=== PATIENT | female | born 1945 | race Caucasian/White ===

== ENCOUNTER 2018-01-21 17:22 | Inpatient (IN) | payer MEDICARE, MEDICAID ==
[~2018-01-21] VITALS: Ht 167.6 cm; Wt 81.7 kg
--- NOTE | 2018-01-21 17:51 | EKG ---
[address] [address] Test Date: 2018-01-21 Test Time: 17:43:05 Pat Name: JOSETTE MARTINEZ Department: Room: Gender: F Rate Reviewer: THEO : 1945 Requested By: NEHA DANIEL Order Number: [id number] Reading MD: Davi Alvarez Measurements Intervals [place] Rate: 60 P: 39 AL: 170 QRS: -25 QRSD: 136 T: -159 QT: 452 QTc: 452 Interpretive Statements SINUS RHYTHM LEFTWARD AXIS NON SPECIFIC INTRAVENTRICULAR BLOCK ABNORMAL ECG RI6.01 No previous ECG available for comparison Electronically Signed On 02-03-2018 16:07:23 CDT by Davi Alvarez
--- NOTE | 2018-01-21 18:33 | PHYS DOC ---
Adult General Chief Complaint Chief Complaint: PSYCH EVALUATION HPI HPI Patient is a 72 year old F who presents with [facility] psych clearance. [facility] to be admitted to [facility]. Patient has no family at bedside. Patient is alert and oriented to person only. Review of Systems Review of Systems Review of systems Limited secondary to patient's clinical condition All other systems were reviewed and found to be within normal limits, except as documented in this note. Physical Exam Physical Exam GEN.: No apparent distress. Alert and oriented. HEENT: Head is normocephalic, atraumatic NECK: Supple. LUNGS: CTAB. HEART: RRR, S1, S2 present. Peripheral pulses intact ABDOMEN: Soft, nontender. Positive bowel sounds. EXTREMITIES: Without any cyanosis. NEUROLOGIC: AOx1 with no gross neuro deficits PSYCHIATRIC: Confused SKIN: No ulcerations Current Patient Data Vital Signs Laboratory Tests Test 01/21/18 17:30 01/21/18 17:50 Urine Collection Type Unknown Urine Color Yellow Urine Clarity Cloudy Urine pH 8.0 Urine Specific [place] 1.015 Urine Protein Trace Urine Glucose (UA) Neg mg/dL Urine Ketones (Stick) Neg mg/dL Urine Blood Trace Urine Nitrite Pos Urine Bilirubin Neg Urine Urobilinogen Dipstick 0.2 mg/dL Urine Leukocyte Esterase Large Urine RBC 20-40 /HPF Urine WBC >40 /HPF Urine Squamous Epithelial Cells Few /LPF Urine Amorphous Sediment Present /HPF Urine Bacteria Many /HPF White Blood Count 4.8 x10^3/uL Red Blood Count 3.51 x10^6/uL Hemoglobin 9.7 g/dL Hematocrit 30.0 % Mean Corpuscular Volume 86 fL Mean Corpuscular Hemoglobin 28 pg Mean Corpuscular Hemoglobin Concent 32 g/dL Red Cell Distribution Width 14.2 % Platelet Count 183 x10^3/uL Neutrophils (%) (Auto) 52 % Lymphocytes (%) (Auto) 35 % Monocytes (%) (Auto) 10 % Eosinophils (%) (Auto) 2 % Basophils (%) (Auto) 1 % Neutrophils # (Auto) 2.5 x10^3uL Lymphocytes # (Auto) 1.7 x10^3/uL Monocytes # (Auto) 0.5 x10^3/uL Eosinophils # (Auto) 0.1 x10^3/uL Basophils # (Auto) 0.0 x10^3/uL Sodium Level 138 mmol/L Potassium Level 3.7 mmol/L Chloride Level 105 mmol/L Carbon Dioxide Level 25 mmol/L Anion Gap 8 Blood Urea Nitrogen 24 mg/dL Creatinine 1.2 mg/dL Estimated GFR (Cockcroft-Gault) 44.3 BUN/Creatinine Ratio 20 Glucose Level 133 mg/dL Calcium Level 10.0 mg/dL Total Bilirubin 0.1 mg/dL Aspartate Amino Transf (AST/SGOT) 18 U/L Alanine Aminotransferase (ALT/SGPT) 17 U/L Alkaline Phosphatase 41 U/L Total Protein 6.8 g/dL Albumin 3.1 g/dL Albumin/Globulin Ratio 0.8 EKG EKG 1743: EKG shows normal sinus rhythm rate of 16 no STEMI[] Radiology/Procedures Radiology/Procedures Chest x-ray NAD[] Course & Med Decision Making Course & Med Decision Making Pertinent Labs and Imaging studies reviewed. (See chart for details) ED course: Patient was seen and examined emergency room basic blood work was ordered for [facility] psych clearance It appears the patient has a UTI therefore 1 g Rocephin was given IM MDM: After reviewing the chart, CC/HPI/PMH, physical exam, [lab results], [ radiological results], I do not believe the patient has emergent medical condition warranting further workup and/or admission at this time. I believe patient stable to be transferred to [facility]. [] Dragon Disclaimer Dragon Disclaimer This electronic medical record was generated, in whole or in part, using a voice recognition dictation system. Departure Departure: Impression: Primary Impression: Dementia Additional Impression: UTI (urinary tract infection) Disposition: 65 XFER TO PSYCH HOSP/UNIT Condition: LEFT WITHOUT BEING SEEN Referrals: CHRISTIN THURSTON MD (PCP) Problem Qualifiers NEHA DANIEL DO Jan 21, 2018 18:33
[2018-01-21 18:35] LABS: BASO % 1 % (0-3); EOS # 0.1 x10^3/uL (0.0-0.7); EOS % 2 % (0-3); HEMOGLOBIN 9.7 g/dL (12.0-15.5); LYMPH # 1.7 x10^3/uL (1.0-4.8); LYMPH % 35 % (24-48); MEAN CORPUSCULAR HEMOGLOBIN 28 pg (25-35); MEAN CORPUSCULAR HGB CONC 32 g/dL (31-37); MEAN CORPUSCULAR VOLUME 86 fL (79-100); MONO # 0.5 x10^3/uL (0.0-1.1); MONO % 10 % (0-9); NEUT # 2.5 x10^3uL (1.8-7.7); NEUT % 52 % (31-73); PLATELET COUNT 183 x10^3/uL (140-400); RED BLOOD COUNT 3.51 x10^6/uL (3.50-5.40); RED CELL DISTRIBUTION WIDTH 14.2 % (11.5-14.5); WHITE BLOOD COUNT 4.8 x10^3/uL (4.0-11.0)
--- NOTE | 2018-01-21 18:43 | RAD ---
PORTABLE CHEST 1V Clinical indications: ALTERED MENTAL STATUS COMPARISON: None available. Findings: No acute lung infiltrate or pleural effusion or pulmonary edema or lung mass or pneumothorax is seen. The heart size, pulmonary vasculature, mediastinum and both paz are unremarkable. Surgical fixation hardware is seen within the proximal left humerus. Impression: No acute radiographic abnormality is seen. Electronically signed by: Rl Flores MD (01/21/2018 6:39 PM) [facility]
[2018-01-21 18:49] LABS: ALBUMIN 3.1 g/dL (3.4-5.0); ALBUMIN/GLOBULIN RATIO 0.8 (1.0-1.7); CREATININE 1.2 mg/dL (0.6-1.0); GFR 44.3; POTASSIUM 3.7 mmol/L (3.5-5.1); TOTAL BILIRUBIN 0.1 mg/dL (0.2-1.0); TOTAL PROTEIN 6.8 g/dL (6.4-8.2)
[2018-01-21 18:55] LABS: BILIRUBIN,URINE NEG (NEG); CLARITY,URINE CLOUDY; COLOR,URINE YELLOW; GLUCOSE,URINE NEG (NEG); NITRITE,URINE POS (NEG); UROBILINOGEN,URINE 0.2 mg/dL (0.2 mg/dL)
[2018-01-21 18:56] LABS: BACTERIA,URINE MANY /HPF (0-FEW); RBC,URINE 20-40 /HPF (0-2); SQUAMOUS EPITHELIAL CELL,UR FEW /LPF; WBC,URINE >40 /HPF (0-4)
[2018-01-21 18:57] LABS: AMORPHOUS SEDIMENT,UR PRESENT /HPF
[2018-01-21] MEDS ORDERED: cefTRIAXone IM 1 GM VIAL IM ONE (19:15)
[2018-01-21] MEDS ORDERED: BROMPHENIRAMINE PO PRN (22:00)
[2018-01-21] MEDS ORDERED: PSEUDOEPHEDRINE PO PRN (22:00)
[2018-01-21] MEDS ORDERED: CETIRIZINE HCL 10 MG TABLET PO PRN (22:00)
[2018-01-21] MEDS ORDERED: DIVALPROEX ER 500 MG TAB.ER.24H PO SCH (22:00)
[2018-01-21] MEDS ORDERED: TOPI100T8 PO (22:05)
[2018-01-21] MEDS ORDERED: POLY17PO5 PO (22:05)
[2018-01-21] MEDS ORDERED: OXYB10TA7 PO (22:05)
[2018-01-21] MEDS ORDERED: INSU100I17 SQ (22:05)
[2018-01-21] MEDS ORDERED: CYAN500T17 PO (22:05)
[2018-01-21] MEDS ORDERED: METF850T2 PO (22:05)
[2018-01-21] MEDS ORDERED: ATOR20TA58 PO (22:05)
[2018-01-21] MEDS ORDERED: FLUV50TA2 PO (22:05)
[2018-01-21] MEDS ORDERED: PANT20TA58 PO (22:05)
[2018-01-21] MEDS ORDERED: ACET500T68 PO (22:05)
[2018-01-21] MEDS ORDERED: FENO134C PO (22:05)
[2018-01-21] MEDS ORDERED: HYDR-2762 PO (22:05)
[2018-01-21] MEDS ORDERED: ASPI-630 PO (22:05)
[2018-01-21] MEDS ORDERED: BUSP10TA PO (22:05)
[2018-01-21] MEDS ORDERED: CETI10TA16 PO (22:05)
[2018-01-21] MEDS ORDERED: FERR325T14 PO (22:05)
[2018-01-21] MEDS ORDERED: [UNRECOGNIZED DRUG - CODE] PO (22:05)
[2018-01-21] MEDS ORDERED: INSU100I27 SQ (22:05)
[2018-01-21] MEDS ORDERED: NYST60PO TP (22:05)
[2018-01-21] MEDS ORDERED: LACT1CAP2 PO (22:05)
[2018-01-21] MEDS ORDERED: DIVA500T4 PO (22:05)
[2018-01-21] MEDS ORDERED: FLUV100T2 PO (22:05)
[2018-01-21] MEDS ORDERED: LEVO125T5 PO (22:05)
[2018-01-21] MEDS ORDERED: CALC1TAB75 PO (22:05)
[2018-01-21] MEDS ORDERED: METO25TA4 PO (22:05)
[2018-01-21] MEDS ORDERED: MAGN400C PO (22:05)
[2018-01-21] MEDS ORDERED: MEMA14CA PO (22:08)
[2018-01-21] MEDS ORDERED: MEMA7CAP PO (22:08)
[2018-01-21] MEDS ORDERED: RISP1TAB3 PO (22:08)
[2018-01-21 22:33] VITALS: BP 131/73
[2018-01-22] MEDS: MEMANTINE 5 MG TABLET. PO SCH ×3 (00:14→19:55)
[2018-01-22] MEDS: TOPIRAMATE 100 MG TABLET. PO SCH ×4 (00:14→19:58)
[2018-01-22] MEDS: ACETAMINOPHEN 500 MG TABLET PO SCH ×3 (00:14→19:56)
[2018-01-22] MEDS: busPIRone 10 MG TABLET. PO SCH ×3 (00:14→19:58)
[2018-01-22] MEDS: OXYBUTYNIN CHLORIDE 5 MG TABLET PO SCH ×3 (00:14→19:58)
[2018-01-22] MEDS ORDERED: NYSTATIN TOPICAL POWDER 15GM BOTTLE. TP PRN (00:15)
[2018-01-22] MEDS: INSULIN GLARGINE 300 UNITS/3 ML INSULN.PEN. SQ SCH ×2 (00:17→20:03)
[2018-01-22] MEDS: HYDROcodone/APAP 7.5/325MG 1 TAB TABLET PO PRN (03:44)
[2018-01-22] MEDS ORDERED: MAG HYDROX/AL HYDROX/SIMETH 30 ML ORAL.SUSP PO PRN (05:00)
[2018-01-22] MEDS ORDERED: METHYL SALICYLATE/MENTHOL TOPICAL OINTMENT 29GM TUBE. TP PRN (05:00)
[2018-01-22] MEDS ORDERED: MAGNESIUM HYDROXIDE 2,400 MG/30 ML ORAL.SUSP. PO PRN (05:00)
[2018-01-22 05:31] VITALS: BP 130/75
[2018-01-22] MEDS: LEVOTHYROXINE 125 MCG TABLET PO SCH (05:42)
[2018-01-22] MEDS ORDERED: PANTOPRAZOLE 40 MG TABLET. PO PRN (07:30)
[2018-01-22] MEDS: INSULIN LISPRO 300 UNITS/3 ML INSULN.PEN. SQ SCH ×3 (08:00→17:00)
[2018-01-22 08:01] LABS: ALBUMIN 3.4 g/dL (3.4-5.0); ALBUMIN/GLOBULIN RATIO 0.9 (1.0-1.7); CALCIUM 10.2 mg/dL (8.5-10.1); CREATININE 1.1 mg/dL (0.6-1.0); MAGNESIUM 2.1 mg/dL (1.8-2.4); POTASSIUM 4.2 mmol/L (3.5-5.1); TOTAL BILIRUBIN 0.2 mg/dL (0.2-1.0); TOTAL PROTEIN 7.4 g/dL (6.4-8.2)
[2018-01-22 08:03] LABS: BASO % 1 % (0-3); EOS # 0.1 x10^3/uL (0.0-0.7); EOS % 2 % (0-3); HEMATOCRIT 32.6 % (36.0-47.0); HEMOGLOBIN 10.3 g/dL (12.0-15.5); LYMPH # 1.5 x10^3/uL (1.0-4.8); LYMPH % 33 % (24-48); MEAN CORPUSCULAR HEMOGLOBIN 27 pg (25-35); MEAN CORPUSCULAR HGB CONC 32 g/dL (31-37); MEAN CORPUSCULAR VOLUME 86 fL (79-100); MONO # 0.4 x10^3/uL (0.0-1.1); MONO % 8 % (0-9); NEUT # 2.6 x10^3uL (1.8-7.7); NEUT % 56 % (31-73); PLATELET COUNT 213 x10^3/uL (140-400); RED BLOOD COUNT 3.79 x10^6/uL (3.50-5.40); RED CELL DISTRIBUTION WIDTH 14.5 % (11.5-14.5); WHITE BLOOD COUNT 4.6 x10^3/uL (4.0-11.0)
[2018-01-22 08:19] LABS: VAL ACID 39 mcg/mL (50-100)
[2018-01-22] MEDS: ASPIRIN 81 MG TAB.CHEW PO SCH (08:19)
[2018-01-22] MEDS: MAGNESIUM OXIDE 400 MG TABLET PO SCH (08:20)
[2018-01-22] MEDS: CYANOCOBALAMIN (VITAMIN B-12) 250 MCG TABLET PO SCH (08:21)
[2018-01-22] MEDS: metFORMIN 850 MG TABLET PO SCH ×2 (08:22→17:22)
[2018-01-22] MEDS: METOPROLOL TART IMMED RELEASE 25 MG TABLET PO SCH (08:22)
[2018-01-22] MEDS: FERROUS SULFATE 325 MG TABLET. PO SCH (08:22)
[2018-01-22] MEDS: LACTOBACILLUS RHAMNOSUS GG 1 CAPSULE. PO SCH ×2 (08:23→19:55)
[2018-01-22] MEDS: risperiDONE 1 MG TABLET. PO SCH (08:23)
[2018-01-22] MEDS: ATORVASTATIN CALCIUM 20 MG TABLET PO SCH (08:23)
[2018-01-22] MEDS: CALCIUM CARB/VIT D3 500/200 TABLET PO SCH (08:23)
[2018-01-22] MEDS: FENOFIBRATE NANOCRYSTALLIZED 145 MG TABLET PO SCH (08:23)
[2018-01-22] MEDS: POLYETHYLENE GLYCOL 3350 17 GM PACKET. PO SCH (08:24)
[2018-01-22] MEDS ORDERED: FLUVOXAMINE MALEATE 50 MG PO SCH (09:00)
[2018-01-22] MEDS ORDERED: MEMANTINE HCL 7 MG PO SCH (09:00)
[2018-01-22 14:44] LABS: THYROID STIM HORMONE (TSH) 1.293 uIU/mL (0.358-3.740)
[2018-01-22 16:21] VITALS: BP 134/71
[2018-01-22] MEDS: CHOLECALCIFEROL (VITAMIN D3) 50,000 UNIT CAPSULE PO SCH (18:25)
--- NOTE | 2018-01-22 18:29 | PDOC ---
Exam Note: Hemant Note: Please also refer to the separate dictated note~for this date of service dictated separately.~Patient seen individually. Discussed the patient with Nursing staff reviewed the chart.~Reviewed interim history and current functioning. Reviewed vital signs,~Labs/ Radiology~and current medications noted below. Continue current treatment with the changes noted in the dictated addendum note Assessment: Vital Signs: Vital Signs Date Time Temp Pulse Resp B/P (MAP) Pulse Ox O2 Delivery O2 Flow Rate FiO2 01/22/18 16:21 97.9 79 16 134/71 (92) 99 Room Air I&O Intake and Output 01/22/18 07:00 # Bowel Movements 1 Labs: Laboratory Tests Test 01/22/18 07:08 01/22/18 07:30 01/22/18 11:32 01/22/18 16:39 White Blood Count 4.6 x10^3/uL (4.0-11.0) Red Blood Count 3.79 x10^6/uL (3.50-5.40) Hemoglobin 10.3 g/dL (12.0-15.5) L Hematocrit 32.6 % (36.0-47.0) L Mean Corpuscular Volume 86 fL (79-100) Mean Corpuscular Hemoglobin 27 pg (25-35) Mean Corpuscular Hemoglobin Concent 32 g/dL (31-37) Red Cell Distribution Width 14.5 % (11.5-14.5) Platelet Count 213 x10^3/uL (140-400) Neutrophils (%) (Auto) 56 % (31-73) Lymphocytes (%) (Auto) 33 % (24-48) Monocytes (%) (Auto) 8 % (0-9) Eosinophils (%) (Auto) 2 % (0-3) Basophils (%) (Auto) 1 % (0-3) Neutrophils # (Auto) 2.6 x10^3uL (1.8-7.7) Lymphocytes # (Auto) 1.5 x10^3/uL (1.0-4.8) Monocytes # (Auto) 0.4 x10^3/uL (0.0-1.1) Eosinophils # (Auto) 0.1 x10^3/uL (0.0-0.7) Basophils # (Auto) 0.0 x10^3/uL (0.0-0.2) Sodium Level 141 mmol/L (136-145) Potassium Level 4.2 mmol/L (3.5-5.1) Chloride Level 106 mmol/L (98-107) Carbon Dioxide Level 23 mmol/L (21-32) Anion Gap 12 (6-14) Blood Urea Nitrogen 19 mg/dL (7-20) Creatinine 1.1 mg/dL (0.6-1.0) H Estimated GFR (Cockcroft-Gault) 49.0 BUN/Creatinine Ratio 17 (6-20) Glucose Level 118 mg/dL (70-99) H Calcium Level 10.2 mg/dL (8.5-10.1) H Magnesium Level 2.1 mg/dL (1.8-2.4) Iron Level 55 ug/dL (50-170) Total Iron Binding Capacity 438 ug/dL (250-450) Iron Saturation 13 % (15-34) L Total Bilirubin 0.2 mg/dL (0.2-1.0) # Aspartate Amino Transferase (AST) 17 U/L (15-37) Alanine Aminotransferase (ALT) 16 U/L (14-59) Alkaline Phosphatase 37 U/L (46-116) L Total Protein 7.4 g/dL (6.4-8.2) Albumin 3.4 g/dL (3.4-5.0) Albumin/Globulin Ratio 0.9 (1.0-1.7) L Triglycerides Level 164 mg/dL (0-150) H Cholesterol Level 127 mg/dL (0-200) LDL Cholesterol, Calculated 50 mg/dL (0-100) VLDL Cholesterol, Calculated 32 mg/dL (0-40) Non-HDL Cholesterol Calculated 82 mg/dL (0-129) HDL Cholesterol 45 mg/dL (40-60) Cholesterol/HDL Ratio 2.0 Vitamin B12 Level 457 pg/mL (247-911) 25-Hydroxy Vitamin D Total 23.9 ng/mL (30-100) L Thyroid Stimulating Hormone (TSH) 1.293 uIU/mL (0.358-3.740) Valproic Acid Level 39 mcg/mL (50-100) L Valproic Acid Last Dose Date 01/22/2018 Valproic Acid Last Dose Time 0000 Glucose (Fingerstick) 108 mg/dL (70-99) H 132 mg/dL (70-99) H 139 mg/dL (70-99) H Current Medications: Meds: Current Medications Ceftriaxone Sodium (Rocephin Im) 1 gm 1X ONCE IM Last administered on 19:18; Start 01/21/18 at 19:15; Stop 01/21/18 at 19:16; Status DC Acetaminophen (Tylenol) 500 mg BID PO Last administered on 01/22/18at 08:13; Start 01/21/18 at 22:00 Aspirin (Children'S Aspirin) 81 mg DAILY PO Last administered on 01/22/18 08: 19; Start 01/22/18 at 09:00 Cetirizine HCl (ZyrTEC) 10 mg PRN DAILY PRN PO ALLERGIES; Start 01/21/18 at 22: 00 Ferrous Sulfate (Feosol) 325 mg DAILY PO Last administered on 01/22/18at 08:22; Start 01/22/18 at 09:00 Acetaminophen/ Hydrocodone Bitart (Lortab 7.5/325) 1 tab PRN Q6HRS PRN PO MOD/ SEVERE PAIN Last administered on 01/22/18at 03:44; Start 01/21/18 at 22:00 Levothyroxine Sodium (Synthroid) 125 mcg DAILY06 PO Last administered on 05:42; Start 01/22/18 at 06:00 Metformin HCl (Glucophage) 850 mg BIDWMEALS PO Last administered on 01/22/18 17:22; Start 01/22/18 at 08:00 Metoprolol Tartrate (Lopressor) 25 mg DAILY PO Last administered on 01/22/18at 08:22; Start 01/22/18 at 09:00 Nystatin (Nystop) 1 soniya PRN BID PRN TP RASH; Start 01/21/18 at 22:00 Polyethylene Glycol (miraLAX) 17 gm DAILY PO Last administered on 01/22/18at 08: 24; Start 01/22/18 at 09:00 Topiramate (Topamax) 100 mg TID PO Last administered on 01/22/18at 14:44; Start 01/21/18 at 22:00 Calcium/Vitamin D (Oscal D 500mg/ 200uts) 1 tab DAILY PO Last administered on at 08:23; Start 01/22/18 at 09:00 Cyanocobalamin (Vitamin B-12) 250 mcg DAILY PO Last administered on 01/22/18 08:21; Start 01/22/18 at 09:00 Fenofibrate (Tricor) 145 mg DAILY PO Last administered on 01/22/18 08:23; Start 01/22/18 at 09:00 Insulin Glargine (Lantus) 24 units QHS SQ Last administered on 01/22/18 00:17 ; Start 01/21/18 at 22:00 Lactobacillus Rhamnosus (Culturelle) 1 cap BID PO Last administered on 08:23; Start 01/22/18 at 09:00 Magnesium Oxide (Magnesium Oxide) 200 mg DAILY PO Last administered on 08:20; Start 01/22/18 at 09:00 Oxybutynin Chloride (Ditropan) 5 mg BID PO Last administered on 01/22/18at 08:13 ; Start 01/21/18 at 22:00 Pantoprazole Sodium (Protonix) 40 mg PRN DAILY PRN PO NEEDED BEFORE A MEAL; Start 01/22/18 at 07:30 Non-Formulary Medication (Pseudoephedrine/ Brompheniramin (Rynex Pse Liquid)) 5 ml PRN TID PRN PO COUGH; Start 01/21/18 at 22:00; Stop 01/21/18 at 22:36; Status DC Atorvastatin Calcium (Lipitor) 20 mg DAILY PO Last administered on 01/22/18 08 :23; Start 01/22/18 at 09:00 Buspirone HCl (Buspar) 10 mg BID PO Last administered on 01/22/18at 08:13; Start 01/21/18 at 22:00 Divalproex Sodium (Depakote Er) 500 mg HS PO Last administered on 01/22/18 00: 15; Start 01/21/18 at 22:00; Stop 01/22/18 at 18:18; Status DC Fluvoxamine Maleate (Luvox) 100 mg QHS PO Last administered on 01/22/18at 00:15 ; Start 01/21/18 at 22:00 Risperidone (RisperDAL) 1 mg DAILY PO Last administered on 01/22/18 08:23; Start 01/22/18 at 09:00 Non-Formulary Medication (Fluvoxamine Maleate ) 50 mg DAILY PO ; Start 01/22/18 at 09:00; Stop 01/22/18 at 09:00; Status DC Non-Formulary Medication (Memantine Hcl (Namenda Xr)) 7 mg DAILY PO ; Start at 09:00; Stop 01/22/18 at 09:00; Status DC Memantine (Namenda) 5 mg BID PO Last administered on 01/22/18at 08:13; Start at 22:00 Insulin Human Lispro (HumaLOG) 0-10 UNITS TIDWMEALS SQ ; Start 01/22/18 at 08:00 Nystatin (Nystop) 1 soniya PRN BID PRN TP RASH; Start 01/22/18 at 00:15; Status Cancel Acetaminophen (Tylenol) 650 mg PRN Q6HRS PRN PO PAIN / TEMP; Start 01/22/18 at 05:00 Multi-Ingredient Ointment (Analgesic [place]) 1 soniya PRN QID PRN TP MUSCLE PAIN; Start 01/22/18 at 05:00 Al Hydroxide/Mg Hydroxide (Mylanta Plus Xs) 15 ml PRN AFTMEALHC PRN PO DYSPEPSIA; Start 01/22/18 at 05:00 Magnesium Hydroxide (Milk Of Magnesia) 2,400 mg PRN QHS PRN PO CONSTIPATION; Start 01/22/18 at 05:00 Vitamin D (Vitamin D3) 50,000 unit WEEKLY PO Last administered on 01/22/18at 18: 25; Start 01/22/18 at 18:00 Fluconazole (Diflucan) 100 mg DAILY PO ; Start 01/23/18 at 09:00 Cefpodoxime Proxetil (Vantin) 200 mg BID PO ; Start 01/22/18 at 21:00 Lactobacillus Rhamnosus (Culturelle) 1 cap BID PO ; Start 01/22/18 at 21:00; Stop 01/22/18 at 21:00; Status DC Divalproex Sodium (Depakote Er) 500 mg HS PO ; Start 01/22/18 at 21:00 Divalproex Sodium (Depakote Er) 250 mg QHS PO ; Start 01/22/18 at 21:00 Active Scripts Active Reported Risperidone 1 Mg Tablet 1 Mg PO DAILY Namenda Xr (Memantine Hcl) 14 Mg Cap.spr.24 14 Mg PO DAILY Namenda Xr (Memantine Hcl) 7 Mg Cap.spr.24 7 Mg PO DAILY Depakote Er (Divalproex Sodium) 500 Mg Tab.er.24h 500 Mg PO HS Buspirone Hcl 10 Mg Tablet 10 Mg PO BID Fenofibrate (Fenofibrate,Micronized) 134 Mg Capsule 134 Mg PO DAILY Fluvoxamine Maleate 100 Mg Tablet 1 Tab PO QHS Levemir Flextouch (Insulin Detemir) 100 Unit/1 Ml Insuln.pen 24 Unit SQ HS Novolog Flexpen (Insulin Aspart) 100 Unit/1 Ml Insuln.pen 0-10 Unit SQ TIDAC SLIDING SCALE INSULIN Magnesium (Magnesium Oxide) 400 Mg Capsule 250 Mg PO DAILY Levothyroxine Sodium 125 Mcg Tablet 125 Mcg PO DAILY06 Atorvastatin Calcium 20 Mg Tablet 20 Mg PO DAILY Fluvoxamine Maleate 50 Mg Tablet 50 Mg PO DAILY Acetaminophen 500 Mg Tablet 500 Mg PO BID Calcium 600 + Vit D 200 Tablet (Calcium Carbonate/Vitamin D3) 1 Each Tablet 1 Each PO DAILY B-12 (Cyanocobalamin (Vitamin B-12)) 500 Mcg Tablet 250 Mcg PO DAILY Acidophilus (Lactobacillus Acidophilus) 1 Each Capsule 1 Each PO BID Metformin Hcl 850 Mg Tablet 850 Mg PO BIDWMEALS Ferrous Sulfate 325 Mg Tablet 1 Tab PO DAILY Topiramate 100 Mg Tablet 100 Mg PO TID Metoprolol Tartrate 25 Mg Tablet 25 Mg PO DAILY Ditropan Xl (Oxybutynin Chloride) 10 Mg Tab.er.24 10 Mg PO DAILY Miralax (Polyethylene Glycol 3350) 17 Gm Powd.pack 17 Gm PO DAILY Aspirin 81 Mg Tab.chew 81 Mg PO DAILY Cetirizine Hcl 10 Mg Tablet 10 Mg PO PRN DAILY PRN Hydrocodone-Apap 7.5-325 (Hydrocodone Bit/Acetaminophen) 1 Each Tablet 1 Tab PO PRN Q6HRS PRN Rynex Pse Liquid (Pseudoephedrine/Brompheniramin) 473 Ml Liquid 5 Ml PO PRN TID PRN Protonix (Pantoprazole Sodium) 20 Mg Tablet.dr 20 Mg PO PRN DAILY PRN Nystop (Nystatin) 60 Gm Powder 1 Soniya TP PRN BID PRN I have reviewed the current psychotropics carefully including drug interactions. Risk benefit ratio favors no change other than as noted in my dictated progress note. Diagnosis: Problems: (1) Borderline intellectual disability (2) Anxiety disorder (3) Bipolar affective disorder, mixed (4) Dementia in Alzheimer's disease with delusions (5) Impulse control disorder (6) Borderline intellectual disability LAURITA DAVIS MD Jan 22, 2018 18:29
[2018-01-22 19:15] LABS: T3 TOTAL 90 ng/dL (71-180); THYROXINE 9.2 ug/dL (4.5-12.0)
[2018-01-22] MEDS: DIVALPROEX ER 500 MG TAB.ER.24H PO SCH (19:56)
[2018-01-22] MEDS: DIVALPROEX ER 250 MG TAB.ER.24H. PO SCH (19:57)
[2018-01-22] MEDS: CEFPODOXIME PROXETIL 100 MG TABLET PO SCH (20:01)
[2018-01-22] MEDS ORDERED: LACTOBACILLUS RHAMNOSUS GG 1 CAPSULE. PO SCH (21:00)
--- NOTE | 2018-01-22 21:07 | PDOC ---
Exam Note: Hemant Note: Please also refer to the separate dictated note~for this date of service dictated separately.~Patient seen individually. Discussed the patient with Nursing staff reviewed the chart.~Reviewed interim history and current functioning. Reviewed vital signs,~Labs/ Radiology~and current medications noted below. Continue current treatment with the changes noted in the dictated addendum note Assessment: Vital Signs: Vital Signs Date Time Temp Pulse Resp B/P (MAP) Pulse Ox O2 Delivery O2 Flow Rate FiO2 01/22/18 16:21 97.9 79 16 134/71 (92) 99 Room Air I&O Intake and Output 01/22/18 07:00 # Bowel Movements 1 Labs: Laboratory Tests Test 01/22/18 07:08 01/22/18 07:30 01/22/18 11:32 01/22/18 16:39 White Blood Count 4.6 x10^3/uL (4.0-11.0) Red Blood Count 3.79 x10^6/uL (3.50-5.40) Hemoglobin 10.3 g/dL (12.0-15.5) L Hematocrit 32.6 % (36.0-47.0) L Mean Corpuscular Volume 86 fL (79-100) Mean Corpuscular Hemoglobin 27 pg (25-35) Mean Corpuscular Hemoglobin Concent 32 g/dL (31-37) Red Cell Distribution Width 14.5 % (11.5-14.5) Platelet Count 213 x10^3/uL (140-400) Neutrophils (%) (Auto) 56 % (31-73) Lymphocytes (%) (Auto) 33 % (24-48) Monocytes (%) (Auto) 8 % (0-9) Eosinophils (%) (Auto) 2 % (0-3) Basophils (%) (Auto) 1 % (0-3) Neutrophils # (Auto) 2.6 x10^3uL (1.8-7.7) Lymphocytes # (Auto) 1.5 x10^3/uL (1.0-4.8) Monocytes # (Auto) 0.4 x10^3/uL (0.0-1.1) Eosinophils # (Auto) 0.1 x10^3/uL (0.0-0.7) Basophils # (Auto) 0.0 x10^3/uL (0.0-0.2) Sodium Level 141 mmol/L (136-145) Potassium Level 4.2 mmol/L (3.5-5.1) Chloride Level 106 mmol/L (98-107) Carbon Dioxide Level 23 mmol/L (21-32) Anion Gap 12 (6-14) Blood Urea Nitrogen 19 mg/dL (7-20) Creatinine 1.1 mg/dL (0.6-1.0) H Estimated GFR (Cockcroft-Gault) 49.0 BUN/Creatinine Ratio 17 (6-20) Glucose Level 118 mg/dL (70-99) H Calcium Level 10.2 mg/dL (8.5-10.1) H Magnesium Level 2.1 mg/dL (1.8-2.4) Iron Level 55 ug/dL (50-170) Total Iron Binding Capacity 438 ug/dL (250-450) Iron Saturation 13 % (15-34) L Total Bilirubin 0.2 mg/dL (0.2-1.0) # Aspartate Amino Transferase (AST) 17 U/L (15-37) Alanine Aminotransferase (ALT) 16 U/L (14-59) Alkaline Phosphatase 37 U/L (46-116) L Total Protein 7.4 g/dL (6.4-8.2) Albumin 3.4 g/dL (3.4-5.0) Albumin/Globulin Ratio 0.9 (1.0-1.7) L Triglycerides Level 164 mg/dL (0-150) H Cholesterol Level 127 mg/dL (0-200) LDL Cholesterol, Calculated 50 mg/dL (0-100) VLDL Cholesterol, Calculated 32 mg/dL (0-40) Non-HDL Cholesterol Calculated 82 mg/dL (0-129) HDL Cholesterol 45 mg/dL (40-60) Cholesterol/HDL Ratio 2.0 Vitamin B12 Level 457 pg/mL (247-911) 25-Hydroxy Vitamin D Total 23.9 ng/mL (30-100) L Thyroid Stimulating Hormone (TSH) 1.293 uIU/mL (0.358-3.740) Thyroxine (T4) 9.2 ug/dL (4.5-12.0) Total Triiodothyronine (TT3) 90 ng/dL (71-180) Valproic Acid Level 39 mcg/mL (50-100) L Valproic Acid Last Dose Date 01/22/2018 Valproic Acid Last Dose Time 0000 Rapid Plasma Reagin Pending Glucose (Fingerstick) 108 mg/dL (70-99) H 132 mg/dL (70-99) H 139 mg/dL (70-99) H Test 01/22/18 19:25 Glucose (Fingerstick) 214 mg/dL (70-99) H Current Medications: Meds: Current Medications Ceftriaxone Sodium (Rocephin Im) 1 gm 1X ONCE IM Last administered on 19:18; Start 01/21/18 at 19:15; Stop 01/21/18 at 19:16; Status DC Acetaminophen (Tylenol) 500 mg BID PO Last administered on 01/22/18 19:56; Start 01/21/18 at 22:00 Aspirin (Children'S Aspirin) 81 mg DAILY PO Last administered on 01/22/18 08: 19; Start 01/22/18 at 09:00 Cetirizine HCl (ZyrTEC) 10 mg PRN DAILY PRN PO ALLERGIES; Start 01/21/18 at 22: 00 Ferrous Sulfate (Feosol) 325 mg DAILY PO Last administered on 01/22/18at 08:22; Start 01/22/18 at 09:00 Acetaminophen/ Hydrocodone Bitart (Lortab 7.5/325) 1 tab PRN Q6HRS PRN PO MOD/ SEVERE PAIN Last administered on 01/22/18at 03:44; Start 01/21/18 at 22:00 Levothyroxine Sodium (Synthroid) 125 mcg DAILY06 PO Last administered on at 05:42; Start 01/22/18 at 06:00 Metformin HCl (Glucophage) 850 mg BIDWMEALS PO Last administered on 01/22/18 17:22; Start 01/22/18 at 08:00 Metoprolol Tartrate (Lopressor) 25 mg DAILY PO Last administered on 01/22/18at 08:22; Start 01/22/18 at 09:00 Nystatin (Nystop) 1 soniya PRN BID PRN TP RASH; Start 01/21/18 at 22:00 Polyethylene Glycol (miraLAX) 17 gm DAILY PO Last administered on 01/22/18at 08: 24; Start 01/22/18 at 09:00 Topiramate (Topamax) 100 mg TID PO Last administered on 01/22/18 19:58; Start 01/21/18 at 22:00 Calcium/Vitamin D (Oscal D 500mg/ 200uts) 1 tab DAILY PO Last administered on 08:23; Start 01/22/18 at 09:00 Cyanocobalamin (Vitamin B-12) 250 mcg DAILY PO Last administered on 01/22/18 08:21; Start 01/22/18 at 09:00 Fenofibrate (Tricor) 145 mg DAILY PO Last administered on 01/22/18 08:23; Start 01/22/18 at 09:00 Insulin Glargine (Lantus) 24 units QHS SQ Last administered on 01/22/18 20:03 ; Start 01/21/18 at 22:00 Lactobacillus Rhamnosus (Culturelle) 1 cap BID PO Last administered on 19:55; Start 01/22/18 at 09:00 Magnesium Oxide (Magnesium Oxide) 200 mg DAILY PO Last administered on at 08:20; Start 01/22/18 at 09:00 Oxybutynin Chloride (Ditropan) 5 mg BID PO Last administered on 01/22/18 19:58 ; Start 01/21/18 at 22:00 Pantoprazole Sodium (Protonix) 40 mg PRN DAILY PRN PO NEEDED BEFORE A MEAL; Start 01/22/18 at 07:30 Non-Formulary Medication (Pseudoephedrine/ Brompheniramin (Rynex Pse Liquid)) 5 ml PRN TID PRN PO COUGH; Start 01/21/18 at 22:00; Stop 01/21/18 at 22:36; Status DC Atorvastatin Calcium (Lipitor) 20 mg DAILY PO Last administered on 01/22/18 08 :23; Start 01/22/18 at 09:00 Buspirone HCl (Buspar) 10 mg BID PO Last administered on 01/22/18 19:58; Start 01/21/18 at 22:00 Divalproex Sodium (Depakote Er) 500 mg HS PO Last administered on 01/22/18at 00: 15; Start 01/21/18 at 22:00; Stop 01/22/18 at 18:18; Status DC Fluvoxamine Maleate (Luvox) 100 mg QHS PO Last administered on 01/22/18at 19:58 ; Start 01/21/18 at 22:00 Risperidone (RisperDAL) 1 mg DAILY PO Last administered on 01/22/18at 08:23; Start 01/22/18 at 09:00 Non-Formulary Medication (Fluvoxamine Maleate ) 50 mg DAILY PO ; Start 01/22/18 at 09:00; Stop 01/22/18 at 09:00; Status DC Non-Formulary Medication (Memantine Hcl (Namenda Xr)) 7 mg DAILY PO ; Start at 09:00; Stop 01/22/18 at 09:00; Status DC Memantine (Namenda) 5 mg BID PO Last administered on 01/22/18at 19:55; Start at 22:00 Insulin Human Lispro (HumaLOG) 0-10 UNITS TIDWMEALS SQ ; Start 01/22/18 at 08:00 Nystatin (Nystop) 1 soniya PRN BID PRN TP RASH; Start 01/22/18 at 00:15; Status Cancel Acetaminophen (Tylenol) 650 mg PRN Q6HRS PRN PO PAIN / TEMP; Start 01/22/18 at 05:00 Multi-Ingredient Ointment (Analgesic [place]) 1 soniya PRN QID PRN TP MUSCLE PAIN; Start 01/22/18 at 05:00 Al Hydroxide/Mg Hydroxide (Mylanta Plus Xs) 15 ml PRN AFTMEALHC PRN PO DYSPEPSIA; Start 01/22/18 at 05:00 Magnesium Hydroxide (Milk Of Magnesia) 2,400 mg PRN QHS PRN PO CONSTIPATION; Start 01/22/18 at 05:00 Vitamin D (Vitamin D3) 50,000 unit WEEKLY PO Last administered on 01/22/18at 18: 25; Start 01/22/18 at 18:00 Fluconazole (Diflucan) 100 mg DAILY PO ; Start 01/23/18 at 09:00 Cefpodoxime Proxetil (Vantin) 200 mg BID PO Last administered on 01/22/18at 20: 01; Start 01/22/18 at 21:00 Lactobacillus Rhamnosus (Culturelle) 1 cap BID PO ; Start 01/22/18 at 21:00; Stop 01/22/18 at 21:00; Status DC Divalproex Sodium (Depakote Er) 500 mg HS PO Last administered on 01/22/18at 19: 56; Start 01/22/18 at 21:00 Divalproex Sodium (Depakote Er) 250 mg QHS PO Last administered on 01/22/18at 19 :57; Start 01/22/18 at 21:00 Active Scripts Active Reported Risperidone 1 Mg Tablet 1 Mg PO DAILY Namenda Xr (Memantine Hcl) 14 Mg Cap.spr.24 14 Mg PO DAILY Namenda Xr (Memantine Hcl) 7 Mg Cap.spr.24 7 Mg PO DAILY Depakote Er (Divalproex Sodium) 500 Mg Tab.er.24h 500 Mg PO HS Buspirone Hcl 10 Mg Tablet 10 Mg PO BID Fenofibrate (Fenofibrate,Micronized) 134 Mg Capsule 134 Mg PO DAILY Fluvoxamine Maleate 100 Mg Tablet 1 Tab PO QHS Levemir Flextouch (Insulin Detemir) 100 Unit/1 Ml Insuln.pen 24 Unit SQ HS Novolog Flexpen (Insulin Aspart) 100 Unit/1 Ml Insuln.pen 0-10 Unit SQ TIDAC SLIDING SCALE INSULIN Magnesium (Magnesium Oxide) 400 Mg Capsule 250 Mg PO DAILY Levothyroxine Sodium 125 Mcg Tablet 125 Mcg PO DAILY06 Atorvastatin Calcium 20 Mg Tablet 20 Mg PO DAILY Fluvoxamine Maleate 50 Mg Tablet 50 Mg PO DAILY Acetaminophen 500 Mg Tablet 500 Mg PO BID Calcium 600 + Vit D 200 Tablet (Calcium Carbonate/Vitamin D3) 1 Each Tablet 1 Each PO DAILY B-12 (Cyanocobalamin (Vitamin B-12)) 500 Mcg Tablet 250 Mcg PO DAILY Acidophilus (Lactobacillus Acidophilus) 1 Each Capsule 1 Each PO BID Metformin Hcl 850 Mg Tablet 850 Mg PO BIDWMEALS Ferrous Sulfate 325 Mg Tablet 1 Tab PO DAILY Topiramate 100 Mg Tablet 100 Mg PO TID Metoprolol Tartrate 25 Mg Tablet 25 Mg PO DAILY Ditropan Xl (Oxybutynin Chloride) 10 Mg Tab.er.24 10 Mg PO DAILY Miralax (Polyethylene Glycol 3350) 17 Gm Powd.pack 17 Gm PO DAILY Aspirin 81 Mg Tab.chew 81 Mg PO DAILY Cetirizine Hcl 10 Mg Tablet 10 Mg PO PRN DAILY PRN Hydrocodone-Apap 7.5-325 (Hydrocodone Bit/Acetaminophen) 1 Each Tablet 1 Tab PO PRN Q6HRS PRN Rynex Pse Liquid (Pseudoephedrine/Brompheniramin) 473 Ml Liquid 5 Ml PO PRN TID PRN Protonix (Pantoprazole Sodium) 20 Mg Tablet.dr 20 Mg PO PRN DAILY PRN Nystop (Nystatin) 60 Gm Powder 1 Soniya TP PRN BID PRN I have reviewed the current psychotropics carefully including drug interactions. Risk benefit ratio favors no change other than as noted in my dictated progress note. Diagnosis: Problems: (1) Anxiety disorder (2) Impulse control disorder (3) Bipolar affective disorder, mixed (4) Borderline intellectual disability (5) Borderline intellectual disability (6) Dementia in Alzheimer's disease with delusions LAURITA DAVIS MD Jan 22, 2018 21:07
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
[2018-01-23 02:11] LABS: HEMOGLOBIN A1C 6.1 % (4.8-5.6)
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
[2018-01-23 06:00] VITALS: BP 151/76
[2018-01-23] MEDS: LEVOTHYROXINE 125 MCG TABLET PO SCH (06:27)
[2018-01-23] MEDS: INSULIN LISPRO 300 UNITS/3 ML INSULN.PEN. SQ SCH ×3 (08:00→16:33)
[2018-01-23] MEDS: ATORVASTATIN CALCIUM 20 MG TABLET PO SCH (10:57)
[2018-01-23] MEDS: CYANOCOBALAMIN (VITAMIN B-12) 250 MCG TABLET PO SCH (10:57)
[2018-01-23] MEDS: LACTOBACILLUS RHAMNOSUS GG 1 CAPSULE. PO SCH ×2 (10:57→20:30)
[2018-01-23] MEDS: metFORMIN 850 MG TABLET PO SCH ×2 (10:57→17:34)
[2018-01-23] MEDS: MEMANTINE 5 MG TABLET. PO SCH ×2 (10:57→20:30)
[2018-01-23] MEDS: MAGNESIUM OXIDE 400 MG TABLET PO SCH (10:58)
[2018-01-23] MEDS: FENOFIBRATE NANOCRYSTALLIZED 145 MG TABLET PO SCH (10:58)
[2018-01-23] MEDS: ASPIRIN 81 MG TAB.CHEW PO SCH (10:58)
[2018-01-23] MEDS: risperiDONE 1 MG TABLET. PO SCH (10:58)
[2018-01-23] MEDS: CALCIUM CARB/VIT D3 500/200 TABLET PO SCH (10:58)
[2018-01-23] MEDS: OXYBUTYNIN CHLORIDE 5 MG TABLET PO SCH ×2 (10:58→20:31)
[2018-01-23] MEDS: TOPIRAMATE 100 MG TABLET. PO SCH ×3 (10:58→20:31)
[2018-01-23] MEDS: busPIRone 10 MG TABLET. PO SCH ×2 (10:58→20:30)
[2018-01-23] MEDS: METOPROLOL TART IMMED RELEASE 25 MG TABLET PO SCH (10:59)
[2018-01-23] MEDS: CEFPODOXIME PROXETIL 100 MG TABLET PO SCH ×2 (10:59→20:31)
[2018-01-23] MEDS: FERROUS SULFATE 325 MG TABLET. PO SCH (10:59)
[2018-01-23] MEDS: ACETAMINOPHEN 500 MG TABLET PO SCH ×2 (10:59→20:30)
[2018-01-23] MEDS: FLUCONAZOLE 100 MG TABLET. PO SCH (11:00)
[2018-01-23] MEDS: POLYETHYLENE GLYCOL 3350 17 GM PACKET. PO SCH (11:01)
[2018-01-23 16:19] VITALS: BP 126/67
[2018-01-23] MEDS: DIVALPROEX ER 250 MG TAB.ER.24H. PO SCH (20:31)
[2018-01-23] MEDS: DIVALPROEX ER 500 MG TAB.ER.24H PO SCH (20:31)
[2018-01-23] MEDS: INSULIN GLARGINE 300 UNITS/3 ML INSULN.PEN. SQ SCH (20:32)
--- NOTE | 2018-01-23 20:57 | PDOC ---
Exam Note: Hemant Note: Please also refer to the separate dictated note~for this date of service dictated separately.~Patient seen individually. Discussed the patient with Nursing staff reviewed the chart.~Reviewed interim history and current functioning. Reviewed vital signs,~Labs/ Radiology~and current medications noted below. Continue current treatment with the changes noted in the dictated addendum note Assessment: Vital Signs: Vital Signs Date Time Temp Pulse Resp B/P (MAP) Pulse Ox O2 Delivery O2 Flow Rate FiO2 01/23/18 16:19 97.3 72 16 126/67 (86) 100 01/22/18 16:21 Room Air I&O Intake and Output 01/23/18 07:00 Intake Total 1200 ml Balance 1200 ml Intake Oral 1200 ml # Bowel Movements 2 Labs: Laboratory Tests Test 01/23/18 07:25 01/23/18 11:59 01/23/18 16:13 01/23/18 19:31 Glucose (Fingerstick) 89 mg/dL (70-99) 121 mg/dL (70-99) H 93 mg/dL (70-99) 162 mg/dL (70-99) H Current Medications: Meds: Current Medications Ceftriaxone Sodium (Rocephin Im) 1 gm 1X ONCE IM Last administered on at 19:18; Start 01/21/18 at 19:15; Stop 01/21/18 at 19:16; Status DC Acetaminophen (Tylenol) 500 mg BID PO Last administered on 01/23/18at 20:30; Start 01/21/18 at 22:00 Aspirin (Children'S Aspirin) 81 mg DAILY PO Last administered on 01/23/18at 10: 58; Start 01/22/18 at 09:00 Cetirizine HCl (ZyrTEC) 10 mg PRN DAILY PRN PO ALLERGIES; Start 01/21/18 at 22: 00 Ferrous Sulfate (Feosol) 325 mg DAILY PO Last administered on 01/23/18at 10:59; Start 01/22/18 at 09:00 Acetaminophen/ Hydrocodone Bitart (Lortab 7.5/325) 1 tab PRN Q6HRS PRN PO MOD/ SEVERE PAIN Last administered on 01/22/18at 03:44; Start 01/21/18 at 22:00 Levothyroxine Sodium (Synthroid) 125 mcg DAILY06 PO Last administered on 06:27; Start 01/22/18 at 06:00 Metformin HCl (Glucophage) 850 mg BIDWMEALS PO Last administered on 01/23/18 17:34; Start 01/22/18 at 08:00 Metoprolol Tartrate (Lopressor) 25 mg DAILY PO Last administered on 01/23/18 10:59; Start 01/22/18 at 09:00 Nystatin (Nystop) 1 soniya PRN BID PRN TP RASH; Start 01/21/18 at 22:00 Polyethylene Glycol (miraLAX) 17 gm DAILY PO Last administered on 01/23/18 11: 01; Start 01/22/18 at 09:00 Topiramate (Topamax) 100 mg TID PO Last administered on 01/23/18 20:31; Start 01/21/18 at 22:00 Calcium/Vitamin D (Oscal D 500mg/ 200uts) 1 tab DAILY PO Last administered on 10:58; Start 01/22/18 at 09:00 Cyanocobalamin (Vitamin B-12) 250 mcg DAILY PO Last administered on 01/23/18 10:57; Start 01/22/18 at 09:00 Fenofibrate (Tricor) 145 mg DAILY PO Last administered on 01/23/18 10:58; Start 01/22/18 at 09:00 Insulin Glargine (Lantus) 24 units QHS SQ Last administered on 01/23/18 20:32 ; Start 01/21/18 at 22:00 Lactobacillus Rhamnosus (Culturelle) 1 cap BID PO Last administered on 20:30; Start 01/22/18 at 09:00 Magnesium Oxide (Magnesium Oxide) 200 mg DAILY PO Last administered on 10:58; Start 01/22/18 at 09:00 Oxybutynin Chloride (Ditropan) 5 mg BID PO Last administered on 01/23/18 20:31 ; Start 01/21/18 at 22:00 Pantoprazole Sodium (Protonix) 40 mg PRN DAILY PRN PO NEEDED BEFORE A MEAL; Start 01/22/18 at 07:30 Non-Formulary Medication (Pseudoephedrine/ Brompheniramin (Rynex Pse Liquid)) 5 ml PRN TID PRN PO COUGH; Start 01/21/18 at 22:00; Stop 01/21/18 at 22:36; Status DC Atorvastatin Calcium (Lipitor) 20 mg DAILY PO Last administered on 01/23/18at 10 :57; Start 01/22/18 at 09:00 Buspirone HCl (Buspar) 10 mg BID PO Last administered on 01/23/18at 20:30; Start 01/21/18 at 22:00 Divalproex Sodium (Depakote Er) 500 mg HS PO Last administered on 01/22/18at 00: 15; Start 01/21/18 at 22:00; Stop 01/22/18 at 18:18; Status DC Fluvoxamine Maleate (Luvox) 100 mg QHS PO Last administered on 01/23/18at 20:31 ; Start 01/21/18 at 22:00 Risperidone (RisperDAL) 1 mg DAILY PO Last administered on 01/23/18at 10:58; Start 01/22/18 at 09:00 Non-Formulary Medication (Fluvoxamine Maleate ) 50 mg DAILY PO ; Start 01/22/18 at 09:00; Stop 01/22/18 at 09:00; Status DC Non-Formulary Medication (Memantine Hcl (Namenda Xr)) 7 mg DAILY PO ; Start at 09:00; Stop 01/22/18 at 09:00; Status DC Memantine (Namenda) 5 mg BID PO Last administered on 01/23/18at 20:30; Start at 22:00 Insulin Human Lispro (HumaLOG) 0-10 UNITS TIDWMEALS SQ ; Start 01/22/18 at 08:00 Nystatin (Nystop) 1 soniya PRN BID PRN TP RASH; Start 01/22/18 at 00:15; Status Cancel Acetaminophen (Tylenol) 650 mg PRN Q6HRS PRN PO PAIN / TEMP; Start 01/22/18 at 05:00 Multi-Ingredient Ointment (Analgesic [place]) 1 osniya PRN QID PRN TP MUSCLE PAIN; Start 01/22/18 at 05:00 Al Hydroxide/Mg Hydroxide (Mylanta Plus Xs) 15 ml PRN AFTMEALHC PRN PO DYSPEPSIA; Start 01/22/18 at 05:00 Magnesium Hydroxide (Milk Of Magnesia) 2,400 mg PRN QHS PRN PO CONSTIPATION; Start 01/22/18 at 05:00 Vitamin D (Vitamin D3) 50,000 unit WEEKLY PO Last administered on 01/22/18at 18: 25; Start 01/22/18 at 18:00 Fluconazole (Diflucan) 100 mg DAILY PO Last administered on 01/23/18at 11:00; Start 01/23/18 at 09:00 Cefpodoxime Proxetil (Vantin) 200 mg BID PO Last administered on 01/23/18at 20: 31; Start 01/22/18 at 21:00 Lactobacillus Rhamnosus (Culturelle) 1 cap BID PO ; Start 01/22/18 at 21:00; Stop 01/22/18 at 21:00; Status DC Divalproex Sodium (Depakote Er) 500 mg HS PO Last administered on 01/23/18at 20: 31; Start 01/22/18 at 21:00 Divalproex Sodium (Depakote Er) 250 mg QHS PO Last administered on 01/23/18at 20 :31; Start 01/22/18 at 21:00 Active Scripts Active Reported Risperidone 1 Mg Tablet 1 Mg PO DAILY Namenda Xr (Memantine Hcl) 14 Mg Cap.spr.24 14 Mg PO DAILY Namenda Xr (Memantine Hcl) 7 Mg Cap.spr.24 7 Mg PO DAILY Depakote Er (Divalproex Sodium) 500 Mg Tab.er.24h 500 Mg PO HS Buspirone Hcl 10 Mg Tablet 10 Mg PO BID Fenofibrate (Fenofibrate,Micronized) 134 Mg Capsule 134 Mg PO DAILY Fluvoxamine Maleate 100 Mg Tablet 1 Tab PO QHS Levemir Flextouch (Insulin Detemir) 100 Unit/1 Ml Insuln.pen 24 Unit SQ HS Novolog Flexpen (Insulin Aspart) 100 Unit/1 Ml Insuln.pen 0-10 Unit SQ TIDAC SLIDING SCALE INSULIN Magnesium (Magnesium Oxide) 400 Mg Capsule 250 Mg PO DAILY Levothyroxine Sodium 125 Mcg Tablet 125 Mcg PO DAILY06 Atorvastatin Calcium 20 Mg Tablet 20 Mg PO DAILY Fluvoxamine Maleate 50 Mg Tablet 50 Mg PO DAILY Acetaminophen 500 Mg Tablet 500 Mg PO BID Calcium 600 + Vit D 200 Tablet (Calcium Carbonate/Vitamin D3) 1 Each Tablet 1 Each PO DAILY B-12 (Cyanocobalamin (Vitamin B-12)) 500 Mcg Tablet 250 Mcg PO DAILY Acidophilus (Lactobacillus Acidophilus) 1 Each Capsule 1 Each PO BID Metformin Hcl 850 Mg Tablet 850 Mg PO BIDWMEALS Ferrous Sulfate 325 Mg Tablet 1 Tab PO DAILY Topiramate 100 Mg Tablet 100 Mg PO TID Metoprolol Tartrate 25 Mg Tablet 25 Mg PO DAILY Ditropan Xl (Oxybutynin Chloride) 10 Mg Tab.er.24 10 Mg PO DAILY Miralax (Polyethylene Glycol 3350) 17 Gm Powd.pack 17 Gm PO DAILY Aspirin 81 Mg Tab.chew 81 Mg PO DAILY Cetirizine Hcl 10 Mg Tablet 10 Mg PO PRN DAILY PRN Hydrocodone-Apap 7.5-325 (Hydrocodone Bit/Acetaminophen) 1 Each Tablet 1 Tab PO PRN Q6HRS PRN Rynex Pse Liquid (Pseudoephedrine/Brompheniramin) 473 Ml Liquid 5 Ml PO PRN TID PRN Protonix (Pantoprazole Sodium) 20 Mg Tablet.dr 20 Mg PO PRN DAILY PRN Nystop (Nystatin) 60 Gm Powder 1 Soniya TP PRN BID PRN I have reviewed the current psychotropics carefully including drug interactions. Risk benefit ratio favors no change other than as noted in my dictated progress note. Diagnosis: Problems: (1) Anxiety disorder (2) Impulse control disorder (3) Bipolar affective disorder, mixed (4) Borderline intellectual disability (5) Borderline intellectual disability (6) Dementia in Alzheimer's disease with delusions LAURITA DAVIS MD Jan 23, 2018 20:57
--- NOTE | 2018-01-23 21:19 | PN ---
DATE: 01/23/2018 NO DICTATION. MAN Kingston DAVIS MD DR: Renu JOB#: [id number] / [id number]
[2018-01-24] MEDS: LEVOTHYROXINE 125 MCG TABLET PO SCH (05:44)
[2018-01-24 05:54] VITALS: BP 140/73
[2018-01-24] MEDS: INSULIN LISPRO 300 UNITS/3 ML INSULN.PEN. SQ SCH ×3 (08:39→17:17)
[2018-01-24] MEDS: LACTOBACILLUS RHAMNOSUS GG 1 CAPSULE. PO SCH ×2 (08:40→19:58)
[2018-01-24] MEDS: ASPIRIN 81 MG TAB.CHEW PO SCH (08:40)
[2018-01-24] MEDS: busPIRone 10 MG TABLET. PO SCH ×2 (08:40→19:59)
[2018-01-24] MEDS: metFORMIN 850 MG TABLET PO SCH ×2 (08:40→17:14)
[2018-01-24] MEDS: ATORVASTATIN CALCIUM 20 MG TABLET PO SCH (08:41)
[2018-01-24] MEDS: FLUCONAZOLE 100 MG TABLET. PO SCH (08:41)
[2018-01-24] MEDS: FERROUS SULFATE 325 MG TABLET. PO SCH (08:41)
[2018-01-24] MEDS: OXYBUTYNIN CHLORIDE 5 MG TABLET PO SCH ×2 (08:41→19:58)
[2018-01-24] MEDS: TOPIRAMATE 100 MG TABLET. PO SCH ×3 (08:42→19:58)
[2018-01-24] MEDS: CEFPODOXIME PROXETIL 100 MG TABLET PO SCH ×2 (08:42→19:59)
[2018-01-24] MEDS: POLYETHYLENE GLYCOL 3350 17 GM PACKET. PO SCH (08:42)
[2018-01-24] MEDS: ACETAMINOPHEN 500 MG TABLET PO SCH ×2 (08:42→19:57)
[2018-01-24] MEDS: risperiDONE 1 MG TABLET. PO SCH (08:42)
[2018-01-24] MEDS: MAGNESIUM OXIDE 400 MG TABLET PO SCH (08:42)
[2018-01-24] MEDS: CALCIUM CARB/VIT D3 500/200 TABLET PO SCH (08:42)
[2018-01-24] MEDS: FENOFIBRATE NANOCRYSTALLIZED 145 MG TABLET PO SCH (08:42)
[2018-01-24] MEDS: CYANOCOBALAMIN (VITAMIN B-12) 250 MCG TABLET PO SCH (08:42)
[2018-01-24] MEDS: METOPROLOL TART IMMED RELEASE 25 MG TABLET PO SCH (08:42)
[2018-01-24] MEDS: MEMANTINE 5 MG TABLET. PO SCH ×2 (08:42→19:59)
[2018-01-24 16:17] VITALS: BP 101/58
[2018-01-24] MEDS: DIVALPROEX ER 500 MG TAB.ER.24H PO SCH (19:58)
[2018-01-24] MEDS: DIVALPROEX ER 250 MG TAB.ER.24H. PO SCH (19:58)
[2018-01-24] MEDS: INSULIN GLARGINE 300 UNITS/3 ML INSULN.PEN. SQ SCH (20:01)
--- NOTE | 2018-01-24 22:41 | PDOC ---
Exam Note: Hemant Note: Please also refer to the separate dictated note~for this date of service dictated separately.~Patient seen individually. Discussed the patient with Nursing staff reviewed the chart.~Reviewed interim history and current functioning. Reviewed vital signs,~Labs/ Radiology~and current medications noted below. Continue current treatment with the changes noted in the dictated addendum note Assessment: Vital Signs: Vital Signs Date Time Temp Pulse Resp B/P (MAP) Pulse Ox O2 Delivery O2 Flow Rate FiO2 01/24/18 16:17 98.3 71 16 101/58 (72) 100 Room Air I&O Intake and Output 01/24/18 07:00 Intake Total 960 ml Balance 960 ml Intake Oral 960 ml Labs: Laboratory Tests Test 01/24/18 07:16 01/24/18 12:02 01/24/18 17:09 01/24/18 19:13 Glucose (Fingerstick) 104 mg/dL (70-99) H 108 mg/dL (70-99) H 142 mg/dL (70-99) H 105 mg/dL (70-99) H Current Medications: Meds: Current Medications Ceftriaxone Sodium (Rocephin Im) 1 gm 1X ONCE IM Last administered on at 19:18; Start 01/21/18 at 19:15; Stop 01/21/18 at 19:16; Status DC Acetaminophen (Tylenol) 500 mg BID PO Last administered on 01/24/18at 19:57; Start 01/21/18 at 22:00 Aspirin (Children'S Aspirin) 81 mg DAILY PO Last administered on 01/24/18at 08: 40; Start 01/22/18 at 09:00 Cetirizine HCl (ZyrTEC) 10 mg PRN DAILY PRN PO ALLERGIES; Start 01/21/18 at 22: 00 Ferrous Sulfate (Feosol) 325 mg DAILY PO Last administered on 01/24/18at 08:41; Start 01/22/18 at 09:00 Acetaminophen/ Hydrocodone Bitart (Lortab 7.5/325) 1 tab PRN Q6HRS PRN PO MOD/ SEVERE PAIN Last administered on 01/22/18at 03:44; Start 01/21/18 at 22:00 Levothyroxine Sodium (Synthroid) 125 mcg DAILY06 PO Last administered on at 05:44; Start 01/22/18 at 06:00 Metformin HCl (Glucophage) 850 mg BIDWMEALS PO Last administered on 01/24/18 17:14; Start 01/22/18 at 08:00 Metoprolol Tartrate (Lopressor) 25 mg DAILY PO Last administered on 01/24/18 08:42; Start 01/22/18 at 09:00 Nystatin (Nystop) 1 soniya PRN BID PRN TP RASH; Start 01/21/18 at 22:00 Polyethylene Glycol (miraLAX) 17 gm DAILY PO Last administered on 01/24/18 08: 42; Start 01/22/18 at 09:00 Topiramate (Topamax) 100 mg TID PO Last administered on 01/24/18 19:58; Start 01/21/18 at 22:00 Calcium/Vitamin D (Oscal D 500mg/ 200uts) 1 tab DAILY PO Last administered on 08:42; Start 01/22/18 at 09:00 Cyanocobalamin (Vitamin B-12) 250 mcg DAILY PO Last administered on 01/24/18 08:42; Start 01/22/18 at 09:00 Fenofibrate (Tricor) 145 mg DAILY PO Last administered on 01/24/18 08:42; Start 01/22/18 at 09:00 Insulin Glargine (Lantus) 24 units QHS SQ Last administered on 01/24/18 20:01 ; Start 01/21/18 at 22:00 Lactobacillus Rhamnosus (Culturelle) 1 cap BID PO Last administered on 19:58; Start 01/22/18 at 09:00 Magnesium Oxide (Magnesium Oxide) 200 mg DAILY PO Last administered on 08:42; Start 01/22/18 at 09:00 Oxybutynin Chloride (Ditropan) 5 mg BID PO Last administered on 01/24/18 19:58 ; Start 01/21/18 at 22:00 Pantoprazole Sodium (Protonix) 40 mg PRN DAILY PRN PO NEEDED BEFORE A MEAL; Start 01/22/18 at 07:30 Non-Formulary Medication (Pseudoephedrine/ Brompheniramin (Rynex Pse Liquid)) 5 ml PRN TID PRN PO COUGH; Start 01/21/18 at 22:00; Stop 01/21/18 at 22:36; Status DC Atorvastatin Calcium (Lipitor) 20 mg DAILY PO Last administered on 01/24/18at 08 :41; Start 01/22/18 at 09:00 Buspirone HCl (Buspar) 10 mg BID PO Last administered on 01/24/18at 19:59; Start 01/21/18 at 22:00 Divalproex Sodium (Depakote Er) 500 mg HS PO Last administered on 01/22/18at 00: 15; Start 01/21/18 at 22:00; Stop 01/22/18 at 18:18; Status DC Fluvoxamine Maleate (Luvox) 100 mg QHS PO Last administered on 01/24/18at 19:58 ; Start 01/21/18 at 22:00 Risperidone (RisperDAL) 1 mg DAILY PO Last administered on 01/24/18at 08:42; Start 01/22/18 at 09:00 Non-Formulary Medication (Fluvoxamine Maleate ) 50 mg DAILY PO ; Start 01/22/18 at 09:00; Stop 01/22/18 at 09:00; Status DC Non-Formulary Medication (Memantine Hcl (Namenda Xr)) 7 mg DAILY PO ; Start at 09:00; Stop 01/22/18 at 09:00; Status DC Memantine (Namenda) 5 mg BID PO Last administered on 01/24/18at 19:59; Start at 22:00 Insulin Human Lispro (HumaLOG) 0-10 UNITS TIDWMEALS SQ ; Start 01/22/18 at 08:00 Nystatin (Nystop) 1 soniya PRN BID PRN TP RASH; Start 01/22/18 at 00:15; Status Cancel Acetaminophen (Tylenol) 650 mg PRN Q6HRS PRN PO PAIN / TEMP; Start 01/22/18 at 05:00 Multi-Ingredient Ointment (Analgesic [place]) 1 soniya PRN QID PRN TP MUSCLE PAIN; Start 01/22/18 at 05:00 Al Hydroxide/Mg Hydroxide (Mylanta Plus Xs) 15 ml PRN AFTMEALHC PRN PO DYSPEPSIA; Start 4/19/18 at 05:00 Magnesium Hydroxide (Milk Of Magnesia) 2,400 mg PRN QHS PRN PO CONSTIPATION; Start 01/22/18 at 05:00 Vitamin D (Vitamin D3) 50,000 unit WEEKLY PO Last administered on 01/22/18at 18: 25; Start 01/22/18 at 18:00 Fluconazole (Diflucan) 100 mg DAILY PO Last administered on 01/24/18at 08:41; Start 01/23/18 at 09:00 Cefpodoxime Proxetil (Vantin) 200 mg BID PO Last administered on 01/24/18at 19: 59; Start 01/22/18 at 21:00 Lactobacillus Rhamnosus (Culturelle) 1 cap BID PO ; Start 01/22/18 at 21:00; Stop 01/22/18 at 21:00; Status DC Divalproex Sodium (Depakote Er) 500 mg HS PO Last administered on 01/24/18at 19: 58; Start 01/22/18 at 21:00 Divalproex Sodium (Depakote Er) 250 mg QHS PO Last administered on 01/24/18at 19 :58; Start 01/22/18 at 21:00 Active Scripts Active Reported Risperidone 1 Mg Tablet 1 Mg PO DAILY Namenda Xr (Memantine Hcl) 14 Mg Cap.spr.24 14 Mg PO DAILY Namenda Xr (Memantine Hcl) 7 Mg Cap.spr.24 7 Mg PO DAILY Depakote Er (Divalproex Sodium) 500 Mg Tab.er.24h 500 Mg PO HS Buspirone Hcl 10 Mg Tablet 10 Mg PO BID Fenofibrate (Fenofibrate,Micronized) 134 Mg Capsule 134 Mg PO DAILY Fluvoxamine Maleate 100 Mg Tablet 1 Tab PO QHS Levemir Flextouch (Insulin Detemir) 100 Unit/1 Ml Insuln.pen 24 Unit SQ HS Novolog Flexpen (Insulin Aspart) 100 Unit/1 Ml Insuln.pen 0-10 Unit SQ TIDAC SLIDING SCALE INSULIN Magnesium (Magnesium Oxide) 400 Mg Capsule 250 Mg PO DAILY Levothyroxine Sodium 125 Mcg Tablet 125 Mcg PO DAILY06 Atorvastatin Calcium 20 Mg Tablet 20 Mg PO DAILY Fluvoxamine Maleate 50 Mg Tablet 50 Mg PO DAILY Acetaminophen 500 Mg Tablet 500 Mg PO BID Calcium 600 + Vit D 200 Tablet (Calcium Carbonate/Vitamin D3) 1 Each Tablet 1 Each PO DAILY B-12 (Cyanocobalamin (Vitamin B-12)) 500 Mcg Tablet 250 Mcg PO DAILY Acidophilus (Lactobacillus Acidophilus) 1 Each Capsule 1 Each PO BID Metformin Hcl 850 Mg Tablet 850 Mg PO BIDWMEALS Ferrous Sulfate 325 Mg Tablet 1 Tab PO DAILY Topiramate 100 Mg Tablet 100 Mg PO TID Metoprolol Tartrate 25 Mg Tablet 25 Mg PO DAILY Ditropan Xl (Oxybutynin Chloride) 10 Mg Tab.er.24 10 Mg PO DAILY Miralax (Polyethylene Glycol 3350) 17 Gm Powd.pack 17 Gm PO DAILY Aspirin 81 Mg Tab.chew 81 Mg PO DAILY Cetirizine Hcl 10 Mg Tablet 10 Mg PO PRN DAILY PRN Hydrocodone-Apap 7.5-325 (Hydrocodone Bit/Acetaminophen) 1 Each Tablet 1 Tab PO PRN Q6HRS PRN Rynex Pse Liquid (Pseudoephedrine/Brompheniramin) 473 Ml Liquid 5 Ml PO PRN TID PRN Protonix (Pantoprazole Sodium) 20 Mg Tablet.dr 20 Mg PO PRN DAILY PRN Nystop (Nystatin) 60 Gm Powder 1 Soniya TP PRN BID PRN I have reviewed the current psychotropics carefully including drug interactions. Risk benefit ratio favors no change other than as noted in my dictated progress note. Diagnosis: Problems: (1) Anxiety disorder (2) Impulse control disorder (3) Bipolar affective disorder, mixed (4) Borderline intellectual disability (5) Borderline intellectual disability (6) Dementia in Alzheimer's disease with delusions LAURITA DAVIS MD Jan 24, 2018 22:41
[2018-01-25] MEDS: LEVOTHYROXINE 125 MCG TABLET PO SCH (05:01)
[2018-01-25 06:35] VITALS: BP 118/67
[2018-01-25 07:56] LABS: BASO % 1 % (0-3); EOS # 0.2 x10^3/uL (0.0-0.7); EOS % 4 % (0-3); HEMATOCRIT 32.5 % (36.0-47.0); HEMOGLOBIN 10.5 g/dL (12.0-15.5); LYMPH # 1.5 x10^3/uL (1.0-4.8); LYMPH % 33 % (24-48); MEAN CORPUSCULAR HEMOGLOBIN 28 pg (25-35); MEAN CORPUSCULAR HGB CONC 32 g/dL (31-37); MEAN CORPUSCULAR VOLUME 86 fL (79-100); MONO # 0.4 x10^3/uL (0.0-1.1); MONO % 9 % (0-9); NEUT # 2.5 x10^3uL (1.8-7.7); NEUT % 54 % (31-73); PLATELET COUNT 198 x10^3/uL (140-400); RED BLOOD COUNT 3.78 x10^6/uL (3.50-5.40); RED CELL DISTRIBUTION WIDTH 14.7 % (11.5-14.5); WHITE BLOOD COUNT 4.7 x10^3/uL (4.0-11.0)
[2018-01-25 08:11] LABS: ALBUMIN 3.3 g/dL (3.4-5.0); ALBUMIN/GLOBULIN RATIO 0.8 (1.0-1.7); ALK PHOS 37 U/L (46-116); ALT (SGPT) 18 U/L (14-59); ANION GAP 10 (6-14); AST (SGOT) 21 U/L (15-37); BLOOD UREA NITROGEN 19 mg/dL (7-20); BUN/CREATININE RATIO 19 (6-20); CALCIUM 9.9 mg/dL (8.5-10.1); CARBON DIOXIDE 23 mmol/L (21-32); CHLORIDE 105 mmol/L (98-107); GFR 54.7; GLUCOSE 88 mg/dL (70-99); POTASSIUM 4.4 mmol/L (3.5-5.1); SODIUM 138 mmol/L (136-145); TOTAL BILIRUBIN 0.1 mg/dL (0.2-1.0); TOTAL PROTEIN 7.3 g/dL (6.4-8.2)
[2018-01-25] MEDS: metFORMIN 850 MG TABLET PO SCH ×2 (08:12→16:49)
[2018-01-25] MEDS: INSULIN LISPRO 300 UNITS/3 ML INSULN.PEN. SQ SCH ×3 (08:12→16:25)
[2018-01-25 08:13] LABS: VAL ACID 35 mcg/mL (50-100)
[2018-01-25] MEDS: busPIRone 10 MG TABLET. PO SCH ×2 (08:13→19:57)
[2018-01-25] MEDS: FLUCONAZOLE 100 MG TABLET. PO SCH (08:13)
[2018-01-25] MEDS: ASPIRIN 81 MG TAB.CHEW PO SCH (08:13)
[2018-01-25] MEDS: LACTOBACILLUS RHAMNOSUS GG 1 CAPSULE. PO SCH ×2 (08:13→19:57)
[2018-01-25] MEDS: FERROUS SULFATE 325 MG TABLET. PO SCH (08:14)
[2018-01-25] MEDS: OXYBUTYNIN CHLORIDE 5 MG TABLET PO SCH ×2 (08:14→19:57)
[2018-01-25] MEDS: ATORVASTATIN CALCIUM 20 MG TABLET PO SCH (08:14)
[2018-01-25] MEDS: MEMANTINE 5 MG TABLET. PO SCH ×2 (08:18→19:57)
[2018-01-25] MEDS: MAGNESIUM OXIDE 400 MG TABLET PO SCH (08:18)
[2018-01-25] MEDS: POLYETHYLENE GLYCOL 3350 17 GM PACKET. PO SCH (08:18)
[2018-01-25] MEDS: CALCIUM CARB/VIT D3 500/200 TABLET PO SCH (08:18)
[2018-01-25] MEDS: ACETAMINOPHEN 500 MG TABLET PO SCH ×2 (08:19→19:57)
[2018-01-25] MEDS: risperiDONE 1 MG TABLET. PO SCH (08:19)
[2018-01-25] MEDS: TOPIRAMATE 100 MG TABLET. PO SCH ×3 (08:19→19:58)
[2018-01-25] MEDS: FENOFIBRATE NANOCRYSTALLIZED 145 MG TABLET PO SCH (08:19)
[2018-01-25] MEDS: CEFPODOXIME PROXETIL 100 MG TABLET PO SCH ×2 (08:20→19:56)
[2018-01-25] MEDS: CYANOCOBALAMIN (VITAMIN B-12) 250 MCG TABLET PO SCH (08:20)
[2018-01-25] MEDS: METOPROLOL TART IMMED RELEASE 25 MG TABLET PO SCH (09:00)
[2018-01-25 15:46] VITALS: BP 127/49
[2018-01-25] MEDS: DIVALPROEX ER 500 MG TAB.ER.24H PO SCH (19:57)
--- NOTE | 2018-01-25 20:59 | PDOC ---
Exam Note: Hemant Note: Please also refer to the separate dictated note~for this date of service dictated separately.~Patient seen individually. Discussed the patient with Nursing staff reviewed the chart.~Reviewed interim history and current functioning. Reviewed vital signs,~Labs/ Radiology~and current medications noted below. Continue current treatment with the changes noted in the dictated addendum note Assessment: Vital Signs: Vital Signs Date Time Temp Pulse Resp B/P (MAP) Pulse Ox O2 Delivery O2 Flow Rate FiO2 01/25/18 15:46 98.0 63 20 127/49 (75) 100 01/25/18 06:35 Room Air I&O Intake and Output 01/25/18 07:00 Intake Total 720 ml Balance 720 ml Intake Oral 720 ml Labs: Laboratory Tests Test 01/25/18 07:13 01/25/18 07:24 01/25/18 11:20 01/25/18 16:18 Glucose (Fingerstick) 76 mg/dL (70-99) 159 mg/dL (70-99) H 120 mg/dL (70-99) H White Blood Count 4.7 x10^3/uL (4.0-11.0) Red Blood Count 3.78 x10^6/uL (3.50-5.40) Hemoglobin 10.5 g/dL (12.0-15.5) L Hematocrit 32.5 % (36.0-47.0) L Mean Corpuscular Volume 86 fL (79-100) Mean Corpuscular Hemoglobin 28 pg (25-35) Mean Corpuscular Hemoglobin Concent 32 g/dL (31-37) Red Cell Distribution Width 14.7 % (11.5-14.5) H Platelet Count 198 x10^3/uL (140-400) Neutrophils (%) (Auto) 54 % (31-73) Lymphocytes (%) (Auto) 33 % (24-48) Monocytes (%) (Auto) 9 % (0-9) Eosinophils (%) (Auto) 4 % (0-3) H Basophils (%) (Auto) 1 % (0-3) Neutrophils # (Auto) 2.5 x10^3uL (1.8-7.7) Lymphocytes # (Auto) 1.5 x10^3/uL (1.0-4.8) Monocytes # (Auto) 0.4 x10^3/uL (0.0-1.1) Eosinophils # (Auto) 0.2 x10^3/uL (0.0-0.7) Basophils # (Auto) 0.0 x10^3/uL (0.0-0.2) Sodium Level 138 mmol/L (136-145) Potassium Level 4.4 mmol/L (3.5-5.1) Chloride Level 105 mmol/L (98-107) Carbon Dioxide Level 23 mmol/L (21-32) Anion Gap 10 (6-14) Blood Urea Nitrogen 19 mg/dL (7-20) Creatinine 1.0 mg/dL (0.6-1.0) Estimated GFR (Cockcroft-Gault) 54.7 BUN/Creatinine Ratio 19 (6-20) Glucose Level 88 mg/dL (70-99) Calcium Level 9.9 mg/dL (8.5-10.1) Total Bilirubin 0.1 mg/dL (0.2-1.0) L Aspartate Amino Transferase (AST) 21 U/L (15-37) Alanine Aminotransferase (ALT) 18 U/L (14-59) Alkaline Phosphatase 37 U/L (46-116) L Total Protein 7.3 g/dL (6.4-8.2) Albumin 3.3 g/dL (3.4-5.0) L Albumin/Globulin Ratio 0.8 (1.0-1.7) L Valproic Acid Level 35 mcg/mL (50-100) L Valproic Acid Last Dose Date 01/24/18 Valproic Acid Last Dose Time 2100 Test 01/25/18 19:22 Glucose (Fingerstick) 150 mg/dL (70-99) H Current Medications: Meds: Current Medications Ceftriaxone Sodium (Rocephin Im) 1 gm 1X ONCE IM Last administered on at 19:18; Start 01/21/18 at 19:15; Stop 01/21/18 at 19:16; Status DC Acetaminophen (Tylenol) 500 mg BID PO Last administered on 01/25/18at 19:57; Start 01/21/18 at 22:00 Aspirin (Children'S Aspirin) 81 mg DAILY PO Last administered on 01/25/18at 08: 13; Start 01/22/18 at 09:00 Cetirizine HCl (ZyrTEC) 10 mg PRN DAILY PRN PO ALLERGIES; Start 01/21/18 at 22: 00 Ferrous Sulfate (Feosol) 325 mg DAILY PO Last administered on 01/25/18 08:14; Start 01/22/18 at 09:00 Acetaminophen/ Hydrocodone Bitart (Lortab 7.5/325) 1 tab PRN Q6HRS PRN PO MOD/ SEVERE PAIN Last administered on 01/22/18 03:44; Start 01/21/18 at 22:00 Levothyroxine Sodium (Synthroid) 125 mcg DAILY06 PO Last administered on 05:01; Start 01/22/18 at 06:00 Metformin HCl (Glucophage) 850 mg BIDWMEALS PO Last administered on 01/25/18 16:49; Start 01/22/18 at 08:00 Metoprolol Tartrate (Lopressor) 25 mg DAILY PO Last administered on 01/24/18 08:42; Start 01/22/18 at 09:00 Nystatin (Nystop) 1 soniya PRN BID PRN TP RASH; Start 01/21/18 at 22:00 Polyethylene Glycol (miraLAX) 17 gm DAILY PO Last administered on 01/25/18 08: 18; Start 01/22/18 at 09:00 Topiramate (Topamax) 100 mg TID PO Last administered on 01/25/18 19:58; Start 01/21/18 at 22:00 Calcium/Vitamin D (Oscal D 500mg/ 200uts) 1 tab DAILY PO Last administered on 08:18; Start 01/22/18 at 09:00 Cyanocobalamin (Vitamin B-12) 250 mcg DAILY PO Last administered on 01/25/18 08:20; Start 01/22/18 at 09:00 Fenofibrate (Tricor) 145 mg DAILY PO Last administered on 01/25/18 08:19; Start 01/22/18 at 09:00 Insulin Glargine (Lantus) 24 units QHS SQ Last administered on 01/24/18 20:01 ; Start 01/21/18 at 22:00 Lactobacillus Rhamnosus (Culturelle) 1 cap BID PO Last administered on 19:57; Start 01/22/18 at 09:00 Magnesium Oxide (Magnesium Oxide) 200 mg DAILY PO Last administered on 08:18; Start 01/22/18 at 09:00 Oxybutynin Chloride (Ditropan) 5 mg BID PO Last administered on 01/25/18 19:57 ; Start 01/21/18 at 22:00 Pantoprazole Sodium (Protonix) 40 mg PRN DAILY PRN PO NEEDED BEFORE A MEAL; Start 01/22/18 at 07:30 Non-Formulary Medication (Pseudoephedrine/ Brompheniramin (Rynex Pse Liquid)) 5 ml PRN TID PRN PO COUGH; Start 01/21/18 at 22:00; Stop 01/21/18 at 22:36; Status DC Atorvastatin Calcium (Lipitor) 20 mg DAILY PO Last administered on 01/25/18at 08 :14; Start 01/22/18 at 09:00 Buspirone HCl (Buspar) 10 mg BID PO Last administered on 01/25/18 19:57; Start 01/21/18 at 22:00 Divalproex Sodium (Depakote Er) 500 mg HS PO Last administered on 01/22/18at 00: 15; Start 01/21/18 at 22:00; Stop 01/22/18 at 18:18; Status DC Fluvoxamine Maleate (Luvox) 100 mg QHS PO Last administered on 01/25/18 19:57 ; Start 01/21/18 at 22:00 Risperidone (RisperDAL) 1 mg DAILY PO Last administered on 01/25/18 08:19; Start 01/22/18 at 09:00 Non-Formulary Medication (Fluvoxamine Maleate ) 50 mg DAILY PO ; Start 01/22/18 at 09:00; Stop 01/22/18 at 09:00; Status DC Non-Formulary Medication (Memantine Hcl (Namenda Xr)) 7 mg DAILY PO ; Start at 09:00; Stop 01/22/18 at 09:00; Status DC Memantine (Namenda) 5 mg BID PO Last administered on 01/25/18 19:57; Start at 22:00 Insulin Human Lispro (HumaLOG) 0-10 UNITS TIDWMEALS SQ Last administered on at 12:03; Start 01/22/18 at 08:00 Nystatin (Nystop) 1 soniya PRN BID PRN TP RASH; Start 01/22/18 at 00:15; Status Cancel Acetaminophen (Tylenol) 650 mg PRN Q6HRS PRN PO PAIN / TEMP; Start 01/22/18 at 05:00 Multi-Ingredient Ointment (Analgesic [place]) 1 soniya PRN QID PRN TP MUSCLE PAIN; Start 01/22/18 at 05:00 Al Hydroxide/Mg Hydroxide (Mylanta Plus Xs) 15 ml PRN AFTMEALHC PRN PO DYSPEPSIA; Start 01/22/18 at 05:00 Magnesium Hydroxide (Milk Of Magnesia) 2,400 mg PRN QHS PRN PO CONSTIPATION; Start 01/22/18 at 05:00 Vitamin D (Vitamin D3) 50,000 unit WEEKLY PO Last administered on 01/22/18at 18: 25; Start 01/22/18 at 18:00 Fluconazole (Diflucan) 100 mg DAILY PO Last administered on 01/25/18at 08:13; Start 01/23/18 at 09:00 Cefpodoxime Proxetil (Vantin) 200 mg BID PO Last administered on 01/25/18at 19: 56; Start 01/22/18 at 21:00; Stop 01/28/18 at 20:59 Lactobacillus Rhamnosus (Culturelle) 1 cap BID PO ; Start 01/22/18 at 21:00; Stop 01/22/18 at 21:00; Status DC Divalproex Sodium (Depakote Er) 500 mg HS PO Last administered on 01/24/18at 19: 58; Start 01/22/18 at 21:00; Stop 01/25/18 at 15:48; Status DC Divalproex Sodium (Depakote Er) 250 mg QHS PO Last administered on 01/24/18at 19 :58; Start 01/22/18 at 21:00; Stop 01/25/18 at 15:48; Status DC Divalproex Sodium (Depakote Er) 1,000 mg QHS PO Last administered on 01/25/18at 19:57; Start 01/25/18 at 21:00 Active Scripts Active Reported Risperidone 1 Mg Tablet 1 Mg PO DAILY Namenda Xr (Memantine Hcl) 14 Mg Cap.spr.24 14 Mg PO DAILY Namenda Xr (Memantine Hcl) 7 Mg Cap.spr.24 7 Mg PO DAILY Depakote Er (Divalproex Sodium) 500 Mg Tab.er.24h 500 Mg PO HS Buspirone Hcl 10 Mg Tablet 10 Mg PO BID Fenofibrate (Fenofibrate,Micronized) 134 Mg Capsule 134 Mg PO DAILY Fluvoxamine Maleate 100 Mg Tablet 1 Tab PO QHS Levemir Flextouch (Insulin Detemir) 100 Unit/1 Ml Insuln.pen 24 Unit SQ HS Novolog Flexpen (Insulin Aspart) 100 Unit/1 Ml Insuln.pen 0-10 Unit SQ TIDAC SLIDING SCALE INSULIN Magnesium (Magnesium Oxide) 400 Mg Capsule 250 Mg PO DAILY Levothyroxine Sodium 125 Mcg Tablet 125 Mcg PO DAILY06 Atorvastatin Calcium 20 Mg Tablet 20 Mg PO DAILY Fluvoxamine Maleate 50 Mg Tablet 50 Mg PO DAILY Acetaminophen 500 Mg Tablet 500 Mg PO BID Calcium 600 + Vit D 200 Tablet (Calcium Carbonate/Vitamin D3) 1 Each Tablet 1 Each PO DAILY B-12 (Cyanocobalamin (Vitamin B-12)) 500 Mcg Tablet 250 Mcg PO DAILY Acidophilus (Lactobacillus Acidophilus) 1 Each Capsule 1 Each PO BID Metformin Hcl 850 Mg Tablet 850 Mg PO BIDWMEALS Ferrous Sulfate 325 Mg Tablet 1 Tab PO DAILY Topiramate 100 Mg Tablet 100 Mg PO TID Metoprolol Tartrate 25 Mg Tablet 25 Mg PO DAILY Ditropan Xl (Oxybutynin Chloride) 10 Mg Tab.er.24 10 Mg PO DAILY Miralax (Polyethylene Glycol 3350) 17 Gm Powd.pack 17 Gm PO DAILY Aspirin 81 Mg Tab.chew 81 Mg PO DAILY Cetirizine Hcl 10 Mg Tablet 10 Mg PO PRN DAILY PRN Hydrocodone-Apap 7.5-325 (Hydrocodone Bit/Acetaminophen) 1 Each Tablet 1 Tab PO PRN Q6HRS PRN Rynex Pse Liquid (Pseudoephedrine/Brompheniramin) 473 Ml Liquid 5 Ml PO PRN TID PRN Protonix (Pantoprazole Sodium) 20 Mg Tablet.dr 20 Mg PO PRN DAILY PRN Nystop (Nystatin) 60 Gm Powder 1 Soniya TP PRN BID PRN I have reviewed the current psychotropics carefully including drug interactions. Risk benefit ratio favors no change other than as noted in my dictated progress note. Diagnosis: Problems: (1) Anxiety disorder (2) Impulse control disorder (3) Bipolar affective disorder, mixed (4) Borderline intellectual disability (5) Borderline intellectual disability (6) Dementia in Alzheimer's disease with delusions LAURITA DAVIS MD Jan 25, 2018 20:59
[2018-01-25] MEDS: INSULIN GLARGINE 300 UNITS/3 ML INSULN.PEN. SQ SCH (21:59)
--- NOTE | 2018-01-26 04:37 | PN ---
DATE: 01/24/2018 PSYCHIATRIC PROGRESS NOTE This is a late entry of 01/24/2018, and covers elements not covered in my initial note of 01/24/2018. SUBJECTIVE: I met with the patient in the evening of 01/24/2018. The patient continues to function consistent with intellectual disability. She is otherwise pleasant and cooperative. REVIEW OF SYSTEMS: No CV, , pulmonary, eye, ENT system symptoms on review. Reliability poor. There was itching in the groin area present. MENTAL STATUS EXAM: Oriented to herself and at times situation. Speech, often responses monosyllabic. Abstraction fair, computation impaired, language function intact, attention span short. Mood and affect remain somewhat withdrawn. LABORATORY DATA: Reviewed. IMPRESSION: Unchanged from initial note. PLAN: Continue psychotropics mentioned in my initial note, may need to increase Luvox gradually. MAN Kingston DAVIS MD DR: SUMEET/kirill JOB#: [id number] / [id number]
--- NOTE | 2018-01-26 05:13 | PN ---
DATE: 01/23/2018 PSYCHIATRIC PROGRESS NOTE This late entry 01/23/2018 covers elements not covered in my initial note 01/23/2018. SUBJECTIVE: I met with the patient evening of 01/23/2018. The patient slept 9 hours previous evening. Per nursing report she is "adorable." She is compliant with medications on her preoccupied. Overall, functioning consistent with her intellectual disability. REVIEW OF SYSTEMS: No CV, , pulmonary, eye, ENT systems on review. MENTAL STATUS EXAM: Oriented to herself and situation. Speech has some latency, coherent, pleasant, verbal. Abstraction fair, computation impaired, language function intact, attention span short. Mood and affect somewhat dysphoric, anxious. No suicidal ideation. LABORATORY DATA: Reviewed. IMPRESSION: Unchanged from initial note. PLAN: Continue current psychotropics. Valproic acid level subtherapeutic at 39. Depakote has been adjusted. LAURITA DAVIS MD DR: SUMEET/kirill JOB#: [id number] / [id number]
[2018-01-26] MEDS: LEVOTHYROXINE 125 MCG TABLET PO SCH (05:35)
[2018-01-26] MEDS: metFORMIN 850 MG TABLET PO SCH ×2 (08:10→17:15)
[2018-01-26] MEDS: INSULIN LISPRO 300 UNITS/3 ML INSULN.PEN. SQ SCH ×3 (08:10→17:15)
[2018-01-26] MEDS: ATORVASTATIN CALCIUM 20 MG TABLET PO SCH (08:11)
[2018-01-26] MEDS: OXYBUTYNIN CHLORIDE 5 MG TABLET PO SCH ×2 (08:11→19:39)
[2018-01-26] MEDS: ASPIRIN 81 MG TAB.CHEW PO SCH (08:11)
[2018-01-26] MEDS: FLUCONAZOLE 100 MG TABLET. PO SCH (08:11)
[2018-01-26] MEDS: LACTOBACILLUS RHAMNOSUS GG 1 CAPSULE. PO SCH ×2 (08:11→19:38)
[2018-01-26] MEDS: busPIRone 10 MG TABLET. PO SCH ×2 (08:11→19:38)
[2018-01-26] MEDS: FERROUS SULFATE 325 MG TABLET. PO SCH (08:11)
[2018-01-26 08:12] VITALS: BP 132/82
[2018-01-26] MEDS: TOPIRAMATE 100 MG TABLET. PO SCH ×3 (08:14→19:39)
[2018-01-26] MEDS: MAGNESIUM OXIDE 400 MG TABLET PO SCH (08:14)
[2018-01-26] MEDS: ACETAMINOPHEN 500 MG TABLET PO SCH ×2 (08:14→19:40)
[2018-01-26] MEDS: CALCIUM CARB/VIT D3 500/200 TABLET PO SCH (08:14)
[2018-01-26] MEDS: METOPROLOL TART IMMED RELEASE 25 MG TABLET PO SCH (08:14)
[2018-01-26] MEDS: MEMANTINE 5 MG TABLET. PO SCH ×2 (08:14→19:39)
[2018-01-26] MEDS: POLYETHYLENE GLYCOL 3350 17 GM PACKET. PO SCH (08:14)
[2018-01-26] MEDS: risperiDONE 1 MG TABLET. PO SCH (08:14)
[2018-01-26] MEDS: FENOFIBRATE NANOCRYSTALLIZED 145 MG TABLET PO SCH (08:14)
[2018-01-26] MEDS: CEFPODOXIME PROXETIL 100 MG TABLET PO SCH ×2 (08:15→19:40)
[2018-01-26] MEDS: CYANOCOBALAMIN (VITAMIN B-12) 250 MCG TABLET PO SCH (08:15)
[2018-01-26] MEDS: NYSTATIN TOPICAL POWDER 15GM BOTTLE. TP PRN (08:17)
--- NOTE | 2018-01-26 10:36 | PN ---
DATE: 01/25/2018 PSYCHIATRIC PROGRESS NOTE This note covers elements not covered in my initial note of 01/25/2018. SUBJECTIVE: I met with the patient in the afternoon. The patient did well the previous evening. Valproic acid level is at 35. She remains somewhat anxious, labile, but much of her functioning is consistent with intellectual disability. REVIEW OF SYSTEMS: Ambulation is impaired with walker. No CV, , pulmonary, eye system symptoms on review. Reliability is poor. MENTAL STATUS EXAM: Oriented to herself, situation at times. Speech often responses monosyllabic, coherent, abstraction is fair, computation impaired, language function intact, attention span short. Mood and affect, lability. LABORATORY DATA: Reviewed. IMPRESSION: Unchanged from initial note. PLAN: Increase Depakote ER from 750 at bedtime to 1000 mg at bedtime. Check CBC, CMP, valproic acid level in 3 days. Rest is unchanged. MAN Kingston DAVIS MD DR: SUMEET/kirill JOB#: [id number] / [id number]
[2018-01-26 16:22] VITALS: BP 123/51
[2018-01-26] MEDS: DIVALPROEX ER 500 MG TAB.ER.24H PO SCH (19:39)
[2018-01-26] MEDS: INSULIN GLARGINE 300 UNITS/3 ML INSULN.PEN. SQ SCH (19:40)
--- NOTE | 2018-01-26 20:54 | PDOC ---
Exam Note: Hemant Note: Please also refer to the separate dictated note~for this date of service dictated separately.~Patient seen individually. Discussed the patient with Nursing staff reviewed the chart.~Reviewed interim history and current functioning. Reviewed vital signs,~Labs/ Radiology~and current medications noted below. Continue current treatment with the changes noted in the dictated addendum note Assessment: Vital Signs: Vital Signs Date Time Temp Pulse Resp B/P (MAP) Pulse Ox O2 Delivery O2 Flow Rate FiO2 01/26/18 16:22 98.2 74 16 123/51 (75) 100 01/25/18 06:35 Room Air I&O Intake and Output 01/26/18 07:00 Intake Total 1080 ml Balance 1080 ml Intake Oral 1080 ml Labs: Laboratory Tests Test 01/26/18 07:21 01/26/18 11:19 01/26/18 16:23 01/26/18 19:20 Glucose (Fingerstick) 91 mg/dL (70-99) 128 mg/dL (70-99) H 164 mg/dL (70-99) H 143 mg/dL (70-99) H Current Medications: Meds: Current Medications Ceftriaxone Sodium (Rocephin Im) 1 gm 1X ONCE IM Last administered on 19:18; Start 01/21/18 at 19:15; Stop 01/21/18 at 19:16; Status DC Acetaminophen (Tylenol) 500 mg BID PO Last administered on 01/26/18at 19:40; Start 01/21/18 at 22:00 Aspirin (Children'S Aspirin) 81 mg DAILY PO Last administered on 01/26/18at 08: 11; Start 01/22/18 at 09:00 Cetirizine HCl (ZyrTEC) 10 mg PRN DAILY PRN PO ALLERGIES; Start 01/21/18 at 22: 00 Ferrous Sulfate (Feosol) 325 mg DAILY PO Last administered on 01/26/18at 08:11; Start 01/22/18 at 09:00 Acetaminophen/ Hydrocodone Bitart (Lortab 7.5/325) 1 tab PRN Q6HRS PRN PO MOD/ SEVERE PAIN Last administered on 01/22/18at 03:44; Start 01/21/18 at 22:00 Levothyroxine Sodium (Synthroid) 125 mcg DAILY06 PO Last administered on 05:35; Start 01/22/18 at 06:00 Metformin HCl (Glucophage) 850 mg BIDWMEALS PO Last administered on 01/26/18 17:15; Start 01/22/18 at 08:00 Metoprolol Tartrate (Lopressor) 25 mg DAILY PO Last administered on 01/26/18 08:14; Start 01/22/18 at 09:00 Nystatin (Nystop) 1 soniya PRN BID PRN TP RASH Last administered on 01/26/18 08: 17; Start 01/21/18 at 22:00 Polyethylene Glycol (miraLAX) 17 gm DAILY PO Last administered on 01/26/18 08: 14; Start 01/22/18 at 09:00 Topiramate (Topamax) 100 mg TID PO Last administered on 01/26/18 19:39; Start 01/21/18 at 22:00 Calcium/Vitamin D (Oscal D 500mg/ 200uts) 1 tab DAILY PO Last administered on 08:14; Start 01/22/18 at 09:00 Cyanocobalamin (Vitamin B-12) 250 mcg DAILY PO Last administered on 01/26/18 08:15; Start 01/22/18 at 09:00 Fenofibrate (Tricor) 145 mg DAILY PO Last administered on 01/26/18 08:14; Start 01/22/18 at 09:00 Insulin Glargine (Lantus) 24 units QHS SQ Last administered on 01/26/18 19:40 ; Start 01/21/18 at 22:00 Lactobacillus Rhamnosus (Culturelle) 1 cap BID PO Last administered on 19:38; Start 01/22/18 at 09:00 Magnesium Oxide (Magnesium Oxide) 200 mg DAILY PO Last administered on 08:14; Start 01/22/18 at 09:00 Oxybutynin Chloride (Ditropan) 5 mg BID PO Last administered on 01/26/18 19:39 ; Start 01/21/18 at 22:00 Pantoprazole Sodium (Protonix) 40 mg PRN DAILY PRN PO NEEDED BEFORE A MEAL; Start 01/22/18 at 07:30 Non-Formulary Medication (Pseudoephedrine/ Brompheniramin (Rynex Pse Liquid)) 5 ml PRN TID PRN PO COUGH; Start 01/21/18 at 22:00; Stop 01/21/18 at 22:36; Status DC Atorvastatin Calcium (Lipitor) 20 mg DAILY PO Last administered on 01/26/18at 08 :11; Start 01/22/18 at 09:00 Buspirone HCl (Buspar) 10 mg BID PO Last administered on 01/26/18 19:38; Start 01/21/18 at 22:00 Divalproex Sodium (Depakote Er) 500 mg HS PO Last administered on 01/22/18at 00: 15; Start 01/21/18 at 22:00; Stop 01/22/18 at 18:18; Status DC Fluvoxamine Maleate (Luvox) 100 mg QHS PO Last administered on 01/26/18 19:39 ; Start 01/21/18 at 22:00 Risperidone (RisperDAL) 1 mg DAILY PO Last administered on 01/26/18at 08:14; Start 01/22/18 at 09:00; Stop 01/26/18 at 18:22; Status DC Non-Formulary Medication (Fluvoxamine Maleate ) 50 mg DAILY PO ; Start 01/22/18 at 09:00; Stop 01/22/18 at 09:00; Status DC Non-Formulary Medication (Memantine Hcl (Namenda Xr)) 7 mg DAILY PO ; Start at 09:00; Stop 01/22/18 at 09:00; Status DC Memantine (Namenda) 5 mg BID PO Last administered on 01/26/18at 19:39; Start at 22:00 Insulin Human Lispro (HumaLOG) 0-10 UNITS TIDWMEALS SQ Last administered on at 17:15; Start 01/22/18 at 08:00 Nystatin (Nystop) 1 soniya PRN BID PRN TP RASH; Start 01/22/18 at 00:15; Status Cancel Acetaminophen (Tylenol) 650 mg PRN Q6HRS PRN PO PAIN / TEMP; Start 01/22/18 at 05:00 Multi-Ingredient Ointment (Analgesic [place]) 1 soniya PRN QID PRN TP MUSCLE PAIN; Start 01/22/18 at 05:00 Al Hydroxide/Mg Hydroxide (Mylanta Plus Xs) 15 ml PRN AFTMEALHC PRN PO DYSPEPSIA; Start 01/22/18 at 05:00 Magnesium Hydroxide (Milk Of Magnesia) 2,400 mg PRN QHS PRN PO CONSTIPATION; Start 01/22/18 at 05:00 Vitamin D (Vitamin D3) 50,000 unit WEEKLY PO Last administered on 01/22/18at 18: 25; Start 01/22/18 at 18:00 Fluconazole (Diflucan) 100 mg DAILY PO Last administered on 01/26/18at 08:11; Start 01/23/18 at 09:00 Cefpodoxime Proxetil (Vantin) 200 mg BID PO Last administered on 01/26/18at 19: 40; Start 01/22/18 at 21:00; Stop 01/28/18 at 20:59 Lactobacillus Rhamnosus (Culturelle) 1 cap BID PO ; Start 01/22/18 at 21:00; Stop 01/22/18 at 21:00; Status DC Divalproex Sodium (Depakote Er) 500 mg HS PO Last administered on 01/24/18at 19: 58; Start 01/22/18 at 21:00; Stop 01/25/18 at 15:48; Status DC Divalproex Sodium (Depakote Er) 250 mg QHS PO Last administered on 01/24/18at 19 :58; Start 01/22/18 at 21:00; Stop 01/25/18 at 15:48; Status DC Divalproex Sodium (Depakote Er) 1,000 mg QHS PO Last administered on 01/26/18at 19:39; Start 01/25/18 at 21:00 Risperidone (RisperDAL) 0.75 mg DAILY PO ; Start 01/27/18 at 09:00 Active Scripts Active Reported Risperidone 1 Mg Tablet 1 Mg PO DAILY Namenda Xr (Memantine Hcl) 14 Mg Cap.spr.24 14 Mg PO DAILY Namenda Xr (Memantine Hcl) 7 Mg Cap.spr.24 7 Mg PO DAILY Depakote Er (Divalproex Sodium) 500 Mg Tab.er.24h 500 Mg PO HS Buspirone Hcl 10 Mg Tablet 10 Mg PO BID Fenofibrate (Fenofibrate,Micronized) 134 Mg Capsule 134 Mg PO DAILY Fluvoxamine Maleate 100 Mg Tablet 1 Tab PO QHS Levemir Flextouch (Insulin Detemir) 100 Unit/1 Ml Insuln.pen 24 Unit SQ HS Novolog Flexpen (Insulin Aspart) 100 Unit/1 Ml Insuln.pen 0-10 Unit SQ TIDAC SLIDING SCALE INSULIN Magnesium (Magnesium Oxide) 400 Mg Capsule 250 Mg PO DAILY Levothyroxine Sodium 125 Mcg Tablet 125 Mcg PO DAILY06 Atorvastatin Calcium 20 Mg Tablet 20 Mg PO DAILY Fluvoxamine Maleate 50 Mg Tablet 50 Mg PO DAILY Acetaminophen 500 Mg Tablet 500 Mg PO BID Calcium 600 + Vit D 200 Tablet (Calcium Carbonate/Vitamin D3) 1 Each Tablet 1 Each PO DAILY B-12 (Cyanocobalamin (Vitamin B-12)) 500 Mcg Tablet 250 Mcg PO DAILY Acidophilus (Lactobacillus Acidophilus) 1 Each Capsule 1 Each PO BID Metformin Hcl 850 Mg Tablet 850 Mg PO BIDWMEALS Ferrous Sulfate 325 Mg Tablet 1 Tab PO DAILY Topiramate 100 Mg Tablet 100 Mg PO TID Metoprolol Tartrate 25 Mg Tablet 25 Mg PO DAILY Ditropan Xl (Oxybutynin Chloride) 10 Mg Tab.er.24 10 Mg PO DAILY Miralax (Polyethylene Glycol 3350) 17 Gm Powd.pack 17 Gm PO DAILY Aspirin 81 Mg Tab.chew 81 Mg PO DAILY Cetirizine Hcl 10 Mg Tablet 10 Mg PO PRN DAILY PRN Hydrocodone-Apap 7.5-325 (Hydrocodone Bit/Acetaminophen) 1 Each Tablet 1 Tab PO PRN Q6HRS PRN Rynex Pse Liquid (Pseudoephedrine/Brompheniramin) 473 Ml Liquid 5 Ml PO PRN TID PRN Protonix (Pantoprazole Sodium) 20 Mg Tablet.dr 20 Mg PO PRN DAILY PRN Nystop (Nystatin) 60 Gm Powder 1 Soniya TP PRN BID PRN I have reviewed the current psychotropics carefully including drug interactions. Risk benefit ratio favors no change other than as noted in my dictated progress note. 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
[2018-01-26] MEDS: ACETAMINOPHEN 325 MG TABLET PO PRN (22:33)
--- NOTE | 2018-01-27 04:48 | PN ---
DATE: 01/24/2018 PSYCHIATRIC PROGRESS NOTE This is a late entry of 01/24/2018, covers elements not covered in my initial note of 01/24/2018. SUBJECTIVE: I met with the patient in the evening. This is a re-dictation requested by medical records. Overall, the patient remains somewhat anxious at times, overall functioning consistent with intellectual disability. REVIEW OF SYSTEMS: No CV, , pulmonary, eye, ENT system symptoms on review. Ambulates with a walker. MENTAL STATUS EXAM: Oriented to herself. Insight, judgment, recent and remote memory, attention, concentration, fund of knowledge poor, consistent with her diagnosis mentioned in my initial note. PLAN: Unchanged from initial note. MAN Kingston DAVIS MD DR: SUMEET/kirill JOB#: [id number] / [id number]
--- NOTE | 2018-01-27 05:08 | PN ---
DATE: 01/25/2018 PSYCHIATRIC PROGRESS NOTE This late entry 01/25/2018 covers elements not covered in my initial note of 01/25/2018. SUBJECTIVE: I met with the patient in the afternoon. This is a redictation requested by medical records. The patient did well the previous evening. Valproic acid level is 35. REVIEW OF SYSTEMS: No CV, , pulmonary, eye, ENT system symptoms on review. Reliability poor. MENTAL STATUS EXAM: Oriented to herself. Insight, judgment, recent and remote memory, attention, concentration, fund of knowledge poor, consistent with her diagnosis. Short-term memory is impaired. IMPRESSION: Unchanged from initial note. PLAN: Increase Depakote ER to 1000 mg at bedtime. Check CBC, CMP, valproic acid level in 3 days. MAN Kingston DAVIS MD DR: SUMEET/kirill JOB#: [id number] / [id number]
[2018-01-27] MEDS: LEVOTHYROXINE 125 MCG TABLET PO SCH (05:36)
[2018-01-27 06:27] VITALS: BP 147/84
[2018-01-27] MEDS: INSULIN LISPRO 300 UNITS/3 ML INSULN.PEN. SQ SCH ×3 (08:00→16:50)
[2018-01-27] MEDS: TOPIRAMATE 100 MG TABLET. PO SCH ×3 (08:23→20:09)
[2018-01-27] MEDS: POLYETHYLENE GLYCOL 3350 17 GM PACKET. PO SCH (08:23)
[2018-01-27] MEDS: MAGNESIUM OXIDE 400 MG TABLET PO SCH (08:23)
[2018-01-27] MEDS: OXYBUTYNIN CHLORIDE 5 MG TABLET PO SCH ×2 (08:23→20:08)
[2018-01-27] MEDS: MEMANTINE 5 MG TABLET. PO SCH ×2 (08:24→20:09)
[2018-01-27] MEDS: busPIRone 10 MG TABLET. PO SCH ×2 (08:24→20:07)
[2018-01-27] MEDS: LACTOBACILLUS RHAMNOSUS GG 1 CAPSULE. PO SCH ×2 (08:24→20:08)
[2018-01-27] MEDS: CALCIUM CARB/VIT D3 500/200 TABLET PO SCH (08:24)
[2018-01-27] MEDS: CYANOCOBALAMIN (VITAMIN B-12) 250 MCG TABLET PO SCH (08:24)
[2018-01-27] MEDS: FERROUS SULFATE 325 MG TABLET. PO SCH (08:24)
[2018-01-27] MEDS: METOPROLOL TART IMMED RELEASE 25 MG TABLET PO SCH (08:24)
[2018-01-27] MEDS: metFORMIN 850 MG TABLET PO SCH ×2 (08:24→17:02)
[2018-01-27] MEDS: CEFPODOXIME PROXETIL 100 MG TABLET PO SCH ×2 (08:25→20:09)
[2018-01-27] MEDS: FLUCONAZOLE 100 MG TABLET. PO SCH (08:25)
[2018-01-27] MEDS: FENOFIBRATE NANOCRYSTALLIZED 145 MG TABLET PO SCH (08:25)
[2018-01-27] MEDS: ACETAMINOPHEN 500 MG TABLET PO SCH ×2 (08:25→20:09)
[2018-01-27] MEDS: ASPIRIN 81 MG TAB.CHEW PO SCH (08:25)
[2018-01-27] MEDS: ATORVASTATIN CALCIUM 20 MG TABLET PO SCH (08:25)
[2018-01-27] MEDS: risperiDONE 0.5 MG TABLET. PO SCH (08:26)
--- NOTE | 2018-01-27 11:11 | PN ---
DATE: 01/23/2018 PSYCHIATRIC PROGRESS NOTE This is a late entry 01/23/2018, covers elements not covered in my initial note 01/23/2018. SUBJECTIVE: I met with the patient the evening of 01/23/2018. This note has been redictated as requested by health information office. The patient slept 9 hours previous evening. Per nursing report, she is noted to be "adorable." She is compliant with her medications and less labile, less irritable since the yeast infection in the groin area is improving. REVIEW OF SYSTEMS: No CV, , pulmonary, eye, ENT system symptoms on review. Reliability poor. MENTAL STATUS EXAM: Oriented to herself. Insight, judgment, recent and remote memory, attention, concentration, fund of knowledge poor, consistent with her diagnoses mentioned in my initial note. PLAN: Continue psychotropics mentioned in my initial note. Valproic acid level subtherapeutic at 39, but clinically adequate for now. LAURITA DAVIS MD DR: SUMEET/kirill JOB#: [id number] / [id number]
[2018-01-27] MEDS: DIVALPROEX ER 500 MG TAB.ER.24H PO SCH (20:08)
[2018-01-27] MEDS: INSULIN GLARGINE 300 UNITS/3 ML INSULN.PEN. SQ SCH (20:11)
--- NOTE | 2018-01-27 20:53 | PDOC ---
Exam Note: Hemant Note: Please also refer to the separate dictated note~for this date of service dictated separately.~Patient seen individually. Discussed the patient with Nursing staff reviewed the chart.~Reviewed interim history and current functioning. Reviewed vital signs,~Labs/ Radiology~and current medications noted below. Continue current treatment with the changes noted in the dictated addendum note Assessment: Vital Signs: Vital Signs Date Time Temp Pulse Resp B/P (MAP) Pulse Ox O2 Delivery O2 Flow Rate FiO2 01/27/18 08:24 71 147/84 01/27/18 06:27 97.4 20 100 01/25/18 06:35 Room Air I&O Intake and Output 01/27/18 07:00 Intake Total 1080 ml Balance 1080 ml Intake Oral 1080 ml Labs: Laboratory Tests Test 01/27/18 07:03 01/27/18 11:19 01/27/18 16:14 01/27/18 19:21 Glucose (Fingerstick) 107 mg/dL (70-99) H 133 mg/dL (70-99) H 123 mg/dL (70-99) H 111 mg/dL (70-99) H Current Medications: Meds: Current Medications Ceftriaxone Sodium (Rocephin Im) 1 gm 1X ONCE IM Last administered on at 19:18; Start 01/21/18 at 19:15; Stop 01/21/18 at 19:16; Status DC Acetaminophen (Tylenol) 500 mg BID PO Last administered on 01/27/18at 20:09; Start 01/21/18 at 22:00 Aspirin (Children'S Aspirin) 81 mg DAILY PO Last administered on 01/27/18at 08: 25; Start 01/22/18 at 09:00 Cetirizine HCl (ZyrTEC) 10 mg PRN DAILY PRN PO ALLERGIES; Start 01/21/18 at 22: 00 Ferrous Sulfate (Feosol) 325 mg DAILY PO Last administered on 01/27/18at 08:24; Start 01/22/18 at 09:00 Acetaminophen/ Hydrocodone Bitart (Lortab 7.5/325) 1 tab PRN Q6HRS PRN PO MOD/ SEVERE PAIN Last administered on 01/22/18at 03:44; Start 01/21/18 at 22:00 Levothyroxine Sodium (Synthroid) 125 mcg DAILY06 PO Last administered on 05:36; Start 01/22/18 at 06:00 Metformin HCl (Glucophage) 850 mg BIDWMEALS PO Last administered on 01/27/18 17:02; Start 01/22/18 at 08:00 Metoprolol Tartrate (Lopressor) 25 mg DAILY PO Last administered on 01/27/18 08:24; Start 01/22/18 at 09:00 Nystatin (Nystop) 1 soniya PRN BID PRN TP RASH Last administered on 01/26/18 08: 17; Start 01/21/18 at 22:00 Polyethylene Glycol (miraLAX) 17 gm DAILY PO Last administered on 01/27/18 08: 23; Start 01/22/18 at 09:00 Topiramate (Topamax) 100 mg TID PO Last administered on 01/27/18 20:09; Start 01/21/18 at 22:00 Calcium/Vitamin D (Oscal D 500mg/ 200uts) 1 tab DAILY PO Last administered on 08:24; Start 01/22/18 at 09:00 Cyanocobalamin (Vitamin B-12) 250 mcg DAILY PO Last administered on 01/27/18 08:24; Start 01/22/18 at 09:00 Fenofibrate (Tricor) 145 mg DAILY PO Last administered on 01/27/18 08:25; Start 01/22/18 at 09:00 Insulin Glargine (Lantus) 24 units QHS SQ Last administered on 01/27/18 20:11 ; Start 01/21/18 at 22:00 Lactobacillus Rhamnosus (Culturelle) 1 cap BID PO Last administered on 20:08; Start 01/22/18 at 09:00 Magnesium Oxide (Magnesium Oxide) 200 mg DAILY PO Last administered on 08:23; Start 01/22/18 at 09:00 Oxybutynin Chloride (Ditropan) 5 mg BID PO Last administered on 01/27/18 20:08 ; Start 01/21/18 at 22:00 Pantoprazole Sodium (Protonix) 40 mg PRN DAILY PRN PO NEEDED BEFORE A MEAL; Start 01/22/18 at 07:30 Non-Formulary Medication (Pseudoephedrine/ Brompheniramin (Rynex Pse Liquid)) 5 ml PRN TID PRN PO COUGH; Start 01/21/18 at 22:00; Stop 01/21/18 at 22:36; Status DC Atorvastatin Calcium (Lipitor) 20 mg DAILY PO Last administered on 01/27/18 08 :25; Start 01/22/18 at 09:00 Buspirone HCl (Buspar) 10 mg BID PO Last administered on 01/27/18 20:07; Start 01/21/18 at 22:00 Divalproex Sodium (Depakote Er) 500 mg HS PO Last administered on 01/22/18at 00: 15; Start 01/21/18 at 22:00; Stop 01/22/18 at 18:18; Status DC Fluvoxamine Maleate (Luvox) 100 mg QHS PO Last administered on 01/27/18 20:08 ; Start 01/21/18 at 22:00 Risperidone (RisperDAL) 1 mg DAILY PO Last administered on 01/26/18at 08:14; Start 01/22/18 at 09:00; Stop 01/26/18 at 18:22; Status DC Non-Formulary Medication (Fluvoxamine Maleate ) 50 mg DAILY PO ; Start 01/22/18 at 09:00; Stop 01/22/18 at 09:00; Status DC Non-Formulary Medication (Memantine Hcl (Namenda Xr)) 7 mg DAILY PO ; Start at 09:00; Stop 01/22/18 at 09:00; Status DC Memantine (Namenda) 5 mg BID PO Last administered on 01/27/18at 20:09; Start at 22:00 Insulin Human Lispro (HumaLOG) 0-10 UNITS TIDWMEALS SQ Last administered on at 17:15; Start 01/22/18 at 08:00 Nystatin (Nystop) 1 soniya PRN BID PRN TP RASH; Start 01/22/18 at 00:15; Status Cancel Acetaminophen (Tylenol) 650 mg PRN Q6HRS PRN PO PAIN / TEMP Last administered on 01/26/18at 22:33; Start 01/22/18 at 05:00 Multi-Ingredient Ointment (Analgesic [place]) 1 soniya PRN QID PRN TP MUSCLE PAIN; Start 01/22/18 at 05:00 Al Hydroxide/Mg Hydroxide (Mylanta Plus Xs) 15 ml PRN AFTMEALHC PRN PO DYSPEPSIA; Start 01/22/18 at 05:00 Magnesium Hydroxide (Milk Of Magnesia) 2,400 mg PRN QHS PRN PO CONSTIPATION; Start 01/22/18 at 05:00 Vitamin D (Vitamin D3) 50,000 unit WEEKLY PO Last administered on 01/22/18at 18: 25; Start 01/22/18 at 18:00 Fluconazole (Diflucan) 100 mg DAILY PO Last administered on 01/27/18at 08:25; Start 01/23/18 at 09:00 Cefpodoxime Proxetil (Vantin) 200 mg BID PO Last administered on 01/27/18at 20: 09; Start 01/22/18 at 21:00; Stop 01/28/18 at 20:59 Lactobacillus Rhamnosus (Culturelle) 1 cap BID PO ; Start 01/22/18 at 21:00; Stop 01/22/18 at 21:00; Status DC Divalproex Sodium (Depakote Er) 500 mg HS PO Last administered on 01/24/18at 19: 58; Start 01/22/18 at 21:00; Stop 01/25/18 at 15:48; Status DC Divalproex Sodium (Depakote Er) 250 mg QHS PO Last administered on 01/24/18at 19 :58; Start 01/22/18 at 21:00; Stop 01/25/18 at 15:48; Status DC Divalproex Sodium (Depakote Er) 1,000 mg QHS PO Last administered on 01/27/18at 20:08; Start 01/25/18 at 21:00 Risperidone (RisperDAL) 0.75 mg DAILY PO Last administered on 01/27/18at 08:26; Start 01/27/18 at 09:00 Active Scripts Active Reported Risperidone 1 Mg Tablet 1 Mg PO DAILY Namenda Xr (Memantine Hcl) 14 Mg Cap.spr.24 14 Mg PO DAILY Namenda Xr (Memantine Hcl) 7 Mg Cap.spr.24 7 Mg PO DAILY Depakote Er (Divalproex Sodium) 500 Mg Tab.er.24h 500 Mg PO HS Buspirone Hcl 10 Mg Tablet 10 Mg PO BID Fenofibrate (Fenofibrate,Micronized) 134 Mg Capsule 134 Mg PO DAILY Fluvoxamine Maleate 100 Mg Tablet 1 Tab PO QHS Levemir Flextouch (Insulin Detemir) 100 Unit/1 Ml Insuln.pen 24 Unit SQ HS Novolog Flexpen (Insulin Aspart) 100 Unit/1 Ml Insuln.pen 0-10 Unit SQ TIDAC SLIDING SCALE INSULIN Magnesium (Magnesium Oxide) 400 Mg Capsule 250 Mg PO DAILY Levothyroxine Sodium 125 Mcg Tablet 125 Mcg PO DAILY06 Atorvastatin Calcium 20 Mg Tablet 20 Mg PO DAILY Fluvoxamine Maleate 50 Mg Tablet 50 Mg PO DAILY Acetaminophen 500 Mg Tablet 500 Mg PO BID Calcium 600 + Vit D 200 Tablet (Calcium Carbonate/Vitamin D3) 1 Each Tablet 1 Each PO DAILY B-12 (Cyanocobalamin (Vitamin B-12)) 500 Mcg Tablet 250 Mcg PO DAILY Acidophilus (Lactobacillus Acidophilus) 1 Each Capsule 1 Each PO BID Metformin Hcl 850 Mg Tablet 850 Mg PO BIDWMEALS Ferrous Sulfate 325 Mg Tablet 1 Tab PO DAILY Topiramate 100 Mg Tablet 100 Mg PO TID Metoprolol Tartrate 25 Mg Tablet 25 Mg PO DAILY Ditropan Xl (Oxybutynin Chloride) 10 Mg Tab.er.24 10 Mg PO DAILY Miralax (Polyethylene Glycol 3350) 17 Gm Powd.pack 17 Gm PO DAILY Aspirin 81 Mg Tab.chew 81 Mg PO DAILY Cetirizine Hcl 10 Mg Tablet 10 Mg PO PRN DAILY PRN Hydrocodone-Apap 7.5-325 (Hydrocodone Bit/Acetaminophen) 1 Each Tablet 1 Tab PO PRN Q6HRS PRN Rynex Pse Liquid (Pseudoephedrine/Brompheniramin) 473 Ml Liquid 5 Ml PO PRN TID PRN Protonix (Pantoprazole Sodium) 20 Mg Tablet.dr 20 Mg PO PRN DAILY PRN Nystop (Nystatin) 60 Gm Powder 1 Soniya TP PRN BID PRN I have reviewed the current psychotropics carefully including drug interactions. Risk benefit ratio favors no change other than as noted in my dictated progress note. 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
--- NOTE | 2018-01-28 00:41 | PN ---
DATE: 01/26/2018 This is a late entry of 01/26/2018 covers elements not covered in my initial note of 01/26/2018. SUBJECTIVE: I met with the patient in the evening of 01/26/2018. The patient slept 8-1/4 hours previous evening. She remains somewhat disinhibited at times, previous night she was disrobing, had to be placed in [employer]. Nevertheless, she does still have the groin yeast infection, which makes her very uncomfortable and UTI. REVIEW OF SYSTEMS: No CV, , pulmonary, eye, ENT system symptoms on review other than the discomfort in the groin area. MENTAL STATUS EXAM: Oriented to herself. Insight, judgment, recent and remote memory, attention, concentration, fund of knowledge poor, consistent with her diagnosis. IMPRESSION: Major neurocognitive disorder, Alzheimer, vascular with depression, delusion, intellectual disability. PLAN: Depakote was just increased. We will follow labs level, adjust as indicated. Continue rest unchanged including Luvox. MAN Kingston DAVIS MD DR: SUMEET/kirill JOB#: [id number] / [id number]
[2018-01-28] MEDS: LEVOTHYROXINE 125 MCG TABLET PO SCH (05:32)
[2018-01-28 06:30] VITALS: BP 141/71
[2018-01-28] MEDS: POLYETHYLENE GLYCOL 3350 17 GM PACKET. PO SCH (07:55)
[2018-01-28] MEDS: MAGNESIUM OXIDE 400 MG TABLET PO SCH (07:55)
[2018-01-28] MEDS: FLUCONAZOLE 100 MG TABLET. PO SCH (07:55)
[2018-01-28] MEDS: MEMANTINE 5 MG TABLET. PO SCH ×2 (07:55→19:36)
[2018-01-28] MEDS: ACETAMINOPHEN 500 MG TABLET PO SCH ×2 (07:56→19:35)
[2018-01-28] MEDS: ATORVASTATIN CALCIUM 20 MG TABLET PO SCH (07:56)
[2018-01-28] MEDS: OXYBUTYNIN CHLORIDE 5 MG TABLET PO SCH ×2 (07:56→19:36)
[2018-01-28] MEDS: CYANOCOBALAMIN (VITAMIN B-12) 250 MCG TABLET PO SCH (07:56)
[2018-01-28] MEDS: metFORMIN 850 MG TABLET PO SCH ×2 (07:56→17:42)
[2018-01-28] MEDS: FENOFIBRATE NANOCRYSTALLIZED 145 MG TABLET PO SCH (07:56)
[2018-01-28] MEDS: TOPIRAMATE 100 MG TABLET. PO SCH ×3 (07:56→19:35)
[2018-01-28] MEDS: CALCIUM CARB/VIT D3 500/200 TABLET PO SCH (07:56)
[2018-01-28] MEDS: LACTOBACILLUS RHAMNOSUS GG 1 CAPSULE. PO SCH ×2 (07:56→19:35)
[2018-01-28] MEDS: FERROUS SULFATE 325 MG TABLET. PO SCH (07:56)
[2018-01-28] MEDS: busPIRone 10 MG TABLET. PO SCH ×2 (07:56→19:36)
[2018-01-28] MEDS: CEFPODOXIME PROXETIL 100 MG TABLET PO SCH (07:57)
[2018-01-28] MEDS: ASPIRIN 81 MG TAB.CHEW PO SCH (07:57)
[2018-01-28] MEDS: risperiDONE 0.5 MG TABLET. PO SCH (07:57)
[2018-01-28] MEDS: METOPROLOL TART IMMED RELEASE 25 MG TABLET PO SCH (07:57)
[2018-01-28] MEDS: INSULIN LISPRO 300 UNITS/3 ML INSULN.PEN. SQ SCH ×3 (08:00→17:00)
[2018-01-28 08:06] LABS: BASO % 1 % (0-3); EOS # 0.3 x10^3/uL (0.0-0.7); EOS % 5 % (0-3); HEMATOCRIT 32.9 % (36.0-47.0); HEMOGLOBIN 10.5 g/dL (12.0-15.5); LYMPH # 1.6 x10^3/uL (1.0-4.8); LYMPH % 32 % (24-48); MEAN CORPUSCULAR HEMOGLOBIN 28 pg (25-35); MEAN CORPUSCULAR HGB CONC 32 g/dL (31-37); MEAN CORPUSCULAR VOLUME 86 fL (79-100); MONO # 0.4 x10^3/uL (0.0-1.1); MONO % 8 % (0-9); NEUT # 2.7 x10^3uL (1.8-7.7); NEUT % 54 % (31-73); PLATELET COUNT 211 x10^3/uL (140-400); RED BLOOD COUNT 3.82 x10^6/uL (3.50-5.40); RED CELL DISTRIBUTION WIDTH 14.9 % (11.5-14.5); WHITE BLOOD COUNT 5.1 x10^3/uL (4.0-11.0)
[2018-01-28 08:25] LABS: ALBUMIN 3.5 g/dL (3.4-5.0); ALBUMIN/GLOBULIN RATIO 0.9 (1.0-1.7); ALK PHOS 37 U/L (46-116); ALT (SGPT) 16 U/L (14-59); ANION GAP 10 (6-14); AST (SGOT) 19 U/L (15-37); BLOOD UREA NITROGEN 20 mg/dL (7-20); BUN/CREATININE RATIO 20 (6-20); CARBON DIOXIDE 25 mmol/L (21-32); CHLORIDE 104 mmol/L (98-107); GFR 54.7; GLUCOSE 92 mg/dL (70-99); POTASSIUM 4.1 mmol/L (3.5-5.1); SODIUM 139 mmol/L (136-145); TOTAL BILIRUBIN 0.2 mg/dL (0.2-1.0); TOTAL PROTEIN 7.5 g/dL (6.4-8.2)
[2018-01-28 08:28] LABS: VAL ACID 47 mcg/mL (50-100)
[2018-01-28 15:53] VITALS: BP 116/75
[2018-01-28] MEDS: DIVALPROEX ER 500 MG TAB.ER.24H PO SCH (19:36)
[2018-01-28] MEDS: INSULIN GLARGINE 300 UNITS/3 ML INSULN.PEN. SQ SCH (19:39)
--- NOTE | 2018-01-28 20:32 | PDOC ---
Exam Note: Hemant Note: Please also refer to the separate dictated note~for this date of service dictated separately.~Patient seen individually. Discussed the patient with Nursing staff reviewed the chart.~Reviewed interim history and current functioning. Reviewed vital signs,~Labs/ Radiology~and current medications noted below. Continue current treatment with the changes noted in the dictated addendum note Assessment: Vital Signs: Vital Signs Date Time Temp Pulse Resp B/P (MAP) Pulse Ox O2 Delivery O2 Flow Rate FiO2 01/28/18 15:53 98.0 60 18 116/75 (89) 96 01/25/18 06:35 Room Air I&O Intake and Output 01/28/18 07:00 Intake Total 1440 ml Balance 1440 ml Intake Oral 1440 ml # Voids 3 Labs: Laboratory Tests Test 01/28/18 07:14 01/28/18 07:49 01/28/18 11:29 01/28/18 17:00 White Blood Count 5.1 x10^3/uL (4.0-11.0) Red Blood Count 3.82 x10^6/uL (3.50-5.40) Hemoglobin 10.5 g/dL (12.0-15.5) L Hematocrit 32.9 % (36.0-47.0) L Mean Corpuscular Volume 86 fL (79-100) Mean Corpuscular Hemoglobin 28 pg (25-35) Mean Corpuscular Hemoglobin Concent 32 g/dL (31-37) Red Cell Distribution Width 14.9 % (11.5-14.5) H Platelet Count 211 x10^3/uL (140-400) Neutrophils (%) (Auto) 54 % (31-73) Lymphocytes (%) (Auto) 32 % (24-48) Monocytes (%) (Auto) 8 % (0-9) Eosinophils (%) (Auto) 5 % (0-3) H Basophils (%) (Auto) 1 % (0-3) Neutrophils # (Auto) 2.7 x10^3uL (1.8-7.7) Lymphocytes # (Auto) 1.6 x10^3/uL (1.0-4.8) Monocytes # (Auto) 0.4 x10^3/uL (0.0-1.1) Eosinophils # (Auto) 0.3 x10^3/uL (0.0-0.7) Basophils # (Auto) 0.0 x10^3/uL (0.0-0.2) Sodium Level 139 mmol/L (136-145) Potassium Level 4.1 mmol/L (3.5-5.1) Chloride Level 104 mmol/L (98-107) Carbon Dioxide Level 25 mmol/L (21-32) Anion Gap 10 (6-14) Blood Urea Nitrogen 20 mg/dL (7-20) Creatinine 1.0 mg/dL (0.6-1.0) Estimated GFR (Cockcroft-Gault) 54.7 BUN/Creatinine Ratio 20 (6-20) Glucose Level 92 mg/dL (70-99) Calcium Level 10.0 mg/dL (8.5-10.1) Total Bilirubin 0.2 mg/dL (0.2-1.0) Aspartate Amino Transferase (AST) 19 U/L (15-37) Alanine Aminotransferase (ALT) 16 U/L (14-59) Alkaline Phosphatase 37 U/L (46-116) L Total Protein 7.5 g/dL (6.4-8.2) Albumin 3.5 g/dL (3.4-5.0) Albumin/Globulin Ratio 0.9 (1.0-1.7) L Valproic Acid Level 47 mcg/mL (50-100) L Valproic Acid Last Dose Date 01/27/18 Valproic Acid Last Dose Time 2100 Glucose (Fingerstick) 89 mg/dL (70-99) 98 mg/dL (70-99) 124 mg/dL (70-99) H Current Medications: Meds: Current Medications Ceftriaxone Sodium (Rocephin Im) 1 gm 1X ONCE IM Last administered on at 19:18; Start 01/21/18 at 19:15; Stop 01/21/18 at 19:16; Status DC Acetaminophen (Tylenol) 500 mg BID PO Last administered on 01/28/18at 19:35; Start 01/21/18 at 22:00 Aspirin (Children'S Aspirin) 81 mg DAILY PO Last administered on 01/28/18at 07: 57; Start 01/22/18 at 09:00 Cetirizine HCl (ZyrTEC) 10 mg PRN DAILY PRN PO ALLERGIES; Start 01/21/18 at 22: 00 Ferrous Sulfate (Feosol) 325 mg DAILY PO Last administered on 01/28/18 07:56; Start 01/22/18 at 09:00 Acetaminophen/ Hydrocodone Bitart (Lortab 7.5/325) 1 tab PRN Q6HRS PRN PO MOD/ SEVERE PAIN Last administered on 01/22/18 03:44; Start 01/21/18 at 22:00 Levothyroxine Sodium (Synthroid) 125 mcg DAILY06 PO Last administered on 05:32; Start 01/22/18 at 06:00 Metformin HCl (Glucophage) 850 mg BIDWMEALS PO Last administered on 01/28/18 17:42; Start 01/22/18 at 08:00 Metoprolol Tartrate (Lopressor) 25 mg DAILY PO Last administered on 01/28/18 07:57; Start 01/22/18 at 09:00 Nystatin (Nystop) 1 soniya PRN BID PRN TP RASH Last administered on 01/26/18 08: 17; Start 01/21/18 at 22:00 Polyethylene Glycol (miraLAX) 17 gm DAILY PO Last administered on 01/28/18 07: 55; Start 01/22/18 at 09:00 Topiramate (Topamax) 100 mg TID PO Last administered on 01/28/18 19:35; Start 01/21/18 at 22:00 Calcium/Vitamin D (Oscal D 500mg/ 200uts) 1 tab DAILY PO Last administered on 07:56; Start 01/22/18 at 09:00 Cyanocobalamin (Vitamin B-12) 250 mcg DAILY PO Last administered on 01/28/18 07:56; Start 01/22/18 at 09:00 Fenofibrate (Tricor) 145 mg DAILY PO Last administered on 01/28/18 07:56; Start 01/22/18 at 09:00 Insulin Glargine (Lantus) 24 units QHS SQ Last administered on 01/28/18 19:39 ; Start 01/21/18 at 22:00 Lactobacillus Rhamnosus (Culturelle) 1 cap BID PO Last administered on 19:35; Start 01/22/18 at 09:00 Magnesium Oxide (Magnesium Oxide) 200 mg DAILY PO Last administered on 07:55; Start 01/22/18 at 09:00 Oxybutynin Chloride (Ditropan) 5 mg BID PO Last administered on 01/28/18 19:36 ; Start 01/21/18 at 22:00 Pantoprazole Sodium (Protonix) 40 mg PRN DAILY PRN PO NEEDED BEFORE A MEAL; Start 01/22/18 at 07:30 Non-Formulary Medication (Pseudoephedrine/ Brompheniramin (Rynex Pse Liquid)) 5 ml PRN TID PRN PO COUGH; Start 01/21/18 at 22:00; Stop 01/21/18 at 22:36; Status DC Atorvastatin Calcium (Lipitor) 20 mg DAILY PO Last administered on 01/28/18at 07 :56; Start 01/22/18 at 09:00 Buspirone HCl (Buspar) 10 mg BID PO Last administered on 01/28/18 07:56; Start 01/21/18 at 22:00; Stop 01/28/18 at 18:24; Status DC Divalproex Sodium (Depakote Er) 500 mg HS PO Last administered on 01/22/18at 00: 15; Start 01/21/18 at 22:00; Stop 01/22/18 at 18:18; Status DC Fluvoxamine Maleate (Luvox) 100 mg QHS PO Last administered on 01/28/18 19:36 ; Start 01/21/18 at 22:00 Risperidone (RisperDAL) 1 mg DAILY PO Last administered on 01/26/18at 08:14; Start 01/22/18 at 09:00; Stop 01/26/18 at 18:22; Status DC Non-Formulary Medication (Fluvoxamine Maleate ) 50 mg DAILY PO ; Start 01/22/18 at 09:00; Stop 01/22/18 at 09:00; Status DC Non-Formulary Medication (Memantine Hcl (Namenda Xr)) 7 mg DAILY PO ; Start at 09:00; Stop 01/22/18 at 09:00; Status DC Memantine (Namenda) 5 mg BID PO Last administered on 01/28/18 19:36; Start at 22:00 Insulin Human Lispro (HumaLOG) 0-10 UNITS TIDWMEALS SQ Last administered on at 17:15; Start 01/22/18 at 08:00 Nystatin (Nystop) 1 soniya PRN BID PRN TP RASH; Start 01/22/18 at 00:15; Status Cancel Acetaminophen (Tylenol) 650 mg PRN Q6HRS PRN PO PAIN / TEMP Last administered on 01/26/18at 22:33; Start 01/22/18 at 05:00 Multi-Ingredient Ointment (Analgesic [place]) 1 soniya PRN QID PRN TP MUSCLE PAIN; Start 01/22/18 at 05:00 Al Hydroxide/Mg Hydroxide (Mylanta Plus Xs) 15 ml PRN AFTMEALHC PRN PO DYSPEPSIA; Start 01/22/18 at 05:00 Magnesium Hydroxide (Milk Of Magnesia) 2,400 mg PRN QHS PRN PO CONSTIPATION; Start 01/22/18 at 05:00 Vitamin D (Vitamin D3) 50,000 unit WEEKLY PO Last administered on 01/22/18at 18: 25; Start 01/22/18 at 18:00 Fluconazole (Diflucan) 100 mg DAILY PO Last administered on 01/28/18at 07:55; Start 01/23/18 at 09:00 Cefpodoxime Proxetil (Vantin) 200 mg BID PO Last administered on 01/28/18 07: 57; Start 01/22/18 at 21:00; Stop 01/28/18 at 20:59 Lactobacillus Rhamnosus (Culturelle) 1 cap BID PO ; Start 01/22/18 at 21:00; Stop 01/22/18 at 21:00; Status DC Divalproex Sodium (Depakote Er) 500 mg HS PO Last administered on 01/24/18 19: 58; Start 01/22/18 at 21:00; Stop 01/25/18 at 15:48; Status DC Divalproex Sodium (Depakote Er) 250 mg QHS PO Last administered on 01/24/18 19 :58; Start 01/22/18 at 21:00; Stop 01/25/18 at 15:48; Status DC Divalproex Sodium (Depakote Er) 1,000 mg QHS PO Last administered on 01/28/18at 19:36; Start 01/25/18 at 21:00 Risperidone (RisperDAL) 0.75 mg DAILY PO Last administered on 01/28/18at 07:57; Start 01/27/18 at 09:00 Buspirone HCl (Buspar) 10 mg TID PO Last administered on 01/28/18at 19:36; Start 01/28/18 at 21:00 Active Scripts Active Reported Risperidone 1 Mg Tablet 1 Mg PO DAILY Namenda Xr (Memantine Hcl) 14 Mg Cap.spr.24 14 Mg PO DAILY Namenda Xr (Memantine Hcl) 7 Mg Cap.spr.24 7 Mg PO DAILY Depakote Er (Divalproex Sodium) 500 Mg Tab.er.24h 500 Mg PO HS Buspirone Hcl 10 Mg Tablet 10 Mg PO BID Fenofibrate (Fenofibrate,Micronized) 134 Mg Capsule 134 Mg PO DAILY Fluvoxamine Maleate 100 Mg Tablet 1 Tab PO QHS Levemir Flextouch (Insulin Detemir) 100 Unit/1 Ml Insuln.pen 24 Unit SQ HS Novolog Flexpen (Insulin Aspart) 100 Unit/1 Ml Insuln.pen 0-10 Unit SQ TIDAC SLIDING SCALE INSULIN Magnesium (Magnesium Oxide) 400 Mg Capsule 250 Mg PO DAILY Levothyroxine Sodium 125 Mcg Tablet 125 Mcg PO DAILY06 Atorvastatin Calcium 20 Mg Tablet 20 Mg PO DAILY Fluvoxamine Maleate 50 Mg Tablet 50 Mg PO DAILY Acetaminophen 500 Mg Tablet 500 Mg PO BID Calcium 600 + Vit D 200 Tablet (Calcium Carbonate/Vitamin D3) 1 Each Tablet 1 Each PO DAILY B-12 (Cyanocobalamin (Vitamin B-12)) 500 Mcg Tablet 250 Mcg PO DAILY Acidophilus (Lactobacillus Acidophilus) 1 Each Capsule 1 Each PO BID Metformin Hcl 850 Mg Tablet 850 Mg PO BIDWMEALS Ferrous Sulfate 325 Mg Tablet 1 Tab PO DAILY Topiramate 100 Mg Tablet 100 Mg PO TID Metoprolol Tartrate 25 Mg Tablet 25 Mg PO DAILY Ditropan Xl (Oxybutynin Chloride) 10 Mg Tab.er.24 10 Mg PO DAILY Miralax (Polyethylene Glycol 3350) 17 Gm Powd.pack 17 Gm PO DAILY Aspirin 81 Mg Tab.chew 81 Mg PO DAILY Cetirizine Hcl 10 Mg Tablet 10 Mg PO PRN DAILY PRN Hydrocodone-Apap 7.5-325 (Hydrocodone Bit/Acetaminophen) 1 Each Tablet 1 Tab PO PRN Q6HRS PRN Rynex Pse Liquid (Pseudoephedrine/Brompheniramin) 473 Ml Liquid 5 Ml PO PRN TID PRN Protonix (Pantoprazole Sodium) 20 Mg Tablet.dr 20 Mg PO PRN DAILY PRN Nystop (Nystatin) 60 Gm Powder 1 Soniya TP PRN BID PRN I have reviewed the current psychotropics carefully including drug interactions. Risk benefit ratio favors no change other than as noted in my dictated progress note. 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
[2018-01-29] MEDS: LEVOTHYROXINE 125 MCG TABLET PO SCH (05:05)
[2018-01-29 06:23] VITALS: BP 131/67
[2018-01-29] MEDS: ACETAMINOPHEN 325 MG TABLET PO PRN (06:32)
[2018-01-29] MEDS: INSULIN LISPRO 300 UNITS/3 ML INSULN.PEN. SQ SCH ×3 (07:51→17:38)
[2018-01-29] MEDS: busPIRone 10 MG TABLET. PO SCH ×3 (09:23→19:55)
[2018-01-29] MEDS: CHOLECALCIFEROL (VITAMIN D3) 50,000 UNIT CAPSULE PO SCH (09:23)
[2018-01-29] MEDS: MAGNESIUM OXIDE 400 MG TABLET PO SCH (09:23)
[2018-01-29] MEDS: METOPROLOL TART IMMED RELEASE 25 MG TABLET PO SCH (09:24)
[2018-01-29] MEDS: TOPIRAMATE 100 MG TABLET. PO SCH ×3 (09:24→19:55)
[2018-01-29] MEDS: ASPIRIN 81 MG TAB.CHEW PO SCH (09:24)
[2018-01-29] MEDS: MEMANTINE 5 MG TABLET. PO SCH ×2 (09:24→19:54)
[2018-01-29] MEDS: CALCIUM CARB/VIT D3 500/200 TABLET PO SCH (09:24)
[2018-01-29] MEDS: FENOFIBRATE NANOCRYSTALLIZED 145 MG TABLET PO SCH (09:25)
[2018-01-29] MEDS: risperiDONE 0.5 MG TABLET. PO SCH (09:25)
[2018-01-29] MEDS: ACETAMINOPHEN 500 MG TABLET PO SCH ×2 (09:25→19:54)
[2018-01-29] MEDS: FLUCONAZOLE 100 MG TABLET. PO SCH (09:25)
[2018-01-29] MEDS: metFORMIN 850 MG TABLET PO SCH ×2 (09:26→17:38)
[2018-01-29] MEDS: ATORVASTATIN CALCIUM 20 MG TABLET PO SCH (09:26)
[2018-01-29] MEDS: FERROUS SULFATE 325 MG TABLET. PO SCH (09:26)
[2018-01-29] MEDS: CYANOCOBALAMIN (VITAMIN B-12) 250 MCG TABLET PO SCH (09:26)
[2018-01-29] MEDS: OXYBUTYNIN CHLORIDE 5 MG TABLET PO SCH ×2 (09:26→19:54)
[2018-01-29] MEDS: LACTOBACILLUS RHAMNOSUS GG 1 CAPSULE. PO SCH ×2 (09:26→19:55)
[2018-01-29] MEDS: POLYETHYLENE GLYCOL 3350 17 GM PACKET. PO SCH (09:26)
--- NOTE | 2018-01-29 09:27 | PN ---
DATE: 01/27/2018 PSYCHIATRIC PROGRESS NOTE This is a late entry for 01/27/2018, covers elements not covered in my initial note for 01/27/2018. SUBJECTIVE: I met with the patient evening of 01/27/2018. The patient slept 4-1/2 hours previous evening. She has not been pulling down her pants. Morning of 01/27/2018, she was somewhat anxious as she felt there was something dropping from the ceiling. It was unclear whether it was an actual hallucination or just a misperceived perception of what she was seeing. We will be checking labs morning of 01/28/2018. REVIEW OF SYSTEMS: No CV, , pulmonary, eye system symptoms on review. Gait unsteady with walker. MENTAL STATUS EXAM: Oriented to herself. Insight, judgment, recent and remote memory, attention, concentration, fund of knowledge poor, consistent with her diagnosis mentioned in my initial note. IMPRESSION: Major neurocognitive disorder, Alzheimer, vascular with depression, delusion, behavioral disturbance, intellectual disability. PLAN: Continue psychotropics mentioned in my initial note. Depakote was increased. Labs to be checked on 01/28/2018. MAN Kingtson DAVIS MD DR: SUMEET/kirill JOB#: [id number] / [id number]
[2018-01-29 16:38] VITALS: BP 116/76
[2018-01-29] MEDS: DIVALPROEX ER 500 MG TAB.ER.24H PO SCH (20:17)
[2018-01-29] MEDS: DIVALPROEX ER 250 MG TAB.ER.24H. PO SCH (20:19)
[2018-01-29] MEDS: INSULIN GLARGINE 300 UNITS/3 ML INSULN.PEN. SQ SCH (20:20)
[2018-01-29] MEDS ORDERED: DIVALPROEX ER 500 MG TAB.ER.24H PO SCH (21:00)
--- NOTE | 2018-01-29 21:17 | PDOC ---
Exam Note: Hemant Note: Please also refer to the separate dictated note~for this date of service dictated separately.~Patient seen individually. Discussed the patient with Nursing staff reviewed the chart.~Reviewed interim history and current functioning. Reviewed vital signs,~Labs/ Radiology~and current medications noted below. Continue current treatment with the changes noted in the dictated addendum note Assessment: Vital Signs: Vital Signs Date Time Temp Pulse Resp B/P (MAP) Pulse Ox O2 Delivery O2 Flow Rate FiO2 01/29/18 16:38 97.9 85 17 116/76 (89) 98 01/25/18 06:35 Room Air I&O Intake and Output 01/29/18 07:00 Intake Total 1320 ml Balance 1320 ml Intake Oral 1320 ml # Voids 1 Labs: Laboratory Tests Test 01/29/18 07:27 01/29/18 11:37 01/29/18 16:42 01/29/18 19:19 Glucose (Fingerstick) 70 mg/dL (70-99) 159 mg/dL (70-99) H 157 mg/dL (70-99) H 201 mg/dL (70-99) H Current Medications: Meds: Current Medications Ceftriaxone Sodium (Rocephin Im) 1 gm 1X ONCE IM Last administered on 19:18; Start 01/21/18 at 19:15; Stop 01/21/18 at 19:16; Status DC Acetaminophen (Tylenol) 500 mg BID PO Last administered on 01/29/18at 19:54; Start 01/21/18 at 22:00 Aspirin (Children'S Aspirin) 81 mg DAILY PO Last administered on 01/29/18at 09: 24; Start 01/22/18 at 09:00 Cetirizine HCl (ZyrTEC) 10 mg PRN DAILY PRN PO ALLERGIES; Start 01/21/18 at 22: 00 Ferrous Sulfate (Feosol) 325 mg DAILY PO Last administered on 01/29/18at 09:26; Start 01/22/18 at 09:00 Acetaminophen/ Hydrocodone Bitart (Lortab 7.5/325) 1 tab PRN Q6HRS PRN PO MOD/ SEVERE PAIN Last administered on 01/22/18at 03:44; Start 01/21/18 at 22:00 Levothyroxine Sodium (Synthroid) 125 mcg DAILY06 PO Last administered on 05:05; Start 01/22/18 at 06:00 Metformin HCl (Glucophage) 850 mg BIDWMEALS PO Last administered on 01/29/18 17:38; Start 01/22/18 at 08:00 Metoprolol Tartrate (Lopressor) 25 mg DAILY PO Last administered on 01/29/18 09:24; Start 01/22/18 at 09:00 Nystatin (Nystop) 1 soniya PRN BID PRN TP RASH Last administered on 01/26/18 08: 17; Start 01/21/18 at 22:00 Polyethylene Glycol (miraLAX) 17 gm DAILY PO Last administered on 01/29/18 09: 26; Start 01/22/18 at 09:00 Topiramate (Topamax) 100 mg TID PO Last administered on 01/29/18 19:55; Start 01/21/18 at 22:00 Calcium/Vitamin D (Oscal D 500mg/ 200uts) 1 tab DAILY PO Last administered on 09:24; Start 01/22/18 at 09:00 Cyanocobalamin (Vitamin B-12) 250 mcg DAILY PO Last administered on 01/29/18 09:26; Start 01/22/18 at 09:00 Fenofibrate (Tricor) 145 mg DAILY PO Last administered on 01/29/18 09:25; Start 01/22/18 at 09:00 Insulin Glargine (Lantus) 24 units QHS SQ Last administered on 01/29/18 20:20 ; Start 01/21/18 at 22:00 Lactobacillus Rhamnosus (Culturelle) 1 cap BID PO Last administered on 19:55; Start 01/22/18 at 09:00 Magnesium Oxide (Magnesium Oxide) 200 mg DAILY PO Last administered on 09:23; Start 01/22/18 at 09:00 Oxybutynin Chloride (Ditropan) 5 mg BID PO Last administered on 01/29/18 19:54 ; Start 01/21/18 at 22:00 Pantoprazole Sodium (Protonix) 40 mg PRN DAILY PRN PO NEEDED BEFORE A MEAL; Start 01/22/18 at 07:30 Non-Formulary Medication (Pseudoephedrine/ Brompheniramin (Rynex Pse Liquid)) 5 ml PRN TID PRN PO COUGH; Start 01/21/18 at 22:00; Stop 01/21/18 at 22:36; Status DC Atorvastatin Calcium (Lipitor) 20 mg DAILY PO Last administered on 01/29/18 09 :26; Start 01/22/18 at 09:00 Buspirone HCl (Buspar) 10 mg BID PO Last administered on 01/28/18at 07:56; Start 01/21/18 at 22:00; Stop 01/28/18 at 18:24; Status DC Divalproex Sodium (Depakote Er) 500 mg HS PO Last administered on 01/22/18at 00: 15; Start 01/21/18 at 22:00; Stop 01/22/18 at 18:18; Status DC Fluvoxamine Maleate (Luvox) 100 mg QHS PO Last administered on 01/29/18 19:56 ; Start 01/21/18 at 22:00 Risperidone (RisperDAL) 1 mg DAILY PO Last administered on 01/26/18at 08:14; Start 01/22/18 at 09:00; Stop 01/26/18 at 18:22; Status DC Non-Formulary Medication (Fluvoxamine Maleate ) 50 mg DAILY PO ; Start 01/22/18 at 09:00; Stop 01/22/18 at 09:00; Status DC Non-Formulary Medication (Memantine Hcl (Namenda Xr)) 7 mg DAILY PO ; Start at 09:00; Stop 01/22/18 at 09:00; Status DC Memantine (Namenda) 5 mg BID PO Last administered on 01/29/18at 19:54; Start at 22:00 Insulin Human Lispro (HumaLOG) 0-10 UNITS TIDWMEALS SQ Last administered on at 17:38; Start 01/22/18 at 08:00 Nystatin (Nystop) 1 soniya PRN BID PRN TP RASH; Start 01/22/18 at 00:15; Status Cancel Acetaminophen (Tylenol) 650 mg PRN Q6HRS PRN PO PAIN / TEMP Last administered on 01/29/18at 06:32; Start 01/22/18 at 05:00 Multi-Ingredient Ointment (Analgesic [place]) 1 soniya PRN QID PRN TP MUSCLE PAIN; Start 01/22/18 at 05:00 Al Hydroxide/Mg Hydroxide (Mylanta Plus Xs) 15 ml PRN AFTMEALHC PRN PO DYSPEPSIA; Start 01/22/18 at 05:00 Magnesium Hydroxide (Milk Of Magnesia) 2,400 mg PRN QHS PRN PO CONSTIPATION; Start 01/22/18 at 05:00 Vitamin D (Vitamin D3) 50,000 unit WEEKLY PO Last administered on 01/29/18at 09: 23; Start 01/22/18 at 18:00 Fluconazole (Diflucan) 100 mg DAILY PO Last administered on 01/29/18at 09:25; Start 01/23/18 at 09:00 Cefpodoxime Proxetil (Vantin) 200 mg BID PO Last administered on 01/28/18at 07: 57; Start 01/22/18 at 21:00; Stop 01/28/18 at 20:59; Status DC Lactobacillus Rhamnosus (Culturelle) 1 cap BID PO ; Start 01/22/18 at 21:00; Stop 01/22/18 at 21:00; Status DC Divalproex Sodium (Depakote Er) 500 mg HS PO Last administered on 01/24/18at 19: 58; Start 01/22/18 at 21:00; Stop 01/25/18 at 15:48; Status DC Divalproex Sodium (Depakote Er) 250 mg QHS PO Last administered on 01/24/18 19 :58; Start 01/22/18 at 21:00; Stop 01/25/18 at 15:48; Status DC Divalproex Sodium (Depakote Er) 1,000 mg QHS PO Last administered on 01/28/18at 19:36; Start 01/25/18 at 21:00; Stop 01/29/18 at 12:58; Status DC Risperidone (RisperDAL) 0.75 mg DAILY PO Last administered on 01/29/18at 09:25; Start 01/27/18 at 09:00 Buspirone HCl (Buspar) 10 mg TID PO Last administered on 01/29/18at 19:55; Start 01/28/18 at 21:00 Divalproex Sodium (Depakote Er) 1,250 mg QHS PO ; Start 01/29/18 at 21:00; Stop 01/29/18 at 21:00; Status DC Carbamide Peroxide (Debrox) 5 drop PRN BID PRN AU IMPACTION; Start 01/29/18 at 19:15 Divalproex Sodium (Depakote Er) 250 mg QHS PO Last administered on 01/29/18at 20 :19; Start 01/29/18 at 21:00 Divalproex Sodium (Depakote Er) 1,000 mg QHS PO Last administered on 01/29/18at 20:17; Start 01/29/18 at 21:00 Active Scripts Active Reported Risperidone 1 Mg Tablet 1 Mg PO DAILY Namenda Xr (Memantine Hcl) 14 Mg Cap.spr.24 14 Mg PO DAILY Namenda Xr (Memantine Hcl) 7 Mg Cap.spr.24 7 Mg PO DAILY Depakote Er (Divalproex Sodium) 500 Mg Tab.er.24h 500 Mg PO HS Buspirone Hcl 10 Mg Tablet 10 Mg PO BID Fenofibrate (Fenofibrate,Micronized) 134 Mg Capsule 134 Mg PO DAILY Fluvoxamine Maleate 100 Mg Tablet 1 Tab PO QHS Levemir Flextouch (Insulin Detemir) 100 Unit/1 Ml Insuln.pen 24 Unit SQ HS Novolog Flexpen (Insulin Aspart) 100 Unit/1 Ml Insuln.pen 0-10 Unit SQ TIDAC SLIDING SCALE INSULIN Magnesium (Magnesium Oxide) 400 Mg Capsule 250 Mg PO DAILY Levothyroxine Sodium 125 Mcg Tablet 125 Mcg PO DAILY06 Atorvastatin Calcium 20 Mg Tablet 20 Mg PO DAILY Fluvoxamine Maleate 50 Mg Tablet 50 Mg PO DAILY Acetaminophen 500 Mg Tablet 500 Mg PO BID Calcium 600 + Vit D 200 Tablet (Calcium Carbonate/Vitamin D3) 1 Each Tablet 1 Each PO DAILY B-12 (Cyanocobalamin (Vitamin B-12)) 500 Mcg Tablet 250 Mcg PO DAILY Acidophilus (Lactobacillus Acidophilus) 1 Each Capsule 1 Each PO BID Metformin Hcl 850 Mg Tablet 850 Mg PO BIDWMEALS Ferrous Sulfate 325 Mg Tablet 1 Tab PO DAILY Topiramate 100 Mg Tablet 100 Mg PO TID Metoprolol Tartrate 25 Mg Tablet 25 Mg PO DAILY Ditropan Xl (Oxybutynin Chloride) 10 Mg Tab.er.24 10 Mg PO DAILY Miralax (Polyethylene Glycol 3350) 17 Gm Powd.pack 17 Gm PO DAILY Aspirin 81 Mg Tab.chew 81 Mg PO DAILY Cetirizine Hcl 10 Mg Tablet 10 Mg PO PRN DAILY PRN Hydrocodone-Apap 7.5-325 (Hydrocodone Bit/Acetaminophen) 1 Each Tablet 1 Tab PO PRN Q6HRS PRN Rynex Pse Liquid (Pseudoephedrine/Brompheniramin) 473 Ml Liquid 5 Ml PO PRN TID PRN Protonix (Pantoprazole Sodium) 20 Mg Tablet.dr 20 Mg PO PRN DAILY PRN Nystop (Nystatin) 60 Gm Powder 1 Soniya TP PRN BID PRN I have reviewed the current psychotropics carefully including drug interactions. Risk benefit ratio favors no change other than as noted in my dictated progress note. Diagnosis: Problems: (1) Anxiety disorder (2) Impulse control disorder (3) Bipolar affective disorder, mixed (4) Borderline intellectual disability (5) Borderline intellectual disability (6) Dementia in Alzheimer's disease with delusions LAURITA DAVIS MD Jan 29, 2018 21:17
[2018-01-30] MEDS: LEVOTHYROXINE 125 MCG TABLET PO SCH (05:43)
[2018-01-30 06:03] VITALS: BP 132/62
[2018-01-30] MEDS: INSULIN LISPRO 300 UNITS/3 ML INSULN.PEN. SQ SCH ×3 (08:00→16:52)
[2018-01-30] MEDS: FERROUS SULFATE 325 MG TABLET. PO SCH (08:52)
[2018-01-30] MEDS: MAGNESIUM OXIDE 400 MG TABLET PO SCH (08:52)
[2018-01-30] MEDS: ACETAMINOPHEN 500 MG TABLET PO SCH ×2 (08:52→20:11)
[2018-01-30] MEDS: busPIRone 10 MG TABLET. PO SCH ×3 (08:52→20:11)
[2018-01-30] MEDS: ATORVASTATIN CALCIUM 20 MG TABLET PO SCH (08:52)
[2018-01-30] MEDS: MEMANTINE 5 MG TABLET. PO SCH ×2 (08:52→20:10)
[2018-01-30] MEDS: POLYETHYLENE GLYCOL 3350 17 GM PACKET. PO SCH (08:52)
[2018-01-30] MEDS: OXYBUTYNIN CHLORIDE 5 MG TABLET PO SCH ×2 (08:52→20:11)
[2018-01-30] MEDS: metFORMIN 850 MG TABLET PO SCH ×2 (08:52→16:51)
[2018-01-30] MEDS: CALCIUM CARB/VIT D3 500/200 TABLET PO SCH (08:52)
[2018-01-30] MEDS: TOPIRAMATE 100 MG TABLET. PO SCH ×3 (08:52→20:11)
[2018-01-30] MEDS: CYANOCOBALAMIN (VITAMIN B-12) 250 MCG TABLET PO SCH (08:52)
[2018-01-30] MEDS: LACTOBACILLUS RHAMNOSUS GG 1 CAPSULE. PO SCH ×2 (08:52→20:10)
[2018-01-30] MEDS: ASPIRIN 81 MG TAB.CHEW PO SCH (08:53)
[2018-01-30] MEDS: risperiDONE 0.5 MG TABLET. PO SCH (08:54)
[2018-01-30] MEDS: FLUCONAZOLE 100 MG TABLET. PO SCH (08:54)
[2018-01-30] MEDS: METOPROLOL TART IMMED RELEASE 25 MG TABLET PO SCH (08:54)
[2018-01-30] MEDS: FENOFIBRATE NANOCRYSTALLIZED 145 MG TABLET PO SCH (08:58)
[2018-01-30] MEDS: CARBAMIDE PEROXIDE 6.5% OTIC SOLUTION 15ML BOTTLE. AU PRN (14:41)
[2018-01-30 16:33] VITALS: BP 122/75
[2018-01-30] MEDS: DIVALPROEX ER 250 MG TAB.ER.24H. PO SCH (20:11)
[2018-01-30] MEDS: DIVALPROEX ER 500 MG TAB.ER.24H PO SCH (20:11)
[2018-01-30] MEDS: INSULIN GLARGINE 300 UNITS/3 ML INSULN.PEN. SQ SCH (20:15)
--- NOTE | 2018-01-30 23:04 | PDOC ---
Exam Note: Hemant Note: Please also refer to the separate dictated note~for this date of service dictated separately.~Patient seen individually. Discussed the patient with Nursing staff reviewed the chart.~Reviewed interim history and current functioning. Reviewed vital signs,~Labs/ Radiology~and current medications noted below. Continue current treatment with the changes noted in the dictated addendum note Assessment: Vital Signs: Vital Signs Date Time Temp Pulse Resp B/P (MAP) Pulse Ox O2 Delivery O2 Flow Rate FiO2 01/30/18 16:33 98.1 72 19 122/75 (91) 92 01/25/18 06:35 Room Air I&O Intake and Output 01/30/18 07:00 Intake Total 1260 ml Balance 1260 ml Intake Oral 1260 ml # Voids 1 # Bowel Movements 1 Labs: Laboratory Tests Test 01/30/18 07:35 01/30/18 11:15 01/30/18 16:42 01/30/18 19:17 Glucose (Fingerstick) 103 mg/dL (70-99) H 105 mg/dL (70-99) H 144 mg/dL (70-99) H 164 mg/dL (70-99) H Current Medications: Meds: Current Medications Ceftriaxone Sodium (Rocephin Im) 1 gm 1X ONCE IM Last administered on at 19:18; Start 01/21/18 at 19:15; Stop 01/21/18 at 19:16; Status DC Acetaminophen (Tylenol) 500 mg BID PO Last administered on 01/30/18at 20:11; Start 01/21/18 at 22:00 Aspirin (Children'S Aspirin) 81 mg DAILY PO Last administered on 01/30/18at 08: 53; Start 01/22/18 at 09:00 Cetirizine HCl (ZyrTEC) 10 mg PRN DAILY PRN PO ALLERGIES; Start 01/21/18 at 22: 00 Ferrous Sulfate (Feosol) 325 mg DAILY PO Last administered on 01/30/18at 08:52; Start 01/22/18 at 09:00 Acetaminophen/ Hydrocodone Bitart (Lortab 7.5/325) 1 tab PRN Q6HRS PRN PO MOD/ SEVERE PAIN Last administered on 01/22/18at 03:44; Start 01/21/18 at 22:00 Levothyroxine Sodium (Synthroid) 125 mcg DAILY06 PO Last administered on 05:43; Start 01/22/18 at 06:00 Metformin HCl (Glucophage) 850 mg BIDWMEALS PO Last administered on 01/30/18 16:51; Start 01/22/18 at 08:00 Metoprolol Tartrate (Lopressor) 25 mg DAILY PO Last administered on 01/30/18 08:54; Start 01/22/18 at 09:00 Nystatin (Nystop) 1 soniya PRN BID PRN TP RASH Last administered on 01/26/18 08: 17; Start 01/21/18 at 22:00 Polyethylene Glycol (miraLAX) 17 gm DAILY PO Last administered on 01/30/18 08: 52; Start 01/22/18 at 09:00 Topiramate (Topamax) 100 mg TID PO Last administered on 01/30/18 20:11; Start 01/21/18 at 22:00 Calcium/Vitamin D (Oscal D 500mg/ 200uts) 1 tab DAILY PO Last administered on 08:52; Start 01/22/18 at 09:00 Cyanocobalamin (Vitamin B-12) 250 mcg DAILY PO Last administered on 01/30/18 08:52; Start 01/22/18 at 09:00 Fenofibrate (Tricor) 145 mg DAILY PO Last administered on 01/30/18 08:58; Start 01/22/18 at 09:00 Insulin Glargine (Lantus) 24 units QHS SQ Last administered on 01/30/18 20:15 ; Start 01/21/18 at 22:00 Lactobacillus Rhamnosus (Culturelle) 1 cap BID PO Last administered on 20:10; Start 01/22/18 at 09:00 Magnesium Oxide (Magnesium Oxide) 200 mg DAILY PO Last administered on 08:52; Start 01/22/18 at 09:00 Oxybutynin Chloride (Ditropan) 5 mg BID PO Last administered on 01/30/18 20:11 ; Start 01/21/18 at 22:00 Pantoprazole Sodium (Protonix) 40 mg PRN DAILY PRN PO NEEDED BEFORE A MEAL; Start 01/22/18 at 07:30 Non-Formulary Medication (Pseudoephedrine/ Brompheniramin (Rynex Pse Liquid)) 5 ml PRN TID PRN PO COUGH; Start 01/21/18 at 22:00; Stop 01/21/18 at 22:36; Status DC Atorvastatin Calcium (Lipitor) 20 mg DAILY PO Last administered on 01/30/18at 08 :52; Start 01/22/18 at 09:00 Buspirone HCl (Buspar) 10 mg BID PO Last administered on 01/28/18at 07:56; Start 01/21/18 at 22:00; Stop 01/28/18 at 18:24; Status DC Divalproex Sodium (Depakote Er) 500 mg HS PO Last administered on 01/22/18at 00: 15; Start 01/21/18 at 22:00; Stop 01/22/18 at 18:18; Status DC Fluvoxamine Maleate (Luvox) 100 mg QHS PO Last administered on 01/30/18at 20:11 ; Start 01/21/18 at 22:00 Risperidone (RisperDAL) 1 mg DAILY PO Last administered on 01/26/18at 08:14; Start 01/22/18 at 09:00; Stop 01/26/18 at 18:22; Status DC Non-Formulary Medication (Fluvoxamine Maleate ) 50 mg DAILY PO ; Start 01/22/18 at 09:00; Stop 01/22/18 at 09:00; Status DC Non-Formulary Medication (Memantine Hcl (Namenda Xr)) 7 mg DAILY PO ; Start at 09:00; Stop 01/22/18 at 09:00; Status DC Memantine (Namenda) 5 mg BID PO Last administered on 01/30/18at 20:10; Start at 22:00 Insulin Human Lispro (HumaLOG) 0-10 UNITS TIDWMEALS SQ Last administered on at 17:38; Start 01/22/18 at 08:00 Nystatin (Nystop) 1 soniya PRN BID PRN TP RASH; Start 01/22/18 at 00:15; Status Cancel Acetaminophen (Tylenol) 650 mg PRN Q6HRS PRN PO PAIN / TEMP Last administered on 01/29/18at 06:32; Start 01/22/18 at 05:00 Multi-Ingredient Ointment (Analgesic [place]) 1 soniya PRN QID PRN TP MUSCLE PAIN; Start 01/22/18 at 05:00 Al Hydroxide/Mg Hydroxide (Mylanta Plus Xs) 15 ml PRN AFTMEALHC PRN PO DYSPEPSIA; Start 01/22/18 at 05:00 Magnesium Hydroxide (Milk Of Magnesia) 2,400 mg PRN QHS PRN PO CONSTIPATION; Start 01/22/18 at 05:00 Vitamin D (Vitamin D3) 50,000 unit WEEKLY PO Last administered on 01/29/18at 09: 23; Start 01/22/18 at 18:00 Fluconazole (Diflucan) 100 mg DAILY PO Last administered on 01/30/18at 08:54; Start 01/23/18 at 09:00 Cefpodoxime Proxetil (Vantin) 200 mg BID PO Last administered on 01/28/18at 07: 57; Start 01/22/18 at 21:00; Stop 01/28/18 at 20:59; Status DC Lactobacillus Rhamnosus (Culturelle) 1 cap BID PO ; Start 01/22/18 at 21:00; Stop 01/22/18 at 21:00; Status DC Divalproex Sodium (Depakote Er) 500 mg HS PO Last administered on 01/24/18at 19: 58; Start 01/22/18 at 21:00; Stop 01/25/18 at 15:48; Status DC Divalproex Sodium (Depakote Er) 250 mg QHS PO Last administered on 01/24/18at 19 :58; Start 01/22/18 at 21:00; Stop 01/25/18 at 15:48; Status DC Divalproex Sodium (Depakote Er) 1,000 mg QHS PO Last administered on 01/28/18at 19:36; Start 01/25/18 at 21:00; Stop 01/29/18 at 12:58; Status DC Risperidone (RisperDAL) 0.75 mg DAILY PO Last administered on 01/30/18at 08:54; Start 01/27/18 at 09:00 Buspirone HCl (Buspar) 10 mg TID PO Last administered on 01/30/18at 20:11; Start 01/28/18 at 21:00 Divalproex Sodium (Depakote Er) 1,250 mg QHS PO ; Start 01/29/18 at 21:00; Stop 01/29/18 at 21:00; Status DC Carbamide Peroxide (Debrox) 5 drop PRN BID PRN AU IMPACTION Last administered on 01/30/18at 14:41; Start 01/29/18 at 19:15 Divalproex Sodium (Depakote Er) 250 mg QHS PO Last administered on 01/30/18at 20 :11; Start 01/29/18 at 21:00 Divalproex Sodium (Depakote Er) 1,000 mg QHS PO Last administered on 01/30/18at 20:11; Start 01/29/18 at 21:00 Active Scripts Active Reported Risperidone 1 Mg Tablet 1 Mg PO DAILY Namenda Xr (Memantine Hcl) 14 Mg Cap.spr.24 14 Mg PO DAILY Namenda Xr (Memantine Hcl) 7 Mg Cap.spr.24 7 Mg PO DAILY Depakote Er (Divalproex Sodium) 500 Mg Tab.er.24h 500 Mg PO HS Buspirone Hcl 10 Mg Tablet 10 Mg PO BID Fenofibrate (Fenofibrate,Micronized) 134 Mg Capsule 134 Mg PO DAILY Fluvoxamine Maleate 100 Mg Tablet 1 Tab PO QHS Levemir Flextouch (Insulin Detemir) 100 Unit/1 Ml Insuln.pen 24 Unit SQ HS Novolog Flexpen (Insulin Aspart) 100 Unit/1 Ml Insuln.pen 0-10 Unit SQ TIDAC SLIDING SCALE INSULIN Magnesium (Magnesium Oxide) 400 Mg Capsule 250 Mg PO DAILY Levothyroxine Sodium 125 Mcg Tablet 125 Mcg PO DAILY06 Atorvastatin Calcium 20 Mg Tablet 20 Mg PO DAILY Fluvoxamine Maleate 50 Mg Tablet 50 Mg PO DAILY Acetaminophen 500 Mg Tablet 500 Mg PO BID Calcium 600 + Vit D 200 Tablet (Calcium Carbonate/Vitamin D3) 1 Each Tablet 1 Each PO DAILY B-12 (Cyanocobalamin (Vitamin B-12)) 500 Mcg Tablet 250 Mcg PO DAILY Acidophilus (Lactobacillus Acidophilus) 1 Each Capsule 1 Each PO BID Metformin Hcl 850 Mg Tablet 850 Mg PO BIDWMEALS Ferrous Sulfate 325 Mg Tablet 1 Tab PO DAILY Topiramate 100 Mg Tablet 100 Mg PO TID Metoprolol Tartrate 25 Mg Tablet 25 Mg PO DAILY Ditropan Xl (Oxybutynin Chloride) 10 Mg Tab.er.24 10 Mg PO DAILY Miralax (Polyethylene Glycol 3350) 17 Gm Powd.pack 17 Gm PO DAILY Aspirin 81 Mg Tab.chew 81 Mg PO DAILY Cetirizine Hcl 10 Mg Tablet 10 Mg PO PRN DAILY PRN Hydrocodone-Apap 7.5-325 (Hydrocodone Bit/Acetaminophen) 1 Each Tablet 1 Tab PO PRN Q6HRS PRN Rynex Pse Liquid (Pseudoephedrine/Brompheniramin) 473 Ml Liquid 5 Ml PO PRN TID PRN Protonix (Pantoprazole Sodium) 20 Mg Tablet.dr 20 Mg PO PRN DAILY PRN Nystop (Nystatin) 60 Gm Powder 1 Soniya TP PRN BID PRN I have reviewed the current psychotropics carefully including drug interactions. Risk benefit ratio favors no change other than as noted in my dictated progress note. 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
[2018-01-31] MEDS: FENOFIBRATE NANOCRYSTALLIZED 145 MG TABLET PO SCH (01:17)
[2018-01-31] MEDS: LEVOTHYROXINE 125 MCG TABLET PO SCH (06:06)
[2018-01-31] MEDS: CARBAMIDE PEROXIDE 6.5% OTIC SOLUTION 15ML BOTTLE. AU PRN ×2 (06:07→12:43)
[2018-01-31 06:42] VITALS: BP 140/84
[2018-01-31] MEDS: risperiDONE 0.5 MG TABLET. PO SCH (07:54)
[2018-01-31] MEDS: ACETAMINOPHEN 500 MG TABLET PO SCH ×2 (07:55→21:22)
[2018-01-31] MEDS: TOPIRAMATE 100 MG TABLET. PO SCH ×3 (07:55→21:20)
[2018-01-31] MEDS: MEMANTINE 5 MG TABLET. PO SCH ×2 (07:55→21:20)
[2018-01-31] MEDS: OXYBUTYNIN CHLORIDE 5 MG TABLET PO SCH ×2 (07:56→21:20)
[2018-01-31] MEDS: busPIRone 10 MG TABLET. PO SCH ×3 (07:56→21:20)
[2018-01-31] MEDS: MAGNESIUM OXIDE 400 MG TABLET PO SCH (07:56)
[2018-01-31] MEDS: FERROUS SULFATE 325 MG TABLET. PO SCH (07:56)
[2018-01-31] MEDS: metFORMIN 850 MG TABLET PO SCH ×2 (07:57→17:13)
[2018-01-31] MEDS: LACTOBACILLUS RHAMNOSUS GG 1 CAPSULE. PO SCH ×2 (07:57→21:20)
[2018-01-31] MEDS: ASPIRIN 81 MG TAB.CHEW PO SCH (07:57)
[2018-01-31] MEDS: ATORVASTATIN CALCIUM 20 MG TABLET PO SCH (07:57)
[2018-01-31] MEDS: CALCIUM CARB/VIT D3 500/200 TABLET PO SCH (07:57)
[2018-01-31] MEDS: POLYETHYLENE GLYCOL 3350 17 GM PACKET. PO SCH (07:58)
[2018-01-31] MEDS: FLUCONAZOLE 100 MG TABLET. PO SCH (07:58)
[2018-01-31] MEDS: METOPROLOL TART IMMED RELEASE 25 MG TABLET PO SCH (07:58)
[2018-01-31] MEDS: CYANOCOBALAMIN (VITAMIN B-12) 250 MCG TABLET PO SCH (07:58)
[2018-01-31] MEDS: INSULIN LISPRO 300 UNITS/3 ML INSULN.PEN. SQ SCH ×3 (07:59→17:00)
[2018-01-31 17:43] VITALS: BP 104/64
--- NOTE | 2018-01-31 18:35 | PN ---
DATE: 01/28/2018 This is a late entry 11/30/2017, covers elements not covered in my initial note 01/28/2018. SUBJECTIVE: I met with the patient in the evening. She has been taking her brief off, remains somewhat anxious, social skills are limited, consistent with intellectual disability. REVIEW OF SYSTEMS: No CV, , pulmonary, eye, ENT system symptoms on review. Gait unsteady with walker. MENTAL STATUS EXAM: Oriented to herself. Insight, judgment, recent and remote memory, attention, concentration, fund of knowledge poor, consistent with her diagnosis mentioned in my initial note. PLAN: Increase BuSpar to 10 mg 3 times a day. MAN Kingston DAVIS MD DR: SUMEET/kirill JOB#: [id number] / [id number]
[2018-01-31] MEDS: DIVALPROEX ER 500 MG TAB.ER.24H PO SCH (21:19)
[2018-01-31] MEDS: DIVALPROEX ER 250 MG TAB.ER.24H. PO SCH (21:20)
[2018-01-31] MEDS: INSULIN GLARGINE 300 UNITS/3 ML INSULN.PEN. SQ SCH (21:21)
[2018-01-31] MEDS: NYSTATIN TOPICAL POWDER 15GM BOTTLE. TP PRN (21:23)
--- NOTE | 2018-01-31 21:48 | PN ---
DATE: 01/29/2018 PSYCHIATRIC PROGRESS NOTE This is a late entry for 01/29/2018, covers elements not covered in my initial note of 01/29/2018. SUBJECTIVE: The patient was staffed at a treatment team meeting with the entire team in the morning, seen individually in the evening. She is sleeping well. Complains of some headache. Reviewed her history at length. She has failed 5 placements, has a guardian for about 30 years. She was in a long-term in [place] until it closed and then changed to the current facility. REVIEW OF SYSTEMS: No CV, , pulmonary, eye, ENT system symptoms on review. Gait unsteady with walker. MENTAL STATUS EXAM: Oriented to herself. Insight, judgment, recent and remote memory, attention, concentration, fund of knowledge poor, consistent with her diagnosis mentioned in my initial note him. PLAN: Continue current psychotropics. Valproic acid level low at 47. Increase Depakote ER to 1250 mg at bedtime. Check CBC, CMP level in 3 days. Adjust further thereafter. MAN Kingston DAVIS MD DR: SUMEET/kirill JOB#: [id number] / [id number]
--- NOTE | 2018-01-31 22:38 | PDOC ---
Exam Note: Hemant Note: Please also refer to the separate dictated note~for this date of service dictated separately.~Patient seen individually. Discussed the patient with Nursing staff reviewed the chart.~Reviewed interim history and current functioning. Reviewed vital signs,~Labs/ Radiology~and current medications noted below. Continue current treatment with the changes noted in the dictated addendum note Assessment: Vital Signs: Vital Signs Date Time Temp Pulse Resp B/P (MAP) Pulse Ox O2 Delivery O2 Flow Rate FiO2 01/31/18 17:43 97.3 79 20 104/64 (77) 100 I&O Intake and Output 01/31/18 07:00 Intake Total 480 ml Balance 480 ml Intake Oral 480 ml # Voids 1 Labs: Laboratory Tests Test 01/31/18 07:32 01/31/18 11:39 01/31/18 16:27 Glucose (Fingerstick) 114 mg/dL (70-99) H 96 mg/dL (70-99) 144 mg/dL (70-99) H Current Medications: Meds: Current Medications Ceftriaxone Sodium (Rocephin Im) 1 gm 1X ONCE IM Last administered on at 19:18; Start 01/21/18 at 19:15; Stop 01/21/18 at 19:16; Status DC Acetaminophen (Tylenol) 500 mg BID PO Last administered on 01/31/18at 21:22; Start 01/21/18 at 22:00 Aspirin (Children'S Aspirin) 81 mg DAILY PO Last administered on 01/31/18at 07: 57; Start 01/22/18 at 09:00 Cetirizine HCl (ZyrTEC) 10 mg PRN DAILY PRN PO ALLERGIES; Start 01/21/18 at 22: 00 Ferrous Sulfate (Feosol) 325 mg DAILY PO Last administered on 01/31/18at 07:56; Start 01/22/18 at 09:00 Acetaminophen/ Hydrocodone Bitart (Lortab 7.5/325) 1 tab PRN Q6HRS PRN PO MOD/ SEVERE PAIN Last administered on 01/22/18at 03:44; Start 01/21/18 at 22:00 Levothyroxine Sodium (Synthroid) 125 mcg DAILY06 PO Last administered on at 06:06; Start 01/22/18 at 06:00 Metformin HCl (Glucophage) 850 mg BIDWMEALS PO Last administered on 01/31/18 17:13; Start 01/22/18 at 08:00 Metoprolol Tartrate (Lopressor) 25 mg DAILY PO Last administered on 01/31/18 07:58; Start 01/22/18 at 09:00 Nystatin (Nystop) 1 soniya PRN BID PRN TP RASH Last administered on 01/31/18 21: 23; Start 01/21/18 at 22:00 Polyethylene Glycol (miraLAX) 17 gm DAILY PO Last administered on 01/31/18 07: 58; Start 01/22/18 at 09:00 Topiramate (Topamax) 100 mg TID PO Last administered on 01/31/18 21:20; Start 01/21/18 at 22:00 Calcium/Vitamin D (Oscal D 500mg/ 200uts) 1 tab DAILY PO Last administered on 07:57; Start 01/22/18 at 09:00 Cyanocobalamin (Vitamin B-12) 250 mcg DAILY PO Last administered on 01/31/18 07:58; Start 01/22/18 at 09:00 Fenofibrate (Tricor) 145 mg DAILY PO Last administered on 01/31/18 01:17; Start 01/22/18 at 09:00 Insulin Glargine (Lantus) 24 units QHS SQ Last administered on 01/31/18 21:21 ; Start 01/21/18 at 22:00 Lactobacillus Rhamnosus (Culturelle) 1 cap BID PO Last administered on 21:20; Start 01/22/18 at 09:00 Magnesium Oxide (Magnesium Oxide) 200 mg DAILY PO Last administered on 07:56; Start 01/22/18 at 09:00 Oxybutynin Chloride (Ditropan) 5 mg BID PO Last administered on 01/31/18 21:20 ; Start 01/21/18 at 22:00 Pantoprazole Sodium (Protonix) 40 mg PRN DAILY PRN PO NEEDED BEFORE A MEAL; Start 01/22/18 at 07:30 Non-Formulary Medication (Pseudoephedrine/ Brompheniramin (Rynex Pse Liquid)) 5 ml PRN TID PRN PO COUGH; Start 01/21/18 at 22:00; Stop 01/21/18 at 22:36; Status DC Atorvastatin Calcium (Lipitor) 20 mg DAILY PO Last administered on 01/31/18at 07 :57; Start 01/22/18 at 09:00 Buspirone HCl (Buspar) 10 mg BID PO Last administered on 01/28/18at 07:56; Start 01/21/18 at 22:00; Stop 01/28/18 at 18:24; Status DC Divalproex Sodium (Depakote Er) 500 mg HS PO Last administered on 01/22/18at 00: 15; Start 01/21/18 at 22:00; Stop 01/22/18 at 18:18; Status DC Fluvoxamine Maleate (Luvox) 100 mg QHS PO Last administered on 01/31/18at 21:20 ; Start 01/21/18 at 22:00 Risperidone (RisperDAL) 1 mg DAILY PO Last administered on 01/26/18at 08:14; Start 01/22/18 at 09:00; Stop 01/26/18 at 18:22; Status DC Non-Formulary Medication (Fluvoxamine Maleate ) 50 mg DAILY PO ; Start 01/22/18 at 09:00; Stop 01/22/18 at 09:00; Status DC Non-Formulary Medication (Memantine Hcl (Namenda Xr)) 7 mg DAILY PO ; Start at 09:00; Stop 01/22/18 at 09:00; Status DC Memantine (Namenda) 5 mg BID PO Last administered on 01/31/18at 21:20; Start at 22:00 Insulin Human Lispro (HumaLOG) 0-10 UNITS TIDWMEALS SQ Last administered on at 17:38; Start 01/22/18 at 08:00 Nystatin (Nystop) 1 soniya PRN BID PRN TP RASH; Start 01/22/18 at 00:15; Status Cancel Acetaminophen (Tylenol) 650 mg PRN Q6HRS PRN PO PAIN / TEMP Last administered on 01/29/18at 06:32; Start 01/22/18 at 05:00 Multi-Ingredient Ointment (Analgesic [place]) 1 soniya PRN QID PRN TP MUSCLE PAIN; Start 01/22/18 at 05:00 Al Hydroxide/Mg Hydroxide (Mylanta Plus Xs) 15 ml PRN AFTMEALHC PRN PO DYSPEPSIA; Start 01/22/18 at 05:00 Magnesium Hydroxide (Milk Of Magnesia) 2,400 mg PRN QHS PRN PO CONSTIPATION; Start 01/22/18 at 05:00 Vitamin D (Vitamin D3) 50,000 unit WEEKLY PO Last administered on 01/29/18 09: 23; Start 01/22/18 at 18:00 Fluconazole (Diflucan) 100 mg DAILY PO Last administered on 01/31/18at 07:58; Start 01/23/18 at 09:00 Cefpodoxime Proxetil (Vantin) 200 mg BID PO Last administered on 01/28/18 07: 57; Start 01/22/18 at 21:00; Stop 01/28/18 at 20:59; Status DC Lactobacillus Rhamnosus (Culturelle) 1 cap BID PO ; Start 01/22/18 at 21:00; Stop 01/22/18 at 21:00; Status DC Divalproex Sodium (Depakote Er) 500 mg HS PO Last administered on 01/24/18at 19: 58; Start 01/22/18 at 21:00; Stop 01/25/18 at 15:48; Status DC Divalproex Sodium (Depakote Er) 250 mg QHS PO Last administered on 01/24/18at 19 :58; Start 01/22/18 at 21:00; Stop 01/25/18 at 15:48; Status DC Divalproex Sodium (Depakote Er) 1,000 mg QHS PO Last administered on 01/28/18at 19:36; Start 01/25/18 at 21:00; Stop 01/29/18 at 12:58; Status DC Risperidone (RisperDAL) 0.75 mg DAILY PO Last administered on 01/31/18at 07:54; Start 01/27/18 at 09:00 Buspirone HCl (Buspar) 10 mg TID PO Last administered on 01/31/18 21:20; Start 01/28/18 at 21:00 Divalproex Sodium (Depakote Er) 1,250 mg QHS PO ; Start 01/29/18 at 21:00; Stop 01/29/18 at 21:00; Status DC Carbamide Peroxide (Debrox) 5 drop PRN BID PRN AU IMPACTION Last administered on 01/31/18at 12:43; Start 01/29/18 at 19:15 Divalproex Sodium (Depakote Er) 250 mg QHS PO Last administered on 01/31/18at 21 :20; Start 01/29/18 at 21:00 Divalproex Sodium (Depakote Er) 1,000 mg QHS PO Last administered on 01/31/18at 21:19; Start 01/29/18 at 21:00 Active Scripts Active Reported Risperidone 1 Mg Tablet 1 Mg PO DAILY Namenda Xr (Memantine Hcl) 14 Mg Cap.spr.24 14 Mg PO DAILY Namenda Xr (Memantine Hcl) 7 Mg Cap.spr.24 7 Mg PO DAILY Depakote Er (Divalproex Sodium) 500 Mg Tab.er.24h 500 Mg PO HS Buspirone Hcl 10 Mg Tablet 10 Mg PO BID Fenofibrate (Fenofibrate,Micronized) 134 Mg Capsule 134 Mg PO DAILY Fluvoxamine Maleate 100 Mg Tablet 1 Tab PO QHS Levemir Flextouch (Insulin Detemir) 100 Unit/1 Ml Insuln.pen 24 Unit SQ HS Novolog Flexpen (Insulin Aspart) 100 Unit/1 Ml Insuln.pen 0-10 Unit SQ TIDAC SLIDING SCALE INSULIN Magnesium (Magnesium Oxide) 400 Mg Capsule 250 Mg PO DAILY Levothyroxine Sodium 125 Mcg Tablet 125 Mcg PO DAILY06 Atorvastatin Calcium 20 Mg Tablet 20 Mg PO DAILY Fluvoxamine Maleate 50 Mg Tablet 50 Mg PO DAILY Acetaminophen 500 Mg Tablet 500 Mg PO BID Calcium 600 + Vit D 200 Tablet (Calcium Carbonate/Vitamin D3) 1 Each Tablet 1 Each PO DAILY B-12 (Cyanocobalamin (Vitamin B-12)) 500 Mcg Tablet 250 Mcg PO DAILY Acidophilus (Lactobacillus Acidophilus) 1 Each Capsule 1 Each PO BID Metformin Hcl 850 Mg Tablet 850 Mg PO BIDWMEALS Ferrous Sulfate 325 Mg Tablet 1 Tab PO DAILY Topiramate 100 Mg Tablet 100 Mg PO TID Metoprolol Tartrate 25 Mg Tablet 25 Mg PO DAILY Ditropan Xl (Oxybutynin Chloride) 10 Mg Tab.er.24 10 Mg PO DAILY Miralax (Polyethylene Glycol 3350) 17 Gm Powd.pack 17 Gm PO DAILY Aspirin 81 Mg Tab.chew 81 Mg PO DAILY Cetirizine Hcl 10 Mg Tablet 10 Mg PO PRN DAILY PRN Hydrocodone-Apap 7.5-325 (Hydrocodone Bit/Acetaminophen) 1 Each Tablet 1 Tab PO PRN Q6HRS PRN Rynex Pse Liquid (Pseudoephedrine/Brompheniramin) 473 Ml Liquid 5 Ml PO PRN TID PRN Protonix (Pantoprazole Sodium) 20 Mg Tablet.dr 20 Mg PO PRN DAILY PRN Nystop (Nystatin) 60 Gm Powder 1 Soniya TP PRN BID PRN I have reviewed the current psychotropics carefully including drug interactions. Risk benefit ratio favors no change other than as noted in my dictated progress note. Diagnosis: Problems: (1) Anxiety disorder (2) Impulse control disorder (3) Bipolar affective disorder, mixed (4) Borderline intellectual disability (5) Borderline intellectual disability (6) Dementia in Alzheimer's disease with delusions LAURITA DAVIS MD Jan 31, 2018 22:38
[2018-02-01] MEDS: LEVOTHYROXINE 125 MCG TABLET PO SCH (06:14)
[2018-02-01 06:32] VITALS: BP 151/71
[2018-02-01] MEDS: INSULIN LISPRO 300 UNITS/3 ML INSULN.PEN. SQ SCH ×3 (08:00→16:43)
[2018-02-01 08:25] LABS: BASO % 1 % (0-3); EOS # 0.1 x10^3/uL (0.0-0.7); EOS % 3 % (0-3); HEMATOCRIT 32.7 % (36.0-47.0); HEMOGLOBIN 10.6 g/dL (12.0-15.5); LYMPH % 39 % (24-48); MEAN CORPUSCULAR HEMOGLOBIN 28 pg (25-35); MEAN CORPUSCULAR HGB CONC 32 g/dL (31-37); MEAN CORPUSCULAR VOLUME 86 fL (79-100); MONO # 0.4 x10^3/uL (0.0-1.1); MONO % 8 % (0-9); NEUT # 2.6 x10^3uL (1.8-7.7); NEUT % 50 % (31-73); PLATELET COUNT 190 x10^3/uL (140-400); RED BLOOD COUNT 3.79 x10^6/uL (3.50-5.40); RED CELL DISTRIBUTION WIDTH 15.3 % (11.5-14.5); WHITE BLOOD COUNT 5.2 x10^3/uL (4.0-11.0)
[2018-02-01] MEDS: metFORMIN 850 MG TABLET PO SCH ×2 (08:36→16:43)
[2018-02-01] MEDS: POLYETHYLENE GLYCOL 3350 17 GM PACKET. PO SCH (08:36)
[2018-02-01] MEDS: LACTOBACILLUS RHAMNOSUS GG 1 CAPSULE. PO SCH ×2 (08:36→19:55)
[2018-02-01] MEDS: CALCIUM CARB/VIT D3 500/200 TABLET PO SCH (08:37)
[2018-02-01] MEDS: FERROUS SULFATE 325 MG TABLET. PO SCH (08:37)
[2018-02-01] MEDS: TOPIRAMATE 100 MG TABLET. PO SCH ×2 (08:37→14:30)
[2018-02-01] MEDS: risperiDONE 0.5 MG TABLET. PO SCH (08:37)
[2018-02-01] MEDS: ATORVASTATIN CALCIUM 20 MG TABLET PO SCH (08:37)
[2018-02-01] MEDS: MAGNESIUM OXIDE 400 MG TABLET PO SCH (08:38)
[2018-02-01] MEDS: busPIRone 10 MG TABLET. PO SCH ×3 (08:38→19:56)
[2018-02-01] MEDS: MEMANTINE 5 MG TABLET. PO SCH ×2 (08:38→19:57)
[2018-02-01] MEDS: OXYBUTYNIN CHLORIDE 5 MG TABLET PO SCH ×2 (08:38→19:56)
[2018-02-01] MEDS: FLUCONAZOLE 100 MG TABLET. PO SCH (08:38)
[2018-02-01] MEDS: CYANOCOBALAMIN (VITAMIN B-12) 250 MCG TABLET PO SCH (08:38)
[2018-02-01] MEDS: METOPROLOL TART IMMED RELEASE 25 MG TABLET PO SCH (08:38)
[2018-02-01] MEDS: ACETAMINOPHEN 500 MG TABLET PO SCH ×2 (08:38→19:56)
[2018-02-01] MEDS: ASPIRIN 81 MG TAB.CHEW PO SCH (08:38)
[2018-02-01] MEDS: FENOFIBRATE NANOCRYSTALLIZED 145 MG TABLET PO SCH (08:40)
[2018-02-01 08:50] LABS: ALBUMIN 3.4 g/dL (3.4-5.0); ALBUMIN/GLOBULIN RATIO 0.8 (1.0-1.7); ALK PHOS 43 U/L (46-116); ALT (SGPT) 17 U/L (14-59); ANION GAP 9 (6-14); AST (SGOT) 21 U/L (15-37); BLOOD UREA NITROGEN 22 mg/dL (7-20); BUN/CREATININE RATIO 20 (6-20); CALCIUM 10.1 mg/dL (8.5-10.1); CARBON DIOXIDE 25 mmol/L (21-32); CHLORIDE 104 mmol/L (98-107); CREATININE 1.1 mg/dL (0.6-1.0); GLUCOSE 72 mg/dL (70-99); POTASSIUM 4.4 mmol/L (3.5-5.1); SODIUM 138 mmol/L (136-145); TOTAL BILIRUBIN 0.2 mg/dL (0.2-1.0); TOTAL PROTEIN 7.5 g/dL (6.4-8.2)
[2018-02-01 08:51] LABS: VAL ACID 60 mcg/mL (50-100)
[2018-02-01 16:18] VITALS: BP 128/69
[2018-02-01] MEDS: DIVALPROEX ER 250 MG TAB.ER.24H. PO SCH (19:56)
[2018-02-01] MEDS: DIVALPROEX ER 500 MG TAB.ER.24H PO SCH (19:56)
[2018-02-01] MEDS: INSULIN GLARGINE 300 UNITS/3 ML INSULN.PEN. SQ SCH (19:59)
--- NOTE | 2018-02-01 22:25 | PDOC ---
Exam Note: Hemant Note: Please also refer to the separate dictated note~for this date of service dictated separately.~Patient seen individually. Discussed the patient with Nursing staff reviewed the chart.~Reviewed interim history and current functioning. Reviewed vital signs,~Labs/ Radiology~and current medications noted below. Continue current treatment with the changes noted in the dictated addendum note Assessment: Vital Signs: Vital Signs Date Time Temp Pulse Resp B/P (MAP) Pulse Ox O2 Delivery O2 Flow Rate FiO2 02/01/18 16:18 98.3 74 18 128/69 (88) 100 I&O Intake and Output 02/01/18 07:00 Intake Total 360 ml Balance 360 ml Intake Oral 360 ml # Voids 1 Labs: Laboratory Tests Test 02/01/18 07:35 02/01/18 07:56 02/01/18 11:38 02/01/18 16:15 White Blood Count 5.2 x10^3/uL (4.0-11.0) Red Blood Count 3.79 x10^6/uL (3.50-5.40) Hemoglobin 10.6 g/dL (12.0-15.5) L Hematocrit 32.7 % (36.0-47.0) L Mean Corpuscular Volume 86 fL (79-100) Mean Corpuscular Hemoglobin 28 pg (25-35) Mean Corpuscular Hemoglobin Concent 32 g/dL (31-37) Red Cell Distribution Width 15.3 % (11.5-14.5) H Platelet Count 190 x10^3/uL (140-400) Neutrophils (%) (Auto) 50 % (31-73) Lymphocytes (%) (Auto) 39 % (24-48) Monocytes (%) (Auto) 8 % (0-9) Eosinophils (%) (Auto) 3 % (0-3) Basophils (%) (Auto) 1 % (0-3) Neutrophils # (Auto) 2.6 x10^3uL (1.8-7.7) Lymphocytes # (Auto) 2.0 x10^3/uL (1.0-4.8) Monocytes # (Auto) 0.4 x10^3/uL (0.0-1.1) Eosinophils # (Auto) 0.1 x10^3/uL (0.0-0.7) Basophils # (Auto) 0.0 x10^3/uL (0.0-0.2) Sodium Level 138 mmol/L (136-145) Potassium Level 4.4 mmol/L (3.5-5.1) Chloride Level 104 mmol/L (98-107) Carbon Dioxide Level 25 mmol/L (21-32) Anion Gap 9 (6-14) Blood Urea Nitrogen 22 mg/dL (7-20) H Creatinine 1.1 mg/dL (0.6-1.0) H Estimated GFR (Cockcroft-Gault) 49.0 BUN/Creatinine Ratio 20 (6-20) Glucose Level 72 mg/dL (70-99) Calcium Level 10.1 mg/dL (8.5-10.1) Total Bilirubin 0.2 mg/dL (0.2-1.0) Aspartate Amino Transferase (AST) 21 U/L (15-37) Alanine Aminotransferase (ALT) 17 U/L (14-59) Alkaline Phosphatase 43 U/L (46-116) L Total Protein 7.5 g/dL (6.4-8.2) Albumin 3.4 g/dL (3.4-5.0) Albumin/Globulin Ratio 0.8 (1.0-1.7) L Valproic Acid Level 60 mcg/mL (50-100) Valproic Acid Last Dose Date 01/31/18 Valproic Acid Last Dose Time 2100 Glucose (Fingerstick) 72 mg/dL (70-99) 119 mg/dL (70-99) H 86 mg/dL (70-99) Test 02/01/18 19:37 Glucose (Fingerstick) 147 mg/dL (70-99) H Current Medications: Meds: Current Medications Ceftriaxone Sodium (Rocephin Im) 1 gm 1X ONCE IM Last administered on at 19:18; Start 01/21/18 at 19:15; Stop 01/21/18 at 19:16; Status DC Acetaminophen (Tylenol) 500 mg BID PO Last administered on 02/01/18at 19:56; Start 01/21/18 at 22:00 Aspirin (Children'S Aspirin) 81 mg DAILY PO Last administered on 02/01/18at 08: 38; Start 01/22/18 at 09:00 Cetirizine HCl (ZyrTEC) 10 mg PRN DAILY PRN PO ALLERGIES; Start 01/21/18 at 22: 00 Ferrous Sulfate (Feosol) 325 mg DAILY PO Last administered on 02/01/18 08:37; Start 01/22/18 at 09:00 Acetaminophen/ Hydrocodone Bitart (Lortab 7.5/325) 1 tab PRN Q6HRS PRN PO MOD/ SEVERE PAIN Last administered on 01/22/18 03:44; Start 01/21/18 at 22:00 Levothyroxine Sodium (Synthroid) 125 mcg DAILY06 PO Last administered on 06:14; Start 01/22/18 at 06:00 Metformin HCl (Glucophage) 850 mg BIDWMEALS PO Last administered on 02/01/18 16:43; Start 01/22/18 at 08:00 Metoprolol Tartrate (Lopressor) 25 mg DAILY PO Last administered on 02/01/18 08:38; Start 01/22/18 at 09:00 Nystatin (Nystop) 1 soniya PRN BID PRN TP RASH Last administered on 01/31/18 21: 23; Start 01/21/18 at 22:00 Polyethylene Glycol (miraLAX) 17 gm DAILY PO Last administered on 02/01/18 08: 36; Start 01/22/18 at 09:00 Topiramate (Topamax) 100 mg TID PO Last administered on 02/01/18 14:30; Start 01/21/18 at 22:00; Stop 02/01/18 at 18:51; Status DC Calcium/Vitamin D (Oscal D 500mg/ 200uts) 1 tab DAILY PO Last administered on 08:37; Start 01/22/18 at 09:00 Cyanocobalamin (Vitamin B-12) 250 mcg DAILY PO Last administered on 02/01/18 08:38; Start 01/22/18 at 09:00 Fenofibrate (Tricor) 145 mg DAILY PO Last administered on 02/01/18 08:40; Start 01/22/18 at 09:00 Insulin Glargine (Lantus) 24 units QHS SQ Last administered on 02/01/18 19:59 ; Start 01/21/18 at 22:00 Lactobacillus Rhamnosus (Culturelle) 1 cap BID PO Last administered on 19:55; Start 01/22/18 at 09:00 Magnesium Oxide (Magnesium Oxide) 200 mg DAILY PO Last administered on 08:38; Start 01/22/18 at 09:00 Oxybutynin Chloride (Ditropan) 5 mg BID PO Last administered on 02/01/18 19:56 ; Start 01/21/18 at 22:00 Pantoprazole Sodium (Protonix) 40 mg PRN DAILY PRN PO NEEDED BEFORE A MEAL; Start 01/22/18 at 07:30 Non-Formulary Medication (Pseudoephedrine/ Brompheniramin (Rynex Pse Liquid)) 5 ml PRN TID PRN PO COUGH; Start 01/21/18 at 22:00; Stop 01/21/18 at 22:36; Status DC Atorvastatin Calcium (Lipitor) 20 mg DAILY PO Last administered on 02/01/18at 08 :37; Start 01/22/18 at 09:00 Buspirone HCl (Buspar) 10 mg BID PO Last administered on 01/28/18at 07:56; Start 01/21/18 at 22:00; Stop 01/28/18 at 18:24; Status DC Divalproex Sodium (Depakote Er) 500 mg HS PO Last administered on 01/22/18at 00: 15; Start 01/21/18 at 22:00; Stop 01/22/18 at 18:18; Status DC Fluvoxamine Maleate (Luvox) 100 mg QHS PO Last administered on 01/31/18at 21:20 ; Start 01/21/18 at 22:00; Stop 02/01/18 at 18:51; Status DC Risperidone (RisperDAL) 1 mg DAILY PO Last administered on 01/26/18at 08:14; Start 01/22/18 at 09:00; Stop 01/26/18 at 18:22; Status DC Non-Formulary Medication (Fluvoxamine Maleate ) 50 mg DAILY PO ; Start 01/22/18 at 09:00; Stop 01/22/18 at 09:00; Status DC Non-Formulary Medication (Memantine Hcl (Namenda Xr)) 7 mg DAILY PO ; Start at 09:00; Stop 01/22/18 at 09:00; Status DC Memantine (Namenda) 5 mg BID PO Last administered on 02/01/18 19:57; Start at 22:00 Insulin Human Lispro (HumaLOG) 0-10 UNITS TIDWMEALS SQ Last administered on at 17:38; Start 01/22/18 at 08:00 Nystatin (Nystop) 1 soniya PRN BID PRN TP RASH; Start 01/22/18 at 00:15; Status Cancel Acetaminophen (Tylenol) 650 mg PRN Q6HRS PRN PO PAIN / TEMP Last administered on 01/29/18at 06:32; Start 01/22/18 at 05:00 Multi-Ingredient Ointment (Analgesic [place]) 1 soniya PRN QID PRN TP MUSCLE PAIN; Start 01/22/18 at 05:00 Al Hydroxide/Mg Hydroxide (Mylanta Plus Xs) 15 ml PRN AFTMEALHC PRN PO DYSPEPSIA; Start 01/22/18 at 05:00 Magnesium Hydroxide (Milk Of Magnesia) 2,400 mg PRN QHS PRN PO CONSTIPATION; Start 01/22/18 at 05:00 Vitamin D (Vitamin D3) 50,000 unit WEEKLY PO Last administered on 01/29/18at 09: 23; Start 01/22/18 at 18:00 Fluconazole (Diflucan) 100 mg DAILY PO Last administered on 02/01/18at 08:38; Start 01/23/18 at 09:00 Cefpodoxime Proxetil (Vantin) 200 mg BID PO Last administered on 01/28/18at 07: 57; Start 01/22/18 at 21:00; Stop 01/28/18 at 20:59; Status DC Lactobacillus Rhamnosus (Culturelle) 1 cap BID PO ; Start 01/22/18 at 21:00; Stop 01/22/18 at 21:00; Status DC Divalproex Sodium (Depakote Er) 500 mg HS PO Last administered on 01/24/18 19: 58; Start 01/22/18 at 21:00; Stop 01/25/18 at 15:48; Status DC Divalproex Sodium (Depakote Er) 250 mg QHS PO Last administered on 01/24/18 19 :58; Start 01/22/18 at 21:00; Stop 01/25/18 at 15:48; Status DC Divalproex Sodium (Depakote Er) 1,000 mg QHS PO Last administered on 01/28/18at 19:36; Start 01/25/18 at 21:00; Stop 01/29/18 at 12:58; Status DC Risperidone (RisperDAL) 0.75 mg DAILY PO Last administered on 02/01/18at 08:37; Start 01/27/18 at 09:00; Stop 02/01/18 at 18:53; Status DC Buspirone HCl (Buspar) 10 mg TID PO Last administered on 02/01/18at 19:56; Start 01/28/18 at 21:00 Divalproex Sodium (Depakote Er) 1,250 mg QHS PO ; Start 01/29/18 at 21:00; Stop 01/29/18 at 21:00; Status DC Carbamide Peroxide (Debrox) 5 drop PRN BID PRN AU IMPACTION Last administered on 01/31/18at 12:43; Start 01/29/18 at 19:15 Divalproex Sodium (Depakote Er) 250 mg QHS PO Last administered on 02/01/18at 19 :56; Start 01/29/18 at 21:00 Divalproex Sodium (Depakote Er) 1,000 mg QHS PO Last administered on 02/01/18at 19:56; Start 01/29/18 at 21:00 Fluvoxamine Maleate (Luvox) 125 mg QHS PO Last administered on 02/01/18at 20:00 ; Start 02/01/18 at 21:00 Risperidone (RisperDAL) 0.25 mg BID@0900,1300 PO ; Start 02/02/18 at 09:00 Risperidone (RisperDAL) 0.5 mg DAILY@1700 PO ; Start 02/02/18 at 17:00 Active Scripts Active Reported Risperidone 1 Mg Tablet 1 Mg PO DAILY Namenda Xr (Memantine Hcl) 14 Mg Cap.spr.24 14 Mg PO DAILY Namenda Xr (Memantine Hcl) 7 Mg Cap.spr.24 7 Mg PO DAILY Depakote Er (Divalproex Sodium) 500 Mg Tab.er.24h 500 Mg PO HS Buspirone Hcl 10 Mg Tablet 10 Mg PO BID Fenofibrate (Fenofibrate,Micronized) 134 Mg Capsule 134 Mg PO DAILY Fluvoxamine Maleate 100 Mg Tablet 1 Tab PO QHS Levemir Flextouch (Insulin Detemir) 100 Unit/1 Ml Insuln.pen 24 Unit SQ HS Novolog Flexpen (Insulin Aspart) 100 Unit/1 Ml Insuln.pen 0-10 Unit SQ TIDAC SLIDING SCALE INSULIN Magnesium (Magnesium Oxide) 400 Mg Capsule 250 Mg PO DAILY Levothyroxine Sodium 125 Mcg Tablet 125 Mcg PO DAILY06 Atorvastatin Calcium 20 Mg Tablet 20 Mg PO DAILY Fluvoxamine Maleate 50 Mg Tablet 50 Mg PO DAILY Acetaminophen 500 Mg Tablet 500 Mg PO BID Calcium 600 + Vit D 200 Tablet (Calcium Carbonate/Vitamin D3) 1 Each Tablet 1 Each PO DAILY B-12 (Cyanocobalamin (Vitamin B-12)) 500 Mcg Tablet 250 Mcg PO DAILY Acidophilus (Lactobacillus Acidophilus) 1 Each Capsule 1 Each PO BID Metformin Hcl 850 Mg Tablet 850 Mg PO BIDWMEALS Ferrous Sulfate 325 Mg Tablet 1 Tab PO DAILY Topiramate 100 Mg Tablet 100 Mg PO TID Metoprolol Tartrate 25 Mg Tablet 25 Mg PO DAILY Ditropan Xl (Oxybutynin Chloride) 10 Mg Tab.er.24 10 Mg PO DAILY Miralax (Polyethylene Glycol 3350) 17 Gm Powd.pack 17 Gm PO DAILY Aspirin 81 Mg Tab.chew 81 Mg PO DAILY Cetirizine Hcl 10 Mg Tablet 10 Mg PO PRN DAILY PRN Hydrocodone-Apap 7.5-325 (Hydrocodone Bit/Acetaminophen) 1 Each Tablet 1 Tab PO PRN Q6HRS PRN Rynex Pse Liquid (Pseudoephedrine/Brompheniramin) 473 Ml Liquid 5 Ml PO PRN TID PRN Protonix (Pantoprazole Sodium) 20 Mg Tablet.dr 20 Mg PO PRN DAILY PRN Nystop (Nystatin) 60 Gm Powder 1 Soniya TP PRN BID PRN I have reviewed the current psychotropics carefully including drug interactions. Risk benefit ratio favors no change other than as noted in my dictated progress note. 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
--- NOTE | 2018-02-02 00:12 | PN ---
DATE: 01/30/2018 This late entry 01/30/2018 covers elements not covered in my initial note. I met with the patient in the evening of 01/30/2018. The patient had a good day, somewhat anxious, labile at times, but improved, cooperative. No aggression noted. REVIEW OF SYSTEMS: No CV, , pulmonary, eye, ENT system symptoms on review. Reliability poor. MENTAL STATUS EXAM: Oriented to herself. Insight, judgment, recent and remote memory, attention, concentration, fund of knowledge poor, consistent with her diagnosis mentioned in my initial note. PLAN: No change from initial note. MAN Kingston DAVIS MD DR: SUMEET/kirill JOB#: [id number] / [id number]
[2018-02-02] MEDS: LEVOTHYROXINE 125 MCG TABLET PO SCH (05:27)
[2018-02-02 06:18] VITALS: BP 134/80
[2018-02-02] MEDS: INSULIN LISPRO 300 UNITS/3 ML INSULN.PEN. SQ SCH ×3 (08:00→16:46)
[2018-02-02] MEDS: LACTOBACILLUS RHAMNOSUS GG 1 CAPSULE. PO SCH ×2 (08:39→20:38)
[2018-02-02] MEDS: CYANOCOBALAMIN (VITAMIN B-12) 250 MCG TABLET PO SCH (08:39)
[2018-02-02] MEDS: CALCIUM CARB/VIT D3 500/200 TABLET PO SCH (08:39)
[2018-02-02] MEDS: ATORVASTATIN CALCIUM 20 MG TABLET PO SCH (08:39)
[2018-02-02] MEDS: METOPROLOL TART IMMED RELEASE 25 MG TABLET PO SCH (08:39)
[2018-02-02] MEDS: busPIRone 10 MG TABLET. PO SCH ×3 (08:39→20:37)
[2018-02-02] MEDS: ACETAMINOPHEN 500 MG TABLET PO SCH ×2 (08:39→20:38)
[2018-02-02] MEDS: ASPIRIN 81 MG TAB.CHEW PO SCH (08:39)
[2018-02-02] MEDS: FLUCONAZOLE 100 MG TABLET. PO SCH (08:39)
[2018-02-02] MEDS: OXYBUTYNIN CHLORIDE 5 MG TABLET PO SCH ×2 (08:39→20:38)
[2018-02-02] MEDS: MAGNESIUM OXIDE 400 MG TABLET PO SCH (08:40)
[2018-02-02] MEDS: FERROUS SULFATE 325 MG TABLET. PO SCH (08:40)
[2018-02-02] MEDS: POLYETHYLENE GLYCOL 3350 17 GM PACKET. PO SCH (08:40)
[2018-02-02] MEDS: metFORMIN 850 MG TABLET PO SCH ×2 (08:40→16:48)
[2018-02-02] MEDS: MEMANTINE 5 MG TABLET. PO SCH ×2 (08:42→20:38)
[2018-02-02] MEDS: risperiDONE 0.25 MG TABLET. PO SCH ×2 (08:42→13:31)
[2018-02-02] MEDS: FENOFIBRATE NANOCRYSTALLIZED 145 MG TABLET PO SCH (08:56)
[2018-02-02 16:18] VITALS: BP 166/75
[2018-02-02] MEDS ORDERED: risperiDONE 0.5 MG TABLET. PO SCH (17:00)
[2018-02-02] MEDS: DIVALPROEX ER 250 MG TAB.ER.24H. PO SCH (20:37)
[2018-02-02] MEDS: DIVALPROEX ER 500 MG TAB.ER.24H PO SCH (20:37)
[2018-02-02] MEDS: INSULIN GLARGINE 300 UNITS/3 ML INSULN.PEN. SQ SCH (20:45)
--- NOTE | 2018-02-02 21:36 | PDOC ---
Exam Note: Hemant Note: Please also refer to the separate dictated note~for this date of service dictated separately.~Patient seen individually. Discussed the patient with Nursing staff reviewed the chart.~Reviewed interim history and current functioning. Reviewed vital signs,~Labs/ Radiology~and current medications noted below. Continue current treatment with the changes noted in the dictated addendum note Assessment: Vital Signs: Vital Signs Date Time Temp Pulse Resp B/P (MAP) Pulse Ox O2 Delivery O2 Flow Rate FiO2 02/02/18 16:18 97.5 76 16 166/75 (105) 100 I&O Intake and Output 02/02/18 07:00 Intake Total 840 ml Balance 840 ml Intake Oral 840 ml # Voids 3 # Bowel Movements 2 Labs: Laboratory Tests Test 02/02/18 07:24 02/02/18 11:09 02/02/18 16:32 02/02/18 19:26 Glucose (Fingerstick) 94 mg/dL (70-99) 108 mg/dL (70-99) H 115 mg/dL (70-99) H 107 mg/dL (70-99) H Current Medications: Meds: Current Medications Ceftriaxone Sodium (Rocephin Im) 1 gm 1X ONCE IM Last administered on at 19:18; Start 01/21/18 at 19:15; Stop 01/21/18 at 19:16; Status DC Acetaminophen (Tylenol) 500 mg BID PO Last administered on 02/02/18at 20:38; Start 01/21/18 at 22:00 Aspirin (Children'S Aspirin) 81 mg DAILY PO Last administered on 02/02/18at 08: 39; Start 01/22/18 at 09:00 Cetirizine HCl (ZyrTEC) 10 mg PRN DAILY PRN PO ALLERGIES; Start 01/21/18 at 22: 00 Ferrous Sulfate (Feosol) 325 mg DAILY PO Last administered on 02/02/18 08:40; Start 01/22/18 at 09:00 Acetaminophen/ Hydrocodone Bitart (Lortab 7.5/325) 1 tab PRN Q6HRS PRN PO MOD/ SEVERE PAIN Last administered on 01/22/18at 03:44; Start 01/21/18 at 22:00 Levothyroxine Sodium (Synthroid) 125 mcg DAILY06 PO Last administered on 05:27; Start 01/22/18 at 06:00 Metformin HCl (Glucophage) 850 mg BIDWMEALS PO Last administered on 02/02/18 16:48; Start 01/22/18 at 08:00 Metoprolol Tartrate (Lopressor) 25 mg DAILY PO Last administered on 02/02/18 08:39; Start 01/22/18 at 09:00 Nystatin (Nystop) 1 soniya PRN BID PRN TP RASH Last administered on 01/31/18 21: 23; Start 01/21/18 at 22:00 Polyethylene Glycol (miraLAX) 17 gm DAILY PO Last administered on 02/02/18 08: 40; Start 01/22/18 at 09:00 Topiramate (Topamax) 100 mg TID PO Last administered on 02/01/18 14:30; Start 01/21/18 at 22:00; Stop 02/01/18 at 18:51; Status DC Calcium/Vitamin D (Oscal D 500mg/ 200uts) 1 tab DAILY PO Last administered on 08:39; Start 01/22/18 at 09:00 Cyanocobalamin (Vitamin B-12) 250 mcg DAILY PO Last administered on 02/02/18 08:39; Start 01/22/18 at 09:00 Fenofibrate (Tricor) 145 mg DAILY PO Last administered on 02/01/18 08:40; Start 01/22/18 at 09:00; Stop 02/02/18 at 08:48; Status DC Insulin Glargine (Lantus) 24 units QHS SQ Last administered on 02/02/18 20:45 ; Start 01/21/18 at 22:00 Lactobacillus Rhamnosus (Culturelle) 1 cap BID PO Last administered on 20:38; Start 01/22/18 at 09:00 Magnesium Oxide (Magnesium Oxide) 200 mg DAILY PO Last administered on 08:40; Start 01/22/18 at 09:00 Oxybutynin Chloride (Ditropan) 5 mg BID PO Last administered on 02/02/18 20:38 ; Start 01/21/18 at 22:00 Pantoprazole Sodium (Protonix) 40 mg PRN DAILY PRN PO NEEDED BEFORE A MEAL; Start 01/22/18 at 07:30 Non-Formulary Medication (Pseudoephedrine/ Brompheniramin (Rynex Pse Liquid)) 5 ml PRN TID PRN PO COUGH; Start 01/21/18 at 22:00; Stop 01/21/18 at 22:36; Status DC Atorvastatin Calcium (Lipitor) 20 mg DAILY PO Last administered on 02/02/18at 08 :39; Start 01/22/18 at 09:00 Buspirone HCl (Buspar) 10 mg BID PO Last administered on 01/28/18at 07:56; Start 01/21/18 at 22:00; Stop 01/28/18 at 18:24; Status DC Divalproex Sodium (Depakote Er) 500 mg HS PO Last administered on 01/22/18at 00: 15; Start 01/21/18 at 22:00; Stop 01/22/18 at 18:18; Status DC Fluvoxamine Maleate (Luvox) 100 mg QHS PO Last administered on 01/31/18at 21:20 ; Start 01/21/18 at 22:00; Stop 02/01/18 at 18:51; Status DC Risperidone (RisperDAL) 1 mg DAILY PO Last administered on 01/26/18at 08:14; Start 01/22/18 at 09:00; Stop 01/26/18 at 18:22; Status DC Non-Formulary Medication (Fluvoxamine Maleate ) 50 mg DAILY PO ; Start 01/22/18 at 09:00; Stop 01/22/18 at 09:00; Status DC Non-Formulary Medication (Memantine Hcl (Namenda Xr)) 7 mg DAILY PO ; Start at 09:00; Stop 01/22/18 at 09:00; Status DC Memantine (Namenda) 5 mg BID PO Last administered on 02/02/18at 20:38; Start at 22:00 Insulin Human Lispro (HumaLOG) 0-10 UNITS TIDWMEALS SQ Last administered on at 17:38; Start 01/22/18 at 08:00 Nystatin (Nystop) 1 soniya PRN BID PRN TP RASH; Start 01/22/18 at 00:15; Status Cancel Acetaminophen (Tylenol) 650 mg PRN Q6HRS PRN PO PAIN / TEMP Last administered on 01/29/18 06:32; Start 01/22/18 at 05:00 Multi-Ingredient Ointment (Analgesic [place]) 1 soniya PRN QID PRN TP MUSCLE PAIN; Start 01/22/18 at 05:00 Al Hydroxide/Mg Hydroxide (Mylanta Plus Xs) 15 ml PRN AFTMEALHC PRN PO DYSPEPSIA; Start 01/22/18 at 05:00 Magnesium Hydroxide (Milk Of Magnesia) 2,400 mg PRN QHS PRN PO CONSTIPATION; Start 01/22/18 at 05:00 Vitamin D (Vitamin D3) 50,000 unit WEEKLY PO Last administered on 01/29/18at 09: 23; Start 01/22/18 at 18:00 Fluconazole (Diflucan) 100 mg DAILY PO Last administered on 02/02/18at 08:39; Start 01/23/18 at 09:00 Cefpodoxime Proxetil (Vantin) 200 mg BID PO Last administered on 01/28/18at 07: 57; Start 01/22/18 at 21:00; Stop 01/28/18 at 20:59; Status DC Lactobacillus Rhamnosus (Culturelle) 1 cap BID PO ; Start 01/22/18 at 21:00; Stop 01/22/18 at 21:00; Status DC Divalproex Sodium (Depakote Er) 500 mg HS PO Last administered on 01/24/18 19: 58; Start 01/22/18 at 21:00; Stop 01/25/18 at 15:48; Status DC Divalproex Sodium (Depakote Er) 250 mg QHS PO Last administered on 01/24/18at 19 :58; Start 01/22/18 at 21:00; Stop 01/25/18 at 15:48; Status DC Divalproex Sodium (Depakote Er) 1,000 mg QHS PO Last administered on 01/28/18 19:36; Start 01/25/18 at 21:00; Stop 01/29/18 at 12:58; Status DC Risperidone (RisperDAL) 0.75 mg DAILY PO Last administered on 02/01/18at 08:37; Start 01/27/18 at 09:00; Stop 02/01/18 at 18:53; Status DC Buspirone HCl (Buspar) 10 mg TID PO Last administered on 02/02/18at 20:37; Start 01/28/18 at 21:00 Divalproex Sodium (Depakote Er) 1,250 mg QHS PO ; Start 01/29/18 at 21:00; Stop 01/29/18 at 21:00; Status DC Carbamide Peroxide (Debrox) 5 drop PRN BID PRN AU IMPACTION Last administered on 01/31/18at 12:43; Start 01/29/18 at 19:15 Divalproex Sodium (Depakote Er) 250 mg QHS PO Last administered on 02/02/18at 20 :37; Start 01/29/18 at 21:00 Divalproex Sodium (Depakote Er) 1,000 mg QHS PO Last administered on 02/02/18at 20:37; Start 01/29/18 at 21:00 Fluvoxamine Maleate (Luvox) 125 mg QHS PO Last administered on 02/02/18at 20:37 ; Start 02/01/18 at 21:00 Risperidone (RisperDAL) 0.25 mg BID@0900,1300 PO Last administered on at 13:31; Start 02/02/18 at 09:00; Stop 02/02/18 at 18:19; Status DC Risperidone (RisperDAL) 0.5 mg DAILY@1700 PO Last administered on 02/02/18at 16: 48; Start 02/02/18 at 17:00; Stop 02/02/18 at 18:19; Status DC Fenofibrate (Tricor) 145 mg DAILY PO ; Start 02/02/18 at 09:00 Olanzapine (ZyPREXA ZYDIS) 1.25 mg PRN Q2HR PRN PO PSYCHOSIS; Start 02/02/18 at 18:30 Quetiapine Fumarate (SEROquel) 25 mg TID@0900,1300,1700 PO ; Start 02/03/18 at 09 :00; Stop 02/03/18 at 09:00; Status DC Quetiapine Fumarate (SEROquel) 12.5 mg TID@0900,1300,1700 PO ; Start 02/03/18 at 09:00 Active Scripts Active Reported Risperidone 1 Mg Tablet 1 Mg PO DAILY Namenda Xr (Memantine Hcl) 14 Mg Cap.spr.24 14 Mg PO DAILY Namenda Xr (Memantine Hcl) 7 Mg Cap.spr.24 7 Mg PO DAILY Depakote Er (Divalproex Sodium) 500 Mg Tab.er.24h 500 Mg PO HS Buspirone Hcl 10 Mg Tablet 10 Mg PO BID Fenofibrate (Fenofibrate,Micronized) 134 Mg Capsule 134 Mg PO DAILY Fluvoxamine Maleate 100 Mg Tablet 1 Tab PO QHS Levemir Flextouch (Insulin Detemir) 100 Unit/1 Ml Insuln.pen 24 Unit SQ HS Novolog Flexpen (Insulin Aspart) 100 Unit/1 Ml Insuln.pen 0-10 Unit SQ TIDAC SLIDING SCALE INSULIN Magnesium (Magnesium Oxide) 400 Mg Capsule 250 Mg PO DAILY Levothyroxine Sodium 125 Mcg Tablet 125 Mcg PO DAILY06 Atorvastatin Calcium 20 Mg Tablet 20 Mg PO DAILY Fluvoxamine Maleate 50 Mg Tablet 50 Mg PO DAILY Acetaminophen 500 Mg Tablet 500 Mg PO BID Calcium 600 + Vit D 200 Tablet (Calcium Carbonate/Vitamin D3) 1 Each Tablet 1 Each PO DAILY B-12 (Cyanocobalamin (Vitamin B-12)) 500 Mcg Tablet 250 Mcg PO DAILY Acidophilus (Lactobacillus Acidophilus) 1 Each Capsule 1 Each PO BID Metformin Hcl 850 Mg Tablet 850 Mg PO BIDWMEALS Ferrous Sulfate 325 Mg Tablet 1 Tab PO DAILY Topiramate 100 Mg Tablet 100 Mg PO TID Metoprolol Tartrate 25 Mg Tablet 25 Mg PO DAILY Ditropan Xl (Oxybutynin Chloride) 10 Mg Tab.er.24 10 Mg PO DAILY Miralax (Polyethylene Glycol 3350) 17 Gm Powd.pack 17 Gm PO DAILY Aspirin 81 Mg Tab.chew 81 Mg PO DAILY Cetirizine Hcl 10 Mg Tablet 10 Mg PO PRN DAILY PRN Hydrocodone-Apap 7.5-325 (Hydrocodone Bit/Acetaminophen) 1 Each Tablet 1 Tab PO PRN Q6HRS PRN Rynex Pse Liquid (Pseudoephedrine/Brompheniramin) 473 Ml Liquid 5 Ml PO PRN TID PRN Protonix (Pantoprazole Sodium) 20 Mg Tablet.dr 20 Mg PO PRN DAILY PRN Nystop (Nystatin) 60 Gm Powder 1 Soniya TP PRN BID PRN I have reviewed the current psychotropics carefully including drug interactions. Risk benefit ratio favors no change other than as noted in my dictated progress note. 

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
--- NOTE | 2018-02-03 04:41 | PN ---
DATE: 02/01/2018 PSYCHIATRIC PROGRESS NOTE This late entry 02/01/2018 covers elements not covered in my initial note. SUBJECTIVE: I met with the patient in the evening. The patient slept 7-3/4 hours previous evening, quite confused, anxious, labile, banging on the nursing window all evening as I was there for rounds, quite labile, anxious. Valproic acid level is 60. REVIEW OF SYSTEMS: Positive for some discomfort groin area. She is being treated for the fungal rash. No CV, , pulmonary, eye, ENT system symptoms on review. MENTAL STATUS EXAM: Oriented to herself. Insight, judgment, recent and remote memory, attention, concentration, fund of knowledge poor, consistent with her diagnosis, still somewhat obsessive. LABORATORIES: Reviewed. IMPRESSION: Unchanged from initial note. PLAN: Increase Luvox to 125 mg at bedtime, Risperdal is 0.75 mg daily, will change to 0.25 mg 9:00 a.m., 1:00 p.m. and increase to 0.5 mg at 5:00 p.m. Discontinue the Topamax. Continue Depakote, BuSpar, Namenda for now. Valproic acid level is 60, therapeutic. LAURITA DAVIS MD DR: SUMEET/kirill JOB#: [id number] / [id number]
[2018-02-03] MEDS: LEVOTHYROXINE 125 MCG TABLET PO SCH (06:11)
[2018-02-03 06:34] VITALS: BP 143/81
[2018-02-03] MEDS: INSULIN LISPRO 300 UNITS/3 ML INSULN.PEN. SQ SCH ×3 (07:44→17:00)
[2018-02-03] MEDS: POLYETHYLENE GLYCOL 3350 17 GM PACKET. PO SCH (08:37)
[2018-02-03] MEDS: MEMANTINE 5 MG TABLET. PO SCH ×2 (08:37→20:46)
[2018-02-03] MEDS: OXYBUTYNIN CHLORIDE 5 MG TABLET PO SCH ×2 (08:38→20:47)
[2018-02-03] MEDS: FENOFIBRATE NANOCRYSTALLIZED 145 MG TABLET PO SCH (08:38)
[2018-02-03] MEDS: metFORMIN 850 MG TABLET PO SCH ×2 (08:38→16:51)
[2018-02-03] MEDS: MAGNESIUM OXIDE 400 MG TABLET PO SCH (08:38)
[2018-02-03] MEDS: ACETAMINOPHEN 500 MG TABLET PO SCH ×2 (08:38→20:47)
[2018-02-03] MEDS: LACTOBACILLUS RHAMNOSUS GG 1 CAPSULE. PO SCH ×2 (08:38→20:47)
[2018-02-03] MEDS: busPIRone 10 MG TABLET. PO SCH ×3 (08:38→20:47)
[2018-02-03] MEDS: FERROUS SULFATE 325 MG TABLET. PO SCH (08:38)
[2018-02-03] MEDS: ATORVASTATIN CALCIUM 20 MG TABLET PO SCH (08:38)
[2018-02-03] MEDS: FLUCONAZOLE 100 MG TABLET. PO SCH (08:38)
[2018-02-03] MEDS: ASPIRIN 81 MG TAB.CHEW PO SCH (08:38)
[2018-02-03] MEDS: CALCIUM CARB/VIT D3 500/200 TABLET PO SCH (08:38)
[2018-02-03] MEDS: METOPROLOL TART IMMED RELEASE 25 MG TABLET PO SCH (08:39)
[2018-02-03] MEDS: CYANOCOBALAMIN (VITAMIN B-12) 250 MCG TABLET PO SCH (08:39)
[2018-02-03] MEDS: QUEtiapine 25 MG TABLET. PO SCH ×3 (08:40→16:51)
[2018-02-03] MEDS ORDERED: QUEtiapine 25 MG TABLET. PO SCH (09:00)
[2018-02-03 15:59] VITALS: BP 100/50
[2018-02-03] MEDS: DIVALPROEX ER 500 MG TAB.ER.24H PO SCH (20:47)
[2018-02-03] MEDS: DIVALPROEX ER 250 MG TAB.ER.24H. PO SCH (20:47)
[2018-02-03] MEDS: INSULIN GLARGINE 300 UNITS/3 ML INSULN.PEN. SQ SCH (20:51)
--- NOTE | 2018-02-03 21:38 | PDOC ---
Exam Note: Hemant Note: Please also refer to the separate dictated note~for this date of service dictated separately.~Patient seen individually. Discussed the patient with Nursing staff reviewed the chart.~Reviewed interim history and current functioning. Reviewed vital signs,~Labs/ Radiology~and current medications noted below. Continue current treatment with the changes noted in the dictated addendum note Assessment: Vital Signs: Vital Signs Date Time Temp Pulse Resp B/P (MAP) Pulse Ox O2 Delivery O2 Flow Rate FiO2 02/03/18 15:59 97.2 61 18 100/50 (67) 95 I&O Intake and Output 02/03/18 07:00 Intake Total 960 ml Balance 960 ml Intake Oral 960 ml # Voids 1 Labs: Laboratory Tests Test 02/03/18 07:28 02/03/18 11:25 02/03/18 16:35 02/03/18 19:28 Glucose (Fingerstick) 75 mg/dL (70-99) 86 mg/dL (70-99) 102 mg/dL (70-99) H 89 mg/dL (70-99) Current Medications: Meds: Current Medications Ceftriaxone Sodium (Rocephin Im) 1 gm 1X ONCE IM Last administered on at 19:18; Start 01/21/18 at 19:15; Stop 01/21/18 at 19:16; Status DC Acetaminophen (Tylenol) 500 mg BID PO Last administered on 02/03/18at 20:47; Start 01/21/18 at 22:00 Aspirin (Children'S Aspirin) 81 mg DAILY PO Last administered on 02/03/18at 08:38 ; Start 01/22/18 at 09:00 Cetirizine HCl (ZyrTEC) 10 mg PRN DAILY PRN PO ALLERGIES; Start 01/21/18 at 22: 00 Ferrous Sulfate (Feosol) 325 mg DAILY PO Last administered on 02/03/18at 08:38; Start 01/22/18 at 09:00 Acetaminophen/ Hydrocodone Bitart (Lortab 7.5/325) 1 tab PRN Q6HRS PRN PO MOD/ SEVERE PAIN Last administered on 01/22/18at 03:44; Start 01/21/18 at 22:00 Levothyroxine Sodium (Synthroid) 125 mcg DAILY06 PO Last administered on at 06:11; Start 01/22/18 at 06:00 Metformin HCl (Glucophage) 850 mg BIDWMEALS PO Last administered on 02/03/18 16 :51; Start 01/22/18 at 08:00 Metoprolol Tartrate (Lopressor) 25 mg DAILY PO Last administered on 02/03/18 08 :39; Start 01/22/18 at 09:00 Nystatin (Nystop) 1 soniya PRN BID PRN TP RASH Last administered on 01/31/18 21: 23; Start 01/21/18 at 22:00 Polyethylene Glycol (miraLAX) 17 gm DAILY PO Last administered on 02/03/18 08: 37; Start 01/22/18 at 09:00 Topiramate (Topamax) 100 mg TID PO Last administered on 02/01/18 14:30; Start 01/21/18 at 22:00; Stop 02/01/18 at 18:51; Status DC Calcium/Vitamin D (Oscal D 500mg/ 200uts) 1 tab DAILY PO Last administered on 08:38; Start 01/22/18 at 09:00 Cyanocobalamin (Vitamin B-12) 250 mcg DAILY PO Last administered on 02/03/18 08 :39; Start 01/22/18 at 09:00 Fenofibrate (Tricor) 145 mg DAILY PO Last administered on 02/01/18 08:40; Start 01/22/18 at 09:00; Stop 02/02/18 at 08:48; Status DC Insulin Glargine (Lantus) 24 units QHS SQ Last administered on 02/03/18 20:51; Start 01/21/18 at 22:00 Lactobacillus Rhamnosus (Culturelle) 1 cap BID PO Last administered on 20:47; Start 01/22/18 at 09:00 Magnesium Oxide (Magnesium Oxide) 200 mg DAILY PO Last administered on 08:38; Start 01/22/18 at 09:00 Oxybutynin Chloride (Ditropan) 5 mg BID PO Last administered on 02/03/18 20:47 ; Start 01/21/18 at 22:00 Pantoprazole Sodium (Protonix) 40 mg PRN DAILY PRN PO NEEDED BEFORE A MEAL; Start 01/22/18 at 07:30 Non-Formulary Medication (Pseudoephedrine/ Brompheniramin (Rynex Pse Liquid)) 5 ml PRN TID PRN PO COUGH; Start 01/21/18 at 22:00; Stop 01/21/18 at 22:36; Status DC Atorvastatin Calcium (Lipitor) 20 mg DAILY PO Last administered on 02/03/18at 08: 38; Start 01/22/18 at 09:00 Buspirone HCl (Buspar) 10 mg BID PO Last administered on 01/28/18at 07:56; Start 01/21/18 at 22:00; Stop 01/28/18 at 18:24; Status DC Divalproex Sodium (Depakote Er) 500 mg HS PO Last administered on 01/22/18at 00: 15; Start 01/21/18 at 22:00; Stop 01/22/18 at 18:18; Status DC Fluvoxamine Maleate (Luvox) 100 mg QHS PO Last administered on 01/31/18at 21:20 ; Start 01/21/18 at 22:00; Stop 02/01/18 at 18:51; Status DC Risperidone (RisperDAL) 1 mg DAILY PO Last administered on 01/26/18at 08:14; Start 01/22/18 at 09:00; Stop 01/26/18 at 18:22; Status DC Non-Formulary Medication (Fluvoxamine Maleate ) 50 mg DAILY PO ; Start 01/22/18 at 09:00; Stop 01/22/18 at 09:00; Status DC Non-Formulary Medication (Memantine Hcl (Namenda Xr)) 7 mg DAILY PO ; Start at 09:00; Stop 01/22/18 at 09:00; Status DC Memantine (Namenda) 5 mg BID PO Last administered on 02/03/18at 20:46; Start at 22:00 Insulin Human Lispro (HumaLOG) 0-10 UNITS TIDWMEALS SQ Last administered on at 17:38; Start 01/22/18 at 08:00 Nystatin (Nystop) 1 soniya PRN BID PRN TP RASH; Start 01/22/18 at 00:15; Status Cancel Acetaminophen (Tylenol) 650 mg PRN Q6HRS PRN PO PAIN / TEMP Last administered on 01/29/18at 06:32; Start 01/22/18 at 05:00 Multi-Ingredient Ointment (Analgesic [place]) 1 soniya PRN QID PRN TP MUSCLE PAIN; Start 01/22/18 at 05:00 Al Hydroxide/Mg Hydroxide (Mylanta Plus Xs) 15 ml PRN AFTMEALHC PRN PO DYSPEPSIA; Start 01/22/18 at 05:00 Magnesium Hydroxide (Milk Of Magnesia) 2,400 mg PRN QHS PRN PO CONSTIPATION; Start 01/22/18 at 05:00 Vitamin D (Vitamin D3) 50,000 unit WEEKLY PO Last administered on 01/29/18at 09: 23; Start 01/22/18 at 18:00 Fluconazole (Diflucan) 100 mg DAILY PO Last administered on 02/03/18at 08:38; Start 01/23/18 at 09:00 Cefpodoxime Proxetil (Vantin) 200 mg BID PO Last administered on 01/28/18at 07: 57; Start 01/22/18 at 21:00; Stop 01/28/18 at 20:59; Status DC Lactobacillus Rhamnosus (Culturelle) 1 cap BID PO ; Start 01/22/18 at 21:00; Stop 01/22/18 at 21:00; Status DC Divalproex Sodium (Depakote Er) 500 mg HS PO Last administered on 01/24/18 19: 58; Start 01/22/18 at 21:00; Stop 01/25/18 at 15:48; Status DC Divalproex Sodium (Depakote Er) 250 mg QHS PO Last administered on 01/24/18at 19 :58; Start 01/22/18 at 21:00; Stop 01/25/18 at 15:48; Status DC Divalproex Sodium (Depakote Er) 1,000 mg QHS PO Last administered on 01/28/18 19:36; Start 01/25/18 at 21:00; Stop 01/29/18 at 12:58; Status DC Risperidone (RisperDAL) 0.75 mg DAILY PO Last administered on 02/01/18at 08:37; Start 01/27/18 at 09:00; Stop 02/01/18 at 18:53; Status DC Buspirone HCl (Buspar) 10 mg TID PO Last administered on 02/03/18at 20:47; Start 01/28/18 at 21:00 Divalproex Sodium (Depakote Er) 1,250 mg QHS PO ; Start 01/29/18 at 21:00; Stop 01/29/18 at 21:00; Status DC Carbamide Peroxide (Debrox) 5 drop PRN BID PRN AU IMPACTION Last administered on 01/31/18at 12:43; Start 01/29/18 at 19:15 Divalproex Sodium (Depakote Er) 250 mg QHS PO Last administered on 02/03/18at 20: 47; Start 01/29/18 at 21:00 Divalproex Sodium (Depakote Er) 1,000 mg QHS PO Last administered on 02/03/18at 20:47; Start 01/29/18 at 21:00 Fluvoxamine Maleate (Luvox) 125 mg QHS PO Last administered on 02/02/18at 20:37 ; Start 02/01/18 at 21:00; Stop 02/03/18 at 19:25; Status DC Risperidone (RisperDAL) 0.25 mg BID@0900,1300 PO Last administered on at 13:31; Start 02/02/18 at 09:00; Stop 02/02/18 at 18:19; Status DC Risperidone (RisperDAL) 0.5 mg DAILY@1700 PO Last administered on 02/02/18at 16: 48; Start 02/02/18 at 17:00; Stop 02/02/18 at 18:19; Status DC Fenofibrate (Tricor) 145 mg DAILY PO Last administered on 02/03/18at 08:38; Start 02/02/18 at 09:00 Olanzapine (ZyPREXA ZYDIS) 1.25 mg PRN Q2HR PRN PO PSYCHOSIS; Start 02/02/18 at 18:30 Quetiapine Fumarate (SEROquel) 25 mg TID@0900,1300,1700 PO ; Start 02/03/18 at 09 :00; Stop 02/03/18 at 09:00; Status DC Quetiapine Fumarate (SEROquel) 12.5 mg TID@0900,1300,1700 PO Last administered on 02/03/18at 16:51; Start 02/03/18 at 09:00 Fluvoxamine Maleate (Luvox) 150 mg HS PO Last administered on 02/03/18at 20:49; Start 02/03/18 at 21:00 Active Scripts Active Reported Risperidone 1 Mg Tablet 1 Mg PO DAILY Namenda Xr (Memantine Hcl) 14 Mg Cap.spr.24 14 Mg PO DAILY Namenda Xr (Memantine Hcl) 7 Mg Cap.spr.24 7 Mg PO DAILY Depakote Er (Divalproex Sodium) 500 Mg Tab.er.24h 500 Mg PO HS Buspirone Hcl 10 Mg Tablet 10 Mg PO BID Fenofibrate (Fenofibrate,Micronized) 134 Mg Capsule 134 Mg PO DAILY Fluvoxamine Maleate 100 Mg Tablet 1 Tab PO QHS Levemir Flextouch (Insulin Detemir) 100 Unit/1 Ml Insuln.pen 24 Unit SQ HS Novolog Flexpen (Insulin Aspart) 100 Unit/1 Ml Insuln.pen 0-10 Unit SQ TIDAC SLIDING SCALE INSULIN Magnesium (Magnesium Oxide) 400 Mg Capsule 250 Mg PO DAILY Levothyroxine Sodium 125 Mcg Tablet 125 Mcg PO DAILY06 Atorvastatin Calcium 20 Mg Tablet 20 Mg PO DAILY Fluvoxamine Maleate 50 Mg Tablet 50 Mg PO DAILY Acetaminophen 500 Mg Tablet 500 Mg PO BID Calcium 600 + Vit D 200 Tablet (Calcium Carbonate/Vitamin D3) 1 Each Tablet 1 Each PO DAILY B-12 (Cyanocobalamin (Vitamin B-12)) 500 Mcg Tablet 250 Mcg PO DAILY Acidophilus (Lactobacillus Acidophilus) 1 Each Capsule 1 Each PO BID Metformin Hcl 850 Mg Tablet 850 Mg PO BIDWMEALS Ferrous Sulfate 325 Mg Tablet 1 Tab PO DAILY Topiramate 100 Mg Tablet 100 Mg PO TID Metoprolol Tartrate 25 Mg Tablet 25 Mg PO DAILY Ditropan Xl (Oxybutynin Chloride) 10 Mg Tab.er.24 10 Mg PO DAILY Miralax (Polyethylene Glycol 3350) 17 Gm Powd.pack 17 Gm PO DAILY Aspirin 81 Mg Tab.chew 81 Mg PO DAILY Cetirizine Hcl 10 Mg Tablet 10 Mg PO PRN DAILY PRN Hydrocodone-Apap 7.5-325 (Hydrocodone Bit/Acetaminophen) 1 Each Tablet 1 Tab PO PRN Q6HRS PRN Rynex Pse Liquid (Pseudoephedrine/Brompheniramin) 473 Ml Liquid 5 Ml PO PRN TID PRN Protonix (Pantoprazole Sodium) 20 Mg Tablet.dr 20 Mg PO PRN DAILY PRN Nystop (Nystatin) 60 Gm Powder 1 Soniya TP PRN BID PRN I have reviewed the current psychotropics carefully including drug interactions. Risk benefit ratio favors no change other than as noted in my dictated progress note. 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
--- NOTE | 2018-02-04 03:05 | PN ---
DATE: 02/02/2018 This is a late entry for 02/02/2018 covers elements not covered in my initial note of 02/02/2018. SUBJECTIVE: I met with the patient in the evening. The patient slept 6-3/4 hours previous evening, has been extremely loud, disruptive, yelling at times back and forth to the nursing station, anxious, restless, much of it consistent with her intellectual disability. REVIEW OF SYSTEMS: No CV, , pulmonary, eye, ENT system symptoms on review. Reliability poor. She was yelling in the morning, urinated on the floor, refused to keep her brief on, which is a big problem. MENTAL STATUS EXAM: Oriented to herself. Insight, judgment, recent and remote memory, attention, concentration, fund of knowledge poor, consistent with her diagnosis mentioned in my initial note. PLAN: Start Zyprexa 1.25 mg q. 2 hours p.r.n. psychosis, agitation, max 7.5 mg in 24 hours and scheduled Seroquel 25 mg 09:00 a.m., 01:00 p.m., 05:[address] of the Risperdal. We do not see clear psychotic symptoms. Seroquel should be a better anti-anxiety mood stabilizer. LAURITA DAVIS MD DR: SUMEET/kirlil JOB#: [id number] / [id number]
[2018-02-04] MEDS: LEVOTHYROXINE 125 MCG TABLET PO SCH (05:36)
[2018-02-04 06:39] VITALS: BP 154/84
[2018-02-04] MEDS: INSULIN LISPRO 300 UNITS/3 ML INSULN.PEN. SQ SCH ×3 (08:00→17:00)
[2018-02-04] MEDS: METOPROLOL TART IMMED RELEASE 25 MG TABLET PO SCH (09:03)
[2018-02-04] MEDS: POLYETHYLENE GLYCOL 3350 17 GM PACKET. PO SCH (09:03)
[2018-02-04] MEDS: FERROUS SULFATE 325 MG TABLET. PO SCH (09:03)
[2018-02-04] MEDS: CALCIUM CARB/VIT D3 500/200 TABLET PO SCH (09:03)
[2018-02-04] MEDS: CYANOCOBALAMIN (VITAMIN B-12) 250 MCG TABLET PO SCH (09:03)
[2018-02-04] MEDS: MEMANTINE 5 MG TABLET. PO SCH ×2 (09:04→20:54)
[2018-02-04] MEDS: MAGNESIUM OXIDE 400 MG TABLET PO SCH (09:04)
[2018-02-04] MEDS: FLUCONAZOLE 100 MG TABLET. PO SCH (09:04)
[2018-02-04] MEDS: ATORVASTATIN CALCIUM 20 MG TABLET PO SCH (09:04)
[2018-02-04] MEDS: metFORMIN 850 MG TABLET PO SCH ×2 (09:04→17:55)
[2018-02-04] MEDS: ACETAMINOPHEN 500 MG TABLET PO SCH ×2 (09:04→20:54)
[2018-02-04] MEDS: busPIRone 10 MG TABLET. PO SCH ×3 (09:04→20:54)
[2018-02-04] MEDS: OXYBUTYNIN CHLORIDE 5 MG TABLET PO SCH ×2 (09:04→20:54)
[2018-02-04] MEDS: QUEtiapine 25 MG TABLET. PO SCH ×3 (09:04→17:56)
[2018-02-04] MEDS: FENOFIBRATE NANOCRYSTALLIZED 145 MG TABLET PO SCH (09:04)
[2018-02-04] MEDS: ASPIRIN 81 MG TAB.CHEW PO SCH (09:04)
[2018-02-04] MEDS: LACTOBACILLUS RHAMNOSUS GG 1 CAPSULE. PO SCH ×2 (09:04→20:53)
[2018-02-04 16:53] VITALS: BP 137/74
[2018-02-04] MEDS: DIVALPROEX ER 250 MG TAB.ER.24H. PO SCH (20:53)
[2018-02-04] MEDS: DIVALPROEX ER 500 MG TAB.ER.24H PO SCH (20:53)
--- NOTE | 2018-02-04 21:00 | PDOC ---
Exam Note: Hemant Note: Please also refer to the separate dictated note~for this date of service dictated separately.~Patient seen individually. Discussed the patient with Nursing staff reviewed the chart.~Reviewed interim history and current functioning. Reviewed vital signs,~Labs/ Radiology~and current medications noted below. Continue current treatment with the changes noted in the dictated addendum note Assessment: Vital Signs: Vital Signs Date Time Temp Pulse Resp B/P (MAP) Pulse Ox O2 Delivery O2 Flow Rate FiO2 02/04/18 16:53 97.5 74 16 137/74 (95) 96 I&O Intake and Output 02/04/18 07:00 Intake Total 1440 ml Balance 1440 ml Intake Oral 1440 ml # Voids 2 # Bowel Movements 1 Labs: Laboratory Tests Test 02/04/18 07:51 02/04/18 11:25 02/04/18 16:26 02/04/18 19:10 Glucose (Fingerstick) 66 mg/dL (70-99) L 75 mg/dL (70-99) 99 mg/dL (70-99) 122 mg/dL (70-99) H Current Medications: Meds: Current Medications Ceftriaxone Sodium (Rocephin Im) 1 gm 1X ONCE IM Last administered on at 19:18; Start 01/21/18 at 19:15; Stop 01/21/18 at 19:16; Status DC Acetaminophen (Tylenol) 500 mg BID PO Last administered on 02/04/18at 20:54; Start 01/21/18 at 22:00 Aspirin (Children'S Aspirin) 81 mg DAILY PO Last administered on 02/04/18at 09:04 ; Start 01/22/18 at 09:00 Cetirizine HCl (ZyrTEC) 10 mg PRN DAILY PRN PO ALLERGIES; Start 01/21/18 at 22: 00 Ferrous Sulfate (Feosol) 325 mg DAILY PO Last administered on 02/04/18 09:03; Start 01/22/18 at 09:00 Acetaminophen/ Hydrocodone Bitart (Lortab 7.5/325) 1 tab PRN Q6HRS PRN PO MOD/ SEVERE PAIN Last administered on 01/22/18at 03:44; Start 01/21/18 at 22:00 Levothyroxine Sodium (Synthroid) 125 mcg DAILY06 PO Last administered on 05:36; Start 01/22/18 at 06:00 Metformin HCl (Glucophage) 850 mg BIDWMEALS PO Last administered on 02/04/18 17 :55; Start 01/22/18 at 08:00 Metoprolol Tartrate (Lopressor) 25 mg DAILY PO Last administered on 02/04/18 09 :03; Start 01/22/18 at 09:00 Nystatin (Nystop) 1 soniya PRN BID PRN TP RASH Last administered on 01/31/18 21: 23; Start 01/21/18 at 22:00 Polyethylene Glycol (miraLAX) 17 gm DAILY PO Last administered on 02/04/18 09: 03; Start 01/22/18 at 09:00 Topiramate (Topamax) 100 mg TID PO Last administered on 02/01/18 14:30; Start 01/21/18 at 22:00; Stop 02/01/18 at 18:51; Status DC Calcium/Vitamin D (Oscal D 500mg/ 200uts) 1 tab DAILY PO Last administered on 09:03; Start 01/22/18 at 09:00 Cyanocobalamin (Vitamin B-12) 250 mcg DAILY PO Last administered on 02/04/18 09 :03; Start 01/22/18 at 09:00 Fenofibrate (Tricor) 145 mg DAILY PO Last administered on 02/01/18 08:40; Start 01/22/18 at 09:00; Stop 02/02/18 at 08:48; Status DC Insulin Glargine (Lantus) 24 units QHS SQ Last administered on 02/03/18 20:51; Start 01/21/18 at 22:00; Stop 02/04/18 at 18:30; Status DC Lactobacillus Rhamnosus (Culturelle) 1 cap BID PO Last administered on 20:53; Start 01/22/18 at 09:00 Magnesium Oxide (Magnesium Oxide) 200 mg DAILY PO Last administered on 09:04; Start 01/22/18 at 09:00 Oxybutynin Chloride (Ditropan) 5 mg BID PO Last administered on 02/04/18 20:54 ; Start 01/21/18 at 22:00 Pantoprazole Sodium (Protonix) 40 mg PRN DAILY PRN PO NEEDED BEFORE A MEAL; Start 01/22/18 at 07:30 Non-Formulary Medication (Pseudoephedrine/ Brompheniramin (Rynex Pse Liquid)) 5 ml PRN TID PRN PO COUGH; Start 01/21/18 at 22:00; Stop 01/21/18 at 22:36; Status DC Atorvastatin Calcium (Lipitor) 20 mg DAILY PO Last administered on 02/04/18at 09: 04; Start 01/22/18 at 09:00 Buspirone HCl (Buspar) 10 mg BID PO Last administered on 01/28/18at 07:56; Start 01/21/18 at 22:00; Stop 01/28/18 at 18:24; Status DC Divalproex Sodium (Depakote Er) 500 mg HS PO Last administered on 01/22/18at 00: 15; Start 01/21/18 at 22:00; Stop 01/22/18 at 18:18; Status DC Fluvoxamine Maleate (Luvox) 100 mg QHS PO Last administered on 01/31/18at 21:20 ; Start 01/21/18 at 22:00; Stop 02/01/18 at 18:51; Status DC Risperidone (RisperDAL) 1 mg DAILY PO Last administered on 01/26/18at 08:14; Start 01/22/18 at 09:00; Stop 01/26/18 at 18:22; Status DC Non-Formulary Medication (Fluvoxamine Maleate ) 50 mg DAILY PO ; Start 01/22/18 at 09:00; Stop 01/22/18 at 09:00; Status DC Non-Formulary Medication (Memantine Hcl (Namenda Xr)) 7 mg DAILY PO ; Start at 09:00; Stop 01/22/18 at 09:00; Status DC Memantine (Namenda) 5 mg BID PO Last administered on 02/04/18at 20:54; Start at 22:00 Insulin Human Lispro (HumaLOG) 0-10 UNITS TIDWMEALS SQ Last administered on at 17:38; Start 01/22/18 at 08:00 Nystatin (Nystop) 1 soniya PRN BID PRN TP RASH; Start 01/22/18 at 00:15; Status Cancel Acetaminophen (Tylenol) 650 mg PRN Q6HRS PRN PO PAIN / TEMP Last administered on 01/29/18at 06:32; Start 01/22/18 at 05:00 Multi-Ingredient Ointment (Analgesic [place]) 1 soniya PRN QID PRN TP MUSCLE PAIN; Start 01/22/18 at 05:00 Al Hydroxide/Mg Hydroxide (Mylanta Plus Xs) 15 ml PRN AFTMEALHC PRN PO DYSPEPSIA; Start 01/22/18 at 05:00 Magnesium Hydroxide (Milk Of Magnesia) 2,400 mg PRN QHS PRN PO CONSTIPATION; Start 01/22/18 at 05:00 Vitamin D (Vitamin D3) 50,000 unit WEEKLY PO Last administered on 01/29/18at 09: 23; Start 01/22/18 at 18:00 Fluconazole (Diflucan) 100 mg DAILY PO Last administered on 02/04/18at 09:04; Start 01/23/18 at 09:00 Cefpodoxime Proxetil (Vantin) 200 mg BID PO Last administered on 01/28/18at 07: 57; Start 01/22/18 at 21:00; Stop 01/28/18 at 20:59; Status DC Lactobacillus Rhamnosus (Culturelle) 1 cap BID PO ; Start 01/22/18 at 21:00; Stop 01/22/18 at 21:00; Status DC Divalproex Sodium (Depakote Er) 500 mg HS PO Last administered on 01/24/18 19: 58; Start 01/22/18 at 21:00; Stop 01/25/18 at 15:48; Status DC Divalproex Sodium (Depakote Er) 250 mg QHS PO Last administered on 01/24/18 19 :58; Start 01/22/18 at 21:00; Stop 01/25/18 at 15:48; Status DC Divalproex Sodium (Depakote Er) 1,000 mg QHS PO Last administered on 01/28/18at 19:36; Start 01/25/18 at 21:00; Stop 01/29/18 at 12:58; Status DC Risperidone (RisperDAL) 0.75 mg DAILY PO Last administered on 02/01/18at 08:37; Start 01/27/18 at 09:00; Stop 02/01/18 at 18:53; Status DC Buspirone HCl (Buspar) 10 mg TID PO Last administered on 02/04/18at 13:38; Start 01/28/18 at 21:00; Stop 02/04/18 at 18:58; Status DC Divalproex Sodium (Depakote Er) 1,250 mg QHS PO ; Start 01/29/18 at 21:00; Stop 01/29/18 at 21:00; Status DC Carbamide Peroxide (Debrox) 5 drop PRN BID PRN AU IMPACTION Last administered on 01/31/18at 12:43; Start 01/29/18 at 19:15 Divalproex Sodium (Depakote Er) 250 mg QHS PO Last administered on 02/04/18at 20: 53; Start 01/29/18 at 21:00 Divalproex Sodium (Depakote Er) 1,000 mg QHS PO Last administered on 02/04/18at 20:53; Start 01/29/18 at 21:00 Fluvoxamine Maleate (Luvox) 125 mg QHS PO Last administered on 02/02/18at 20:37 ; Start 02/01/18 at 21:00; Stop 02/03/18 at 19:25; Status DC Risperidone (RisperDAL) 0.25 mg BID@0900,1300 PO Last administered on at 13:31; Start 02/02/18 at 09:00; Stop 02/02/18 at 18:19; Status DC Risperidone (RisperDAL) 0.5 mg DAILY@1700 PO Last administered on 02/02/18at 16: 48; Start 02/02/18 at 17:00; Stop 02/02/18 at 18:19; Status DC Fenofibrate (Tricor) 145 mg DAILY PO Last administered on 02/04/18at 09:04; Start 02/02/18 at 09:00 Olanzapine (ZyPREXA ZYDIS) 1.25 mg PRN Q2HR PRN PO PSYCHOSIS; Start 02/02/18 at 18:30 Quetiapine Fumarate (SEROquel) 25 mg TID@0900,1300,1700 PO ; Start 02/03/18 at 09 :00; Stop 02/03/18 at 09:00; Status DC Quetiapine Fumarate (SEROquel) 12.5 mg TID@0900,1300,1700 PO Last administered on 02/04/18at 17:56; Start 02/03/18 at 09:00 Fluvoxamine Maleate (Luvox) 150 mg HS PO Last administered on 02/04/18at 20:52; Start 02/03/18 at 21:00 Insulin Glargine (Lantus) 18 units QHS SQ ; Start 02/04/18 at 21:00 Buspirone HCl (Buspar) 15 mg BID94 PO ; Start 02/05/18 at 09:00 Buspirone HCl (Buspar) 10 mg DAILY@1300 PO Last administered on 02/04/18at 20:54 ; Start 02/05/18 at 13:00 Active Scripts Active Reported Risperidone 1 Mg Tablet 1 Mg PO DAILY Namenda Xr (Memantine Hcl) 14 Mg Cap.spr.24 14 Mg PO DAILY Namenda Xr (Memantine Hcl) 7 Mg Cap.spr.24 7 Mg PO DAILY Depakote Er (Divalproex Sodium) 500 Mg Tab.er.24h 500 Mg PO HS Buspirone Hcl 10 Mg Tablet 10 Mg PO BID Fenofibrate (Fenofibrate,Micronized) 134 Mg Capsule 134 Mg PO DAILY Fluvoxamine Maleate 100 Mg Tablet 1 Tab PO QHS Levemir Flextouch (Insulin Detemir) 100 Unit/1 Ml Insuln.pen 24 Unit SQ HS Novolog Flexpen (Insulin Aspart) 100 Unit/1 Ml Insuln.pen 0-10 Unit SQ TIDAC SLIDING SCALE INSULIN Magnesium (Magnesium Oxide) 400 Mg Capsule 250 Mg PO DAILY Levothyroxine Sodium 125 Mcg Tablet 125 Mcg PO DAILY06 Atorvastatin Calcium 20 Mg Tablet 20 Mg PO DAILY Fluvoxamine Maleate 50 Mg Tablet 50 Mg PO DAILY Acetaminophen 500 Mg Tablet 500 Mg PO BID Calcium 600 + Vit D 200 Tablet (Calcium Carbonate/Vitamin D3) 1 Each Tablet 1 Each PO DAILY B-12 (Cyanocobalamin (Vitamin B-12)) 500 Mcg Tablet 250 Mcg PO DAILY Acidophilus (Lactobacillus Acidophilus) 1 Each Capsule 1 Each PO BID Metformin Hcl 850 Mg Tablet 850 Mg PO BIDWMEALS Ferrous Sulfate 325 Mg Tablet 1 Tab PO DAILY Topiramate 100 Mg Tablet 100 Mg PO TID Metoprolol Tartrate 25 Mg Tablet 25 Mg PO DAILY Ditropan Xl (Oxybutynin Chloride) 10 Mg Tab.er.24 10 Mg PO DAILY Miralax (Polyethylene Glycol 3350) 17 Gm Powd.pack 17 Gm PO DAILY Aspirin 81 Mg Tab.chew 81 Mg PO DAILY Cetirizine Hcl 10 Mg Tablet 10 Mg PO PRN DAILY PRN Hydrocodone-Apap 7.5-325 (Hydrocodone Bit/Acetaminophen) 1 Each Tablet 1 Tab PO PRN Q6HRS PRN Rynex Pse Liquid (Pseudoephedrine/Brompheniramin) 473 Ml Liquid 5 Ml PO PRN TID PRN Protonix (Pantoprazole Sodium) 20 Mg Tablet.dr 20 Mg PO PRN DAILY PRN Nystop (Nystatin) 60 Gm Powder 1 Soniya TP PRN BID PRN I have reviewed the current psychotropics carefully including drug interactions. Risk benefit ratio favors no change other than as noted in my dictated progress note. Diagnosis: Problems: (1) Anxiety disorder (2) Impulse control disorder (3) Bipolar affective disorder, mixed (4) Borderline intellectual disability (5) Borderline intellectual disability (6) Dementia in Alzheimer's disease with delusions LAURITA DAVIS MD February 04, 2018 21:00
[2018-02-04] MEDS: INSULIN GLARGINE 300 UNITS/3 ML INSULN.PEN. SQ SCH (21:02)
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
[2018-02-05 05:42] VITALS: BP 130/57
[2018-02-05] MEDS: LEVOTHYROXINE 125 MCG TABLET PO SCH (05:42)
[2018-02-05] MEDS: INSULIN LISPRO 300 UNITS/3 ML INSULN.PEN. SQ SCH ×3 (08:00→17:00)
[2018-02-05] MEDS: ATORVASTATIN CALCIUM 20 MG TABLET PO SCH (08:10)
[2018-02-05] MEDS: POLYETHYLENE GLYCOL 3350 17 GM PACKET. PO SCH (08:10)
[2018-02-05] MEDS: QUEtiapine 25 MG TABLET. PO SCH ×3 (08:11→17:13)
[2018-02-05] MEDS: FENOFIBRATE NANOCRYSTALLIZED 145 MG TABLET PO SCH (08:11)
[2018-02-05] MEDS: LACTOBACILLUS RHAMNOSUS GG 1 CAPSULE. PO SCH ×2 (08:11→19:35)
[2018-02-05] MEDS: MEMANTINE 5 MG TABLET. PO SCH ×2 (08:11→19:41)
[2018-02-05] MEDS: FLUCONAZOLE 100 MG TABLET. PO SCH (08:11)
[2018-02-05] MEDS: metFORMIN 850 MG TABLET PO SCH ×2 (08:12→17:13)
[2018-02-05] MEDS: CYANOCOBALAMIN (VITAMIN B-12) 250 MCG TABLET PO SCH (08:12)
[2018-02-05] MEDS: MAGNESIUM OXIDE 400 MG TABLET PO SCH (08:12)
[2018-02-05] MEDS: OXYBUTYNIN CHLORIDE 5 MG TABLET PO SCH ×2 (08:12→19:36)
[2018-02-05] MEDS: METOPROLOL TART IMMED RELEASE 25 MG TABLET PO SCH (08:13)
[2018-02-05] MEDS: ACETAMINOPHEN 500 MG TABLET PO SCH ×2 (08:13→19:36)
[2018-02-05] MEDS: ASPIRIN 81 MG TAB.CHEW PO SCH (08:13)
[2018-02-05] MEDS: CALCIUM CARB/VIT D3 500/200 TABLET PO SCH (08:13)
[2018-02-05] MEDS: FERROUS SULFATE 325 MG TABLET. PO SCH (08:13)
[2018-02-05] MEDS: busPIRone 15 MG TABLET. PO SCH ×2 (08:15→17:13)
[2018-02-05] MEDS: CHOLECALCIFEROL (VITAMIN D3) 50,000 UNIT CAPSULE PO SCH (08:15)
[2018-02-05 16:26] VITALS: BP 121/83
[2018-02-05] MEDS: DIVALPROEX ER 250 MG TAB.ER.24H. PO SCH (19:35)
[2018-02-05] MEDS: DIVALPROEX ER 500 MG TAB.ER.24H PO SCH (19:35)
[2018-02-05] MEDS: INSULIN GLARGINE 300 UNITS/3 ML INSULN.PEN. SQ SCH (19:43)
--- NOTE | 2018-02-05 21:05 | PDOC ---
Exam Note: Hemant Note: Please also refer to the separate dictated note~for this date of service dictated separately.~Patient seen individually. Discussed the patient with Nursing staff reviewed the chart.~Reviewed interim history and current functioning. Reviewed vital signs,~Labs/ Radiology~and current medications noted below. Continue current treatment with the changes noted in the dictated addendum note Assessment: Vital Signs: Vital Signs Date Time Temp Pulse Resp B/P (MAP) Pulse Ox O2 Delivery O2 Flow Rate FiO2 02/05/18 16:26 97.9 70 18 121/83 (96) 97 I&O Intake and Output 02/05/18 07:00 Intake Total 1080 ml Balance 1080 ml Intake Oral 1080 ml # Voids 1 Labs: Laboratory Tests Test 02/05/18 07:22 02/05/18 11:48 02/05/18 16:44 02/05/18 19:17 Glucose (Fingerstick) 111 mg/dL (70-99) H 117 mg/dL (70-99) H 108 mg/dL (70-99) H 165 mg/dL (70-99) H Current Medications: Meds: Current Medications Ceftriaxone Sodium (Rocephin Im) 1 gm 1X ONCE IM Last administered on 19:18; Start 01/21/18 at 19:15; Stop 01/21/18 at 19:16; Status DC Acetaminophen (Tylenol) 500 mg BID PO Last administered on 02/05/18 19:36; Start 01/21/18 at 22:00 Aspirin (Children'S Aspirin) 81 mg DAILY PO Last administered on 02/05/18 08:13 ; Start 01/22/18 at 09:00 Cetirizine HCl (ZyrTEC) 10 mg PRN DAILY PRN PO ALLERGIES; Start 01/21/18 at 22: 00 Ferrous Sulfate (Feosol) 325 mg DAILY PO Last administered on 02/05/18 08:13; Start 01/22/18 at 09:00 Acetaminophen/ Hydrocodone Bitart (Lortab 7.5/325) 1 tab PRN Q6HRS PRN PO MOD/ SEVERE PAIN Last administered on 01/22/18at 03:44; Start 01/21/18 at 22:00 Levothyroxine Sodium (Synthroid) 125 mcg DAILY06 PO Last administered on at 05:42; Start 01/22/18 at 06:00 Metformin HCl (Glucophage) 850 mg BIDWMEALS PO Last administered on 02/05/18 17 :13; Start 01/22/18 at 08:00 Metoprolol Tartrate (Lopressor) 25 mg DAILY PO Last administered on 02/05/18 08 :13; Start 01/22/18 at 09:00 Nystatin (Nystop) 1 soniya PRN BID PRN TP RASH Last administered on 01/31/18 21: 23; Start 01/21/18 at 22:00 Polyethylene Glycol (miraLAX) 17 gm DAILY PO Last administered on 02/05/18 08: 10; Start 01/22/18 at 09:00 Topiramate (Topamax) 100 mg TID PO Last administered on 02/01/18 14:30; Start 01/21/18 at 22:00; Stop 02/01/18 at 18:51; Status DC Calcium/Vitamin D (Oscal D 500mg/ 200uts) 1 tab DAILY PO Last administered on 08:13; Start 01/22/18 at 09:00 Cyanocobalamin (Vitamin B-12) 250 mcg DAILY PO Last administered on 02/05/18 08 :12; Start 01/22/18 at 09:00 Fenofibrate (Tricor) 145 mg DAILY PO Last administered on 02/01/18 08:40; Start 01/22/18 at 09:00; Stop 02/02/18 at 08:48; Status DC Insulin Glargine (Lantus) 24 units QHS SQ Last administered on 02/03/18 20:51; Start 01/21/18 at 22:00; Stop 02/04/18 at 18:30; Status DC Lactobacillus Rhamnosus (Culturelle) 1 cap BID PO Last administered on 19:35; Start 01/22/18 at 09:00 Magnesium Oxide (Magnesium Oxide) 200 mg DAILY PO Last administered on 08:12; Start 01/22/18 at 09:00 Oxybutynin Chloride (Ditropan) 5 mg BID PO Last administered on 02/05/18 19:36 ; Start 01/21/18 at 22:00 Pantoprazole Sodium (Protonix) 40 mg PRN DAILY PRN PO NEEDED BEFORE A MEAL; Start 01/22/18 at 07:30 Non-Formulary Medication (Pseudoephedrine/ Brompheniramin (Rynex Pse Liquid)) 5 ml PRN TID PRN PO COUGH; Start 01/21/18 at 22:00; Stop 01/21/18 at 22:36; Status DC Atorvastatin Calcium (Lipitor) 20 mg DAILY PO Last administered on 02/05/18at 08: 10; Start 01/22/18 at 09:00 Buspirone HCl (Buspar) 10 mg BID PO Last administered on 01/28/18at 07:56; Start 01/21/18 at 22:00; Stop 01/28/18 at 18:24; Status DC Divalproex Sodium (Depakote Er) 500 mg HS PO Last administered on 01/22/18at 00: 15; Start 01/21/18 at 22:00; Stop 01/22/18 at 18:18; Status DC Fluvoxamine Maleate (Luvox) 100 mg QHS PO Last administered on 01/31/18at 21:20 ; Start 01/21/18 at 22:00; Stop 02/01/18 at 18:51; Status DC Risperidone (RisperDAL) 1 mg DAILY PO Last administered on 01/26/18at 08:14; Start 01/22/18 at 09:00; Stop 01/26/18 at 18:22; Status DC Non-Formulary Medication (Fluvoxamine Maleate ) 50 mg DAILY PO ; Start 01/22/18 at 09:00; Stop 01/22/18 at 09:00; Status DC Non-Formulary Medication (Memantine Hcl (Namenda Xr)) 7 mg DAILY PO ; Start at 09:00; Stop 01/22/18 at 09:00; Status DC Memantine (Namenda) 5 mg BID PO Last administered on 02/05/18at 08:11; Start at 22:00; Stop 02/05/18 at 11:48; Status DC Insulin Human Lispro (HumaLOG) 0-10 UNITS TIDWMEALS SQ Last administered on at 17:38; Start 01/22/18 at 08:00 Nystatin (Nystop) 1 soniya PRN BID PRN TP RASH; Start 01/22/18 at 00:15; Status Cancel Acetaminophen (Tylenol) 650 mg PRN Q6HRS PRN PO PAIN / TEMP Last administered on 01/29/18at 06:32; Start 01/22/18 at 05:00 Multi-Ingredient Ointment (Analgesic [place]) 1 soniya PRN QID PRN TP MUSCLE PAIN; Start 01/22/18 at 05:00 Al Hydroxide/Mg Hydroxide (Mylanta Plus Xs) 15 ml PRN AFTMEALHC PRN PO DYSPEPSIA; Start 01/22/18 at 05:00 Magnesium Hydroxide (Milk Of Magnesia) 2,400 mg PRN QHS PRN PO CONSTIPATION; Start 01/22/18 at 05:00 Vitamin D (Vitamin D3) 50,000 unit WEEKLY PO Last administered on 02/05/18at 08: 15; Start 01/22/18 at 18:00 Fluconazole (Diflucan) 100 mg DAILY PO Last administered on 02/05/18at 08:11; Start 01/23/18 at 09:00 Cefpodoxime Proxetil (Vantin) 200 mg BID PO Last administered on 01/28/18 07: 57; Start 01/22/18 at 21:00; Stop 01/28/18 at 20:59; Status DC Lactobacillus Rhamnosus (Culturelle) 1 cap BID PO ; Start 01/22/18 at 21:00; Stop 01/22/18 at 21:00; Status DC Divalproex Sodium (Depakote Er) 500 mg HS PO Last administered on 01/24/18 19: 58; Start 01/22/18 at 21:00; Stop 01/25/18 at 15:48; Status DC Divalproex Sodium (Depakote Er) 250 mg QHS PO Last administered on 01/24/18 19 :58; Start 01/22/18 at 21:00; Stop 01/25/18 at 15:48; Status DC Divalproex Sodium (Depakote Er) 1,000 mg QHS PO Last administered on 01/28/18 19:36; Start 01/25/18 at 21:00; Stop 01/29/18 at 12:58; Status DC Risperidone (RisperDAL) 0.75 mg DAILY PO Last administered on 02/01/18 08:37; Start 01/27/18 at 09:00; Stop 02/01/18 at 18:53; Status DC Buspirone HCl (Buspar) 10 mg TID PO Last administered on 02/04/18 13:38; Start 01/28/18 at 21:00; Stop 02/04/18 at 18:58; Status DC Divalproex Sodium (Depakote Er) 1,250 mg QHS PO ; Start 01/29/18 at 21:00; Stop 01/29/18 at 21:00; Status DC Carbamide Peroxide (Debrox) 5 drop PRN BID PRN AU IMPACTION Last administered on 01/31/18 12:43; Start 01/29/18 at 19:15 Divalproex Sodium (Depakote Er) 250 mg QHS PO Last administered on 02/05/18 19: 35; Start 01/29/18 at 21:00 Divalproex Sodium (Depakote Er) 1,000 mg QHS PO Last administered on 02/05/18 19:35; Start 01/29/18 at 21:00 Fluvoxamine Maleate (Luvox) 125 mg QHS PO Last administered on 02/02/18 20:37 ; Start 02/01/18 at 21:00; Stop 02/03/18 at 19:25; Status DC Risperidone (RisperDAL) 0.25 mg BID@0900,1300 PO Last administered on 13:31; Start 02/02/18 at 09:00; Stop 02/02/18 at 18:19; Status DC Risperidone (RisperDAL) 0.5 mg DAILY@1700 PO Last administered on 02/02/18at 16: 48; Start 02/02/18 at 17:00; Stop 02/02/18 at 18:19; Status DC Fenofibrate (Tricor) 145 mg DAILY PO Last administered on 02/05/18 08:11; Start 02/02/18 at 09:00 Olanzapine (ZyPREXA ZYDIS) 1.25 mg PRN Q2HR PRN PO PSYCHOSIS; Start 02/02/18 at 18:30 Quetiapine Fumarate (SEROquel) 25 mg TID@0900,1300,1700 PO ; Start 02/03/18 at 09 :00; Stop 02/03/18 at 09:00; Status DC Quetiapine Fumarate (SEROquel) 12.5 mg TID@0900,1300,1700 PO Last administered on 02/05/18at 17:13; Start 02/03/18 at 09:00 Fluvoxamine Maleate (Luvox) 150 mg HS PO Last administered on 02/04/18at 20:52; Start 02/03/18 at 21:00; Stop 02/05/18 at 22:00 Insulin Glargine (Lantus) 18 units QHS SQ Last administered on 02/05/18at 19:43; Start 02/04/18 at 21:00 Buspirone HCl (Buspar) 15 mg BID94 PO Last administered on 02/05/18at 17:13; Start 02/05/18 at 09:00 Buspirone HCl (Buspar) 10 mg DAILY@1300 PO Last administered on 02/04/18at 20:54 ; Start 02/05/18 at 13:00 Memantine (Namenda) 10 mg BID PO Last administered on 02/05/18at 19:41; Start 02/05/18 at 21:00 Fluvoxamine Maleate (Luvox) 150 mg HS PO Last administered on 02/05/18 19:40; Start 02/05/18 at 21:00 Fluvoxamine Maleate (Luvox) 25 mg QHS PO Last administered on 02/05/18at 19:39; Start 02/05/18 at 21:00 Active Scripts Active Reported Risperidone 1 Mg Tablet 1 Mg PO DAILY Namenda Xr (Memantine Hcl) 14 Mg Cap.spr.24 14 Mg PO DAILY Namenda Xr (Memantine Hcl) 7 Mg Cap.spr.24 7 Mg PO DAILY Depakote Er (Divalproex Sodium) 500 Mg Tab.er.24h 500 Mg PO HS Buspirone Hcl 10 Mg Tablet 10 Mg PO BID Fenofibrate (Fenofibrate,Micronized) 134 Mg Capsule 134 Mg PO DAILY Fluvoxamine Maleate 100 Mg Tablet 1 Tab PO QHS Levemir Flextouch (Insulin Detemir) 100 Unit/1 Ml Insuln.pen 24 Unit SQ HS Novolog Flexpen (Insulin Aspart) 100 Unit/1 Ml Insuln.pen 0-10 Unit SQ TIDAC SLIDING SCALE INSULIN Magnesium (Magnesium Oxide) 400 Mg Capsule 250 Mg PO DAILY Levothyroxine Sodium 125 Mcg Tablet 125 Mcg PO DAILY06 Atorvastatin Calcium 20 Mg Tablet 20 Mg PO DAILY Fluvoxamine Maleate 50 Mg Tablet 50 Mg PO DAILY Acetaminophen 500 Mg Tablet 500 Mg PO BID Calcium 600 + Vit D 200 Tablet (Calcium Carbonate/Vitamin D3) 1 Each Tablet 1 Each PO DAILY B-12 (Cyanocobalamin (Vitamin B-12)) 500 Mcg Tablet 250 Mcg PO DAILY Acidophilus (Lactobacillus Acidophilus) 1 Each Capsule 1 Each PO BID Metformin Hcl 850 Mg Tablet 850 Mg PO BIDWMEALS Ferrous Sulfate 325 Mg Tablet 1 Tab PO DAILY Topiramate 100 Mg Tablet 100 Mg PO TID Metoprolol Tartrate 25 Mg Tablet 25 Mg PO DAILY Ditropan Xl (Oxybutynin Chloride) 10 Mg Tab.er.24 10 Mg PO DAILY Miralax (Polyethylene Glycol 3350) 17 Gm Powd.pack 17 Gm PO DAILY Aspirin 81 Mg Tab.chew 81 Mg PO DAILY Cetirizine Hcl 10 Mg Tablet 10 Mg PO PRN DAILY PRN Hydrocodone-Apap 7.5-325 (Hydrocodone Bit/Acetaminophen) 1 Each Tablet 1 Tab PO PRN Q6HRS PRN Rynex Pse Liquid (Pseudoephedrine/Brompheniramin) 473 Ml Liquid 5 Ml PO PRN TID PRN Protonix (Pantoprazole Sodium) 20 Mg Tablet.dr 20 Mg PO PRN DAILY PRN Nystop (Nystatin) 60 Gm Powder 1 Soniya TP PRN BID PRN I have reviewed the current psychotropics carefully including drug interactions. Risk benefit ratio favors no change other than as noted in my dictated progress note. 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
[2018-02-06 05:59] VITALS: BP 167/56
[2018-02-06] MEDS: LEVOTHYROXINE 125 MCG TABLET PO SCH (06:06)
[2018-02-06] MEDS: INSULIN LISPRO 300 UNITS/3 ML INSULN.PEN. SQ SCH ×3 (07:55→17:00)
[2018-02-06] MEDS: metFORMIN 850 MG TABLET PO SCH ×2 (08:00→17:08)
[2018-02-06] MEDS: CYANOCOBALAMIN (VITAMIN B-12) 250 MCG TABLET PO SCH (08:01)
[2018-02-06] MEDS: busPIRone 15 MG TABLET. PO SCH ×2 (08:01→15:58)
[2018-02-06] MEDS: OXYBUTYNIN CHLORIDE 5 MG TABLET PO SCH ×2 (08:01→20:14)
[2018-02-06] MEDS: CALCIUM CARB/VIT D3 500/200 TABLET PO SCH (08:01)
[2018-02-06] MEDS: ASPIRIN 81 MG TAB.CHEW PO SCH (08:01)
[2018-02-06] MEDS: LACTOBACILLUS RHAMNOSUS GG 1 CAPSULE. PO SCH ×2 (08:01→20:13)
[2018-02-06] MEDS: MEMANTINE 5 MG TABLET. PO SCH ×2 (08:01→20:15)
[2018-02-06] MEDS: FERROUS SULFATE 325 MG TABLET. PO SCH (08:02)
[2018-02-06] MEDS: FLUCONAZOLE 100 MG TABLET. PO SCH (08:02)
[2018-02-06] MEDS: ATORVASTATIN CALCIUM 20 MG TABLET PO SCH (08:02)
[2018-02-06] MEDS: ACETAMINOPHEN 500 MG TABLET PO SCH ×2 (08:02→20:15)
[2018-02-06] MEDS: MAGNESIUM OXIDE 400 MG TABLET PO SCH (08:02)
[2018-02-06] MEDS: METOPROLOL TART IMMED RELEASE 25 MG TABLET PO SCH (08:03)
[2018-02-06] MEDS: QUEtiapine 25 MG TABLET. PO SCH ×3 (08:03→17:08)
[2018-02-06] MEDS: FENOFIBRATE NANOCRYSTALLIZED 145 MG TABLET PO SCH (08:03)
[2018-02-06] MEDS: POLYETHYLENE GLYCOL 3350 17 GM PACKET. PO SCH (08:06)
[2018-02-06] MEDS: busPIRone 10 MG TABLET. PO SCH (12:30)
[2018-02-06 15:58] VITALS: BP 118/54
[2018-02-06] MEDS: DIVALPROEX ER 500 MG TAB.ER.24H PO SCH (20:13)
[2018-02-06] MEDS: DIVALPROEX ER 250 MG TAB.ER.24H. PO SCH (20:14)
[2018-02-06] MEDS: INSULIN GLARGINE 300 UNITS/3 ML INSULN.PEN. SQ SCH (20:18)
--- NOTE | 2018-02-06 21:08 | PDOC ---
Exam Note: Hemant Note: Please also refer to the separate dictated note~for this date of service dictated separately.~Patient seen individually. Discussed the patient with Nursing staff reviewed the chart.~Reviewed interim history and current functioning. Reviewed vital signs,~Labs/ Radiology~and current medications noted below. Continue current treatment with the changes noted in the dictated addendum note Assessment: Vital Signs: Vital Signs Date Time Temp Pulse Resp B/P (MAP) Pulse Ox O2 Delivery O2 Flow Rate FiO2 02/06/18 15:58 97.5 62 18 118/54 (75) 98 I&O Intake and Output 02/06/18 07:00 Intake Total 1440 ml Balance 1440 ml Intake Oral 1440 ml # Bowel Movements 3 Labs: Laboratory Tests Test 02/06/18 07:21 02/06/18 11:16 02/06/18 16:54 02/06/18 19:20 Glucose (Fingerstick) 73 mg/dL (70-99) 88 mg/dL (70-99) 127 mg/dL (70-99) H 147 mg/dL (70-99) H Current Medications: Meds: Current Medications Ceftriaxone Sodium (Rocephin Im) 1 gm 1X ONCE IM Last administered on 19:18; Start 01/21/18 at 19:15; Stop 01/21/18 at 19:16; Status DC Acetaminophen (Tylenol) 500 mg BID PO Last administered on 02/06/18 20:15; Start 01/21/18 at 22:00 Aspirin (Children'S Aspirin) 81 mg DAILY PO Last administered on 02/06/18 08:01 ; Start 01/22/18 at 09:00 Cetirizine HCl (ZyrTEC) 10 mg PRN DAILY PRN PO ALLERGIES; Start 01/21/18 at 22: 00 Ferrous Sulfate (Feosol) 325 mg DAILY PO Last administered on 02/06/18 08:02; Start 01/22/18 at 09:00 Acetaminophen/ Hydrocodone Bitart (Lortab 7.5/325) 1 tab PRN Q6HRS PRN PO MOD/ SEVERE PAIN Last administered on 01/22/18at 03:44; Start 01/21/18 at 22:00 Levothyroxine Sodium (Synthroid) 125 mcg DAILY06 PO Last administered on 06:06; Start 01/22/18 at 06:00 Metformin HCl (Glucophage) 850 mg BIDWMEALS PO Last administered on 02/06/18 17 :08; Start 01/22/18 at 08:00 Metoprolol Tartrate (Lopressor) 25 mg DAILY PO Last administered on 02/06/18 08 :03; Start 01/22/18 at 09:00 Nystatin (Nystop) 1 soniya PRN BID PRN TP RASH Last administered on 01/31/18 21: 23; Start 01/21/18 at 22:00 Polyethylene Glycol (miraLAX) 17 gm DAILY PO Last administered on 02/05/18 08: 10; Start 01/22/18 at 09:00 Topiramate (Topamax) 100 mg TID PO Last administered on 02/01/18 14:30; Start 01/21/18 at 22:00; Stop 02/01/18 at 18:51; Status DC Calcium/Vitamin D (Oscal D 500mg/ 200uts) 1 tab DAILY PO Last administered on 08:01; Start 01/22/18 at 09:00 Cyanocobalamin (Vitamin B-12) 250 mcg DAILY PO Last administered on 02/06/18 08 :01; Start 01/22/18 at 09:00 Fenofibrate (Tricor) 145 mg DAILY PO Last administered on 02/01/18 08:40; Start 01/22/18 at 09:00; Stop 02/02/18 at 08:48; Status DC Insulin Glargine (Lantus) 24 units QHS SQ Last administered on 02/03/18 20:51; Start 01/21/18 at 22:00; Stop 02/04/18 at 18:30; Status DC Lactobacillus Rhamnosus (Culturelle) 1 cap BID PO Last administered on 20:13; Start 01/22/18 at 09:00 Magnesium Oxide (Magnesium Oxide) 200 mg DAILY PO Last administered on 08:02; Start 01/22/18 at 09:00 Oxybutynin Chloride (Ditropan) 5 mg BID PO Last administered on 02/06/18 20:14 ; Start 01/21/18 at 22:00 Pantoprazole Sodium (Protonix) 40 mg PRN DAILY PRN PO NEEDED BEFORE A MEAL; Start 01/22/18 at 07:30 Non-Formulary Medication (Pseudoephedrine/ Brompheniramin (Rynex Pse Liquid)) 5 ml PRN TID PRN PO COUGH; Start 01/21/18 at 22:00; Stop 01/21/18 at 22:36; Status DC Atorvastatin Calcium (Lipitor) 20 mg DAILY PO Last administered on 02/06/18at 08: 02; Start 01/22/18 at 09:00 Buspirone HCl (Buspar) 10 mg BID PO Last administered on 01/28/18at 07:56; Start 01/21/18 at 22:00; Stop 01/28/18 at 18:24; Status DC Divalproex Sodium (Depakote Er) 500 mg HS PO Last administered on 01/22/18at 00: 15; Start 01/21/18 at 22:00; Stop 01/22/18 at 18:18; Status DC Fluvoxamine Maleate (Luvox) 100 mg QHS PO Last administered on 01/31/18at 21:20 ; Start 01/21/18 at 22:00; Stop 02/01/18 at 18:51; Status DC Risperidone (RisperDAL) 1 mg DAILY PO Last administered on 01/26/18at 08:14; Start 01/22/18 at 09:00; Stop 01/26/18 at 18:22; Status DC Non-Formulary Medication (Fluvoxamine Maleate ) 50 mg DAILY PO ; Start 01/22/18 at 09:00; Stop 01/22/18 at 09:00; Status DC Non-Formulary Medication (Memantine Hcl (Namenda Xr)) 7 mg DAILY PO ; Start at 09:00; Stop 01/22/18 at 09:00; Status DC Memantine (Namenda) 5 mg BID PO Last administered on 02/05/18at 08:11; Start at 22:00; Stop 02/05/18 at 11:48; Status DC Insulin Human Lispro (HumaLOG) 0-10 UNITS TIDWMEALS SQ Last administered on at 17:38; Start 01/22/18 at 08:00 Nystatin (Nystop) 1 soniya PRN BID PRN TP RASH; Start 01/22/18 at 00:15; Status Cancel Acetaminophen (Tylenol) 650 mg PRN Q6HRS PRN PO PAIN / TEMP Last administered on 01/29/18at 06:32; Start 01/22/18 at 05:00 Multi-Ingredient Ointment (Analgesic Moss) 1 soniya PRN QID PRN TP MUSCLE PAIN; Start 01/22/18 at 05:00 Al Hydroxide/Mg Hydroxide (Mylanta Plus Xs) 15 ml PRN AFTMEALHC PRN PO DYSPEPSIA; Start 01/22/18 at 05:00 Magnesium Hydroxide (Milk Of Magnesia) 2,400 mg PRN QHS PRN PO CONSTIPATION; Start 01/22/18 at 05:00 Vitamin D (Vitamin D3) 50,000 unit WEEKLY PO Last administered on 02/05/18at 08: 15; Start 01/22/18 at 18:00 Fluconazole (Diflucan) 100 mg DAILY PO Last administered on 02/06/18at 08:02; Start 01/23/18 at 09:00 Cefpodoxime Proxetil (Vantin) 200 mg BID PO Last administered on 01/28/18 07: 57; Start 01/22/18 at 21:00; Stop 01/28/18 at 20:59; Status DC Lactobacillus Rhamnosus (Culturelle) 1 cap BID PO ; Start 01/22/18 at 21:00; Stop 01/22/18 at 21:00; Status DC Divalproex Sodium (Depakote Er) 500 mg HS PO Last administered on 01/24/18 19: 58; Start 01/22/18 at 21:00; Stop 01/25/18 at 15:48; Status DC Divalproex Sodium (Depakote Er) 250 mg QHS PO Last administered on 01/24/18 19 :58; Start 01/22/18 at 21:00; Stop 01/25/18 at 15:48; Status DC Divalproex Sodium (Depakote Er) 1,000 mg QHS PO Last administered on 01/28/18 19:36; Start 01/25/18 at 21:00; Stop 01/29/18 at 12:58; Status DC Risperidone (RisperDAL) 0.75 mg DAILY PO Last administered on 02/01/18 08:37; Start 01/27/18 at 09:00; Stop 02/01/18 at 18:53; Status DC Buspirone HCl (Buspar) 10 mg TID PO Last administered on 02/04/18 13:38; Start 01/28/18 at 21:00; Stop 02/04/18 at 18:58; Status DC Divalproex Sodium (Depakote Er) 1,250 mg QHS PO ; Start 01/29/18 at 21:00; Stop 01/29/18 at 21:00; Status DC Carbamide Peroxide (Debrox) 5 drop PRN BID PRN AU IMPACTION Last administered on 01/31/18 12:43; Start 01/29/18 at 19:15 Divalproex Sodium (Depakote Er) 250 mg QHS PO Last administered on 02/06/18 20: 14; Start 01/29/18 at 21:00 Divalproex Sodium (Depakote Er) 1,000 mg QHS PO Last administered on 02/06/18 20:13; Start 01/29/18 at 21:00 Fluvoxamine Maleate (Luvox) 125 mg QHS PO Last administered on 02/02/18 20:37 ; Start 02/01/18 at 21:00; Stop 02/03/18 at 19:25; Status DC Risperidone (RisperDAL) 0.25 mg BID@0900,1300 PO Last administered on 13:31; Start 02/02/18 at 09:00; Stop 02/02/18 at 18:19; Status DC Risperidone (RisperDAL) 0.5 mg DAILY@1700 PO Last administered on 02/02/18 16: 48; Start 02/02/18 at 17:00; Stop 02/02/18 at 18:19; Status DC Fenofibrate (Tricor) 145 mg DAILY PO Last administered on 02/06/18 08:03; Start 02/02/18 at 09:00 Olanzapine (ZyPREXA ZYDIS) 1.25 mg PRN Q2HR PRN PO PSYCHOSIS; Start 02/02/18 at 18:30 Quetiapine Fumarate (SEROquel) 25 mg TID@0900,1300,1700 PO ; Start 02/03/18 at 09 :00; Stop 02/03/18 at 09:00; Status DC Quetiapine Fumarate (SEROquel) 12.5 mg TID@0900,1300,1700 PO Last administered on 02/06/18at 17:08; Start 02/03/18 at 09:00 Fluvoxamine Maleate (Luvox) 150 mg HS PO Last administered on 02/04/18 20:52; Start 02/03/18 at 21:00; Stop 02/05/18 at 22:00; Status DC Insulin Glargine (Lantus) 18 units QHS SQ Last administered on 02/06/18 20:18; Start 02/04/18 at 21:00 Buspirone HCl (Buspar) 15 mg BID94 PO Last administered on 02/06/18 15:58; Start 02/05/18 at 09:00 Buspirone HCl (Buspar) 10 mg DAILY@1300 PO Last administered on 02/06/18at 12:30 ; Start 02/05/18 at 13:00 Memantine (Namenda) 10 mg BID PO Last administered on 02/06/18 20:15; Start 02/05/18 at 21:00 Fluvoxamine Maleate (Luvox) 150 mg HS PO Last administered on 02/06/18at 20:14; Start 02/05/18 at 21:00 Fluvoxamine Maleate (Luvox) 25 mg QHS PO Last administered on 02/06/18at 20:14; Start 02/05/18 at 21:00 Active Scripts Active Reported Risperidone 1 Mg Tablet 1 Mg PO DAILY Namenda Xr (Memantine Hcl) 14 Mg Cap.spr.24 14 Mg PO DAILY Namenda Xr (Memantine Hcl) 7 Mg Cap.spr.24 7 Mg PO DAILY Depakote Er (Divalproex Sodium) 500 Mg Tab.er.24h 500 Mg PO HS Buspirone Hcl 10 Mg Tablet 10 Mg PO BID Fenofibrate (Fenofibrate,Micronized) 134 Mg Capsule 134 Mg PO DAILY Fluvoxamine Maleate 100 Mg Tablet 1 Tab PO QHS Levemir Flextouch (Insulin Detemir) 100 Unit/1 Ml Insuln.pen 24 Unit SQ HS Novolog Flexpen (Insulin Aspart) 100 Unit/1 Ml Insuln.pen 0-10 Unit SQ TIDAC SLIDING SCALE INSULIN Magnesium (Magnesium Oxide) 400 Mg Capsule 250 Mg PO DAILY Levothyroxine Sodium 125 Mcg Tablet 125 Mcg PO DAILY06 Atorvastatin Calcium 20 Mg Tablet 20 Mg PO DAILY Fluvoxamine Maleate 50 Mg Tablet 50 Mg PO DAILY Acetaminophen 500 Mg Tablet 500 Mg PO BID Calcium 600 + Vit D 200 Tablet (Calcium Carbonate/Vitamin D3) 1 Each Tablet 1 Each PO DAILY B-12 (Cyanocobalamin (Vitamin B-12)) 500 Mcg Tablet 250 Mcg PO DAILY Acidophilus (Lactobacillus Acidophilus) 1 Each Capsule 1 Each PO BID Metformin Hcl 850 Mg Tablet 850 Mg PO BIDWMEALS Ferrous Sulfate 325 Mg Tablet 1 Tab PO DAILY Topiramate 100 Mg Tablet 100 Mg PO TID Metoprolol Tartrate 25 Mg Tablet 25 Mg PO DAILY Ditropan Xl (Oxybutynin Chloride) 10 Mg Tab.er.24 10 Mg PO DAILY Miralax (Polyethylene Glycol 3350) 17 Gm Powd.pack 17 Gm PO DAILY Aspirin 81 Mg Tab.chew 81 Mg PO DAILY Cetirizine Hcl 10 Mg Tablet 10 Mg PO PRN DAILY PRN Hydrocodone-Apap 7.5-325 (Hydrocodone Bit/Acetaminophen) 1 Each Tablet 1 Tab PO PRN Q6HRS PRN Rynex Pse Liquid (Pseudoephedrine/Brompheniramin) 473 Ml Liquid 5 Ml PO PRN TID PRN Protonix (Pantoprazole Sodium) 20 Mg Tablet.dr 20 Mg PO PRN DAILY PRN Nystop (Nystatin) 60 Gm Powder 1 Soniya TP PRN BID PRN I have reviewed the current psychotropics carefully including drug interactions. Risk benefit ratio favors no change other than as noted in my dictated progress note. Diagnosis: Problems: (1) Anxiety disorder (2) Impulse control disorder (3) Bipolar affective disorder, mixed (4) Borderline intellectual disability (5) Borderline intellectual disability (6) Dementia in Alzheimer's disease with delusions LAURITA DAVIS MD February 06, 2018 21:08
--- NOTE | 2018-02-07 04:41 | PN ---
DATE: 02/04/2018 This is a late entry of 02/04/2018 covers elements not covered in my initial note of 02/04/2018. SUBJECTIVE: I met with the patient in the evening. The patient continues to have some mood lability, angry because she is having to wear OneSie since she undresses herself. She threw her medications on the floor. REVIEW OF SYSTEMS: No CV, , pulmonary, eye, ENT system symptoms on review. Has vague somatic symptoms, fixated on changing the OneSie. MENTAL STATUS EXAM: Oriented to herself. Speech coherent, rapid at times. Abstraction fair, computation impaired, language function intact. Mood and affect still somewhat anxious, labile, overall functioning consistent with her intellectual disability. IMPRESSION: Major neurocognitive disorder, Alzheimer, vascular with delusion, depression, intellectual disability, bipolar 1 disorder, mixed episode. PLAN: Increase the BuSpar from 10 mg 3 times a day to a total of 40 mg a day, 15 mg at 09:00 a.m. and 5 p.m., 10 mg at 1 p.m. Continue rest unchanged. MAN Kingston DAVIS MD DR: SUMEET/kirill JOB#: [id number] / [id number]
[2018-02-07] MEDS: LEVOTHYROXINE 125 MCG TABLET PO SCH (05:11)
[2018-02-07 06:24] VITALS: BP 129/78
[2018-02-07] MEDS: INSULIN LISPRO 300 UNITS/3 ML INSULN.PEN. SQ SCH ×3 (08:00→17:00)
[2018-02-07] MEDS: metFORMIN 850 MG TABLET PO SCH ×2 (08:18→17:01)
[2018-02-07] MEDS: MEMANTINE 5 MG TABLET. PO SCH ×2 (08:19→20:27)
[2018-02-07] MEDS: OXYBUTYNIN CHLORIDE 5 MG TABLET PO SCH ×2 (08:19→20:27)
[2018-02-07] MEDS: LACTOBACILLUS RHAMNOSUS GG 1 CAPSULE. PO SCH ×2 (08:19→20:26)
[2018-02-07] MEDS: ATORVASTATIN CALCIUM 20 MG TABLET PO SCH (08:19)
[2018-02-07] MEDS: POLYETHYLENE GLYCOL 3350 17 GM PACKET. PO SCH (08:19)
[2018-02-07] MEDS: CYANOCOBALAMIN (VITAMIN B-12) 250 MCG TABLET PO SCH (08:19)
[2018-02-07] MEDS: FERROUS SULFATE 325 MG TABLET. PO SCH (08:19)
[2018-02-07] MEDS: busPIRone 15 MG TABLET. PO SCH ×2 (08:19→17:01)
[2018-02-07] MEDS: FENOFIBRATE NANOCRYSTALLIZED 145 MG TABLET PO SCH (08:19)
[2018-02-07] MEDS: QUEtiapine 25 MG TABLET. PO SCH ×3 (08:20→17:02)
[2018-02-07] MEDS: CALCIUM CARB/VIT D3 500/200 TABLET PO SCH (08:21)
[2018-02-07] MEDS: ACETAMINOPHEN 500 MG TABLET PO SCH ×2 (08:21→20:28)
[2018-02-07] MEDS: FLUCONAZOLE 100 MG TABLET. PO SCH (08:21)
[2018-02-07] MEDS: METOPROLOL TART IMMED RELEASE 25 MG TABLET PO SCH (08:21)
[2018-02-07] MEDS: ASPIRIN 81 MG TAB.CHEW PO SCH (08:21)
[2018-02-07] MEDS: MAGNESIUM OXIDE 400 MG TABLET PO SCH (08:21)
[2018-02-07] MEDS: busPIRone 10 MG TABLET. PO SCH (12:39)
[2018-02-07 16:58] VITALS: BP 103/52
--- NOTE | 2018-02-07 17:54 | PN ---
DATE: 02/05/2018 This is a late entry 02/05, covers elements not covered in my initial note of 02/05. SUBJECTIVE: I met with the patient in the evening staffed at treatment team meeting with the entire team in the morning. She has been pleasant, refuses the ____ and gets frustrated with this, takes off her clothes at times. REVIEW OF SYSTEMS: No CV, , pulmonary, eye system symptoms on review. Reliability poor. MENTAL STATUS EXAM: Oriented to herself. Insight, judgment, recent and remote memory, attention, concentration, fund of knowledge poor, consistent with her diagnosis mentioned in my initial note. PLAN: Increase Luvox to 175 mg a day after she has been on 150 for 3 days and increase Namenda from 5 b.i.d. to 10 b.i.d. Continue rest unchanged. MAN Kingston DAVIS MD DR: SUMEET/kirill JOB#: [id number] / [id number]
[2018-02-07] MEDS: DIVALPROEX ER 500 MG TAB.ER.24H PO SCH (20:26)
[2018-02-07] MEDS: DIVALPROEX ER 250 MG TAB.ER.24H. PO SCH (20:27)
[2018-02-07] MEDS: INSULIN GLARGINE 300 UNITS/3 ML INSULN.PEN. SQ SCH (20:29)
--- NOTE | 2018-02-07 23:05 | PDOC ---
Exam Note: Hemant Note: Please also refer to the separate dictated note~for this date of service dictated separately.~Patient seen individually. Discussed the patient with Nursing staff reviewed the chart.~Reviewed interim history and current functioning. Reviewed vital signs,~Labs/ Radiology~and current medications noted below. Continue current treatment with the changes noted in the dictated addendum note Assessment: Vital Signs: Vital Signs Date Time Temp Pulse Resp B/P (MAP) Pulse Ox O2 Delivery O2 Flow Rate FiO2 02/07/18 21:16 100 02/07/18 16:58 98.6 55 16 103/52 (69) I&O Intake and Output 02/07/18 07:00 Intake Total 1200 ml Balance 1200 ml Intake Oral 1200 ml # Bowel Movements 1 Labs: Laboratory Tests Test 02/07/18 07:20 02/07/18 12:11 02/07/18 16:46 02/07/18 19:29 Glucose (Fingerstick) 94 mg/dL (70-99) 90 mg/dL (70-99) 112 mg/dL (70-99) H 106 mg/dL (70-99) H Current Medications: Meds: Current Medications Ceftriaxone Sodium (Rocephin Im) 1 gm 1X ONCE IM Last administered on 19:18; Start 01/21/18 at 19:15; Stop 01/21/18 at 19:16; Status DC Acetaminophen (Tylenol) 500 mg BID PO Last administered on 02/07/18 20:28; Start 01/21/18 at 22:00 Aspirin (Children'S Aspirin) 81 mg DAILY PO Last administered on 02/07/18 08:21 ; Start 01/22/18 at 09:00 Cetirizine HCl (ZyrTEC) 10 mg PRN DAILY PRN PO ALLERGIES; Start 01/21/18 at 22: 00 Ferrous Sulfate (Feosol) 325 mg DAILY PO Last administered on 02/07/18 08:19; Start 01/22/18 at 09:00 Acetaminophen/ Hydrocodone Bitart (Lortab 7.5/325) 1 tab PRN Q6HRS PRN PO MOD/ SEVERE PAIN Last administered on 01/22/18at 03:44; Start 01/21/18 at 22:00 Levothyroxine Sodium (Synthroid) 125 mcg DAILY06 PO Last administered on 05:11; Start 01/22/18 at 06:00 Metformin HCl (Glucophage) 850 mg BIDWMEALS PO Last administered on 02/07/18 17 :01; Start 01/22/18 at 08:00 Metoprolol Tartrate (Lopressor) 25 mg DAILY PO Last administered on 02/07/18 08 :21; Start 01/22/18 at 09:00 Nystatin (Nystop) 1 soniya PRN BID PRN TP RASH Last administered on 01/31/18 21: 23; Start 01/21/18 at 22:00 Polyethylene Glycol (miraLAX) 17 gm DAILY PO Last administered on 02/07/18 08: 19; Start 01/22/18 at 09:00 Topiramate (Topamax) 100 mg TID PO Last administered on 02/01/18 14:30; Start 01/21/18 at 22:00; Stop 02/01/18 at 18:51; Status DC Calcium/Vitamin D (Oscal D 500mg/ 200uts) 1 tab DAILY PO Last administered on 08:21; Start 01/22/18 at 09:00 Cyanocobalamin (Vitamin B-12) 250 mcg DAILY PO Last administered on 02/07/18 08 :19; Start 01/22/18 at 09:00 Fenofibrate (Tricor) 145 mg DAILY PO Last administered on 02/01/18 08:40; Start 01/22/18 at 09:00; Stop 02/02/18 at 08:48; Status DC Insulin Glargine (Lantus) 24 units QHS SQ Last administered on 02/03/18 20:51; Start 01/21/18 at 22:00; Stop 02/04/18 at 18:30; Status DC Lactobacillus Rhamnosus (Culturelle) 1 cap BID PO Last administered on 20:26; Start 01/22/18 at 09:00 Magnesium Oxide (Magnesium Oxide) 200 mg DAILY PO Last administered on 08:21; Start 01/22/18 at 09:00 Oxybutynin Chloride (Ditropan) 5 mg BID PO Last administered on 02/07/18 20:27 ; Start 01/21/18 at 22:00 Pantoprazole Sodium (Protonix) 40 mg PRN DAILY PRN PO NEEDED BEFORE A MEAL; Start 01/22/18 at 07:30 Non-Formulary Medication (Pseudoephedrine/ Brompheniramin (Rynex Pse Liquid)) 5 ml PRN TID PRN PO COUGH; Start 01/21/18 at 22:00; Stop 01/21/18 at 22:36; Status DC Atorvastatin Calcium (Lipitor) 20 mg DAILY PO Last administered on 02/07/18at 08: 19; Start 01/22/18 at 09:00 Buspirone HCl (Buspar) 10 mg BID PO Last administered on 01/28/18at 07:56; Start 01/21/18 at 22:00; Stop 01/28/18 at 18:24; Status DC Divalproex Sodium (Depakote Er) 500 mg HS PO Last administered on 01/22/18at 00: 15; Start 01/21/18 at 22:00; Stop 01/22/18 at 18:18; Status DC Fluvoxamine Maleate (Luvox) 100 mg QHS PO Last administered on 01/31/18at 21:20 ; Start 01/21/18 at 22:00; Stop 02/01/18 at 18:51; Status DC Risperidone (RisperDAL) 1 mg DAILY PO Last administered on 01/26/18at 08:14; Start 01/22/18 at 09:00; Stop 01/26/18 at 18:22; Status DC Non-Formulary Medication (Fluvoxamine Maleate ) 50 mg DAILY PO ; Start 01/22/18 at 09:00; Stop 01/22/18 at 09:00; Status DC Non-Formulary Medication (Memantine Hcl (Namenda Xr)) 7 mg DAILY PO ; Start at 09:00; Stop 01/22/18 at 09:00; Status DC Memantine (Namenda) 5 mg BID PO Last administered on 02/05/18at 08:11; Start at 22:00; Stop 02/05/18 at 11:48; Status DC Insulin Human Lispro (HumaLOG) 0-10 UNITS TIDWMEALS SQ Last administered on at 17:38; Start 01/22/18 at 08:00 Nystatin (Nystop) 1 soniya PRN BID PRN TP RASH; Start 01/22/18 at 00:15; Status Cancel Acetaminophen (Tylenol) 650 mg PRN Q6HRS PRN PO PAIN / TEMP Last administered on 01/29/18at 06:32; Start 01/22/18 at 05:00 Multi-Ingredient Ointment (Analgesic [place]) 1 soniya PRN QID PRN TP MUSCLE PAIN; Start 01/22/18 at 05:00 Al Hydroxide/Mg Hydroxide (Mylanta Plus Xs) 15 ml PRN AFTMEALHC PRN PO DYSPEPSIA; Start 01/22/18 at 05:00 Magnesium Hydroxide (Milk Of Magnesia) 2,400 mg PRN QHS PRN PO CONSTIPATION; Start 01/22/18 at 05:00 Vitamin D (Vitamin D3) 50,000 unit WEEKLY PO Last administered on 02/05/18at 08: 15; Start 01/22/18 at 18:00 Fluconazole (Diflucan) 100 mg DAILY PO Last administered on 02/07/18at 08:21; Start 01/23/18 at 09:00 Cefpodoxime Proxetil (Vantin) 200 mg BID PO Last administered on 01/28/18at 07: 57; Start 01/22/18 at 21:00; Stop 01/28/18 at 20:59; Status DC Lactobacillus Rhamnosus (Culturelle) 1 cap BID PO ; Start 01/22/18 at 21:00; Stop 01/22/18 at 21:00; Status DC Divalproex Sodium (Depakote Er) 500 mg HS PO Last administered on 01/24/18at 19: 58; Start 01/22/18 at 21:00; Stop 01/25/18 at 15:48; Status DC Divalproex Sodium (Depakote Er) 250 mg QHS PO Last administered on 01/24/18at 19 :58; Start 01/22/18 at 21:00; Stop 01/25/18 at 15:48; Status DC Divalproex Sodium (Depakote Er) 1,000 mg QHS PO Last administered on 01/28/18at 19:36; Start 01/25/18 at 21:00; Stop 01/29/18 at 12:58; Status DC Risperidone (RisperDAL) 0.75 mg DAILY PO Last administered on 02/01/18 08:37; Start 01/27/18 at 09:00; Stop 02/01/18 at 18:53; Status DC Buspirone HCl (Buspar) 10 mg TID PO Last administered on 02/04/18at 13:38; Start 01/28/18 at 21:00; Stop 02/04/18 at 18:58; Status DC Divalproex Sodium (Depakote Er) 1,250 mg QHS PO ; Start 01/29/18 at 21:00; Stop 01/29/18 at 21:00; Status DC Carbamide Peroxide (Debrox) 5 drop PRN BID PRN AU IMPACTION Last administered on 01/31/18 12:43; Start 01/29/18 at 19:15 Divalproex Sodium (Depakote Er) 250 mg QHS PO Last administered on 02/07/18 20: 27; Start 01/29/18 at 21:00 Divalproex Sodium (Depakote Er) 1,000 mg QHS PO Last administered on 02/07/18 20:26; Start 01/29/18 at 21:00 Fluvoxamine Maleate (Luvox) 125 mg QHS PO Last administered on 02/02/18 20:37 ; Start 02/01/18 at 21:00; Stop 02/03/18 at 19:25; Status DC Risperidone (RisperDAL) 0.25 mg BID@0900,1300 PO Last administered on 13:31; Start 02/02/18 at 09:00; Stop 02/02/18 at 18:19; Status DC Risperidone (RisperDAL) 0.5 mg DAILY@1700 PO Last administered on 02/02/18 16: 48; Start 02/02/18 at 17:00; Stop 02/02/18 at 18:19; Status DC Fenofibrate (Tricor) 145 mg DAILY PO Last administered on 02/07/18 08:19; Start 02/02/18 at 09:00 Olanzapine (ZyPREXA ZYDIS) 1.25 mg PRN Q2HR PRN PO PSYCHOSIS; Start 02/02/18 at 18:30 Quetiapine Fumarate (SEROquel) 25 mg TID@0900,1300,1700 PO ; Start 02/03/18 at 09 :00; Stop 02/03/18 at 09:00; Status DC Quetiapine Fumarate (SEROquel) 12.5 mg TID@0900,1300,1700 PO Last administered on 02/07/18 17:02; Start 02/03/18 at 09:00 Fluvoxamine Maleate (Luvox) 150 mg HS PO Last administered on 02/04/18at 20:52; Start 02/03/18 at 21:00; Stop 02/05/18 at 22:00; Status DC Insulin Glargine (Lantus) 18 units QHS SQ Last administered on 02/07/18 20:29; Start 02/04/18 at 21:00 Buspirone HCl (Buspar) 15 mg BID94 PO Last administered on 02/07/18 17:01; Start 02/05/18 at 09:00 Buspirone HCl (Buspar) 10 mg DAILY@1300 PO Last administered on 02/07/18at 12:39 ; Start 02/05/18 at 13:00 Memantine (Namenda) 10 mg BID PO Last administered on 02/07/18 20:27; Start 02/05/18 at 21:00 Fluvoxamine Maleate (Luvox) 150 mg HS PO Last administered on 02/07/18 20:27; Start 02/05/18 at 21:00 Fluvoxamine Maleate (Luvox) 25 mg QHS PO Last administered on 02/07/18 20:27; Start 02/05/18 at 21:00 Active Scripts Active Reported Risperidone 1 Mg Tablet 1 Mg PO DAILY Namenda Xr (Memantine Hcl) 14 Mg Cap.spr.24 14 Mg PO DAILY Namenda Xr (Memantine Hcl) 7 Mg Cap.spr.24 7 Mg PO DAILY Depakote Er (Divalproex Sodium) 500 Mg Tab.er.24h 500 Mg PO HS Buspirone Hcl 10 Mg Tablet 10 Mg PO BID Fenofibrate (Fenofibrate,Micronized) 134 Mg Capsule 134 Mg PO DAILY Fluvoxamine Maleate 100 Mg Tablet 1 Tab PO QHS Levemir Flextouch (Insulin Detemir) 100 Unit/1 Ml Insuln.pen 24 Unit SQ HS Novolog Flexpen (Insulin Aspart) 100 Unit/1 Ml Insuln.pen 0-10 Unit SQ TIDAC SLIDING SCALE INSULIN Magnesium (Magnesium Oxide) 400 Mg Capsule 250 Mg PO DAILY Levothyroxine Sodium 125 Mcg Tablet 125 Mcg PO DAILY06 Atorvastatin Calcium 20 Mg Tablet 20 Mg PO DAILY Fluvoxamine Maleate 50 Mg Tablet 50 Mg PO DAILY Acetaminophen 500 Mg Tablet 500 Mg PO BID Calcium 600 + Vit D 200 Tablet (Calcium Carbonate/Vitamin D3) 1 Each Tablet 1 Each PO DAILY B-12 (Cyanocobalamin (Vitamin B-12)) 500 Mcg Tablet 250 Mcg PO DAILY Acidophilus (Lactobacillus Acidophilus) 1 Each Capsule 1 Each PO BID Metformin Hcl 850 Mg Tablet 850 Mg PO BIDWMEALS Ferrous Sulfate 325 Mg Tablet 1 Tab PO DAILY Topiramate 100 Mg Tablet 100 Mg PO TID Metoprolol Tartrate 25 Mg Tablet 25 Mg PO DAILY Ditropan Xl (Oxybutynin Chloride) 10 Mg Tab.er.24 10 Mg PO DAILY Miralax (Polyethylene Glycol 3350) 17 Gm Powd.pack 17 Gm PO DAILY Aspirin 81 Mg Tab.chew 81 Mg PO DAILY Cetirizine Hcl 10 Mg Tablet 10 Mg PO PRN DAILY PRN Hydrocodone-Apap 7.5-325 (Hydrocodone Bit/Acetaminophen) 1 Each Tablet 1 Tab PO PRN Q6HRS PRN Rynex Pse Liquid (Pseudoephedrine/Brompheniramin) 473 Ml Liquid 5 Ml PO PRN TID PRN Protonix (Pantoprazole Sodium) 20 Mg Tablet.dr 20 Mg PO PRN DAILY PRN Nystop (Nystatin) 60 Gm Powder 1 Soniya TP PRN BID PRN I have reviewed the current psychotropics carefully including drug interactions. Risk benefit ratio favors no change other than as noted in my dictated progress note. 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
[2018-02-08] MEDS: HYDROcodone/APAP 7.5/325MG 1 TAB TABLET PO PRN (00:35)
[2018-02-08] MEDS: LEVOTHYROXINE 125 MCG TABLET PO SCH (06:10)
[2018-02-08 06:27] VITALS: BP 146/54
[2018-02-08] MEDS: INSULIN LISPRO 300 UNITS/3 ML INSULN.PEN. SQ SCH ×3 (08:00→17:00)
[2018-02-08] MEDS: LACTOBACILLUS RHAMNOSUS GG 1 CAPSULE. PO SCH ×2 (08:24→20:27)
[2018-02-08] MEDS: ATORVASTATIN CALCIUM 20 MG TABLET PO SCH (08:24)
[2018-02-08] MEDS: FENOFIBRATE NANOCRYSTALLIZED 145 MG TABLET PO SCH (08:24)
[2018-02-08] MEDS: busPIRone 15 MG TABLET. PO SCH ×2 (08:24→15:12)
[2018-02-08] MEDS: metFORMIN 850 MG TABLET PO SCH ×2 (08:24→15:12)
[2018-02-08] MEDS: ACETAMINOPHEN 500 MG TABLET PO SCH ×2 (08:24→20:29)
[2018-02-08] MEDS: MAGNESIUM OXIDE 400 MG TABLET PO SCH (08:24)
[2018-02-08] MEDS: CYANOCOBALAMIN (VITAMIN B-12) 250 MCG TABLET PO SCH (08:25)
[2018-02-08] MEDS: POLYETHYLENE GLYCOL 3350 17 GM PACKET. PO SCH (08:25)
[2018-02-08] MEDS: CALCIUM CARB/VIT D3 500/200 TABLET PO SCH (08:25)
[2018-02-08] MEDS: MEMANTINE 5 MG TABLET. PO SCH ×2 (08:25→20:29)
[2018-02-08] MEDS: ASPIRIN 81 MG TAB.CHEW PO SCH (08:25)
[2018-02-08] MEDS: OXYBUTYNIN CHLORIDE 5 MG TABLET PO SCH ×2 (08:26→20:30)
[2018-02-08] MEDS: FERROUS SULFATE 325 MG TABLET. PO SCH (08:26)
[2018-02-08] MEDS: QUEtiapine 25 MG TABLET. PO SCH ×3 (08:26→19:10)
[2018-02-08] MEDS: METOPROLOL TART IMMED RELEASE 25 MG TABLET PO SCH (08:26)
[2018-02-08] MEDS: FLUCONAZOLE 100 MG TABLET. PO SCH (08:26)
[2018-02-08 10:08] LABS: BASO % 1 % (0-3); EOS # 0.3 x10^3/uL (0.0-0.7); EOS % 6 % (0-3); HEMATOCRIT 34.7 % (36.0-47.0); HEMOGLOBIN 11.3 g/dL (12.0-15.5); LYMPH # 1.7 x10^3/uL (1.0-4.8); LYMPH % 38 % (24-48); MEAN CORPUSCULAR HEMOGLOBIN 28 pg (25-35); MEAN CORPUSCULAR HGB CONC 32 g/dL (31-37); MEAN CORPUSCULAR VOLUME 85 fL (79-100); MONO # 0.4 x10^3/uL (0.0-1.1); MONO % 8 % (0-9); NEUT # 2.2 x10^3uL (1.8-7.7); NEUT % 47 % (31-73); PLATELET COUNT 189 x10^3/uL (140-400); RED BLOOD COUNT 4.06 x10^6/uL (3.50-5.40); RED CELL DISTRIBUTION WIDTH 15.7 % (11.5-14.5); WHITE BLOOD COUNT 4.6 x10^3/uL (4.0-11.0)
[2018-02-08 10:29] LABS: ALBUMIN 3.4 g/dL (3.4-5.0); ALBUMIN/GLOBULIN RATIO 0.8 (1.0-1.7); ALK PHOS 41 U/L (46-116); ALT (SGPT) 23 U/L (14-59); ANION GAP 8 (6-14); AST (SGOT) 28 U/L (15-37); BLOOD UREA NITROGEN 24 mg/dL (7-20); BUN/CREATININE RATIO 20 (6-20); CARBON DIOXIDE 28 mmol/L (21-32); CHLORIDE 102 mmol/L (98-107); CREATININE 1.2 mg/dL (0.6-1.0); GFR 44.3; GLUCOSE 121 mg/dL (70-99); POTASSIUM 4.1 mmol/L (3.5-5.1); SODIUM 138 mmol/L (136-145); TOTAL BILIRUBIN 0.2 mg/dL (0.2-1.0); TOTAL PROTEIN 7.5 g/dL (6.4-8.2)
[2018-02-08 10:33] LABS: VAL ACID 57 mcg/mL (50-100)
[2018-02-08] MEDS: busPIRone 10 MG TABLET. PO SCH (15:12)
[2018-02-08 16:42] VITALS: BP 114/52
--- NOTE | 2018-02-08 18:50 | PDOC ---
Exam Note: Hemant Note: Please also refer to the separate dictated note~for this date of service dictated separately.~Patient seen individually. Discussed the patient with Nursing staff reviewed the chart.~Reviewed interim history and current functioning. Reviewed vital signs,~Labs/ Radiology~and current medications noted below. Continue current treatment with the changes noted in the dictated addendum note Assessment: Vital Signs: Vital Signs Date Time Temp Pulse Resp B/P (MAP) Pulse Ox O2 Delivery O2 Flow Rate FiO2 02/08/18 16:42 97.0 59 18 114/52 (72) 100 02/08/18 01:35 Room Air I&O Intake and Output 02/08/18 07:00 Intake Total 540 ml Balance 540 ml Intake Oral 540 ml Labs: Laboratory Tests Test 02/07/18 19:29 02/08/18 07:13 02/08/18 09:44 02/08/18 11:16 Glucose (Fingerstick) 106 mg/dL (70-99) H 66 mg/dL (70-99) L 86 mg/dL (70-99) White Blood Count 4.6 x10^3/uL (4.0-11.0) Red Blood Count 4.06 x10^6/uL (3.50-5.40) Hemoglobin 11.3 g/dL (12.0-15.5) L Hematocrit 34.7 % (36.0-47.0) L Mean Corpuscular Volume 85 fL (79-100) Mean Corpuscular Hemoglobin 28 pg (25-35) Mean Corpuscular Hemoglobin Concent 32 g/dL (31-37) Red Cell Distribution Width 15.7 % (11.5-14.5) H Platelet Count 189 x10^3/uL (140-400) Neutrophils (%) (Auto) 47 % (31-73) Lymphocytes (%) (Auto) 38 % (24-48) Monocytes (%) (Auto) 8 % (0-9) Eosinophils (%) (Auto) 6 % (0-3) H Basophils (%) (Auto) 1 % (0-3) Neutrophils # (Auto) 2.2 x10^3uL (1.8-7.7) Lymphocytes # (Auto) 1.7 x10^3/uL (1.0-4.8) Monocytes # (Auto) 0.4 x10^3/uL (0.0-1.1) Eosinophils # (Auto) 0.3 x10^3/uL (0.0-0.7) Basophils # (Auto) 0.0 x10^3/uL (0.0-0.2) Sodium Level 138 mmol/L (136-145) Potassium Level 4.1 mmol/L (3.5-5.1) Chloride Level 102 mmol/L (98-107) Carbon Dioxide Level 28 mmol/L (21-32) Anion Gap 8 (6-14) Blood Urea Nitrogen 24 mg/dL (7-20) H Creatinine 1.2 mg/dL (0.6-1.0) H Estimated GFR (Cockcroft-Gault) 44.3 BUN/Creatinine Ratio 20 (6-20) Glucose Level 121 mg/dL (70-99) H Calcium Level 10.0 mg/dL (8.5-10.1) Total Bilirubin 0.2 mg/dL (0.2-1.0) Aspartate Amino Transferase (AST) 28 U/L (15-37) Alanine Aminotransferase (ALT) 23 U/L (14-59) Alkaline Phosphatase 41 U/L (46-116) L Total Protein 7.5 g/dL (6.4-8.2) Albumin 3.4 g/dL (3.4-5.0) Albumin/Globulin Ratio 0.8 (1.0-1.7) L Valproic Acid Level 57 mcg/mL (50-100) Valproic Acid Last Dose Date 02/07/2018 Valproic Acid Last Dose Time 2100 Test 02/08/18 16:43 Glucose (Fingerstick) 106 mg/dL (70-99) H Current Medications: Meds: Current Medications Ceftriaxone Sodium (Rocephin Im) 1 gm 1X ONCE IM Last administered on at 19:18; Start 01/21/18 at 19:15; Stop 01/21/18 at 19:16; Status DC Acetaminophen (Tylenol) 500 mg BID PO Last administered on 02/08/18at 08:24; Start 01/21/18 at 22:00 Aspirin (Children'S Aspirin) 81 mg DAILY PO Last administered on 02/08/18at 08:25 ; Start 01/22/18 at 09:00 Cetirizine HCl (ZyrTEC) 10 mg PRN DAILY PRN PO ALLERGIES; Start 01/21/18 at 22: 00 Ferrous Sulfate (Feosol) 325 mg DAILY PO Last administered on 02/08/18 08:26; Start 01/22/18 at 09:00 Acetaminophen/ Hydrocodone Bitart (Lortab 7.5/325) 1 tab PRN Q6HRS PRN PO MOD/ SEVERE PAIN Last administered on 02/08/18 00:35; Start 01/21/18 at 22:00 Levothyroxine Sodium (Synthroid) 125 mcg DAILY06 PO Last administered on 06:10; Start 01/22/18 at 06:00 Metformin HCl (Glucophage) 850 mg BIDWMEALS PO Last administered on 02/08/18 15 :12; Start 01/22/18 at 08:00 Metoprolol Tartrate (Lopressor) 25 mg DAILY PO Last administered on 02/08/18 08 :26; Start 01/22/18 at 09:00 Nystatin (Nystop) 1 soniya PRN BID PRN TP RASH Last administered on 01/31/18 21: 23; Start 01/21/18 at 22:00 Polyethylene Glycol (miraLAX) 17 gm DAILY PO Last administered on 02/08/18 08: 25; Start 01/22/18 at 09:00 Topiramate (Topamax) 100 mg TID PO Last administered on 02/01/18 14:30; Start 01/21/18 at 22:00; Stop 02/01/18 at 18:51; Status DC Calcium/Vitamin D (Oscal D 500mg/ 200uts) 1 tab DAILY PO Last administered on 08:25; Start 01/22/18 at 09:00 Cyanocobalamin (Vitamin B-12) 250 mcg DAILY PO Last administered on 02/08/18 08 :25; Start 01/22/18 at 09:00 Fenofibrate (Tricor) 145 mg DAILY PO Last administered on 02/01/18 08:40; Start 01/22/18 at 09:00; Stop 02/02/18 at 08:48; Status DC Insulin Glargine (Lantus) 24 units QHS SQ Last administered on 02/03/18 20:51; Start 01/21/18 at 22:00; Stop 02/04/18 at 18:30; Status DC Lactobacillus Rhamnosus (Culturelle) 1 cap BID PO Last administered on 08:24; Start 01/22/18 at 09:00 Magnesium Oxide (Magnesium Oxide) 200 mg DAILY PO Last administered on 08:24; Start 01/22/18 at 09:00 Oxybutynin Chloride (Ditropan) 5 mg BID PO Last administered on 02/08/18 08:26 ; Start 01/21/18 at 22:00 Pantoprazole Sodium (Protonix) 40 mg PRN DAILY PRN PO NEEDED BEFORE A MEAL; Start 01/22/18 at 07:30 Non-Formulary Medication (Pseudoephedrine/ Brompheniramin (Rynex Pse Liquid)) 5 ml PRN TID PRN PO COUGH; Start 01/21/18 at 22:00; Stop 01/21/18 at 22:36; Status DC Atorvastatin Calcium (Lipitor) 20 mg DAILY PO Last administered on 02/08/18at 08: 24; Start 01/22/18 at 09:00 Buspirone HCl (Buspar) 10 mg BID PO Last administered on 01/28/18at 07:56; Start 01/21/18 at 22:00; Stop 01/28/18 at 18:24; Status DC Divalproex Sodium (Depakote Er) 500 mg HS PO Last administered on 01/22/18at 00: 15; Start 01/21/18 at 22:00; Stop 01/22/18 at 18:18; Status DC Fluvoxamine Maleate (Luvox) 100 mg QHS PO Last administered on 01/31/18at 21:20 ; Start 01/21/18 at 22:00; Stop 02/01/18 at 18:51; Status DC Risperidone (RisperDAL) 1 mg DAILY PO Last administered on 01/26/18at 08:14; Start 01/22/18 at 09:00; Stop 01/26/18 at 18:22; Status DC Non-Formulary Medication (Fluvoxamine Maleate ) 50 mg DAILY PO ; Start 01/22/18 at 09:00; Stop 01/22/18 at 09:00; Status DC Non-Formulary Medication (Memantine Hcl (Namenda Xr)) 7 mg DAILY PO ; Start at 09:00; Stop 01/22/18 at 09:00; Status DC Memantine (Namenda) 5 mg BID PO Last administered on 02/05/18at 08:11; Start at 22:00; Stop 02/05/18 at 11:48; Status DC Insulin Human Lispro (HumaLOG) 0-10 UNITS TIDWMEALS SQ Last administered on at 17:38; Start 01/22/18 at 08:00 Nystatin (Nystop) 1 soniya PRN BID PRN TP RASH; Start 01/22/18 at 00:15; Status Cancel Acetaminophen (Tylenol) 650 mg PRN Q6HRS PRN PO PAIN / TEMP Last administered on 01/29/18at 06:32; Start 01/22/18 at 05:00 Multi-Ingredient Ointment (Analgesic [place]) 1 soniya PRN QID PRN TP MUSCLE PAIN; Start 01/22/18 at 05:00 Al Hydroxide/Mg Hydroxide (Mylanta Plus Xs) 15 ml PRN AFTMEALHC PRN PO DYSPEPSIA; Start 01/22/18 at 05:00 Magnesium Hydroxide (Milk Of Magnesia) 2,400 mg PRN QHS PRN PO CONSTIPATION; Start 01/22/18 at 05:00 Vitamin D (Vitamin D3) 50,000 unit WEEKLY PO Last administered on 02/05/18at 08: 15; Start 01/22/18 at 18:00 Fluconazole (Diflucan) 100 mg DAILY PO Last administered on 02/08/18at 08:26; Start 01/23/18 at 09:00 Cefpodoxime Proxetil (Vantin) 200 mg BID PO Last administered on 01/28/18at 07: 57; Start 01/22/18 at 21:00; Stop 01/28/18 at 20:59; Status DC Lactobacillus Rhamnosus (Culturelle) 1 cap BID PO ; Start 01/22/18 at 21:00; Stop 01/22/18 at 21:00; Status DC Divalproex Sodium (Depakote Er) 500 mg HS PO Last administered on 01/24/18at 19: 58; Start 01/22/18 at 21:00; Stop 01/25/18 at 15:48; Status DC Divalproex Sodium (Depakote Er) 250 mg QHS PO Last administered on 01/24/18at 19 :58; Start 01/22/18 at 21:00; Stop 01/25/18 at 15:48; Status DC Divalproex Sodium (Depakote Er) 1,000 mg QHS PO Last administered on 01/28/18at 19:36; Start 01/25/18 at 21:00; Stop 01/29/18 at 12:58; Status DC Risperidone (RisperDAL) 0.75 mg DAILY PO Last administered on 02/01/18 08:37; Start 01/27/18 at 09:00; Stop 02/01/18 at 18:53; Status DC Buspirone HCl (Buspar) 10 mg TID PO Last administered on 02/04/18at 13:38; Start 01/28/18 at 21:00; Stop 02/04/18 at 18:58; Status DC Divalproex Sodium (Depakote Er) 1,250 mg QHS PO ; Start 01/29/18 at 21:00; Stop 01/29/18 at 21:00; Status DC Carbamide Peroxide (Debrox) 5 drop PRN BID PRN AU IMPACTION Last administered on 01/31/18at 12:43; Start 01/29/18 at 19:15 Divalproex Sodium (Depakote Er) 250 mg QHS PO Last administered on 02/07/18 20: 27; Start 01/29/18 at 21:00 Divalproex Sodium (Depakote Er) 1,000 mg QHS PO Last administered on 02/07/18 20:26; Start 01/29/18 at 21:00 Fluvoxamine Maleate (Luvox) 125 mg QHS PO Last administered on 02/02/18 20:37 ; Start 02/01/18 at 21:00; Stop 02/03/18 at 19:25; Status DC Risperidone (RisperDAL) 0.25 mg BID@0900,1300 PO Last administered on at 13:31; Start 02/02/18 at 09:00; Stop 02/02/18 at 18:19; Status DC Risperidone (RisperDAL) 0.5 mg DAILY@1700 PO Last administered on 02/02/18 16: 48; Start 02/02/18 at 17:00; Stop 02/02/18 at 18:19; Status DC Fenofibrate (Tricor) 145 mg DAILY PO Last administered on 02/08/18 08:24; Start 02/02/18 at 09:00 Olanzapine (ZyPREXA ZYDIS) 1.25 mg PRN Q2HR PRN PO PSYCHOSIS Last administered on 02/08/18 00:36; Start 02/02/18 at 18:30 Quetiapine Fumarate (SEROquel) 25 mg TID@0900,1300,1700 PO ; Start 02/03/18 at 09 :00; Stop 02/03/18 at 09:00; Status DC Quetiapine Fumarate (SEROquel) 12.5 mg TID@0900,1300,1700 PO Last administered on 02/08/18 15:13; Start 02/03/18 at 09:00 Fluvoxamine Maleate (Luvox) 150 mg HS PO Last administered on 02/04/18 20:52; Start 02/03/18 at 21:00; Stop 02/05/18 at 22:00; Status DC Insulin Glargine (Lantus) 18 units QHS SQ Last administered on 02/07/18 20:29; Start 02/04/18 at 21:00 Buspirone HCl (Buspar) 15 mg BID94 PO Last administered on 02/08/18 15:12; Start 02/05/18 at 09:00 Buspirone HCl (Buspar) 10 mg DAILY@1300 PO Last administered on 02/08/18 15:12 ; Start 02/05/18 at 13:00 Memantine (Namenda) 10 mg BID PO Last administered on 02/08/18 08:25; Start 02/05/18 at 21:00 Fluvoxamine Maleate (Luvox) 150 mg HS PO Last administered on 02/07/18 20:27; Start 02/05/18 at 21:00 Fluvoxamine Maleate (Luvox) 25 mg QHS PO Last administered on 02/07/18 20:27; Start 02/05/18 at 21:00 Active Scripts Active Reported Risperidone 1 Mg Tablet 1 Mg PO DAILY Namenda Xr (Memantine Hcl) 14 Mg Cap.spr.24 14 Mg PO DAILY Namenda Xr (Memantine Hcl) 7 Mg Cap.spr.24 7 Mg PO DAILY Depakote Er (Divalproex Sodium) 500 Mg Tab.er.24h 500 Mg PO HS Buspirone Hcl 10 Mg Tablet 10 Mg PO BID Fenofibrate (Fenofibrate,Micronized) 134 Mg Capsule 134 Mg PO DAILY Fluvoxamine Maleate 100 Mg Tablet 1 Tab PO QHS Levemir Flextouch (Insulin Detemir) 100 Unit/1 Ml Insuln.pen 24 Unit SQ HS Novolog Flexpen (Insulin Aspart) 100 Unit/1 Ml Insuln.pen 0-10 Unit SQ TIDAC SLIDING SCALE INSULIN Magnesium (Magnesium Oxide) 400 Mg Capsule 250 Mg PO DAILY Levothyroxine Sodium 125 Mcg Tablet 125 Mcg PO DAILY06 Atorvastatin Calcium 20 Mg Tablet 20 Mg PO DAILY Fluvoxamine Maleate 50 Mg Tablet 50 Mg PO DAILY Acetaminophen 500 Mg Tablet 500 Mg PO BID Calcium 600 + Vit D 200 Tablet (Calcium Carbonate/Vitamin D3) 1 Each Tablet 1 Each PO DAILY B-12 (Cyanocobalamin (Vitamin B-12)) 500 Mcg Tablet 250 Mcg PO DAILY Acidophilus (Lactobacillus Acidophilus) 1 Each Capsule 1 Each PO BID Metformin Hcl 850 Mg Tablet 850 Mg PO BIDWMEALS Ferrous Sulfate 325 Mg Tablet 1 Tab PO DAILY Topiramate 100 Mg Tablet 100 Mg PO TID Metoprolol Tartrate 25 Mg Tablet 25 Mg PO DAILY Ditropan Xl (Oxybutynin Chloride) 10 Mg Tab.er.24 10 Mg PO DAILY Miralax (Polyethylene Glycol 3350) 17 Gm Powd.pack 17 Gm PO DAILY Aspirin 81 Mg Tab.chew 81 Mg PO DAILY Cetirizine Hcl 10 Mg Tablet 10 Mg PO PRN DAILY PRN Hydrocodone-Apap 7.5-325 (Hydrocodone Bit/Acetaminophen) 1 Each Tablet 1 Tab PO PRN Q6HRS PRN Rynex Pse Liquid (Pseudoephedrine/Brompheniramin) 473 Ml Liquid 5 Ml PO PRN TID PRN Protonix (Pantoprazole Sodium) 20 Mg Tablet.dr 20 Mg PO PRN DAILY PRN Nystop (Nystatin) 60 Gm Powder 1 Soniya TP PRN BID PRN I have reviewed the current psychotropics carefully including drug interactions. Risk benefit ratio favors no change other than as noted in my dictated progress note. 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
[2018-02-08] MEDS: DIVALPROEX ER 250 MG TAB.ER.24H. PO SCH (20:29)
[2018-02-08] MEDS: DIVALPROEX ER 500 MG TAB.ER.24H PO SCH (20:30)
[2018-02-08] MEDS: INSULIN GLARGINE 300 UNITS/3 ML INSULN.PEN. SQ SCH (20:42)
[2018-02-09] MEDS: LEVOTHYROXINE 125 MCG TABLET PO SCH (04:42)
[2018-02-09 06:26] VITALS: BP 183/79
[2018-02-09] MEDS: INSULIN LISPRO 300 UNITS/3 ML INSULN.PEN. SQ SCH ×3 (08:00→17:00)
[2018-02-09] MEDS: POLYETHYLENE GLYCOL 3350 17 GM PACKET. PO SCH (08:24)
[2018-02-09] MEDS: LACTOBACILLUS RHAMNOSUS GG 1 CAPSULE. PO SCH ×2 (08:24→20:46)
[2018-02-09] MEDS: ASPIRIN 81 MG TAB.CHEW PO SCH (08:24)
[2018-02-09] MEDS: FENOFIBRATE NANOCRYSTALLIZED 145 MG TABLET PO SCH (08:25)
[2018-02-09] MEDS: ATORVASTATIN CALCIUM 20 MG TABLET PO SCH (08:25)
[2018-02-09] MEDS: ACETAMINOPHEN 500 MG TABLET PO SCH ×2 (08:26→20:47)
[2018-02-09] MEDS: FERROUS SULFATE 325 MG TABLET. PO SCH (08:26)
[2018-02-09] MEDS: FLUCONAZOLE 100 MG TABLET. PO SCH (08:26)
[2018-02-09] MEDS: metFORMIN 850 MG TABLET PO SCH ×2 (08:26→17:09)
[2018-02-09] MEDS: CALCIUM CARB/VIT D3 500/200 TABLET PO SCH (08:27)
[2018-02-09] MEDS: MAGNESIUM OXIDE 400 MG TABLET PO SCH (08:27)
[2018-02-09] MEDS: CYANOCOBALAMIN (VITAMIN B-12) 250 MCG TABLET PO SCH (08:27)
[2018-02-09] MEDS: QUEtiapine 25 MG TABLET. PO SCH ×3 (08:28→17:09)
[2018-02-09] MEDS: METOPROLOL TART IMMED RELEASE 25 MG TABLET PO SCH (08:28)
[2018-02-09] MEDS: OXYBUTYNIN CHLORIDE 5 MG TABLET PO SCH ×2 (08:28→20:47)
[2018-02-09] MEDS: MEMANTINE 5 MG TABLET. PO SCH ×2 (08:29→20:47)
[2018-02-09] MEDS: busPIRone 15 MG TABLET. PO SCH ×2 (08:29→16:17)
[2018-02-09] MEDS: busPIRone 10 MG TABLET. PO SCH (12:45)
[2018-02-09 16:29] VITALS: BP 122/62
[2018-02-09] MEDS: DIVALPROEX ER 500 MG TAB.ER.24H PO SCH (20:47)
[2018-02-09] MEDS: DIVALPROEX ER 250 MG TAB.ER.24H. PO SCH (20:47)
--- NOTE | 2018-02-09 20:56 | PDOC ---
Exam Note: Hemant Note: Please also refer to the separate dictated note~for this date of service dictated separately.~Patient seen individually. Discussed the patient with Nursing staff reviewed the chart.~Reviewed interim history and current functioning. Reviewed vital signs,~Labs/ Radiology~and current medications noted below. Continue current treatment with the changes noted in the dictated addendum note Assessment: Vital Signs: Vital Signs Date Time Temp Pulse Resp B/P (MAP) Pulse Ox O2 Delivery O2 Flow Rate FiO2 02/09/18 16:29 98.3 62 20 122/62 (82) 99 02/08/18 01:35 Room Air I&O Intake and Output 02/09/18 07:00 Intake Total 840 ml Balance 840 ml Intake Oral 840 ml Labs: Laboratory Tests Test 02/09/18 07:34 02/09/18 11:50 02/09/18 16:45 02/09/18 19:15 Glucose (Fingerstick) 74 mg/dL (70-99) 96 mg/dL (70-99) 87 mg/dL (70-99) 129 mg/dL (70-99) H Current Medications: Meds: Current Medications Ceftriaxone Sodium (Rocephin Im) 1 gm 1X ONCE IM Last administered on 19:18; Start 01/21/18 at 19:15; Stop 01/21/18 at 19:16; Status DC Acetaminophen (Tylenol) 500 mg BID PO Last administered on 02/09/18at 20:47; Start 01/21/18 at 22:00 Aspirin (Children'S Aspirin) 81 mg DAILY PO Last administered on 02/09/18 08:24 ; Start 01/22/18 at 09:00 Cetirizine HCl (ZyrTEC) 10 mg PRN DAILY PRN PO ALLERGIES; Start 01/21/18 at 22: 00 Ferrous Sulfate (Feosol) 325 mg DAILY PO Last administered on 02/09/18 08:26; Start 01/22/18 at 09:00 Acetaminophen/ Hydrocodone Bitart (Lortab 7.5/325) 1 tab PRN Q6HRS PRN PO MOD/ SEVERE PAIN Last administered on 02/08/18 00:35; Start 01/21/18 at 22:00 Levothyroxine Sodium (Synthroid) 125 mcg DAILY06 PO Last administered on 04:42; Start 01/22/18 at 06:00 Metformin HCl (Glucophage) 850 mg BIDWMEALS PO Last administered on 02/09/18 17 :09; Start 01/22/18 at 08:00 Metoprolol Tartrate (Lopressor) 25 mg DAILY PO Last administered on 02/09/18 08 :28; Start 01/22/18 at 09:00 Nystatin (Nystop) 1 soniya PRN BID PRN TP RASH Last administered on 01/31/18 21: 23; Start 01/21/18 at 22:00 Polyethylene Glycol (miraLAX) 17 gm DAILY PO Last administered on 02/09/18 08: 24; Start 01/22/18 at 09:00 Topiramate (Topamax) 100 mg TID PO Last administered on 02/01/18 14:30; Start 01/21/18 at 22:00; Stop 02/01/18 at 18:51; Status DC Calcium/Vitamin D (Oscal D 500mg/ 200uts) 1 tab DAILY PO Last administered on 08:27; Start 01/22/18 at 09:00 Cyanocobalamin (Vitamin B-12) 250 mcg DAILY PO Last administered on 02/09/18 08 :27; Start 01/22/18 at 09:00 Fenofibrate (Tricor) 145 mg DAILY PO Last administered on 02/01/18 08:40; Start 01/22/18 at 09:00; Stop 02/02/18 at 08:48; Status DC Insulin Glargine (Lantus) 24 units QHS SQ Last administered on 02/03/18 20:51; Start 01/21/18 at 22:00; Stop 02/04/18 at 18:30; Status DC Lactobacillus Rhamnosus (Culturelle) 1 cap BID PO Last administered on 20:46; Start 01/22/18 at 09:00 Magnesium Oxide (Magnesium Oxide) 200 mg DAILY PO Last administered on 08:27; Start 01/22/18 at 09:00 Oxybutynin Chloride (Ditropan) 5 mg BID PO Last administered on 02/09/18 20:47 ; Start 01/21/18 at 22:00 Pantoprazole Sodium (Protonix) 40 mg PRN DAILY PRN PO NEEDED BEFORE A MEAL; Start 01/22/18 at 07:30 Non-Formulary Medication (Pseudoephedrine/ Brompheniramin (Rynex Pse Liquid)) 5 ml PRN TID PRN PO COUGH; Start 01/21/18 at 22:00; Stop 01/21/18 at 22:36; Status DC Atorvastatin Calcium (Lipitor) 20 mg DAILY PO Last administered on 02/09/18at 08: 25; Start 01/22/18 at 09:00 Buspirone HCl (Buspar) 10 mg BID PO Last administered on 01/28/18at 07:56; Start 01/21/18 at 22:00; Stop 01/28/18 at 18:24; Status DC Divalproex Sodium (Depakote Er) 500 mg HS PO Last administered on 01/22/18at 00: 15; Start 01/21/18 at 22:00; Stop 01/22/18 at 18:18; Status DC Fluvoxamine Maleate (Luvox) 100 mg QHS PO Last administered on 01/31/18at 21:20 ; Start 01/21/18 at 22:00; Stop 02/01/18 at 18:51; Status DC Risperidone (RisperDAL) 1 mg DAILY PO Last administered on 01/26/18at 08:14; Start 01/22/18 at 09:00; Stop 01/26/18 at 18:22; Status DC Non-Formulary Medication (Fluvoxamine Maleate ) 50 mg DAILY PO ; Start 01/22/18 at 09:00; Stop 01/22/18 at 09:00; Status DC Non-Formulary Medication (Memantine Hcl (Namenda Xr)) 7 mg DAILY PO ; Start at 09:00; Stop 01/22/18 at 09:00; Status DC Memantine (Namenda) 5 mg BID PO Last administered on 02/05/18at 08:11; Start at 22:00; Stop 02/05/18 at 11:48; Status DC Insulin Human Lispro (HumaLOG) 0-10 UNITS TIDWMEALS SQ Last administered on at 17:38; Start 01/22/18 at 08:00 Nystatin (Nystop) 1 soniya PRN BID PRN TP RASH; Start 01/22/18 at 00:15; Status Cancel Acetaminophen (Tylenol) 650 mg PRN Q6HRS PRN PO PAIN / TEMP Last administered on 01/29/18at 06:32; Start 01/22/18 at 05:00 Multi-Ingredient Ointment (Analgesic [place]) 1 soniya PRN QID PRN TP MUSCLE PAIN; Start 01/22/18 at 05:00 Al Hydroxide/Mg Hydroxide (Mylanta Plus Xs) 15 ml PRN AFTMEALHC PRN PO DYSPEPSIA; Start 01/22/18 at 05:00 Magnesium Hydroxide (Milk Of Magnesia) 2,400 mg PRN QHS PRN PO CONSTIPATION; Start 01/22/18 at 05:00 Vitamin D (Vitamin D3) 50,000 unit WEEKLY PO Last administered on 02/05/18at 08: 15; Start 01/22/18 at 18:00 Fluconazole (Diflucan) 100 mg DAILY PO Last administered on 02/09/18at 08:26; Start 01/23/18 at 09:00 Cefpodoxime Proxetil (Vantin) 200 mg BID PO Last administered on 01/28/18at 07: 57; Start 01/22/18 at 21:00; Stop 01/28/18 at 20:59; Status DC Lactobacillus Rhamnosus (Culturelle) 1 cap BID PO ; Start 01/22/18 at 21:00; Stop 01/22/18 at 21:00; Status DC Divalproex Sodium (Depakote Er) 500 mg HS PO Last administered on 01/24/18at 19: 58; Start 01/22/18 at 21:00; Stop 01/25/18 at 15:48; Status DC Divalproex Sodium (Depakote Er) 250 mg QHS PO Last administered on 01/24/18 19 :58; Start 01/22/18 at 21:00; Stop 01/25/18 at 15:48; Status DC Divalproex Sodium (Depakote Er) 1,000 mg QHS PO Last administered on 01/28/18at 19:36; Start 01/25/18 at 21:00; Stop 01/29/18 at 12:58; Status DC Risperidone (RisperDAL) 0.75 mg DAILY PO Last administered on 02/01/18 08:37; Start 01/27/18 at 09:00; Stop 02/01/18 at 18:53; Status DC Buspirone HCl (Buspar) 10 mg TID PO Last administered on 02/04/18at 13:38; Start 01/28/18 at 21:00; Stop 02/04/18 at 18:58; Status DC Divalproex Sodium (Depakote Er) 1,250 mg QHS PO ; Start 01/29/18 at 21:00; Stop 01/29/18 at 21:00; Status DC Carbamide Peroxide (Debrox) 5 drop PRN BID PRN AU IMPACTION Last administered on 01/31/18 12:43; Start 01/29/18 at 19:15 Divalproex Sodium (Depakote Er) 250 mg QHS PO Last administered on 02/09/18 20: 47; Start 01/29/18 at 21:00 Divalproex Sodium (Depakote Er) 1,000 mg QHS PO Last administered on 02/09/18 20:47; Start 01/29/18 at 21:00 Fluvoxamine Maleate (Luvox) 125 mg QHS PO Last administered on 02/02/18 20:37 ; Start 02/01/18 at 21:00; Stop 02/03/18 at 19:25; Status DC Risperidone (RisperDAL) 0.25 mg BID@0900,1300 PO Last administered on 13:31; Start 02/02/18 at 09:00; Stop 02/02/18 at 18:19; Status DC Risperidone (RisperDAL) 0.5 mg DAILY@1700 PO Last administered on 02/02/18 16: 48; Start 02/02/18 at 17:00; Stop 02/02/18 at 18:19; Status DC Fenofibrate (Tricor) 145 mg DAILY PO Last administered on 02/09/18 08:25; Start 02/02/18 at 09:00 Olanzapine (ZyPREXA ZYDIS) 1.25 mg PRN Q2HR PRN PO PSYCHOSIS Last administered on 02/08/18at 00:36; Start 02/02/18 at 18:30 Quetiapine Fumarate (SEROquel) 25 mg TID@0900,1300,1700 PO ; Start 02/03/18 at 09 :00; Stop 02/03/18 at 09:00; Status DC Quetiapine Fumarate (SEROquel) 12.5 mg TID@0900,1300,1700 PO Last administered on 02/09/18 17:09; Start 02/03/18 at 09:00 Fluvoxamine Maleate (Luvox) 150 mg HS PO Last administered on 02/04/18 20:52; Start 02/03/18 at 21:00; Stop 02/05/18 at 22:00; Status DC Insulin Glargine (Lantus) 18 units QHS SQ Last administered on 02/08/18 20:42; Start 02/04/18 at 21:00 Buspirone HCl (Buspar) 15 mg BID94 PO Last administered on 02/09/18 16:17; Start 02/05/18 at 09:00 Buspirone HCl (Buspar) 10 mg DAILY@1300 PO Last administered on 02/09/18at 12:45 ; Start 02/05/18 at 13:00 Memantine (Namenda) 10 mg BID PO Last administered on 02/09/18 20:47; Start 02/05/18 at 21:00 Fluvoxamine Maleate (Luvox) 150 mg HS PO Last administered on 02/09/18 20:46; Start 02/05/18 at 21:00 Fluvoxamine Maleate (Luvox) 25 mg QHS PO Last administered on 02/09/18at 20:45; Start 02/05/18 at 21:00 Active Scripts Active Reported Risperidone 1 Mg Tablet 1 Mg PO DAILY Namenda Xr (Memantine Hcl) 14 Mg Cap.spr.24 14 Mg PO DAILY Namenda Xr (Memantine Hcl) 7 Mg Cap.spr.24 7 Mg PO DAILY Depakote Er (Divalproex Sodium) 500 Mg Tab.er.24h 500 Mg PO HS Buspirone Hcl 10 Mg Tablet 10 Mg PO BID Fenofibrate (Fenofibrate,Micronized) 134 Mg Capsule 134 Mg PO DAILY Fluvoxamine Maleate 100 Mg Tablet 1 Tab PO QHS Levemir Flextouch (Insulin Detemir) 100 Unit/1 Ml Insuln.pen 24 Unit SQ HS Novolog Flexpen (Insulin Aspart) 100 Unit/1 Ml Insuln.pen 0-10 Unit SQ TIDAC SLIDING SCALE INSULIN Magnesium (Magnesium Oxide) 400 Mg Capsule 250 Mg PO DAILY Levothyroxine Sodium 125 Mcg Tablet 125 Mcg PO DAILY06 Atorvastatin Calcium 20 Mg Tablet 20 Mg PO DAILY Fluvoxamine Maleate 50 Mg Tablet 50 Mg PO DAILY Acetaminophen 500 Mg Tablet 500 Mg PO BID Calcium 600 + Vit D 200 Tablet (Calcium Carbonate/Vitamin D3) 1 Each Tablet 1 Each PO DAILY B-12 (Cyanocobalamin (Vitamin B-12)) 500 Mcg Tablet 250 Mcg PO DAILY Acidophilus (Lactobacillus Acidophilus) 1 Each Capsule 1 Each PO BID Metformin Hcl 850 Mg Tablet 850 Mg PO BIDWMEALS Ferrous Sulfate 325 Mg Tablet 1 Tab PO DAILY Topiramate 100 Mg Tablet 100 Mg PO TID Metoprolol Tartrate 25 Mg Tablet 25 Mg PO DAILY Ditropan Xl (Oxybutynin Chloride) 10 Mg Tab.er.24 10 Mg PO DAILY Miralax (Polyethylene Glycol 3350) 17 Gm Powd.pack 17 Gm PO DAILY Aspirin 81 Mg Tab.chew 81 Mg PO DAILY Cetirizine Hcl 10 Mg Tablet 10 Mg PO PRN DAILY PRN Hydrocodone-Apap 7.5-325 (Hydrocodone Bit/Acetaminophen) 1 Each Tablet 1 Tab PO PRN Q6HRS PRN Rynex Pse Liquid (Pseudoephedrine/Brompheniramin) 473 Ml Liquid 5 Ml PO PRN TID PRN Protonix (Pantoprazole Sodium) 20 Mg Tablet.dr 20 Mg PO PRN DAILY PRN Nystop (Nystatin) 60 Gm Powder 1 Soniya TP PRN BID PRN I have reviewed the current psychotropics carefully including drug interactions. Risk benefit ratio favors no change other than as noted in my dictated progress note. Diagnosis: Problems: (1) Anxiety disorder (2) Impulse control disorder (3) Bipolar affective disorder, mixed (4) Borderline intellectual disability (5) Borderline intellectual disability (6) Dementia in Alzheimer's disease with delusions LAURITA DAVIS MD February 09, 2018 20:56
[2018-02-09] MEDS: INSULIN GLARGINE 300 UNITS/3 ML INSULN.PEN. SQ SCH (21:00)
--- NOTE | 2018-02-10 05:09 | PN ---
DATE: 02/06/2018 This is a late entry of 02/06/2018 covers elements not covered in my initial note of 02/06/2018. SUBJECTIVE: I met with the patient in the evening. The patient slept 6-1/4 hours, had a better day, repeatedly obsessed about taking her underwear off, compliant with medications, redirectable. REVIEW OF SYSTEMS: No CV, , pulmonary, eye system symptoms on review. Ambulates with walker. MENTAL STATUS EXAM: Oriented to herself and situation. Speech coherent, can be high pitched at times, a little pressured, anxious. Abstraction fair, computation impaired, language function intact. Mood and affect remain somewhat labile, but improved. LABORATORY DATA: Reviewed. Valproic acid level therapeutic at 60. IMPRESSION: Unchanged from initial note. PLAN: Continue psychotropics from my initial note. MAN Kingston DAVIS MD DR: SUMEET/kirill JOB#: [id number] / [id number]
--- NOTE | 2018-02-10 05:12 | PN ---
DATE: 02/07/2018 This is a late entry for 02/07/2018 and covers the elements not covered in my initial note of 02/07/2018. SUBJECTIVE: I met with the patient in the evening. The patient is compliant with her medications, kept her underwear on most of the day, which is an improvement, less anxious, certainly confused and overall functioning consistent with intellectual disability. REVIEW OF SYSTEMS: No CV, , pulmonary, eye, ENT system symptoms on review. Reliability poor. MENTAL STATUS EXAM: Oriented to herself. Insight, judgment, recent memory is impaired. Language function intact. Attention span short. Mood and affect remain somewhat labile. LABORATORY DATA: Reviewed. IMPRESSION: Unchanged from initial note. PLAN: Continue psychotropics mentioned in my initial note. MAN Kingston DAVIS MD DR: SUMEET/kirill JOB#: [id number] / [id number]
[2018-02-10] MEDS: LEVOTHYROXINE 125 MCG TABLET PO SCH (05:29)
--- NOTE | 2018-02-10 06:02 | PN ---
DATE: 02/08/2018 PSYCHIATRIC PROGRESS NOTE This is a late entry for 02/08/2018, covers the elements not covered in my initial note of 02/08/2018. SUBJECTIVE: I met with the patient in the evening. The patient slept 8-1/2 hours, has been pleasant, had a long nap during the day. REVIEW OF SYSTEMS: No CV, , pulmonary, eye system symptoms on review. She has vague somatic symptoms. MENTAL STATUS EXAMINATION: Oriented to herself and situation. Speech coherent, rapid at times. Abstraction fair. Computation impaired. Language function intact. Attention span short. Mood and affect, lability improved. LABORATORY DATA: Valproic acid level therapeutic at 60. IMPRESSION: Unchanged from my initial note. PLAN: Continue current psychotropics. MAN Kingston DAVIS MD DR: SUMEET/kirill JOB#: [id number] / [id number]
[2018-02-10 06:17] VITALS: BP 141/71
[2018-02-10] MEDS: INSULIN LISPRO 300 UNITS/3 ML INSULN.PEN. SQ SCH ×3 (08:00→17:00)
[2018-02-10] MEDS: ATORVASTATIN CALCIUM 20 MG TABLET PO SCH (08:38)
[2018-02-10] MEDS: ACETAMINOPHEN 500 MG TABLET PO SCH ×2 (08:38→20:09)
[2018-02-10] MEDS: MEMANTINE 5 MG TABLET. PO SCH ×2 (08:38→20:09)
[2018-02-10] MEDS: FLUCONAZOLE 100 MG TABLET. PO SCH (08:38)
[2018-02-10] MEDS: LACTOBACILLUS RHAMNOSUS GG 1 CAPSULE. PO SCH ×2 (08:38→20:08)
[2018-02-10] MEDS: METOPROLOL TART IMMED RELEASE 25 MG TABLET PO SCH (08:38)
[2018-02-10] MEDS: POLYETHYLENE GLYCOL 3350 17 GM PACKET. PO SCH (08:38)
[2018-02-10] MEDS: MAGNESIUM OXIDE 400 MG TABLET PO SCH (08:39)
[2018-02-10] MEDS: CALCIUM CARB/VIT D3 500/200 TABLET PO SCH (08:39)
[2018-02-10] MEDS: FERROUS SULFATE 325 MG TABLET. PO SCH (08:40)
[2018-02-10] MEDS: OXYBUTYNIN CHLORIDE 5 MG TABLET PO SCH ×2 (08:40→20:09)
[2018-02-10] MEDS: FENOFIBRATE NANOCRYSTALLIZED 145 MG TABLET PO SCH (08:40)
[2018-02-10] MEDS: metFORMIN 850 MG TABLET PO SCH ×2 (08:40→16:32)
[2018-02-10] MEDS: ASPIRIN 81 MG TAB.CHEW PO SCH (08:40)
[2018-02-10] MEDS: CYANOCOBALAMIN (VITAMIN B-12) 250 MCG TABLET PO SCH (08:40)
[2018-02-10] MEDS: busPIRone 15 MG TABLET. PO SCH ×2 (08:40→16:32)
[2018-02-10] MEDS: QUEtiapine 25 MG TABLET. PO SCH ×3 (08:40→16:33)
[2018-02-10] MEDS: busPIRone 10 MG TABLET. PO SCH (12:43)
[2018-02-10 16:13] VITALS: BP 140/69
[2018-02-10] MEDS: DIVALPROEX ER 250 MG TAB.ER.24H. PO SCH (20:08)
[2018-02-10] MEDS: DIVALPROEX ER 500 MG TAB.ER.24H PO SCH (20:12)
[2018-02-10] MEDS: INSULIN GLARGINE 300 UNITS/3 ML INSULN.PEN. SQ SCH (20:15)
--- NOTE | 2018-02-10 20:50 | PDOC ---
Exam Note: Hemant Note: Please also refer to the separate dictated note~for this date of service dictated separately.~Patient seen individually. Discussed the patient with Nursing staff reviewed the chart.~Reviewed interim history and current functioning. Reviewed vital signs,~Labs/ Radiology~and current medications noted below. Continue current treatment with the changes noted in the dictated addendum note Assessment: Vital Signs: Vital Signs Date Time Temp Pulse Resp B/P (MAP) Pulse Ox O2 Delivery O2 Flow Rate FiO2 02/10/18 16:13 96.6 69 18 140/69 (92) 100 02/08/18 01:35 Room Air I&O Intake and Output 02/10/18 07:00 Intake Total 1200 ml Balance 1200 ml Intake Oral 1200 ml Labs: Laboratory Tests Test 02/10/18 07:12 02/10/18 11:29 02/10/18 16:53 02/10/18 19:32 Glucose (Fingerstick) 64 mg/dL (70-99) L 75 mg/dL (70-99) 127 mg/dL (70-99) H 115 mg/dL (70-99) H Current Medications: Meds: Current Medications Ceftriaxone Sodium (Rocephin Im) 1 gm 1X ONCE IM Last administered on 19:18; Start 01/21/18 at 19:15; Stop 01/21/18 at 19:16; Status DC Acetaminophen (Tylenol) 500 mg BID PO Last administered on 02/10/18 20:09; Start 01/21/18 at 22:00 Aspirin (Children'S Aspirin) 81 mg DAILY PO Last administered on 02/10/18 08:40 ; Start 01/22/18 at 09:00 Cetirizine HCl (ZyrTEC) 10 mg PRN DAILY PRN PO ALLERGIES; Start 01/21/18 at 22: 00 Ferrous Sulfate (Feosol) 325 mg DAILY PO Last administered on 02/10/18 08:40; Start 01/22/18 at 09:00 Acetaminophen/ Hydrocodone Bitart (Lortab 7.5/325) 1 tab PRN Q6HRS PRN PO MOD/ SEVERE PAIN Last administered on 02/08/18 00:35; Start 01/21/18 at 22:00 Levothyroxine Sodium (Synthroid) 125 mcg DAILY06 PO Last administered on 05:29; Start 01/22/18 at 06:00 Metformin HCl (Glucophage) 850 mg BIDWMEALS PO Last administered on 02/10/18 16 :32; Start 01/22/18 at 08:00 Metoprolol Tartrate (Lopressor) 25 mg DAILY PO Last administered on 02/10/18 08 :38; Start 01/22/18 at 09:00 Nystatin (Nystop) 1 soniya PRN BID PRN TP RASH Last administered on 01/31/18 21: 23; Start 01/21/18 at 22:00 Polyethylene Glycol (miraLAX) 17 gm DAILY PO Last administered on 02/10/18 08: 38; Start 01/22/18 at 09:00 Topiramate (Topamax) 100 mg TID PO Last administered on 02/01/18 14:30; Start 01/21/18 at 22:00; Stop 02/01/18 at 18:51; Status DC Calcium/Vitamin D (Oscal D 500mg/ 200uts) 1 tab DAILY PO Last administered on 08:39; Start 01/22/18 at 09:00 Cyanocobalamin (Vitamin B-12) 250 mcg DAILY PO Last administered on 02/10/18 08 :40; Start 01/22/18 at 09:00 Fenofibrate (Tricor) 145 mg DAILY PO Last administered on 02/01/18 08:40; Start 01/22/18 at 09:00; Stop 02/02/18 at 08:48; Status DC Insulin Glargine (Lantus) 24 units QHS SQ Last administered on 02/03/18 20:51; Start 01/21/18 at 22:00; Stop 02/04/18 at 18:30; Status DC Lactobacillus Rhamnosus (Culturelle) 1 cap BID PO Last administered on 20:08; Start 01/22/18 at 09:00 Magnesium Oxide (Magnesium Oxide) 200 mg DAILY PO Last administered on 08:39; Start 01/22/18 at 09:00 Oxybutynin Chloride (Ditropan) 5 mg BID PO Last administered on 02/10/18 20:09 ; Start 01/21/18 at 22:00 Pantoprazole Sodium (Protonix) 40 mg PRN DAILY PRN PO NEEDED BEFORE A MEAL; Start 01/22/18 at 07:30 Non-Formulary Medication (Pseudoephedrine/ Brompheniramin (Rynex Pse Liquid)) 5 ml PRN TID PRN PO COUGH; Start 01/21/18 at 22:00; Stop 01/21/18 at 22:36; Status DC Atorvastatin Calcium (Lipitor) 20 mg DAILY PO Last administered on 02/10/18at 08: 38; Start 01/22/18 at 09:00 Buspirone HCl (Buspar) 10 mg BID PO Last administered on 01/28/18at 07:56; Start 01/21/18 at 22:00; Stop 01/28/18 at 18:24; Status DC Divalproex Sodium (Depakote Er) 500 mg HS PO Last administered on 01/22/18at 00: 15; Start 01/21/18 at 22:00; Stop 01/22/18 at 18:18; Status DC Fluvoxamine Maleate (Luvox) 100 mg QHS PO Last administered on 01/31/18at 21:20 ; Start 01/21/18 at 22:00; Stop 02/01/18 at 18:51; Status DC Risperidone (RisperDAL) 1 mg DAILY PO Last administered on 01/26/18at 08:14; Start 01/22/18 at 09:00; Stop 01/26/18 at 18:22; Status DC Non-Formulary Medication (Fluvoxamine Maleate ) 50 mg DAILY PO ; Start 01/22/18 at 09:00; Stop 01/22/18 at 09:00; Status DC Non-Formulary Medication (Memantine Hcl (Namenda Xr)) 7 mg DAILY PO ; Start at 09:00; Stop 01/22/18 at 09:00; Status DC Memantine (Namenda) 5 mg BID PO Last administered on 02/05/18at 08:11; Start at 22:00; Stop 02/05/18 at 11:48; Status DC Insulin Human Lispro (HumaLOG) 0-10 UNITS TIDWMEALS SQ Last administered on at 17:38; Start 01/22/18 at 08:00 Nystatin (Nystop) 1 soniya PRN BID PRN TP RASH; Start 01/22/18 at 00:15; Status Cancel Acetaminophen (Tylenol) 650 mg PRN Q6HRS PRN PO PAIN / TEMP Last administered on 01/29/18at 06:32; Start 01/22/18 at 05:00 Multi-Ingredient Ointment (Analgesic [place]) 1 soniya PRN QID PRN TP MUSCLE PAIN; Start 01/22/18 at 05:00 Al Hydroxide/Mg Hydroxide (Mylanta Plus Xs) 15 ml PRN AFTMEALHC PRN PO DYSPEPSIA; Start 01/22/18 at 05:00 Magnesium Hydroxide (Milk Of Magnesia) 2,400 mg PRN QHS PRN PO CONSTIPATION; Start 01/22/18 at 05:00 Vitamin D (Vitamin D3) 50,000 unit WEEKLY PO Last administered on 02/05/18at 08: 15; Start 01/22/18 at 18:00 Fluconazole (Diflucan) 100 mg DAILY PO Last administered on 02/10/18at 08:38; Start 01/23/18 at 09:00 Cefpodoxime Proxetil (Vantin) 200 mg BID PO Last administered on 01/28/18at 07: 57; Start 01/22/18 at 21:00; Stop 01/28/18 at 20:59; Status DC Lactobacillus Rhamnosus (Culturelle) 1 cap BID PO ; Start 01/22/18 at 21:00; Stop 01/22/18 at 21:00; Status DC Divalproex Sodium (Depakote Er) 500 mg HS PO Last administered on 01/24/18at 19: 58; Start 01/22/18 at 21:00; Stop 01/25/18 at 15:48; Status DC Divalproex Sodium (Depakote Er) 250 mg QHS PO Last administered on 01/24/18at 19 :58; Start 01/22/18 at 21:00; Stop 01/25/18 at 15:48; Status DC Divalproex Sodium (Depakote Er) 1,000 mg QHS PO Last administered on 01/28/18at 19:36; Start 01/25/18 at 21:00; Stop 01/29/18 at 12:58; Status DC Risperidone (RisperDAL) 0.75 mg DAILY PO Last administered on 02/01/18 08:37; Start 01/27/18 at 09:00; Stop 02/01/18 at 18:53; Status DC Buspirone HCl (Buspar) 10 mg TID PO Last administered on 02/04/18 13:38; Start 01/28/18 at 21:00; Stop 02/04/18 at 18:58; Status DC Divalproex Sodium (Depakote Er) 1,250 mg QHS PO ; Start 01/29/18 at 21:00; Stop 01/29/18 at 21:00; Status DC Carbamide Peroxide (Debrox) 5 drop PRN BID PRN AU IMPACTION Last administered on 01/31/18 12:43; Start 01/29/18 at 19:15 Divalproex Sodium (Depakote Er) 250 mg QHS PO Last administered on 02/10/18 20: 08; Start 01/29/18 at 21:00 Divalproex Sodium (Depakote Er) 1,000 mg QHS PO Last administered on 02/10/18 20:12; Start 01/29/18 at 21:00 Fluvoxamine Maleate (Luvox) 125 mg QHS PO Last administered on 02/02/18 20:37 ; Start 02/01/18 at 21:00; Stop 02/03/18 at 19:25; Status DC Risperidone (RisperDAL) 0.25 mg BID@0900,1300 PO Last administered on 13:31; Start 02/02/18 at 09:00; Stop 02/02/18 at 18:19; Status DC Risperidone (RisperDAL) 0.5 mg DAILY@1700 PO Last administered on 02/02/18 16: 48; Start 02/02/18 at 17:00; Stop 02/02/18 at 18:19; Status DC Fenofibrate (Tricor) 145 mg DAILY PO Last administered on 02/10/18 08:40; Start 02/02/18 at 09:00 Olanzapine (ZyPREXA ZYDIS) 1.25 mg PRN Q2HR PRN PO PSYCHOSIS Last administered on 02/08/18 00:36; Start 02/02/18 at 18:30 Quetiapine Fumarate (SEROquel) 25 mg TID@0900,1300,1700 PO ; Start 02/03/18 at 09 :00; Stop 02/03/18 at 09:00; Status DC Quetiapine Fumarate (SEROquel) 12.5 mg TID@0900,1300,1700 PO Last administered on 02/10/18 16:33; Start 02/03/18 at 09:00 Fluvoxamine Maleate (Luvox) 150 mg HS PO Last administered on 02/04/18 20:52; Start 02/03/18 at 21:00; Stop 02/05/18 at 22:00; Status DC Insulin Glargine (Lantus) 18 units QHS SQ Last administered on 02/10/18 20:15; Start 02/04/18 at 21:00 Buspirone HCl (Buspar) 15 mg BID94 PO Last administered on 02/10/18 16:32; Start 02/05/18 at 09:00 Buspirone HCl (Buspar) 10 mg DAILY@1300 PO Last administered on 02/10/18 12:43 ; Start 02/05/18 at 13:00 Memantine (Namenda) 10 mg BID PO Last administered on 02/10/18 20:09; Start 02/05/18 at 21:00 Fluvoxamine Maleate (Luvox) 150 mg HS PO Last administered on 02/10/18 20:08; Start 02/05/18 at 21:00 Fluvoxamine Maleate (Luvox) 25 mg QHS PO Last administered on 02/10/18 20:08; Start 02/05/18 at 21:00 Active Scripts Active Reported Risperidone 1 Mg Tablet 1 Mg PO DAILY Namenda Xr (Memantine Hcl) 14 Mg Cap.spr.24 14 Mg PO DAILY Namenda Xr (Memantine Hcl) 7 Mg Cap.spr.24 7 Mg PO DAILY Depakote Er (Divalproex Sodium) 500 Mg Tab.er.24h 500 Mg PO HS Buspirone Hcl 10 Mg Tablet 10 Mg PO BID Fenofibrate (Fenofibrate,Micronized) 134 Mg Capsule 134 Mg PO DAILY Fluvoxamine Maleate 100 Mg Tablet 1 Tab PO QHS Levemir Flextouch (Insulin Detemir) 100 Unit/1 Ml Insuln.pen 24 Unit SQ HS Novolog Flexpen (Insulin Aspart) 100 Unit/1 Ml Insuln.pen 0-10 Unit SQ TIDAC SLIDING SCALE INSULIN Magnesium (Magnesium Oxide) 400 Mg Capsule 250 Mg PO DAILY Levothyroxine Sodium 125 Mcg Tablet 125 Mcg PO DAILY06 Atorvastatin Calcium 20 Mg Tablet 20 Mg PO DAILY Fluvoxamine Maleate 50 Mg Tablet 50 Mg PO DAILY Acetaminophen 500 Mg Tablet 500 Mg PO BID Calcium 600 + Vit D 200 Tablet (Calcium Carbonate/Vitamin D3) 1 Each Tablet 1 Each PO DAILY B-12 (Cyanocobalamin (Vitamin B-12)) 500 Mcg Tablet 250 Mcg PO DAILY Acidophilus (Lactobacillus Acidophilus) 1 Each Capsule 1 Each PO BID Metformin Hcl 850 Mg Tablet 850 Mg PO BIDWMEALS Ferrous Sulfate 325 Mg Tablet 1 Tab PO DAILY Topiramate 100 Mg Tablet 100 Mg PO TID Metoprolol Tartrate 25 Mg Tablet 25 Mg PO DAILY Ditropan Xl (Oxybutynin Chloride) 10 Mg Tab.er.24 10 Mg PO DAILY Miralax (Polyethylene Glycol 3350) 17 Gm Powd.pack 17 Gm PO DAILY Aspirin 81 Mg Tab.chew 81 Mg PO DAILY Cetirizine Hcl 10 Mg Tablet 10 Mg PO PRN DAILY PRN Hydrocodone-Apap 7.5-325 (Hydrocodone Bit/Acetaminophen) 1 Each Tablet 1 Tab PO PRN Q6HRS PRN Rynex Pse Liquid (Pseudoephedrine/Brompheniramin) 473 Ml Liquid 5 Ml PO PRN TID PRN Protonix (Pantoprazole Sodium) 20 Mg Tablet.dr 20 Mg PO PRN DAILY PRN Nystop (Nystatin) 60 Gm Powder 1 Soniya TP PRN BID PRN I have reviewed the current psychotropics carefully including drug interactions. Risk benefit ratio favors no change other than as noted in my dictated progress note. 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
--- NOTE | 2018-02-10 22:36 | PN ---
DATE: 02/09/2018 This is a late entry of 02/09/2018 covers elements not covered in my initial note. SUBJECTIVE: The patient slept 6 hours. I met with her in the evening. She is constantly taking off her underwear whenever she sits down, but some of this is consistent with intellectual disability. The fungal infection, yeast infection around her groin area is improved, however. REVIEW OF SYSTEMS: No CV, , pulmonary, eye, ENT system symptoms on review. MENTAL STATUS EXAM: Oriented to herself and situation. Speech can be high pitched at times. Abstraction fair, computation impaired, language function intact. Mood and affect, lability improved. IMPRESSION: Unchanged from initial note. PLAN: Continue current psychotropics and Luvox was increased for her obsessive and repetitive behaviors. MAN Kingston DAVIS MD DR: SUMEET/kirill JOB#: [id number] / [id number]
[2018-02-11] MEDS: ACETAMINOPHEN 325 MG TABLET PO PRN (03:46)
[2018-02-11 05:58] VITALS: BP 148/58
[2018-02-11] MEDS: LEVOTHYROXINE 125 MCG TABLET PO SCH (06:14)
[2018-02-11] MEDS: INSULIN LISPRO 300 UNITS/3 ML INSULN.PEN. SQ SCH ×3 (08:00→17:00)
[2018-02-11] MEDS: POLYETHYLENE GLYCOL 3350 17 GM PACKET. PO SCH (09:00)
[2018-02-11] MEDS: MAGNESIUM OXIDE 400 MG TABLET PO SCH (09:38)
[2018-02-11] MEDS: metFORMIN 850 MG TABLET PO SCH ×2 (09:38→16:49)
[2018-02-11] MEDS: ACETAMINOPHEN 500 MG TABLET PO SCH ×2 (09:38→20:21)
[2018-02-11] MEDS: MEMANTINE 5 MG TABLET. PO SCH ×2 (09:42→20:22)
[2018-02-11] MEDS: CYANOCOBALAMIN (VITAMIN B-12) 250 MCG TABLET PO SCH (09:42)
[2018-02-11] MEDS: FLUCONAZOLE 100 MG TABLET. PO SCH (09:43)
[2018-02-11] MEDS: OXYBUTYNIN CHLORIDE 5 MG TABLET PO SCH ×2 (09:43→20:21)
[2018-02-11] MEDS: FENOFIBRATE NANOCRYSTALLIZED 145 MG TABLET PO SCH (09:43)
[2018-02-11] MEDS: QUEtiapine 25 MG TABLET. PO SCH ×3 (09:43→16:48)
[2018-02-11] MEDS: LACTOBACILLUS RHAMNOSUS GG 1 CAPSULE. PO SCH ×2 (09:43→20:22)
[2018-02-11] MEDS: busPIRone 15 MG TABLET. PO SCH ×2 (09:43→16:49)
[2018-02-11] MEDS: ATORVASTATIN CALCIUM 20 MG TABLET PO SCH (09:44)
[2018-02-11] MEDS: CALCIUM CARB/VIT D3 500/200 TABLET PO SCH (09:44)
[2018-02-11] MEDS: ASPIRIN 81 MG TAB.CHEW PO SCH (09:44)
[2018-02-11] MEDS: FERROUS SULFATE 325 MG TABLET. PO SCH (09:46)
[2018-02-11 09:47] VITALS: BP 148/83
[2018-02-11] MEDS: METOPROLOL TART IMMED RELEASE 25 MG TABLET PO SCH (09:49)
[2018-02-11] MEDS: busPIRone 10 MG TABLET. PO SCH (13:00)
[2018-02-11 18:14] VITALS: BP 132/57
[2018-02-11] MEDS: DIVALPROEX ER 250 MG TAB.ER.24H. PO SCH (20:21)
[2018-02-11] MEDS: DIVALPROEX ER 500 MG TAB.ER.24H PO SCH (20:22)
[2018-02-11] MEDS: INSULIN GLARGINE 300 UNITS/3 ML INSULN.PEN. SQ SCH (20:24)
--- NOTE | 2018-02-11 22:15 | PDOC ---
Exam Note: Hemant Note: Please also refer to the separate dictated note~for this date of service dictated separately.~Patient seen individually. Discussed the patient with Nursing staff reviewed the chart.~Reviewed interim history and current functioning. Reviewed vital signs,~Labs/ Radiology~and current medications noted below. Continue current treatment with the changes noted in the dictated addendum note Assessment: Vital Signs: Vital Signs Date Time Temp Pulse Resp B/P (MAP) Pulse Ox O2 Delivery O2 Flow Rate FiO2 02/11/18 18:14 97.4 84 18 132/57 (82) 96 02/11/18 09:52 Room Air I&O Intake and Output 02/11/18 07:00 Intake Total 1320 ml Balance 1320 ml Intake Oral 1320 ml # Voids 1 # Bowel Movements 1 Labs: Laboratory Tests Test 02/11/18 07:27 02/11/18 11:31 02/11/18 17:07 02/11/18 19:16 Glucose (Fingerstick) 76 mg/dL (70-99) 148 mg/dL (70-99) H 118 mg/dL (70-99) H 147 mg/dL (70-99) H Current Medications: Meds: Current Medications Ceftriaxone Sodium (Rocephin Im) 1 gm 1X ONCE IM Last administered on 19:18; Start 01/21/18 at 19:15; Stop 01/21/18 at 19:16; Status DC Acetaminophen (Tylenol) 500 mg BID PO Last administered on 02/11/18at 20:21; Start 01/21/18 at 22:00 Aspirin (Children'S Aspirin) 81 mg DAILY PO Last administered on 02/11/18at 09:44 ; Start 01/22/18 at 09:00 Cetirizine HCl (ZyrTEC) 10 mg PRN DAILY PRN PO ALLERGIES; Start 01/21/18 at 22: 00 Ferrous Sulfate (Feosol) 325 mg DAILY PO Last administered on 02/11/18at 09:46; Start 01/22/18 at 09:00 Acetaminophen/ Hydrocodone Bitart (Lortab 7.5/325) 1 tab PRN Q6HRS PRN PO MOD/ SEVERE PAIN Last administered on 02/08/18at 00:35; Start 01/21/18 at 22:00 Levothyroxine Sodium (Synthroid) 125 mcg DAILY06 PO Last administered on 06:14; Start 01/22/18 at 06:00 Metformin HCl (Glucophage) 850 mg BIDWMEALS PO Last administered on 02/11/18 16 :49; Start 01/22/18 at 08:00 Metoprolol Tartrate (Lopressor) 25 mg DAILY PO Last administered on 02/11/18 09 :49; Start 01/22/18 at 09:00 Nystatin (Nystop) 1 soniya PRN BID PRN TP RASH Last administered on 01/31/18 21: 23; Start 01/21/18 at 22:00 Polyethylene Glycol (miraLAX) 17 gm DAILY PO Last administered on 02/10/18 08: 38; Start 01/22/18 at 09:00 Topiramate (Topamax) 100 mg TID PO Last administered on 02/01/18 14:30; Start 01/21/18 at 22:00; Stop 02/01/18 at 18:51; Status DC Calcium/Vitamin D (Oscal D 500mg/ 200uts) 1 tab DAILY PO Last administered on 09:44; Start 01/22/18 at 09:00 Cyanocobalamin (Vitamin B-12) 250 mcg DAILY PO Last administered on 02/11/18 09 :42; Start 01/22/18 at 09:00 Fenofibrate (Tricor) 145 mg DAILY PO Last administered on 02/01/18 08:40; Start 01/22/18 at 09:00; Stop 02/02/18 at 08:48; Status DC Insulin Glargine (Lantus) 24 units QHS SQ Last administered on 02/03/18 20:51; Start 01/21/18 at 22:00; Stop 02/04/18 at 18:30; Status DC Lactobacillus Rhamnosus (Culturelle) 1 cap BID PO Last administered on 20:22; Start 01/22/18 at 09:00 Magnesium Oxide (Magnesium Oxide) 200 mg DAILY PO Last administered on 09:38; Start 01/22/18 at 09:00 Oxybutynin Chloride (Ditropan) 5 mg BID PO Last administered on 02/11/18 20:21 ; Start 01/21/18 at 22:00 Pantoprazole Sodium (Protonix) 40 mg PRN DAILY PRN PO NEEDED BEFORE A MEAL; Start 01/22/18 at 07:30 Non-Formulary Medication (Pseudoephedrine/ Brompheniramin (Rynex Pse Liquid)) 5 ml PRN TID PRN PO COUGH; Start 01/21/18 at 22:00; Stop 01/21/18 at 22:36; Status DC Atorvastatin Calcium (Lipitor) 20 mg DAILY PO Last administered on 02/11/18at 09: 44; Start 01/22/18 at 09:00 Buspirone HCl (Buspar) 10 mg BID PO Last administered on 01/28/18at 07:56; Start 01/21/18 at 22:00; Stop 01/28/18 at 18:24; Status DC Divalproex Sodium (Depakote Er) 500 mg HS PO Last administered on 01/22/18at 00: 15; Start 01/21/18 at 22:00; Stop 01/22/18 at 18:18; Status DC Fluvoxamine Maleate (Luvox) 100 mg QHS PO Last administered on 01/31/18at 21:20 ; Start 01/21/18 at 22:00; Stop 02/01/18 at 18:51; Status DC Risperidone (RisperDAL) 1 mg DAILY PO Last administered on 01/26/18at 08:14; Start 01/22/18 at 09:00; Stop 01/26/18 at 18:22; Status DC Non-Formulary Medication (Fluvoxamine Maleate ) 50 mg DAILY PO ; Start 01/22/18 at 09:00; Stop 01/22/18 at 09:00; Status DC Non-Formulary Medication (Memantine Hcl (Namenda Xr)) 7 mg DAILY PO ; Start at 09:00; Stop 01/22/18 at 09:00; Status DC Memantine (Namenda) 5 mg BID PO Last administered on 02/05/18at 08:11; Start at 22:00; Stop 02/05/18 at 11:48; Status DC Insulin Human Lispro (HumaLOG) 0-10 UNITS TIDWMEALS SQ Last administered on at 17:38; Start 01/22/18 at 08:00 Nystatin (Nystop) 1 soniya PRN BID PRN TP RASH; Start 01/22/18 at 00:15; Status Cancel Acetaminophen (Tylenol) 650 mg PRN Q6HRS PRN PO PAIN / TEMP Last administered on 02/11/18at 03:46; Start 01/22/18 at 05:00 Multi-Ingredient Ointment (Analgesic [place]) 1 soniya PRN QID PRN TP MUSCLE PAIN; Start 01/22/18 at 05:00 Al Hydroxide/Mg Hydroxide (Mylanta Plus Xs) 15 ml PRN AFTMEALHC PRN PO DYSPEPSIA; Start 01/22/18 at 05:00 Magnesium Hydroxide (Milk Of Magnesia) 2,400 mg PRN QHS PRN PO CONSTIPATION; Start 01/22/18 at 05:00 Vitamin D (Vitamin D3) 50,000 unit WEEKLY PO Last administered on 02/05/18at 08: 15; Start 01/22/18 at 18:00 Fluconazole (Diflucan) 100 mg DAILY PO Last administered on 02/11/18at 09:43; Start 01/23/18 at 09:00 Cefpodoxime Proxetil (Vantin) 200 mg BID PO Last administered on 01/28/18 07: 57; Start 01/22/18 at 21:00; Stop 01/28/18 at 20:59; Status DC Lactobacillus Rhamnosus (Culturelle) 1 cap BID PO ; Start 01/22/18 at 21:00; Stop 01/22/18 at 21:00; Status DC Divalproex Sodium (Depakote Er) 500 mg HS PO Last administered on 01/24/18at 19: 58; Start 01/22/18 at 21:00; Stop 01/25/18 at 15:48; Status DC Divalproex Sodium (Depakote Er) 250 mg QHS PO Last administered on 01/24/18at 19 :58; Start 01/22/18 at 21:00; Stop 01/25/18 at 15:48; Status DC Divalproex Sodium (Depakote Er) 1,000 mg QHS PO Last administered on 01/28/18at 19:36; Start 01/25/18 at 21:00; Stop 01/29/18 at 12:58; Status DC Risperidone (RisperDAL) 0.75 mg DAILY PO Last administered on 02/01/18 08:37; Start 01/27/18 at 09:00; Stop 02/01/18 at 18:53; Status DC Buspirone HCl (Buspar) 10 mg TID PO Last administered on 02/04/18 13:38; Start 01/28/18 at 21:00; Stop 02/04/18 at 18:58; Status DC Divalproex Sodium (Depakote Er) 1,250 mg QHS PO ; Start 01/29/18 at 21:00; Stop 01/29/18 at 21:00; Status DC Carbamide Peroxide (Debrox) 5 drop PRN BID PRN AU IMPACTION Last administered on 01/31/18 12:43; Start 01/29/18 at 19:15 Divalproex Sodium (Depakote Er) 250 mg QHS PO Last administered on 02/11/18 20: 21; Start 01/29/18 at 21:00 Divalproex Sodium (Depakote Er) 1,000 mg QHS PO Last administered on 02/11/18 20:22; Start 01/29/18 at 21:00 Fluvoxamine Maleate (Luvox) 125 mg QHS PO Last administered on 02/02/18 20:37 ; Start 02/01/18 at 21:00; Stop 02/03/18 at 19:25; Status DC Risperidone (RisperDAL) 0.25 mg BID@0900,1300 PO Last administered on 13:31; Start 02/02/18 at 09:00; Stop 02/02/18 at 18:19; Status DC Risperidone (RisperDAL) 0.5 mg DAILY@1700 PO Last administered on 02/02/18 16: 48; Start 02/02/18 at 17:00; Stop 02/02/18 at 18:19; Status DC Fenofibrate (Tricor) 145 mg DAILY PO Last administered on 02/11/18 09:43; Start 02/02/18 at 09:00 Olanzapine (ZyPREXA ZYDIS) 1.25 mg PRN Q2HR PRN PO PSYCHOSIS Last administered on 02/08/18at 00:36; Start 02/02/18 at 18:30 Quetiapine Fumarate (SEROquel) 25 mg TID@0900,1300,1700 PO ; Start 02/03/18 at 09 :00; Stop 02/03/18 at 09:00; Status DC Quetiapine Fumarate (SEROquel) 12.5 mg TID@0900,1300,1700 PO Last administered on 02/11/18 16:48; Start 02/03/18 at 09:00 Fluvoxamine Maleate (Luvox) 150 mg HS PO Last administered on 02/04/18 20:52; Start 02/03/18 at 21:00; Stop 02/05/18 at 22:00; Status DC Insulin Glargine (Lantus) 18 units QHS SQ Last administered on 02/11/18at 20:24; Start 02/04/18 at 21:00 Buspirone HCl (Buspar) 15 mg BID94 PO Last administered on 02/11/18at 16:49; Start 02/05/18 at 09:00 Buspirone HCl (Buspar) 10 mg DAILY@1300 PO Last administered on 02/11/18at 13:00 ; Start 02/05/18 at 13:00 Memantine (Namenda) 10 mg BID PO Last administered on 02/11/18 20:22; Start 02/05/18 at 21:00 Fluvoxamine Maleate (Luvox) 150 mg HS PO Last administered on 02/11/18 20:21; Start 02/05/18 at 21:00 Fluvoxamine Maleate (Luvox) 25 mg QHS PO Last administered on 02/11/18at 20:21; Start 02/05/18 at 21:00 Active Scripts Active Reported Risperidone 1 Mg Tablet 1 Mg PO DAILY Namenda Xr (Memantine Hcl) 14 Mg Cap.spr.24 14 Mg PO DAILY Namenda Xr (Memantine Hcl) 7 Mg Cap.spr.24 7 Mg PO DAILY Depakote Er (Divalproex Sodium) 500 Mg Tab.er.24h 500 Mg PO HS Buspirone Hcl 10 Mg Tablet 10 Mg PO BID Fenofibrate (Fenofibrate,Micronized) 134 Mg Capsule 134 Mg PO DAILY Fluvoxamine Maleate 100 Mg Tablet 1 Tab PO QHS Levemir Flextouch (Insulin Detemir) 100 Unit/1 Ml Insuln.pen 24 Unit SQ HS Novolog Flexpen (Insulin Aspart) 100 Unit/1 Ml Insuln.pen 0-10 Unit SQ TIDAC SLIDING SCALE INSULIN Magnesium (Magnesium Oxide) 400 Mg Capsule 250 Mg PO DAILY Levothyroxine Sodium 125 Mcg Tablet 125 Mcg PO DAILY06 Atorvastatin Calcium 20 Mg Tablet 20 Mg PO DAILY Fluvoxamine Maleate 50 Mg Tablet 50 Mg PO DAILY Acetaminophen 500 Mg Tablet 500 Mg PO BID Calcium 600 + Vit D 200 Tablet (Calcium Carbonate/Vitamin D3) 1 Each Tablet 1 Each PO DAILY B-12 (Cyanocobalamin (Vitamin B-12)) 500 Mcg Tablet 250 Mcg PO DAILY Acidophilus (Lactobacillus Acidophilus) 1 Each Capsule 1 Each PO BID Metformin Hcl 850 Mg Tablet 850 Mg PO BIDWMEALS Ferrous Sulfate 325 Mg Tablet 1 Tab PO DAILY Topiramate 100 Mg Tablet 100 Mg PO TID Metoprolol Tartrate 25 Mg Tablet 25 Mg PO DAILY Ditropan Xl (Oxybutynin Chloride) 10 Mg Tab.er.24 10 Mg PO DAILY Miralax (Polyethylene Glycol 3350) 17 Gm Powd.pack 17 Gm PO DAILY Aspirin 81 Mg Tab.chew 81 Mg PO DAILY Cetirizine Hcl 10 Mg Tablet 10 Mg PO PRN DAILY PRN Hydrocodone-Apap 7.5-325 (Hydrocodone Bit/Acetaminophen) 1 Each Tablet 1 Tab PO PRN Q6HRS PRN Rynex Pse Liquid (Pseudoephedrine/Brompheniramin) 473 Ml Liquid 5 Ml PO PRN TID PRN Protonix (Pantoprazole Sodium) 20 Mg Tablet.dr 20 Mg PO PRN DAILY PRN Nystop (Nystatin) 60 Gm Powder 1 Soniya TP PRN BID PRN I have reviewed the current psychotropics carefully including drug interactions. Risk benefit ratio favors no change other than as noted in my dictated progress note. Diagnosis: Problems: (1) Anxiety disorder (2) Impulse control disorder (3) Bipolar affective disorder, mixed (4) Borderline intellectual disability (5) Borderline intellectual disability (6) Dementia in Alzheimer's disease with delusions LAURITA DAVIS MD February 11, 2018 22:15
--- NOTE | 2018-02-12 01:12 | PN ---
DATE: 02/10/2018 This late entry of 02/10/2018 covers elements not covered in my initial note of 02/10/2018. SUBJECTIVE: I met with the patient in the evening. The patient slept 7 hours previous evening. She remains somewhat anxious, labile, much of her functioning consistent with her intellectual disability. She defecated on the floor, refuses to wear underwear, loud at times, but redirects. REVIEW OF SYSTEMS: No CV, , pulmonary, eye, ENT system symptoms on review. Reliability poor. MENTAL STATUS EXAM: Oriented to herself, situation. Insight, judgment, recent memory is impaired. Language function intact. Attention span short. Mood and affect somewhat labile, showing improvement. LABORATORY DATA: Reviewed. IMPRESSION: Unchanged from initial note. PLAN: Continue current psychotropics. MAN Kingston DAVIS MD DR: SUMEET/kirill JOB#: [id number] / [id number]
[2018-02-12] MEDS: LEVOTHYROXINE 125 MCG TABLET PO SCH (06:00)
[2018-02-12] MEDS: INSULIN LISPRO 300 UNITS/3 ML INSULN.PEN. SQ SCH ×3 (09:11→17:14)
[2018-02-12] MEDS: metFORMIN 850 MG TABLET PO SCH ×2 (09:13→17:13)
[2018-02-12] MEDS: busPIRone 15 MG TABLET. PO SCH ×2 (09:13→17:13)
[2018-02-12] MEDS: OXYBUTYNIN CHLORIDE 5 MG TABLET PO SCH ×2 (09:14→20:54)
[2018-02-12] MEDS: ASPIRIN 81 MG TAB.CHEW PO SCH (09:14)
[2018-02-12] MEDS: LACTOBACILLUS RHAMNOSUS GG 1 CAPSULE. PO SCH ×2 (09:14→20:55)
[2018-02-12] MEDS: FERROUS SULFATE 325 MG TABLET. PO SCH (09:14)
[2018-02-12] MEDS: FLUCONAZOLE 100 MG TABLET. PO SCH (09:14)
[2018-02-12] MEDS: ATORVASTATIN CALCIUM 20 MG TABLET PO SCH (09:14)
[2018-02-12] MEDS: POLYETHYLENE GLYCOL 3350 17 GM PACKET. PO SCH (09:16)
[2018-02-12] MEDS: MAGNESIUM OXIDE 400 MG TABLET PO SCH (09:16)
[2018-02-12] MEDS: MEMANTINE 5 MG TABLET. PO SCH ×2 (09:16→20:54)
[2018-02-12] MEDS: CALCIUM CARB/VIT D3 500/200 TABLET PO SCH (09:16)
[2018-02-12] MEDS: METOPROLOL TART IMMED RELEASE 25 MG TABLET PO SCH (09:16)
[2018-02-12] MEDS: ACETAMINOPHEN 500 MG TABLET PO SCH ×2 (09:17→20:54)
[2018-02-12] MEDS: CYANOCOBALAMIN (VITAMIN B-12) 250 MCG TABLET PO SCH (09:17)
[2018-02-12] MEDS: FENOFIBRATE NANOCRYSTALLIZED 145 MG TABLET PO SCH (09:17)
[2018-02-12] MEDS: QUEtiapine 25 MG TABLET. PO SCH ×3 (09:17→17:13)
[2018-02-12] MEDS: CHOLECALCIFEROL (VITAMIN D3) 50,000 UNIT CAPSULE PO SCH (09:19)
[2018-02-12] MEDS: busPIRone 10 MG TABLET. PO SCH (14:13)
[2018-02-12 18:14] VITALS: BP 124/71
--- NOTE | 2018-02-12 20:46 | PDOC ---
Exam Note: Hemant Note: Please also refer to the separate dictated note~for this date of service dictated separately.~Patient seen individually. Discussed the patient with Nursing staff reviewed the chart.~Reviewed interim history and current functioning. Reviewed vital signs,~Labs/ Radiology~and current medications noted below. Continue current treatment with the changes noted in the dictated addendum note Assessment: Vital Signs: Vital Signs Date Time Temp Pulse Resp B/P (MAP) Pulse Ox O2 Delivery O2 Flow Rate FiO2 02/12/18 18:14 97.8 63 18 124/71 (88) 100 02/11/18 09:52 Room Air I&O Intake and Output 02/12/18 07:00 Intake Total 1320 ml Output Total 1 ml Balance 1319 ml Intake Oral 1320 ml Output Urine Total 1 ml # Bowel Movements 1 Labs: Laboratory Tests Test 02/12/18 07:28 02/12/18 11:41 02/12/18 16:17 02/12/18 19:22 Glucose (Fingerstick) 83 mg/dL (70-99) 106 mg/dL (70-99) H 109 mg/dL (70-99) H 158 mg/dL (70-99) H Current Medications: Meds: Current Medications Ceftriaxone Sodium (Rocephin Im) 1 gm 1X ONCE IM Last administered on 19:18; Start 01/21/18 at 19:15; Stop 01/21/18 at 19:16; Status DC Acetaminophen (Tylenol) 500 mg BID PO Last administered on 02/12/18 09:17; Start 01/21/18 at 22:00 Aspirin (Children'S Aspirin) 81 mg DAILY PO Last administered on 02/12/18 09: 14; Start 01/22/18 at 09:00 Cetirizine HCl (ZyrTEC) 10 mg PRN DAILY PRN PO ALLERGIES; Start 01/21/18 at 22: 00 Ferrous Sulfate (Feosol) 325 mg DAILY PO Last administered on 02/12/18 09:14; Start 01/22/18 at 09:00 Acetaminophen/ Hydrocodone Bitart (Lortab 7.5/325) 1 tab PRN Q6HRS PRN PO MOD/ SEVERE PAIN Last administered on 02/08/18at 00:35; Start 01/21/18 at 22:00 Levothyroxine Sodium (Synthroid) 125 mcg DAILY06 PO Last administered on 06:14; Start 01/22/18 at 06:00 Metformin HCl (Glucophage) 850 mg BIDWMEALS PO Last administered on 02/12/18 17:13; Start 01/22/18 at 08:00 Metoprolol Tartrate (Lopressor) 25 mg DAILY PO Last administered on 02/12/18 09:16; Start 01/22/18 at 09:00 Nystatin (Nystop) 1 soniya PRN BID PRN TP RASH Last administered on 01/31/18 21: 23; Start 01/21/18 at 22:00 Polyethylene Glycol (miraLAX) 17 gm DAILY PO Last administered on 02/12/18 09: 16; Start 01/22/18 at 09:00 Topiramate (Topamax) 100 mg TID PO Last administered on 02/01/18 14:30; Start 01/21/18 at 22:00; Stop 02/01/18 at 18:51; Status DC Calcium/Vitamin D (Oscal D 500mg/ 200uts) 1 tab DAILY PO Last administered on 09:16; Start 01/22/18 at 09:00 Cyanocobalamin (Vitamin B-12) 250 mcg DAILY PO Last administered on 02/12/18 09:17; Start 01/22/18 at 09:00 Fenofibrate (Tricor) 145 mg DAILY PO Last administered on 02/01/18 08:40; Start 01/22/18 at 09:00; Stop 02/02/18 at 08:48; Status DC Insulin Glargine (Lantus) 24 units QHS SQ Last administered on 02/03/18 20:51; Start 01/21/18 at 22:00; Stop 02/04/18 at 18:30; Status DC Lactobacillus Rhamnosus (Culturelle) 1 cap BID PO Last administered on 09:14; Start 01/22/18 at 09:00 Magnesium Oxide (Magnesium Oxide) 200 mg DAILY PO Last administered on 09:16; Start 01/22/18 at 09:00 Oxybutynin Chloride (Ditropan) 5 mg BID PO Last administered on 5/10/18at 09:14 ; Start 01/21/18 at 22:00 Pantoprazole Sodium (Protonix) 40 mg PRN DAILY PRN PO NEEDED BEFORE A MEAL; Start 01/22/18 at 07:30 Non-Formulary Medication (Pseudoephedrine/ Brompheniramin (Rynex Pse Liquid)) 5 ml PRN TID PRN PO COUGH; Start 01/21/18 at 22:00; Stop 01/21/18 at 22:36; Status DC Atorvastatin Calcium (Lipitor) 20 mg DAILY PO Last administered on 02/12/18at 09 :14; Start 01/22/18 at 09:00 Buspirone HCl (Buspar) 10 mg BID PO Last administered on 01/28/18at 07:56; Start 01/21/18 at 22:00; Stop 01/28/18 at 18:24; Status DC Divalproex Sodium (Depakote Er) 500 mg HS PO Last administered on 01/22/18at 00: 15; Start 01/21/18 at 22:00; Stop 01/22/18 at 18:18; Status DC Fluvoxamine Maleate (Luvox) 100 mg QHS PO Last administered on 01/31/18at 21:20 ; Start 01/21/18 at 22:00; Stop 02/01/18 at 18:51; Status DC Risperidone (RisperDAL) 1 mg DAILY PO Last administered on 01/26/18at 08:14; Start 01/22/18 at 09:00; Stop 01/26/18 at 18:22; Status DC Non-Formulary Medication (Fluvoxamine Maleate ) 50 mg DAILY PO ; Start 01/22/18 at 09:00; Stop 01/22/18 at 09:00; Status DC Non-Formulary Medication (Memantine Hcl (Namenda Xr)) 7 mg DAILY PO ; Start at 09:00; Stop 01/22/18 at 09:00; Status DC Memantine (Namenda) 5 mg BID PO Last administered on 02/05/18at 08:11; Start at 22:00; Stop 02/05/18 at 11:48; Status DC Insulin Human Lispro (HumaLOG) 0-10 UNITS TIDWMEALS SQ Last administered on at 17:38; Start 01/22/18 at 08:00 Nystatin (Nystop) 1 soniya PRN BID PRN TP RASH; Start 01/22/18 at 00:15; Status Cancel Acetaminophen (Tylenol) 650 mg PRN Q6HRS PRN PO PAIN / TEMP Last administered on 02/11/18at 03:46; Start 01/22/18 at 05:00 Multi-Ingredient Ointment (Analgesic [place]) 1 soniya PRN QID PRN TP MUSCLE PAIN; Start 01/22/18 at 05:00 Al Hydroxide/Mg Hydroxide (Mylanta Plus Xs) 15 ml PRN AFTMEALHC PRN PO DYSPEPSIA; Start 01/22/18 at 05:00 Magnesium Hydroxide (Milk Of Magnesia) 2,400 mg PRN QHS PRN PO CONSTIPATION; Start 01/22/18 at 05:00 Vitamin D (Vitamin D3) 50,000 unit WEEKLY PO Last administered on 02/12/18at 09: 19; Start 01/22/18 at 18:00 Fluconazole (Diflucan) 100 mg DAILY PO Last administered on 02/12/18at 09:14; Start 01/23/18 at 09:00 Cefpodoxime Proxetil (Vantin) 200 mg BID PO Last administered on 01/28/18at 07: 57; Start 01/22/18 at 21:00; Stop 01/28/18 at 20:59; Status DC Lactobacillus Rhamnosus (Culturelle) 1 cap BID PO ; Start 01/22/18 at 21:00; Stop 01/22/18 at 21:00; Status DC Divalproex Sodium (Depakote Er) 500 mg HS PO Last administered on 01/24/18at 19: 58; Start 01/22/18 at 21:00; Stop 01/25/18 at 15:48; Status DC Divalproex Sodium (Depakote Er) 250 mg QHS PO Last administered on 01/24/18at 19 :58; Start 01/22/18 at 21:00; Stop 01/25/18 at 15:48; Status DC Divalproex Sodium (Depakote Er) 1,000 mg QHS PO Last administered on 01/28/18at 19:36; Start 01/25/18 at 21:00; Stop 01/29/18 at 12:58; Status DC Risperidone (RisperDAL) 0.75 mg DAILY PO Last administered on 02/01/18 08:37; Start 01/27/18 at 09:00; Stop 02/01/18 at 18:53; Status DC Buspirone HCl (Buspar) 10 mg TID PO Last administered on 02/04/18 13:38; Start 01/28/18 at 21:00; Stop 02/04/18 at 18:58; Status DC Divalproex Sodium (Depakote Er) 1,250 mg QHS PO ; Start 01/29/18 at 21:00; Stop 01/29/18 at 21:00; Status DC Carbamide Peroxide (Debrox) 5 drop PRN BID PRN AU IMPACTION Last administered on 01/31/18 12:43; Start 01/29/18 at 19:15 Divalproex Sodium (Depakote Er) 250 mg QHS PO Last administered on 02/11/18 20: 21; Start 01/29/18 at 21:00 Divalproex Sodium (Depakote Er) 1,000 mg QHS PO Last administered on 02/11/18 20:22; Start 01/29/18 at 21:00 Fluvoxamine Maleate (Luvox) 125 mg QHS PO Last administered on 02/02/18 20:37 ; Start 02/01/18 at 21:00; Stop 02/03/18 at 19:25; Status DC Risperidone (RisperDAL) 0.25 mg BID@0900,1300 PO Last administered on 13:31; Start 02/02/18 at 09:00; Stop 02/02/18 at 18:19; Status DC Risperidone (RisperDAL) 0.5 mg DAILY@1700 PO Last administered on 02/02/18 16: 48; Start 02/02/18 at 17:00; Stop 02/02/18 at 18:19; Status DC Fenofibrate (Tricor) 145 mg DAILY PO Last administered on 02/12/18 09:17; Start 02/02/18 at 09:00 Olanzapine (ZyPREXA ZYDIS) 1.25 mg PRN Q2HR PRN PO PSYCHOSIS Last administered on 02/08/18 00:36; Start 02/02/18 at 18:30 Quetiapine Fumarate (SEROquel) 25 mg TID@0900,1300,1700 PO ; Start 02/03/18 at 09 :00; Stop 02/03/18 at 09:00; Status DC Quetiapine Fumarate (SEROquel) 12.5 mg TID@0900,1300,1700 PO Last administered on 02/12/18at 09:17; Start 02/03/18 at 09:00; Stop 02/12/18 at 12:49; Status DC Fluvoxamine Maleate (Luvox) 150 mg HS PO Last administered on 02/04/18at 20:52; Start 02/03/18 at 21:00; Stop 02/05/18 at 22:00; Status DC Insulin Glargine (Lantus) 18 units QHS SQ Last administered on 02/11/18at 20:24; Start 02/04/18 at 21:00 Buspirone HCl (Buspar) 15 mg BID94 PO Last administered on 02/12/18at 17:13; Start 02/05/18 at 09:00 Buspirone HCl (Buspar) 10 mg DAILY@1300 PO Last administered on 02/12/18at 14:13 ; Start 02/05/18 at 13:00 Memantine (Namenda) 10 mg BID PO Last administered on 02/12/18at 09:16; Start at 21:00 Fluvoxamine Maleate (Luvox) 150 mg HS PO Last administered on 02/11/18 20:21; Start 02/05/18 at 21:00 Fluvoxamine Maleate (Luvox) 25 mg QHS PO Last administered on 02/11/18 20:21; Start 02/05/18 at 21:00 Quetiapine Fumarate (SEROquel) 25 mg TID@0900,1300,1700 PO Last administered on 02/12/18at 17:13; Start 02/12/18 at 13:00 Active Scripts Active Reported Risperidone 1 Mg Tablet 1 Mg PO DAILY Namenda Xr (Memantine Hcl) 14 Mg Cap.spr.24 14 Mg PO DAILY Namenda Xr (Memantine Hcl) 7 Mg Cap.spr.24 7 Mg PO DAILY Depakote Er (Divalproex Sodium) 500 Mg Tab.er.24h 500 Mg PO HS Buspirone Hcl 10 Mg Tablet 10 Mg PO BID Fenofibrate (Fenofibrate,Micronized) 134 Mg Capsule 134 Mg PO DAILY Fluvoxamine Maleate 100 Mg Tablet 1 Tab PO QHS Levemir Flextouch (Insulin Detemir) 100 Unit/1 Ml Insuln.pen 24 Unit SQ HS Novolog Flexpen (Insulin Aspart) 100 Unit/1 Ml Insuln.pen 0-10 Unit SQ TIDAC SLIDING SCALE INSULIN Magnesium (Magnesium Oxide) 400 Mg Capsule 250 Mg PO DAILY Levothyroxine Sodium 125 Mcg Tablet 125 Mcg PO DAILY06 Atorvastatin Calcium 20 Mg Tablet 20 Mg PO DAILY Fluvoxamine Maleate 50 Mg Tablet 50 Mg PO DAILY Acetaminophen 500 Mg Tablet 500 Mg PO BID Calcium 600 + Vit D 200 Tablet (Calcium Carbonate/Vitamin D3) 1 Each Tablet 1 Each PO DAILY B-12 (Cyanocobalamin (Vitamin B-12)) 500 Mcg Tablet 250 Mcg PO DAILY Acidophilus (Lactobacillus Acidophilus) 1 Each Capsule 1 Each PO BID Metformin Hcl 850 Mg Tablet 850 Mg PO BIDWMEALS Ferrous Sulfate 325 Mg Tablet 1 Tab PO DAILY Topiramate 100 Mg Tablet 100 Mg PO TID Metoprolol Tartrate 25 Mg Tablet 25 Mg PO DAILY Ditropan Xl (Oxybutynin Chloride) 10 Mg Tab.er.24 10 Mg PO DAILY Miralax (Polyethylene Glycol 3350) 17 Gm Powd.pack 17 Gm PO DAILY Aspirin 81 Mg Tab.chew 81 Mg PO DAILY Cetirizine Hcl 10 Mg Tablet 10 Mg PO PRN DAILY PRN Hydrocodone-Apap 7.5-325 (Hydrocodone Bit/Acetaminophen) 1 Each Tablet 1 Tab PO PRN Q6HRS PRN Rynex Pse Liquid (Pseudoephedrine/Brompheniramin) 473 Ml Liquid 5 Ml PO PRN TID PRN Protonix (Pantoprazole Sodium) 20 Mg Tablet.dr 20 Mg PO PRN DAILY PRN Nystop (Nystatin) 60 Gm Powder 1 Soniya TP PRN BID PRN I have reviewed the current psychotropics carefully including drug interactions. Risk benefit ratio favors no change other than as noted in my dictated progress note. Diagnosis: Problems: (1) Anxiety disorder (2) Impulse control disorder (3) Bipolar affective disorder, mixed (4) Borderline intellectual disability (5) Borderline intellectual disability (6) Dementia in Alzheimer's disease with delusions LAURITA DAVIS MD February 12, 2018 20:46
[2018-02-12] MEDS: DIVALPROEX ER 500 MG TAB.ER.24H PO SCH (20:54)
[2018-02-12] MEDS: DIVALPROEX ER 250 MG TAB.ER.24H. PO SCH (20:54)
[2018-02-12] MEDS: INSULIN GLARGINE 300 UNITS/3 ML INSULN.PEN. SQ SCH (20:56)
[2018-02-13 05:28] VITALS: BP 142/80
[2018-02-13] MEDS: LEVOTHYROXINE 125 MCG TABLET PO SCH (05:29)
[2018-02-13] MEDS: INSULIN LISPRO 300 UNITS/3 ML INSULN.PEN. SQ SCH ×3 (08:00→17:00)
[2018-02-13] MEDS: POLYETHYLENE GLYCOL 3350 17 GM PACKET. PO SCH (09:40)
[2018-02-13] MEDS: ATORVASTATIN CALCIUM 20 MG TABLET PO SCH (09:40)
[2018-02-13] MEDS: MAGNESIUM OXIDE 400 MG TABLET PO SCH (09:42)
[2018-02-13] MEDS: ACETAMINOPHEN 500 MG TABLET PO SCH ×2 (09:42→21:49)
[2018-02-13] MEDS: ASPIRIN 81 MG TAB.CHEW PO SCH (09:42)
[2018-02-13] MEDS: metFORMIN 850 MG TABLET PO SCH ×2 (09:42→18:18)
[2018-02-13] MEDS: FENOFIBRATE NANOCRYSTALLIZED 145 MG TABLET PO SCH (09:42)
[2018-02-13] MEDS: FLUCONAZOLE 100 MG TABLET. PO SCH (09:42)
[2018-02-13] MEDS: QUEtiapine 25 MG TABLET. PO SCH ×3 (09:43→18:18)
[2018-02-13] MEDS: METOPROLOL TART IMMED RELEASE 25 MG TABLET PO SCH (09:43)
[2018-02-13] MEDS: busPIRone 15 MG TABLET. PO SCH ×2 (09:43→18:18)
[2018-02-13] MEDS: MEMANTINE 5 MG TABLET. PO SCH ×2 (09:43→21:49)
[2018-02-13] MEDS: OXYBUTYNIN CHLORIDE 5 MG TABLET PO SCH ×2 (09:43→21:49)
[2018-02-13] MEDS: CYANOCOBALAMIN (VITAMIN B-12) 250 MCG TABLET PO SCH (09:44)
[2018-02-13] MEDS: LACTOBACILLUS RHAMNOSUS GG 1 CAPSULE. PO SCH ×2 (09:44→21:49)
[2018-02-13] MEDS: FERROUS SULFATE 325 MG TABLET. PO SCH (09:44)
[2018-02-13] MEDS: CALCIUM CARB/VIT D3 500/200 TABLET PO SCH (09:45)
[2018-02-13] MEDS: busPIRone 10 MG TABLET. PO SCH (14:57)
[2018-02-13 16:36] VITALS: BP 124/66
--- NOTE | 2018-02-13 20:45 | PDOC ---
Exam Note: Hemant Note: Please also refer to the separate dictated note~for this date of service dictated separately.~Patient seen individually. Discussed the patient with Nursing staff reviewed the chart.~Reviewed interim history and current functioning. Reviewed vital signs,~Labs/ Radiology~and current medications noted below. Continue current treatment with the changes noted in the dictated addendum note Assessment: Vital Signs: Vital Signs Date Time Temp Pulse Resp B/P (MAP) Pulse Ox O2 Delivery O2 Flow Rate FiO2 02/13/18 16:36 96.3 55 19 124/66 (85) 99 02/11/18 09:52 Room Air I&O Intake and Output 02/13/18 07:00 Intake Total 1200 ml Balance 1200 ml Intake Oral 1200 ml # Bowel Movements 1 Labs: Laboratory Tests Test 02/13/18 07:22 02/13/18 11:57 02/13/18 17:07 Glucose (Fingerstick) 84 mg/dL (70-99) 131 mg/dL (70-99) H 127 mg/dL (70-99) H Current Medications: Meds: Current Medications Ceftriaxone Sodium (Rocephin Im) 1 gm 1X ONCE IM Last administered on 19:18; Start 01/21/18 at 19:15; Stop 01/21/18 at 19:16; Status DC Acetaminophen (Tylenol) 500 mg BID PO Last administered on 02/13/18 09:42; Start 01/21/18 at 22:00 Aspirin (Children'S Aspirin) 81 mg DAILY PO Last administered on 02/13/18 09: 42; Start 01/22/18 at 09:00 Cetirizine HCl (ZyrTEC) 10 mg PRN DAILY PRN PO ALLERGIES; Start 01/21/18 at 22: 00 Ferrous Sulfate (Feosol) 325 mg DAILY PO Last administered on 02/13/18 09:44; Start 01/22/18 at 09:00 Acetaminophen/ Hydrocodone Bitart (Lortab 7.5/325) 1 tab PRN Q6HRS PRN PO MOD/ SEVERE PAIN Last administered on 02/08/18 00:35; Start 01/21/18 at 22:00 Levothyroxine Sodium (Synthroid) 125 mcg DAILY06 PO Last administered on 05:29; Start 01/22/18 at 06:00 Metformin HCl (Glucophage) 850 mg BIDWMEALS PO Last administered on 02/13/18 18:18; Start 01/22/18 at 08:00 Metoprolol Tartrate (Lopressor) 25 mg DAILY PO Last administered on 02/13/18 09:43; Start 01/22/18 at 09:00 Nystatin (Nystop) 1 soniya PRN BID PRN TP RASH Last administered on 01/31/18 21: 23; Start 01/21/18 at 22:00 Polyethylene Glycol (miraLAX) 17 gm DAILY PO Last administered on 02/13/18 09: 40; Start 01/22/18 at 09:00 Topiramate (Topamax) 100 mg TID PO Last administered on 02/01/18 14:30; Start 01/21/18 at 22:00; Stop 02/01/18 at 18:51; Status DC Calcium/Vitamin D (Oscal D 500mg/ 200uts) 1 tab DAILY PO Last administered on 09:16; Start 01/22/18 at 09:00 Cyanocobalamin (Vitamin B-12) 250 mcg DAILY PO Last administered on 02/13/18 09:44; Start 01/22/18 at 09:00 Fenofibrate (Tricor) 145 mg DAILY PO Last administered on 02/01/18 08:40; Start 01/22/18 at 09:00; Stop 02/02/18 at 08:48; Status DC Insulin Glargine (Lantus) 24 units QHS SQ Last administered on 02/03/18 20:51; Start 01/21/18 at 22:00; Stop 02/04/18 at 18:30; Status DC Lactobacillus Rhamnosus (Culturelle) 1 cap BID PO Last administered on 09:44; Start 01/22/18 at 09:00 Magnesium Oxide (Magnesium Oxide) 200 mg DAILY PO Last administered on 09:42; Start 01/22/18 at 09:00 Oxybutynin Chloride (Ditropan) 5 mg BID PO Last administered on 02/13/18 09:43 ; Start 01/21/18 at 22:00 Pantoprazole Sodium (Protonix) 40 mg PRN DAILY PRN PO NEEDED BEFORE A MEAL; Start 01/22/18 at 07:30 Non-Formulary Medication (Pseudoephedrine/ Brompheniramin (Rynex Pse Liquid)) 5 ml PRN TID PRN PO COUGH; Start 01/21/18 at 22:00; Stop 01/21/18 at 22:36; Status DC Atorvastatin Calcium (Lipitor) 20 mg DAILY PO Last administered on 02/13/18at 09 :40; Start 01/22/18 at 09:00 Buspirone HCl (Buspar) 10 mg BID PO Last administered on 01/28/18at 07:56; Start 01/21/18 at 22:00; Stop 01/28/18 at 18:24; Status DC Divalproex Sodium (Depakote Er) 500 mg HS PO Last administered on 01/22/18at 00: 15; Start 01/21/18 at 22:00; Stop 01/22/18 at 18:18; Status DC Fluvoxamine Maleate (Luvox) 100 mg QHS PO Last administered on 01/31/18at 21:20 ; Start 01/21/18 at 22:00; Stop 02/01/18 at 18:51; Status DC Risperidone (RisperDAL) 1 mg DAILY PO Last administered on 01/26/18at 08:14; Start 01/22/18 at 09:00; Stop 01/26/18 at 18:22; Status DC Non-Formulary Medication (Fluvoxamine Maleate ) 50 mg DAILY PO ; Start 01/22/18 at 09:00; Stop 01/22/18 at 09:00; Status DC Non-Formulary Medication (Memantine Hcl (Namenda Xr)) 7 mg DAILY PO ; Start at 09:00; Stop 01/22/18 at 09:00; Status DC Memantine (Namenda) 5 mg BID PO Last administered on 02/05/18at 08:11; Start at 22:00; Stop 02/05/18 at 11:48; Status DC Insulin Human Lispro (HumaLOG) 0-10 UNITS TIDWMEALS SQ Last administered on at 17:38; Start 01/22/18 at 08:00 Nystatin (Nystop) 1 soniya PRN BID PRN TP RASH; Start 01/22/18 at 00:15; Status Cancel Acetaminophen (Tylenol) 650 mg PRN Q6HRS PRN PO PAIN / TEMP Last administered on 02/11/18at 03:46; Start 01/22/18 at 05:00 Multi-Ingredient Ointment (Analgesic [place]) 1 soniya PRN QID PRN TP MUSCLE PAIN; Start 01/22/18 at 05:00 Al Hydroxide/Mg Hydroxide (Mylanta Plus Xs) 15 ml PRN AFTMEALHC PRN PO DYSPEPSIA; Start 01/22/18 at 05:00 Magnesium Hydroxide (Milk Of Magnesia) 2,400 mg PRN QHS PRN PO CONSTIPATION; Start 01/22/18 at 05:00 Vitamin D (Vitamin D3) 50,000 unit WEEKLY PO Last administered on 02/12/18at 09: 19; Start 01/22/18 at 18:00 Fluconazole (Diflucan) 100 mg DAILY PO Last administered on 02/13/18at 09:42; Start 01/23/18 at 09:00 Cefpodoxime Proxetil (Vantin) 200 mg BID PO Last administered on 01/28/18at 07: 57; Start 01/22/18 at 21:00; Stop 01/28/18 at 20:59; Status DC Lactobacillus Rhamnosus (Culturelle) 1 cap BID PO ; Start 01/22/18 at 21:00; Stop 01/22/18 at 21:00; Status DC Divalproex Sodium (Depakote Er) 500 mg HS PO Last administered on 01/24/18 19: 58; Start 01/22/18 at 21:00; Stop 01/25/18 at 15:48; Status DC Divalproex Sodium (Depakote Er) 250 mg QHS PO Last administered on 01/24/18 19 :58; Start 01/22/18 at 21:00; Stop 01/25/18 at 15:48; Status DC Divalproex Sodium (Depakote Er) 1,000 mg QHS PO Last administered on 01/28/18at 19:36; Start 01/25/18 at 21:00; Stop 01/29/18 at 12:58; Status DC Risperidone (RisperDAL) 0.75 mg DAILY PO Last administered on 02/01/18at 08:37; Start 01/27/18 at 09:00; Stop 02/01/18 at 18:53; Status DC Buspirone HCl (Buspar) 10 mg TID PO Last administered on 02/04/18at 13:38; Start 01/28/18 at 21:00; Stop 02/04/18 at 18:58; Status DC Divalproex Sodium (Depakote Er) 1,250 mg QHS PO ; Start 01/29/18 at 21:00; Stop 01/29/18 at 21:00; Status DC Carbamide Peroxide (Debrox) 5 drop PRN BID PRN AU IMPACTION Last administered on 01/31/18at 12:43; Start 01/29/18 at 19:15 Divalproex Sodium (Depakote Er) 250 mg QHS PO Last administered on 02/12/18at 20 :54; Start 01/29/18 at 21:00 Divalproex Sodium (Depakote Er) 1,000 mg QHS PO Last administered on 02/12/18at 20:54; Start 01/29/18 at 21:00 Fluvoxamine Maleate (Luvox) 125 mg QHS PO Last administered on 02/02/18at 20:37 ; Start 02/01/18 at 21:00; Stop 02/03/18 at 19:25; Status DC Risperidone (RisperDAL) 0.25 mg BID@0900,1300 PO Last administered on at 13:31; Start 02/02/18 at 09:00; Stop 02/02/18 at 18:19; Status DC Risperidone (RisperDAL) 0.5 mg DAILY@1700 PO Last administered on 02/02/18at 16: 48; Start 02/02/18 at 17:00; Stop 02/02/18 at 18:19; Status DC Fenofibrate (Tricor) 145 mg DAILY PO Last administered on 02/13/18at 09:42; Start 02/02/18 at 09:00 Olanzapine (ZyPREXA ZYDIS) 1.25 mg PRN Q2HR PRN PO PSYCHOSIS Last administered on 02/08/18at 00:36; Start 02/02/18 at 18:30 Quetiapine Fumarate (SEROquel) 25 mg TID@0900,1300,1700 PO ; Start 02/03/18 at 09 :00; Stop 02/03/18 at 09:00; Status DC Quetiapine Fumarate (SEROquel) 12.5 mg TID@0900,1300,1700 PO Last administered on 02/12/18at 09:17; Start 02/03/18 at 09:00; Stop 02/12/18 at 12:49; Status DC Fluvoxamine Maleate (Luvox) 150 mg HS PO Last administered on 02/04/18at 20:52; Start 02/03/18 at 21:00; Stop 02/05/18 at 22:00; Status DC Insulin Glargine (Lantus) 18 units QHS SQ Last administered on 02/12/18at 20:56 ; Start 02/04/18 at 21:00 Buspirone HCl (Buspar) 15 mg BID94 PO Last administered on 02/13/18 18:18; Start 02/05/18 at 09:00 Buspirone HCl (Buspar) 10 mg DAILY@1300 PO Last administered on 02/13/18at 14:57 ; Start 02/05/18 at 13:00 Memantine (Namenda) 10 mg BID PO Last administered on 02/13/18at 09:43; Start at 21:00 Fluvoxamine Maleate (Luvox) 150 mg HS PO Last administered on 02/12/18at 20:54; Start 02/05/18 at 21:00; Stop 02/12/18 at 21:25; Status DC Fluvoxamine Maleate (Luvox) 25 mg QHS PO Last administered on 02/12/18at 20:54; Start 02/05/18 at 21:00; Stop 02/12/18 at 21:25; Status DC Quetiapine Fumarate (SEROquel) 25 mg TID@0900,1300,1700 PO Last administered on 02/13/18at 18:18; Start 02/12/18 at 13:00 Fluvoxamine Maleate (Luvox) 75 mg QHS PO ; Start 02/13/18 at 21:00 Fluvoxamine Maleate (Luvox) 100 mg HS PO ; Start 02/13/18 at 21:00 Active Scripts Active Reported Risperidone 1 Mg Tablet 1 Mg PO DAILY Namenda Xr (Memantine Hcl) 14 Mg Cap.spr.24 14 Mg PO DAILY Namenda Xr (Memantine Hcl) 7 Mg Cap.spr.24 7 Mg PO DAILY Depakote Er (Divalproex Sodium) 500 Mg Tab.er.24h 500 Mg PO HS Buspirone Hcl 10 Mg Tablet 10 Mg PO BID Fenofibrate (Fenofibrate,Micronized) 134 Mg Capsule 134 Mg PO DAILY Fluvoxamine Maleate 100 Mg Tablet 1 Tab PO QHS Levemir Flextouch (Insulin Detemir) 100 Unit/1 Ml Insuln.pen 24 Unit SQ HS Novolog Flexpen (Insulin Aspart) 100 Unit/1 Ml Insuln.pen 0-10 Unit SQ TIDAC SLIDING SCALE INSULIN Magnesium (Magnesium Oxide) 400 Mg Capsule 250 Mg PO DAILY Levothyroxine Sodium 125 Mcg Tablet 125 Mcg PO DAILY06 Atorvastatin Calcium 20 Mg Tablet 20 Mg PO DAILY Fluvoxamine Maleate 50 Mg Tablet 50 Mg PO DAILY Acetaminophen 500 Mg Tablet 500 Mg PO BID Calcium 600 + Vit D 200 Tablet (Calcium Carbonate/Vitamin D3) 1 Each Tablet 1 Each PO DAILY B-12 (Cyanocobalamin (Vitamin B-12)) 500 Mcg Tablet 250 Mcg PO DAILY Acidophilus (Lactobacillus Acidophilus) 1 Each Capsule 1 Each PO BID Metformin Hcl 850 Mg Tablet 850 Mg PO BIDWMEALS Ferrous Sulfate 325 Mg Tablet 1 Tab PO DAILY Topiramate 100 Mg Tablet 100 Mg PO TID Metoprolol Tartrate 25 Mg Tablet 25 Mg PO DAILY Ditropan Xl (Oxybutynin Chloride) 10 Mg Tab.er.24 10 Mg PO DAILY Miralax (Polyethylene Glycol 3350) 17 Gm Powd.pack 17 Gm PO DAILY Aspirin 81 Mg Tab.chew 81 Mg PO DAILY Cetirizine Hcl 10 Mg Tablet 10 Mg PO PRN DAILY PRN Hydrocodone-Apap 7.5-325 (Hydrocodone Bit/Acetaminophen) 1 Each Tablet 1 Tab PO PRN Q6HRS PRN Rynex Pse Liquid (Pseudoephedrine/Brompheniramin) 473 Ml Liquid 5 Ml PO PRN TID PRN Protonix (Pantoprazole Sodium) 20 Mg Tablet.dr 20 Mg PO PRN DAILY PRN Nystop (Nystatin) 60 Gm Powder 1 Soniya TP PRN BID PRN I have reviewed the current psychotropics carefully including drug interactions. Risk benefit ratio favors no change other than as noted in my dictated progress note. Diagnosis: Problems: (1) Anxiety disorder (2) Impulse control disorder (3) Bipolar affective disorder, mixed (4) Borderline intellectual disability (5) Borderline intellectual disability (6) Dementia in Alzheimer's disease with delusions LAURITA DAVIS MD February 13, 2018 20:45
[2018-02-13] MEDS: DIVALPROEX ER 250 MG TAB.ER.24H. PO SCH (21:49)
[2018-02-13] MEDS: DIVALPROEX ER 500 MG TAB.ER.24H PO SCH (21:50)
[2018-02-13] MEDS: INSULIN GLARGINE 300 UNITS/3 ML INSULN.PEN. SQ SCH (21:51)
[2018-02-13] MEDS: ACETAMINOPHEN 325 MG TABLET PO PRN (23:35)
[2018-02-14] MEDS: LEVOTHYROXINE 125 MCG TABLET PO SCH (05:53)
[2018-02-14 06:27] VITALS: BP 115/50
[2018-02-14] MEDS: INSULIN LISPRO 300 UNITS/3 ML INSULN.PEN. SQ SCH ×3 (08:30→17:13)
[2018-02-14 08:39] LABS: BASO % 1 % (0-3); EOS # 0.1 x10^3/uL (0.0-0.7); EOS % 3 % (0-3); HEMATOCRIT 31.7 % (36.0-47.0); HEMOGLOBIN 10.3 g/dL (12.0-15.5); LYMPH # 1.7 x10^3/uL (1.0-4.8); LYMPH % 39 % (24-48); MEAN CORPUSCULAR HEMOGLOBIN 28 pg (25-35); MEAN CORPUSCULAR HGB CONC 33 g/dL (31-37); MEAN CORPUSCULAR VOLUME 86 fL (79-100); MONO # 0.5 x10^3/uL (0.0-1.1); MONO % 11 % (0-9); NEUT # 2.1 x10^3uL (1.8-7.7); NEUT % 48 % (31-73); PLATELET COUNT 181 x10^3/uL (140-400); RED BLOOD COUNT 3.69 x10^6/uL (3.50-5.40); WHITE BLOOD COUNT 4.4 x10^3/uL (4.0-11.0)
[2018-02-14] MEDS: ASPIRIN 81 MG TAB.CHEW PO SCH (08:41)
[2018-02-14] MEDS: metFORMIN 850 MG TABLET PO SCH ×2 (08:41→16:04)
[2018-02-14] MEDS: ATORVASTATIN CALCIUM 20 MG TABLET PO SCH (08:41)
[2018-02-14] MEDS: QUEtiapine 25 MG TABLET. PO SCH ×3 (08:41→16:05)
[2018-02-14] MEDS: LACTOBACILLUS RHAMNOSUS GG 1 CAPSULE. PO SCH ×2 (08:41→19:56)
[2018-02-14] MEDS: CALCIUM CARB/VIT D3 500/200 TABLET PO SCH (08:41)
[2018-02-14] MEDS: MAGNESIUM OXIDE 400 MG TABLET PO SCH (08:41)
[2018-02-14] MEDS: METOPROLOL TART IMMED RELEASE 25 MG TABLET PO SCH (08:41)
[2018-02-14] MEDS: FENOFIBRATE NANOCRYSTALLIZED 145 MG TABLET PO SCH (08:41)
[2018-02-14] MEDS: POLYETHYLENE GLYCOL 3350 17 GM PACKET. PO SCH (08:42)
[2018-02-14] MEDS: CYANOCOBALAMIN (VITAMIN B-12) 250 MCG TABLET PO SCH (08:42)
[2018-02-14] MEDS: OXYBUTYNIN CHLORIDE 5 MG TABLET PO SCH ×2 (08:42→19:57)
[2018-02-14] MEDS: FLUCONAZOLE 100 MG TABLET. PO SCH (08:42)
[2018-02-14] MEDS: ACETAMINOPHEN 500 MG TABLET PO SCH ×2 (08:42→19:57)
[2018-02-14] MEDS: FERROUS SULFATE 325 MG TABLET. PO SCH (08:42)
[2018-02-14] MEDS: MEMANTINE 5 MG TABLET. PO SCH ×2 (08:42→19:57)
[2018-02-14] MEDS: busPIRone 15 MG TABLET. PO SCH ×2 (08:42→16:04)
[2018-02-14 08:55] LABS: ALBUMIN 3.2 g/dL (3.4-5.0); ALBUMIN/GLOBULIN RATIO 0.8 (1.0-1.7); CALCIUM 9.9 mg/dL (8.5-10.1); CREATININE 1.2 mg/dL (0.6-1.0); GFR 44.3; POTASSIUM 4.8 mmol/L (3.5-5.1); TOTAL BILIRUBIN 0.3 mg/dL (0.2-1.0); TOTAL PROTEIN 7.1 g/dL (6.4-8.2)
--- NOTE | 2018-02-14 11:51 | PN ---
DATE: 02/11/2018 PSYCHIATRIC PROGRESS NOTE This is a late entry 02/11/2018, covers elements not covered in the initial note 02/11/2018. SUBJECTIVE: I met with the patient in the evening. The patient slept hours. She has been anxious, restless, overall functioning consistent with her intellectual disability. She has a prolapsed uterus. Dr. Lopez is recommended a pessary for this. She frequently stays in her room, does not want to wear the brace. REVIEW OF SYSTEMS: No CV, , pulmonary, eye system symptoms on review. Reliability poor. MENTAL STATUS EXAM: Oriented to herself and situation. Speech can be loud at times. Abstraction fair, computation impaired. Mood and affect somewhat anxious, labile, but improved. No suicidal or homicidal ideation. IMPRESSION: Unchanged from initial note. PLAN: Continue current psychotropics. MAN Kingston DAVIS MD DR: SUMEET/kirill JOB#: [id number] / [id number]
--- NOTE | 2018-02-14 11:54 | PN ---
DATE: 02/12/2018 PSYCHIATRIC PROGRESS NOTE This is a late entry 02/12/2018, covers elements not covered in my initial note 02/12/2018. SUBJECTIVE: The patient staffed in the morning, seen individually in the evening, slept 8-1/2 hours, wearing pants, but resents this, appeared quite labile at times. REVIEW OF SYSTEMS: No CV, , pulmonary, eye system symptoms on review. Ambulates with walker. Reliability poor. MENTAL STATUS EXAM: Oriented to herself and situation. Speech coherent, a little rapid at times, anxious. Abstraction fair, computation impaired, language function intact. Intellectual functioning consistent with her diagnosis of intellectual disability. LABORATORY DATA: Reviewed. IMPRESSION: Unchanged from initial note. PLAN: Continue current psychotropics from initial note. MAN Kingston DAVIS MD DR: SUMEET/kirill JOB#: [id number] / [id number]
[2018-02-14] MEDS: busPIRone 10 MG TABLET. PO SCH (12:19)
[2018-02-14 16:11] VITALS: BP 93/65
[2018-02-14] MEDS: DIVALPROEX ER 250 MG TAB.ER.24H. PO SCH (19:56)
[2018-02-14] MEDS: DIVALPROEX ER 500 MG TAB.ER.24H PO SCH (19:57)
[2018-02-14] MEDS: INSULIN GLARGINE 300 UNITS/3 ML INSULN.PEN. SQ SCH (19:58)
--- NOTE | 2018-02-14 23:00 | PDOC ---
Exam Note: Hemant Note: Please also refer to the separate dictated note~for this date of service dictated separately.~Patient seen individually. Discussed the patient with Nursing staff reviewed the chart.~Reviewed interim history and current functioning. Reviewed vital signs,~Labs/ Radiology~and current medications noted below. Continue current treatment with the changes noted in the dictated addendum note Assessment: Vital Signs: Vital Signs Date Time Temp Pulse Resp B/P (MAP) Pulse Ox O2 Delivery O2 Flow Rate FiO2 02/14/18 16:11 97.6 62 18 93/65 (74) 98 02/11/18 09:52 Room Air I&O Intake and Output 02/14/18 07:00 Intake Total 1440 ml Balance 1440 ml Intake Oral 1440 ml Labs: Laboratory Tests Test 02/14/18 07:19 02/14/18 07:24 02/14/18 11:48 02/14/18 16:57 Glucose (Fingerstick) 73 mg/dL (70-99) 116 mg/dL (70-99) H 129 mg/dL (70-99) H White Blood Count 4.4 x10^3/uL (4.0-11.0) Red Blood Count 3.69 x10^6/uL (3.50-5.40) Hemoglobin 10.3 g/dL (12.0-15.5) L Hematocrit 31.7 % (36.0-47.0) L Mean Corpuscular Volume 86 fL (79-100) Mean Corpuscular Hemoglobin 28 pg (25-35) Mean Corpuscular Hemoglobin Concent 33 g/dL (31-37) Red Cell Distribution Width 16.0 % (11.5-14.5) H Platelet Count 181 x10^3/uL (140-400) Neutrophils (%) (Auto) 48 % (31-73) Lymphocytes (%) (Auto) 39 % (24-48) Monocytes (%) (Auto) 11 % (0-9) H Eosinophils (%) (Auto) 3 % (0-3) Basophils (%) (Auto) 1 % (0-3) Neutrophils # (Auto) 2.1 x10^3uL (1.8-7.7) Lymphocytes # (Auto) 1.7 x10^3/uL (1.0-4.8) Monocytes # (Auto) 0.5 x10^3/uL (0.0-1.1) Eosinophils # (Auto) 0.1 x10^3/uL (0.0-0.7) Basophils # (Auto) 0.0 x10^3/uL (0.0-0.2) Sodium Level 135 mmol/L (136-145) L Potassium Level 4.8 mmol/L (3.5-5.1) Chloride Level 100 mmol/L (98-107) Carbon Dioxide Level 26 mmol/L (21-32) Anion Gap 9 (6-14) Blood Urea Nitrogen 23 mg/dL (7-20) H Creatinine 1.2 mg/dL (0.6-1.0) H Estimated GFR (Cockcroft-Gault) 44.3 BUN/Creatinine Ratio 19 (6-20) Glucose Level 77 mg/dL (70-99) Calcium Level 9.9 mg/dL (8.5-10.1) Total Bilirubin 0.3 mg/dL (0.2-1.0) Aspartate Amino Transferase (AST) 25 U/L (15-37) Alanine Aminotransferase (ALT) 22 U/L (14-59) Alkaline Phosphatase 47 U/L (46-116) Total Protein 7.1 g/dL (6.4-8.2) Albumin 3.2 g/dL (3.4-5.0) L Albumin/Globulin Ratio 0.8 (1.0-1.7) L Test 02/14/18 19:21 Glucose (Fingerstick) 113 mg/dL (70-99) H Current Medications: Meds: Current Medications Ceftriaxone Sodium (Rocephin Im) 1 gm 1X ONCE IM Last administered on at 19:18; Start 01/21/18 at 19:15; Stop 01/21/18 at 19:16; Status DC Acetaminophen (Tylenol) 500 mg BID PO Last administered on 02/14/18at 19:57; Start 01/21/18 at 22:00 Aspirin (Children'S Aspirin) 81 mg DAILY PO Last administered on 02/14/18at 08: 41; Start 01/22/18 at 09:00 Cetirizine HCl (ZyrTEC) 10 mg PRN DAILY PRN PO ALLERGIES; Start 01/21/18 at 22: 00 Ferrous Sulfate (Feosol) 325 mg DAILY PO Last administered on 02/14/18 08:42; Start 01/22/18 at 09:00 Acetaminophen/ Hydrocodone Bitart (Lortab 7.5/325) 1 tab PRN Q6HRS PRN PO MOD/ SEVERE PAIN Last administered on 02/08/18 00:35; Start 01/21/18 at 22:00 Levothyroxine Sodium (Synthroid) 125 mcg DAILY06 PO Last administered on 05:53; Start 01/22/18 at 06:00 Metformin HCl (Glucophage) 850 mg BIDWMEALS PO Last administered on 02/14/18 16:04; Start 01/22/18 at 08:00 Metoprolol Tartrate (Lopressor) 25 mg DAILY PO Last administered on 02/14/18 08:41; Start 01/22/18 at 09:00 Nystatin (Nystop) 1 soniya PRN BID PRN TP RASH Last administered on 01/31/18 21: 23; Start 01/21/18 at 22:00 Polyethylene Glycol (miraLAX) 17 gm DAILY PO Last administered on 02/14/18 08: 42; Start 01/22/18 at 09:00 Topiramate (Topamax) 100 mg TID PO Last administered on 02/01/18 14:30; Start 01/21/18 at 22:00; Stop 02/01/18 at 18:51; Status DC Calcium/Vitamin D (Oscal D 500mg/ 200uts) 1 tab DAILY PO Last administered on 08:41; Start 01/22/18 at 09:00 Cyanocobalamin (Vitamin B-12) 250 mcg DAILY PO Last administered on 02/14/18 08:42; Start 01/22/18 at 09:00 Fenofibrate (Tricor) 145 mg DAILY PO Last administered on 02/01/18 08:40; Start 01/22/18 at 09:00; Stop 02/02/18 at 08:48; Status DC Insulin Glargine (Lantus) 24 units QHS SQ Last administered on 02/03/18 20:51; Start 01/21/18 at 22:00; Stop 02/04/18 at 18:30; Status DC Lactobacillus Rhamnosus (Culturelle) 1 cap BID PO Last administered on 19:56; Start 01/22/18 at 09:00 Magnesium Oxide (Magnesium Oxide) 200 mg DAILY PO Last administered on 08:41; Start 01/22/18 at 09:00 Oxybutynin Chloride (Ditropan) 5 mg BID PO Last administered on 02/14/18 19:57 ; Start 01/21/18 at 22:00 Pantoprazole Sodium (Protonix) 40 mg PRN DAILY PRN PO NEEDED BEFORE A MEAL; Start 01/22/18 at 07:30 Non-Formulary Medication (Pseudoephedrine/ Brompheniramin (Rynex Pse Liquid)) 5 ml PRN TID PRN PO COUGH; Start 01/21/18 at 22:00; Stop 01/21/18 at 22:36; Status DC Atorvastatin Calcium (Lipitor) 20 mg DAILY PO Last administered on 02/14/18at 08 :41; Start 01/22/18 at 09:00 Buspirone HCl (Buspar) 10 mg BID PO Last administered on 01/28/18at 07:56; Start 01/21/18 at 22:00; Stop 01/28/18 at 18:24; Status DC Divalproex Sodium (Depakote Er) 500 mg HS PO Last administered on 01/22/18at 00: 15; Start 01/21/18 at 22:00; Stop 01/22/18 at 18:18; Status DC Fluvoxamine Maleate (Luvox) 100 mg QHS PO Last administered on 01/31/18at 21:20 ; Start 01/21/18 at 22:00; Stop 02/01/18 at 18:51; Status DC Risperidone (RisperDAL) 1 mg DAILY PO Last administered on 01/26/18at 08:14; Start 01/22/18 at 09:00; Stop 01/26/18 at 18:22; Status DC Non-Formulary Medication (Fluvoxamine Maleate ) 50 mg DAILY PO ; Start 01/22/18 at 09:00; Stop 01/22/18 at 09:00; Status DC Non-Formulary Medication (Memantine Hcl (Namenda Xr)) 7 mg DAILY PO ; Start at 09:00; Stop 01/22/18 at 09:00; Status DC Memantine (Namenda) 5 mg BID PO Last administered on 02/05/18at 08:11; Start at 22:00; Stop 02/05/18 at 11:48; Status DC Insulin Human Lispro (HumaLOG) 0-10 UNITS TIDWMEALS SQ Last administered on at 17:38; Start 01/22/18 at 08:00 Nystatin (Nystop) 1 soniya PRN BID PRN TP RASH; Start 01/22/18 at 00:15; Status Cancel Acetaminophen (Tylenol) 650 mg PRN Q6HRS PRN PO PAIN / TEMP Last administered on 02/13/18at 23:35; Start 01/22/18 at 05:00 Multi-Ingredient Ointment (Analgesic [place]) 1 soniya PRN QID PRN TP MUSCLE PAIN; Start 01/22/18 at 05:00 Al Hydroxide/Mg Hydroxide (Mylanta Plus Xs) 15 ml PRN AFTMEALHC PRN PO DYSPEPSIA; Start 01/22/18 at 05:00 Magnesium Hydroxide (Milk Of Magnesia) 2,400 mg PRN QHS PRN PO CONSTIPATION; Start 01/22/18 at 05:00 Vitamin D (Vitamin D3) 50,000 unit WEEKLY PO Last administered on 02/12/18at 09: 19; Start 01/22/18 at 18:00 Fluconazole (Diflucan) 100 mg DAILY PO Last administered on 02/14/18at 08:42; Start 01/23/18 at 09:00 Cefpodoxime Proxetil (Vantin) 200 mg BID PO Last administered on 01/28/18at 07: 57; Start 01/22/18 at 21:00; Stop 01/28/18 at 20:59; Status DC Lactobacillus Rhamnosus (Culturelle) 1 cap BID PO ; Start 01/22/18 at 21:00; Stop 01/22/18 at 21:00; Status DC Divalproex Sodium (Depakote Er) 500 mg HS PO Last administered on 01/24/18at 19: 58; Start 01/22/18 at 21:00; Stop 01/25/18 at 15:48; Status DC Divalproex Sodium (Depakote Er) 250 mg QHS PO Last administered on 01/24/18 19 :58; Start 01/22/18 at 21:00; Stop 01/25/18 at 15:48; Status DC Divalproex Sodium (Depakote Er) 1,000 mg QHS PO Last administered on 01/28/18 19:36; Start 01/25/18 at 21:00; Stop 01/29/18 at 12:58; Status DC Risperidone (RisperDAL) 0.75 mg DAILY PO Last administered on 02/01/18 08:37; Start 01/27/18 at 09:00; Stop 02/01/18 at 18:53; Status DC Buspirone HCl (Buspar) 10 mg TID PO Last administered on 02/04/18 13:38; Start 01/28/18 at 21:00; Stop 02/04/18 at 18:58; Status DC Divalproex Sodium (Depakote Er) 1,250 mg QHS PO ; Start 01/29/18 at 21:00; Stop 01/29/18 at 21:00; Status DC Carbamide Peroxide (Debrox) 5 drop PRN BID PRN AU IMPACTION Last administered on 01/31/18 12:43; Start 01/29/18 at 19:15 Divalproex Sodium (Depakote Er) 250 mg QHS PO Last administered on 02/14/18 19 :56; Start 01/29/18 at 21:00 Divalproex Sodium (Depakote Er) 1,000 mg QHS PO Last administered on 02/14/18 19:57; Start 01/29/18 at 21:00 Fluvoxamine Maleate (Luvox) 125 mg QHS PO Last administered on 02/02/18 20:37 ; Start 02/01/18 at 21:00; Stop 02/03/18 at 19:25; Status DC Risperidone (RisperDAL) 0.25 mg BID@0900,1300 PO Last administered on 13:31; Start 02/02/18 at 09:00; Stop 02/02/18 at 18:19; Status DC Risperidone (RisperDAL) 0.5 mg DAILY@1700 PO Last administered on 02/02/18 16: 48; Start 02/02/18 at 17:00; Stop 02/02/18 at 18:19; Status DC Fenofibrate (Tricor) 145 mg DAILY PO Last administered on 02/14/18at 08:41; Start 02/02/18 at 09:00 Olanzapine (ZyPREXA ZYDIS) 1.25 mg PRN Q2HR PRN PO PSYCHOSIS Last administered on 02/08/18at 00:36; Start 02/02/18 at 18:30 Quetiapine Fumarate (SEROquel) 25 mg TID@0900,1300,1700 PO ; Start 02/03/18 at 09 :00; Stop 02/03/18 at 09:00; Status DC Quetiapine Fumarate (SEROquel) 12.5 mg TID@0900,1300,1700 PO Last administered on 02/12/18at 09:17; Start 02/03/18 at 09:00; Stop 02/12/18 at 12:49; Status DC Fluvoxamine Maleate (Luvox) 150 mg HS PO Last administered on 02/04/18at 20:52; Start 02/03/18 at 21:00; Stop 02/05/18 at 22:00; Status DC Insulin Glargine (Lantus) 18 units QHS SQ Last administered on 02/14/18at 19:58 ; Start 02/04/18 at 21:00 Buspirone HCl (Buspar) 15 mg BID94 PO Last administered on 02/14/18at 16:04; Start 02/05/18 at 09:00 Buspirone HCl (Buspar) 10 mg DAILY@1300 PO Last administered on 02/14/18at 12:19 ; Start 02/05/18 at 13:00 Memantine (Namenda) 10 mg BID PO Last administered on 02/14/18 19:57; Start at 21:00 Fluvoxamine Maleate (Luvox) 150 mg HS PO Last administered on 02/12/18at 20:54; Start 02/05/18 at 21:00; Stop 02/12/18 at 21:25; Status DC Fluvoxamine Maleate (Luvox) 25 mg QHS PO Last administered on 02/12/18at 20:54; Start 02/05/18 at 21:00; Stop 02/12/18 at 21:25; Status DC Quetiapine Fumarate (SEROquel) 25 mg TID@0900,1300,1700 PO Last administered on 02/14/18at 16:05; Start 02/12/18 at 13:00 Fluvoxamine Maleate (Luvox) 75 mg QHS PO Last administered on 02/14/18at 19:57; Start 02/13/18 at 21:00 Fluvoxamine Maleate (Luvox) 100 mg HS PO Last administered on 02/14/18at 19:57; Start 02/13/18 at 21:00 Active Scripts Active Reported Risperidone 1 Mg Tablet 1 Mg PO DAILY Namenda Xr (Memantine Hcl) 14 Mg Cap.spr.24 14 Mg PO DAILY Namenda Xr (Memantine Hcl) 7 Mg Cap.spr.24 7 Mg PO DAILY Depakote Er (Divalproex Sodium) 500 Mg Tab.er.24h 500 Mg PO HS Buspirone Hcl 10 Mg Tablet 10 Mg PO BID Fenofibrate (Fenofibrate,Micronized) 134 Mg Capsule 134 Mg PO DAILY Fluvoxamine Maleate 100 Mg Tablet 1 Tab PO QHS Levemir Flextouch (Insulin Detemir) 100 Unit/1 Ml Insuln.pen 24 Unit SQ HS Novolog Flexpen (Insulin Aspart) 100 Unit/1 Ml Insuln.pen 0-10 Unit SQ TIDAC SLIDING SCALE INSULIN Magnesium (Magnesium Oxide) 400 Mg Capsule 250 Mg PO DAILY Levothyroxine Sodium 125 Mcg Tablet 125 Mcg PO DAILY06 Atorvastatin Calcium 20 Mg Tablet 20 Mg PO DAILY Fluvoxamine Maleate 50 Mg Tablet 50 Mg PO DAILY Acetaminophen 500 Mg Tablet 500 Mg PO BID Calcium 600 + Vit D 200 Tablet (Calcium Carbonate/Vitamin D3) 1 Each Tablet 1 Each PO DAILY B-12 (Cyanocobalamin (Vitamin B-12)) 500 Mcg Tablet 250 Mcg PO DAILY Acidophilus (Lactobacillus Acidophilus) 1 Each Capsule 1 Each PO BID Metformin Hcl 850 Mg Tablet 850 Mg PO BIDWMEALS Ferrous Sulfate 325 Mg Tablet 1 Tab PO DAILY Topiramate 100 Mg Tablet 100 Mg PO TID Metoprolol Tartrate 25 Mg Tablet 25 Mg PO DAILY Ditropan Xl (Oxybutynin Chloride) 10 Mg Tab.er.24 10 Mg PO DAILY Miralax (Polyethylene Glycol 3350) 17 Gm Powd.pack 17 Gm PO DAILY Aspirin 81 Mg Tab.chew 81 Mg PO DAILY Cetirizine Hcl 10 Mg Tablet 10 Mg PO PRN DAILY PRN Hydrocodone-Apap 7.5-325 (Hydrocodone Bit/Acetaminophen) 1 Each Tablet 1 Tab PO PRN Q6HRS PRN Rynex Pse Liquid (Pseudoephedrine/Brompheniramin) 473 Ml Liquid 5 Ml PO PRN TID PRN Protonix (Pantoprazole Sodium) 20 Mg Tablet.dr 20 Mg PO PRN DAILY PRN Nystop (Nystatin) 60 Gm Powder 1 Soniya TP PRN BID PRN I have reviewed the current psychotropics carefully including drug interactions. Risk benefit ratio favors no change other than as noted in my dictated progress note. Diagnosis: Problems: (1) Anxiety disorder (2) Impulse control disorder (3) Bipolar affective disorder, mixed (4) Borderline intellectual disability (5) Borderline intellectual disability (6) Dementia in Alzheimer's disease with delusions LAURITA DAVIS MD February 14, 2018 23:00
[2018-02-15 05:16] VITALS: BP 135/63
[2018-02-15] MEDS: LEVOTHYROXINE 125 MCG TABLET PO SCH (05:23)
[2018-02-15] MEDS: INSULIN LISPRO 300 UNITS/3 ML INSULN.PEN. SQ SCH ×3 (08:18→17:00)
[2018-02-15] MEDS: ATORVASTATIN CALCIUM 20 MG TABLET PO SCH (09:23)
[2018-02-15] MEDS: ACETAMINOPHEN 500 MG TABLET PO SCH ×2 (09:23→20:07)
[2018-02-15] MEDS: FENOFIBRATE NANOCRYSTALLIZED 145 MG TABLET PO SCH (09:23)
[2018-02-15] MEDS: QUEtiapine 25 MG TABLET. PO SCH ×3 (09:23→18:18)
[2018-02-15] MEDS: ASPIRIN 81 MG TAB.CHEW PO SCH (09:23)
[2018-02-15] MEDS: MAGNESIUM OXIDE 400 MG TABLET PO SCH (09:23)
[2018-02-15] MEDS: CYANOCOBALAMIN (VITAMIN B-12) 250 MCG TABLET PO SCH (09:23)
[2018-02-15] MEDS: busPIRone 15 MG TABLET. PO SCH ×2 (09:24→18:21)
[2018-02-15] MEDS: metFORMIN 850 MG TABLET PO SCH ×2 (09:24→18:21)
[2018-02-15] MEDS: LACTOBACILLUS RHAMNOSUS GG 1 CAPSULE. PO SCH ×2 (09:24→20:08)
[2018-02-15] MEDS: MEMANTINE 5 MG TABLET. PO SCH ×2 (09:24→20:07)
[2018-02-15] MEDS: FLUCONAZOLE 100 MG TABLET. PO SCH (09:24)
[2018-02-15] MEDS: CALCIUM CARB/VIT D3 500/200 TABLET PO SCH (09:24)
[2018-02-15] MEDS: OXYBUTYNIN CHLORIDE 5 MG TABLET PO SCH ×2 (09:24→20:07)
[2018-02-15] MEDS: METOPROLOL TART IMMED RELEASE 25 MG TABLET PO SCH (09:24)
[2018-02-15] MEDS: FERROUS SULFATE 325 MG TABLET. PO SCH (09:24)
[2018-02-15] MEDS: POLYETHYLENE GLYCOL 3350 17 GM PACKET. PO SCH (09:25)
[2018-02-15] MEDS: busPIRone 10 MG TABLET. PO SCH (13:00)
[2018-02-15 16:54] VITALS: BP 98/55
[2018-02-15] MEDS: QUEtiapine 50 MG TABLET. PO SCH (18:21)
[2018-02-15] MEDS: DIVALPROEX ER 250 MG TAB.ER.24H. PO SCH (20:07)
[2018-02-15] MEDS: DIVALPROEX ER 500 MG TAB.ER.24H PO SCH (20:08)
[2018-02-15] MEDS: INSULIN GLARGINE 300 UNITS/3 ML INSULN.PEN. SQ SCH (20:11)
--- NOTE | 2018-02-15 20:58 | PDOC ---
Exam Note: Hemant Note: Please also refer to the separate dictated note~for this date of service dictated separately.~Patient seen individually. Discussed the patient with Nursing staff reviewed the chart.~Reviewed interim history and current functioning. Reviewed vital signs,~Labs/ Radiology~and current medications noted below. Continue current treatment with the changes noted in the dictated addendum note Assessment: Vital Signs: Vital Signs Date Time Temp Pulse Resp B/P (MAP) Pulse Ox O2 Delivery O2 Flow Rate FiO2 02/15/18 16:54 97.7 84 19 98/55 (69) 100 02/11/18 09:52 Room Air I&O Intake and Output 02/15/18 07:00 Intake Total 1320 ml Balance 1320 ml Intake Oral 1320 ml # Bowel Movements 1 Labs: Laboratory Tests Test 02/15/18 07:38 02/15/18 11:29 02/15/18 16:39 02/15/18 19:15 Glucose (Fingerstick) 105 mg/dL (70-99) H 117 mg/dL (70-99) H 104 mg/dL (70-99) H 147 mg/dL (70-99) H Current Medications: Meds: Current Medications Ceftriaxone Sodium (Rocephin Im) 1 gm 1X ONCE IM Last administered on 19:18; Start 01/21/18 at 19:15; Stop 01/21/18 at 19:16; Status DC Acetaminophen (Tylenol) 500 mg BID PO Last administered on 02/15/18at 20:07; Start 01/21/18 at 22:00 Aspirin (Children'S Aspirin) 81 mg DAILY PO Last administered on 02/15/18at 09: 23; Start 01/22/18 at 09:00 Cetirizine HCl (ZyrTEC) 10 mg PRN DAILY PRN PO ALLERGIES; Start 01/21/18 at 22: 00 Ferrous Sulfate (Feosol) 325 mg DAILY PO Last administered on 02/15/18at 09:24; Start 01/22/18 at 09:00 Acetaminophen/ Hydrocodone Bitart (Lortab 7.5/325) 1 tab PRN Q6HRS PRN PO MOD/ SEVERE PAIN Last administered on 02/08/18at 00:35; Start 01/21/18 at 22:00 Levothyroxine Sodium (Synthroid) 125 mcg DAILY06 PO Last administered on 05:23; Start 01/22/18 at 06:00 Metformin HCl (Glucophage) 850 mg BIDWMEALS PO Last administered on 02/15/18 18:21; Start 01/22/18 at 08:00 Metoprolol Tartrate (Lopressor) 25 mg DAILY PO Last administered on 02/15/18 09:24; Start 01/22/18 at 09:00 Nystatin (Nystop) 1 soniya PRN BID PRN TP RASH Last administered on 01/31/18 21: 23; Start 01/21/18 at 22:00 Polyethylene Glycol (miraLAX) 17 gm DAILY PO Last administered on 02/15/18 09: 25; Start 01/22/18 at 09:00 Topiramate (Topamax) 100 mg TID PO Last administered on 02/01/18 14:30; Start 01/21/18 at 22:00; Stop 02/01/18 at 18:51; Status DC Calcium/Vitamin D (Oscal D 500mg/ 200uts) 1 tab DAILY PO Last administered on 09:24; Start 01/22/18 at 09:00 Cyanocobalamin (Vitamin B-12) 250 mcg DAILY PO Last administered on 02/15/18 09:23; Start 01/22/18 at 09:00 Fenofibrate (Tricor) 145 mg DAILY PO Last administered on 02/01/18 08:40; Start 01/22/18 at 09:00; Stop 02/02/18 at 08:48; Status DC Insulin Glargine (Lantus) 24 units QHS SQ Last administered on 02/03/18 20:51; Start 01/21/18 at 22:00; Stop 02/04/18 at 18:30; Status DC Lactobacillus Rhamnosus (Culturelle) 1 cap BID PO Last administered on 20:08; Start 01/22/18 at 09:00 Magnesium Oxide (Magnesium Oxide) 200 mg DAILY PO Last administered on 09:23; Start 01/22/18 at 09:00 Oxybutynin Chloride (Ditropan) 5 mg BID PO Last administered on 02/15/18 20:07 ; Start 01/21/18 at 22:00 Pantoprazole Sodium (Protonix) 40 mg PRN DAILY PRN PO NEEDED BEFORE A MEAL; Start 01/22/18 at 07:30 Non-Formulary Medication (Pseudoephedrine/ Brompheniramin (Rynex Pse Liquid)) 5 ml PRN TID PRN PO COUGH; Start 01/21/18 at 22:00; Stop 01/21/18 at 22:36; Status DC Atorvastatin Calcium (Lipitor) 20 mg DAILY PO Last administered on 02/15/18at 09 :23; Start 01/22/18 at 09:00 Buspirone HCl (Buspar) 10 mg BID PO Last administered on 01/28/18at 07:56; Start 01/21/18 at 22:00; Stop 01/28/18 at 18:24; Status DC Divalproex Sodium (Depakote Er) 500 mg HS PO Last administered on 01/22/18at 00: 15; Start 01/21/18 at 22:00; Stop 01/22/18 at 18:18; Status DC Fluvoxamine Maleate (Luvox) 100 mg QHS PO Last administered on 01/31/18at 21:20 ; Start 01/21/18 at 22:00; Stop 02/01/18 at 18:51; Status DC Risperidone (RisperDAL) 1 mg DAILY PO Last administered on 01/26/18at 08:14; Start 01/22/18 at 09:00; Stop 01/26/18 at 18:22; Status DC Non-Formulary Medication (Fluvoxamine Maleate ) 50 mg DAILY PO ; Start 01/22/18 at 09:00; Stop 01/22/18 at 09:00; Status DC Non-Formulary Medication (Memantine Hcl (Namenda Xr)) 7 mg DAILY PO ; Start at 09:00; Stop 01/22/18 at 09:00; Status DC Memantine (Namenda) 5 mg BID PO Last administered on 02/05/18at 08:11; Start at 22:00; Stop 02/05/18 at 11:48; Status DC Insulin Human Lispro (HumaLOG) 0-10 UNITS TIDWMEALS SQ Last administered on at 17:38; Start 01/22/18 at 08:00 Nystatin (Nystop) 1 soniya PRN BID PRN TP RASH; Start 01/22/18 at 00:15; Status Cancel Acetaminophen (Tylenol) 650 mg PRN Q6HRS PRN PO PAIN / TEMP Last administered on 02/13/18at 23:35; Start 01/22/18 at 05:00 Multi-Ingredient Ointment (Analgesic Sperry) 1 soniya PRN QID PRN TP MUSCLE PAIN; Start 01/22/18 at 05:00 Al Hydroxide/Mg Hydroxide (Mylanta Plus Xs) 15 ml PRN AFTMEALHC PRN PO DYSPEPSIA; Start 01/22/18 at 05:00 Magnesium Hydroxide (Milk Of Magnesia) 2,400 mg PRN QHS PRN PO CONSTIPATION; Start 01/22/18 at 05:00 Vitamin D (Vitamin D3) 50,000 unit WEEKLY PO Last administered on 02/12/18at 09: 19; Start 01/22/18 at 18:00 Fluconazole (Diflucan) 100 mg DAILY PO Last administered on 02/15/18at 09:24; Start 01/23/18 at 09:00 Cefpodoxime Proxetil (Vantin) 200 mg BID PO Last administered on 01/28/18at 07: 57; Start 01/22/18 at 21:00; Stop 01/28/18 at 20:59; Status DC Lactobacillus Rhamnosus (Culturelle) 1 cap BID PO ; Start 01/22/18 at 21:00; Stop 01/22/18 at 21:00; Status DC Divalproex Sodium (Depakote Er) 500 mg HS PO Last administered on 01/24/18at 19: 58; Start 01/22/18 at 21:00; Stop 01/25/18 at 15:48; Status DC Divalproex Sodium (Depakote Er) 250 mg QHS PO Last administered on 01/24/18at 19 :58; Start 01/22/18 at 21:00; Stop 01/25/18 at 15:48; Status DC Divalproex Sodium (Depakote Er) 1,000 mg QHS PO Last administered on 01/28/18at 19:36; Start 01/25/18 at 21:00; Stop 01/29/18 at 12:58; Status DC Risperidone (RisperDAL) 0.75 mg DAILY PO Last administered on 02/01/18 08:37; Start 01/27/18 at 09:00; Stop 02/01/18 at 18:53; Status DC Buspirone HCl (Buspar) 10 mg TID PO Last administered on 02/04/18 13:38; Start 01/28/18 at 21:00; Stop 02/04/18 at 18:58; Status DC Divalproex Sodium (Depakote Er) 1,250 mg QHS PO ; Start 01/29/18 at 21:00; Stop 01/29/18 at 21:00; Status DC Carbamide Peroxide (Debrox) 5 drop PRN BID PRN AU IMPACTION Last administered on 01/31/18 12:43; Start 01/29/18 at 19:15 Divalproex Sodium (Depakote Er) 250 mg QHS PO Last administered on 02/15/18at 20 :07; Start 01/29/18 at 21:00 Divalproex Sodium (Depakote Er) 1,000 mg QHS PO Last administered on 02/15/18 20:08; Start 01/29/18 at 21:00 Fluvoxamine Maleate (Luvox) 125 mg QHS PO Last administered on 02/02/18 20:37 ; Start 02/01/18 at 21:00; Stop 02/03/18 at 19:25; Status DC Risperidone (RisperDAL) 0.25 mg BID@0900,1300 PO Last administered on 13:31; Start 02/02/18 at 09:00; Stop 02/02/18 at 18:19; Status DC Risperidone (RisperDAL) 0.5 mg DAILY@1700 PO Last administered on 02/02/18 16: 48; Start 02/02/18 at 17:00; Stop 02/02/18 at 18:19; Status DC Fenofibrate (Tricor) 145 mg DAILY PO Last administered on 02/15/18at 09:23; Start 02/02/18 at 09:00 Olanzapine (ZyPREXA ZYDIS) 1.25 mg PRN Q2HR PRN PO PSYCHOSIS Last administered on 02/08/18at 00:36; Start 02/02/18 at 18:30 Quetiapine Fumarate (SEROquel) 25 mg TID@0900,1300,1700 PO ; Start 02/03/18 at 09 :00; Stop 02/03/18 at 09:00; Status DC Quetiapine Fumarate (SEROquel) 12.5 mg TID@0900,1300,1700 PO Last administered on 02/12/18at 09:17; Start 02/03/18 at 09:00; Stop 02/12/18 at 12:49; Status DC Fluvoxamine Maleate (Luvox) 150 mg HS PO Last administered on 02/04/18at 20:52; Start 02/03/18 at 21:00; Stop 02/05/18 at 22:00; Status DC Insulin Glargine (Lantus) 18 units QHS SQ Last administered on 02/15/18at 20:11 ; Start 02/04/18 at 21:00 Buspirone HCl (Buspar) 15 mg BID94 PO Last administered on 02/15/18at 18:21; Start 02/05/18 at 09:00 Buspirone HCl (Buspar) 10 mg DAILY@1300 PO Last administered on 02/15/18at 13:00 ; Start 02/05/18 at 13:00 Memantine (Namenda) 10 mg BID PO Last administered on 02/15/18at 20:07; Start at 21:00 Fluvoxamine Maleate (Luvox) 150 mg HS PO Last administered on 02/12/18at 20:54; Start 02/05/18 at 21:00; Stop 02/12/18 at 21:25; Status DC Fluvoxamine Maleate (Luvox) 25 mg QHS PO Last administered on 02/12/18 20:54; Start 02/05/18 at 21:00; Stop 02/12/18 at 21:25; Status DC Quetiapine Fumarate (SEROquel) 25 mg TID@0900,1300,1700 PO Last administered on 02/15/18at 13:00; Start 02/12/18 at 13:00 Fluvoxamine Maleate (Luvox) 75 mg QHS PO Last administered on 02/15/18at 20:08; Start 02/13/18 at 21:00 Fluvoxamine Maleate (Luvox) 100 mg HS PO Last administered on 02/15/18at 20:07; Start 02/13/18 at 21:00 Quetiapine Fumarate (SEROquel) 25 mg TID@0900,1300,1700 PO Last administered on 02/15/18at 18:21; Start 02/15/18 at 18:00; Stop 02/16/18 at 09:01 Active Scripts Active Reported Risperidone 1 Mg Tablet 1 Mg PO DAILY Namenda Xr (Memantine Hcl) 14 Mg Cap.spr.24 14 Mg PO DAILY Namenda Xr (Memantine Hcl) 7 Mg Cap.spr.24 7 Mg PO DAILY Depakote Er (Divalproex Sodium) 500 Mg Tab.er.24h 500 Mg PO HS Buspirone Hcl 10 Mg Tablet 10 Mg PO BID Fenofibrate (Fenofibrate,Micronized) 134 Mg Capsule 134 Mg PO DAILY Fluvoxamine Maleate 100 Mg Tablet 1 Tab PO QHS Levemir Flextouch (Insulin Detemir) 100 Unit/1 Ml Insuln.pen 24 Unit SQ HS Novolog Flexpen (Insulin Aspart) 100 Unit/1 Ml Insuln.pen 0-10 Unit SQ TIDAC SLIDING SCALE INSULIN Magnesium (Magnesium Oxide) 400 Mg Capsule 250 Mg PO DAILY Levothyroxine Sodium 125 Mcg Tablet 125 Mcg PO DAILY06 Atorvastatin Calcium 20 Mg Tablet 20 Mg PO DAILY Fluvoxamine Maleate 50 Mg Tablet 50 Mg PO DAILY Acetaminophen 500 Mg Tablet 500 Mg PO BID Calcium 600 + Vit D 200 Tablet (Calcium Carbonate/Vitamin D3) 1 Each Tablet 1 Each PO DAILY B-12 (Cyanocobalamin (Vitamin B-12)) 500 Mcg Tablet 250 Mcg PO DAILY Acidophilus (Lactobacillus Acidophilus) 1 Each Capsule 1 Each PO BID Metformin Hcl 850 Mg Tablet 850 Mg PO BIDWMEALS Ferrous Sulfate 325 Mg Tablet 1 Tab PO DAILY Topiramate 100 Mg Tablet 100 Mg PO TID Metoprolol Tartrate 25 Mg Tablet 25 Mg PO DAILY Ditropan Xl (Oxybutynin Chloride) 10 Mg Tab.er.24 10 Mg PO DAILY Miralax (Polyethylene Glycol 3350) 17 Gm Powd.pack 17 Gm PO DAILY Aspirin 81 Mg Tab.chew 81 Mg PO DAILY Cetirizine Hcl 10 Mg Tablet 10 Mg PO PRN DAILY PRN Hydrocodone-Apap 7.5-325 (Hydrocodone Bit/Acetaminophen) 1 Each Tablet 1 Tab PO PRN Q6HRS PRN Rynex Pse Liquid (Pseudoephedrine/Brompheniramin) 473 Ml Liquid 5 Ml PO PRN TID PRN Protonix (Pantoprazole Sodium) 20 Mg Tablet.dr 20 Mg PO PRN DAILY PRN Nystop (Nystatin) 60 Gm Powder 1 Soniya TP PRN BID PRN I have reviewed the current psychotropics carefully including drug interactions. Risk benefit ratio favors no change other than as noted in my dictated progress note. Diagnosis: Problems: (1) Anxiety disorder (2) Impulse control disorder (3) Bipolar affective disorder, mixed (4) Borderline intellectual disability (5) Borderline intellectual disability (6) Dementia in Alzheimer's disease with delusions LAURITA DAVIS MD February 15, 2018 20:58
--- NOTE | 2018-02-15 23:20 | PN ---
DATE: 02/13/2018 PSYCHIATRIC PROGRESS NOTE HISTORY OF PRESENT ILLNESS: This is a late entry of 02/13/2018 covers elements not covered in my initial note of 02/13/2018. I met with the patient in the evening. The patient slept 8-3/4 hours, quite obsessive, wanting to repeatedly sit on the toilet, swinging at staff, had to be isolated in the West hallway to remove her from the stimuli. REVIEW OF SYSTEMS: No CV, , pulmonary, eye, ENT system symptoms on review. Complains of itching in the groin area. MENTAL STATUS EXAM: Oriented to herself. Insight, judgment, recent and remote memory, attention, concentration, fund of knowledge poor, consistent with her diagnosis mentioned in my initial note. PLAN: Continue current psychotropics from initial note. MAN Kingston ADVIS MD DR: SUMEET/kirill JOB#: [id number] / [id number]
[2018-02-16 06:00] VITALS: BP 133/52
[2018-02-16] MEDS: LEVOTHYROXINE 125 MCG TABLET PO SCH (06:00)
[2018-02-16] MEDS: INSULIN LISPRO 300 UNITS/3 ML INSULN.PEN. SQ SCH ×3 (08:00→16:54)
[2018-02-16] MEDS: ACETAMINOPHEN 500 MG TABLET PO SCH ×2 (08:20→20:07)
[2018-02-16] MEDS: busPIRone 15 MG TABLET. PO SCH ×2 (08:20→16:47)
[2018-02-16] MEDS: ASPIRIN 81 MG TAB.CHEW PO SCH (08:20)
[2018-02-16] MEDS: POLYETHYLENE GLYCOL 3350 17 GM PACKET. PO SCH (08:20)
[2018-02-16] MEDS: OXYBUTYNIN CHLORIDE 5 MG TABLET PO SCH ×2 (08:20→20:06)
[2018-02-16] MEDS: MEMANTINE 5 MG TABLET. PO SCH ×2 (08:21→20:05)
[2018-02-16] MEDS: CALCIUM CARB/VIT D3 500/200 TABLET PO SCH (08:21)
[2018-02-16] MEDS: CYANOCOBALAMIN (VITAMIN B-12) 250 MCG TABLET PO SCH (08:21)
[2018-02-16] MEDS: ATORVASTATIN CALCIUM 20 MG TABLET PO SCH (08:21)
[2018-02-16] MEDS: metFORMIN 850 MG TABLET PO SCH ×2 (08:21→16:48)
[2018-02-16] MEDS: FLUCONAZOLE 100 MG TABLET. PO SCH (08:21)
[2018-02-16] MEDS: QUEtiapine 50 MG TABLET. PO SCH (08:21)
[2018-02-16] MEDS: FERROUS SULFATE 325 MG TABLET. PO SCH (08:22)
[2018-02-16] MEDS: FENOFIBRATE NANOCRYSTALLIZED 145 MG TABLET PO SCH (08:22)
[2018-02-16] MEDS: MAGNESIUM OXIDE 400 MG TABLET PO SCH (08:22)
[2018-02-16] MEDS: LACTOBACILLUS RHAMNOSUS GG 1 CAPSULE. PO SCH ×2 (08:22→20:06)
[2018-02-16] MEDS: METOPROLOL TART IMMED RELEASE 25 MG TABLET PO SCH (08:23)
[2018-02-16] MEDS: QUEtiapine 25 MG TABLET. PO SCH ×3 (08:31→16:47)
[2018-02-16] MEDS: busPIRone 10 MG TABLET. PO SCH (12:53)
[2018-02-16 15:56] VITALS: BP 123/77
[2018-02-16] MEDS: DIVALPROEX ER 500 MG TAB.ER.24H PO SCH (20:05)
[2018-02-16] MEDS: DIVALPROEX ER 250 MG TAB.ER.24H. PO SCH (20:06)
[2018-02-16] MEDS: INSULIN GLARGINE 300 UNITS/3 ML INSULN.PEN. SQ SCH (20:20)
--- NOTE | 2018-02-16 20:58 | PDOC ---
Exam Note: Hemant Note: Please also refer to the separate dictated note~for this date of service dictated separately.~Patient seen individually. Discussed the patient with Nursing staff reviewed the chart.~Reviewed interim history and current functioning. Reviewed vital signs,~Labs/ Radiology~and current medications noted below. Continue current treatment with the changes noted in the dictated addendum note Assessment: Vital Signs: Vital Signs Date Time Temp Pulse Resp B/P (MAP) Pulse Ox O2 Delivery O2 Flow Rate FiO2 02/16/18 15:56 97.7 63 16 123/77 (92) 100 02/11/18 09:52 Room Air I&O Intake and Output 02/16/18 07:00 Intake Total 1205 ml Balance 1205 ml Intake Oral 1205 ml Labs: Laboratory Tests Test 02/16/18 07:15 02/16/18 11:07 02/16/18 16:41 02/16/18 19:13 Glucose (Fingerstick) 71 mg/dL (70-99) 98 mg/dL (70-99) 104 mg/dL (70-99) H 135 mg/dL (70-99) H Current Medications: Meds: Current Medications Ceftriaxone Sodium (Rocephin Im) 1 gm 1X ONCE IM Last administered on 19:18; Start 01/21/18 at 19:15; Stop 01/21/18 at 19:16; Status DC Acetaminophen (Tylenol) 500 mg BID PO Last administered on 02/16/18at 20:07; Start 01/21/18 at 22:00 Aspirin (Children'S Aspirin) 81 mg DAILY PO Last administered on 02/16/18at 08: 20; Start 01/22/18 at 09:00 Cetirizine HCl (ZyrTEC) 10 mg PRN DAILY PRN PO ALLERGIES; Start 01/21/18 at 22: 00 Ferrous Sulfate (Feosol) 325 mg DAILY PO Last administered on 02/16/18at 08:22; Start 01/22/18 at 09:00 Acetaminophen/ Hydrocodone Bitart (Lortab 7.5/325) 1 tab PRN Q6HRS PRN PO MOD/ SEVERE PAIN Last administered on 02/08/18at 00:35; Start 01/21/18 at 22:00 Levothyroxine Sodium (Synthroid) 125 mcg DAILY06 PO Last administered on 06:00; Start 01/22/18 at 06:00 Metformin HCl (Glucophage) 850 mg BIDWMEALS PO Last administered on 02/16/18 16:48; Start 01/22/18 at 08:00 Metoprolol Tartrate (Lopressor) 25 mg DAILY PO Last administered on 02/16/18 08:23; Start 01/22/18 at 09:00 Nystatin (Nystop) 1 soniya PRN BID PRN TP RASH Last administered on 01/31/18 21: 23; Start 01/21/18 at 22:00 Polyethylene Glycol (miraLAX) 17 gm DAILY PO Last administered on 02/16/18 08: 20; Start 01/22/18 at 09:00 Topiramate (Topamax) 100 mg TID PO Last administered on 02/01/18 14:30; Start 01/21/18 at 22:00; Stop 02/01/18 at 18:51; Status DC Calcium/Vitamin D (Oscal D 500mg/ 200uts) 1 tab DAILY PO Last administered on 08:21; Start 01/22/18 at 09:00 Cyanocobalamin (Vitamin B-12) 250 mcg DAILY PO Last administered on 02/16/18 08:21; Start 01/22/18 at 09:00 Fenofibrate (Tricor) 145 mg DAILY PO Last administered on 02/01/18 08:40; Start 01/22/18 at 09:00; Stop 02/02/18 at 08:48; Status DC Insulin Glargine (Lantus) 24 units QHS SQ Last administered on 02/03/18 20:51; Start 01/21/18 at 22:00; Stop 02/04/18 at 18:30; Status DC Lactobacillus Rhamnosus (Culturelle) 1 cap BID PO Last administered on 20:06; Start 01/22/18 at 09:00 Magnesium Oxide (Magnesium Oxide) 200 mg DAILY PO Last administered on 08:22; Start 01/22/18 at 09:00 Oxybutynin Chloride (Ditropan) 5 mg BID PO Last administered on 02/16/18 20:06 ; Start 01/21/18 at 22:00 Pantoprazole Sodium (Protonix) 40 mg PRN DAILY PRN PO NEEDED BEFORE A MEAL; Start 01/22/18 at 07:30 Non-Formulary Medication (Pseudoephedrine/ Brompheniramin (Rynex Pse Liquid)) 5 ml PRN TID PRN PO COUGH; Start 01/21/18 at 22:00; Stop 01/21/18 at 22:36; Status DC Atorvastatin Calcium (Lipitor) 20 mg DAILY PO Last administered on 02/16/18at 08 :21; Start 01/22/18 at 09:00 Buspirone HCl (Buspar) 10 mg BID PO Last administered on 01/28/18at 07:56; Start 01/21/18 at 22:00; Stop 01/28/18 at 18:24; Status DC Divalproex Sodium (Depakote Er) 500 mg HS PO Last administered on 01/22/18at 00: 15; Start 01/21/18 at 22:00; Stop 01/22/18 at 18:18; Status DC Fluvoxamine Maleate (Luvox) 100 mg QHS PO Last administered on 01/31/18at 21:20 ; Start 01/21/18 at 22:00; Stop 02/01/18 at 18:51; Status DC Risperidone (RisperDAL) 1 mg DAILY PO Last administered on 01/26/18at 08:14; Start 01/22/18 at 09:00; Stop 01/26/18 at 18:22; Status DC Non-Formulary Medication (Fluvoxamine Maleate ) 50 mg DAILY PO ; Start 01/22/18 at 09:00; Stop 01/22/18 at 09:00; Status DC Non-Formulary Medication (Memantine Hcl (Namenda Xr)) 7 mg DAILY PO ; Start at 09:00; Stop 01/22/18 at 09:00; Status DC Memantine (Namenda) 5 mg BID PO Last administered on 02/05/18at 08:11; Start at 22:00; Stop 02/05/18 at 11:48; Status DC Insulin Human Lispro (HumaLOG) 0-10 UNITS TIDWMEALS SQ Last administered on at 17:38; Start 01/22/18 at 08:00 Nystatin (Nystop) 1 soniya PRN BID PRN TP RASH; Start 01/22/18 at 00:15; Status Cancel Acetaminophen (Tylenol) 650 mg PRN Q6HRS PRN PO PAIN / TEMP Last administered on 02/13/18at 23:35; Start 01/22/18 at 05:00 Multi-Ingredient Ointment (Analgesic [place]) 1 soniya PRN QID PRN TP MUSCLE PAIN; Start 01/22/18 at 05:00 Al Hydroxide/Mg Hydroxide (Mylanta Plus Xs) 15 ml PRN AFTMEALHC PRN PO DYSPEPSIA; Start 01/22/18 at 05:00 Magnesium Hydroxide (Milk Of Magnesia) 2,400 mg PRN QHS PRN PO CONSTIPATION; Start 01/22/18 at 05:00 Vitamin D (Vitamin D3) 50,000 unit WEEKLY PO Last administered on 02/12/18at 09: 19; Start 01/22/18 at 18:00 Fluconazole (Diflucan) 100 mg DAILY PO Last administered on 02/16/18at 08:21; Start 01/23/18 at 09:00 Cefpodoxime Proxetil (Vantin) 200 mg BID PO Last administered on 01/28/18at 07: 57; Start 01/22/18 at 21:00; Stop 01/28/18 at 20:59; Status DC Lactobacillus Rhamnosus (Culturelle) 1 cap BID PO ; Start 01/22/18 at 21:00; Stop 01/22/18 at 21:00; Status DC Divalproex Sodium (Depakote Er) 500 mg HS PO Last administered on 01/24/18at 19: 58; Start 01/22/18 at 21:00; Stop 01/25/18 at 15:48; Status DC Divalproex Sodium (Depakote Er) 250 mg QHS PO Last administered on 01/24/18at 19 :58; Start 01/22/18 at 21:00; Stop 01/25/18 at 15:48; Status DC Divalproex Sodium (Depakote Er) 1,000 mg QHS PO Last administered on 01/28/18at 19:36; Start 01/25/18 at 21:00; Stop 01/29/18 at 12:58; Status DC Risperidone (RisperDAL) 0.75 mg DAILY PO Last administered on 02/01/18 08:37; Start 01/27/18 at 09:00; Stop 02/01/18 at 18:53; Status DC Buspirone HCl (Buspar) 10 mg TID PO Last administered on 02/04/18at 13:38; Start 01/28/18 at 21:00; Stop 02/04/18 at 18:58; Status DC Divalproex Sodium (Depakote Er) 1,250 mg QHS PO ; Start 01/29/18 at 21:00; Stop 01/29/18 at 21:00; Status DC Carbamide Peroxide (Debrox) 5 drop PRN BID PRN AU IMPACTION Last administered on 01/31/18at 12:43; Start 01/29/18 at 19:15 Divalproex Sodium (Depakote Er) 250 mg QHS PO Last administered on 02/16/18at 20 :06; Start 01/29/18 at 21:00 Divalproex Sodium (Depakote Er) 1,000 mg QHS PO Last administered on 02/16/18at 20:05; Start 01/29/18 at 21:00 Fluvoxamine Maleate (Luvox) 125 mg QHS PO Last administered on 02/02/18at 20:37 ; Start 02/01/18 at 21:00; Stop 02/03/18 at 19:25; Status DC Risperidone (RisperDAL) 0.25 mg BID@0900,1300 PO Last administered on at 13:31; Start 02/02/18 at 09:00; Stop 02/02/18 at 18:19; Status DC Risperidone (RisperDAL) 0.5 mg DAILY@1700 PO Last administered on 02/02/18at 16: 48; Start 02/02/18 at 17:00; Stop 02/02/18 at 18:19; Status DC Fenofibrate (Tricor) 145 mg DAILY PO Last administered on 02/16/18at 08:22; Start 02/02/18 at 09:00 Olanzapine (ZyPREXA ZYDIS) 1.25 mg PRN Q2HR PRN PO PSYCHOSIS Last administered on 02/08/18at 00:36; Start 02/02/18 at 18:30 Quetiapine Fumarate (SEROquel) 25 mg TID@0900,1300,1700 PO ; Start 02/03/18 at 09 :00; Stop 02/03/18 at 09:00; Status DC Quetiapine Fumarate (SEROquel) 12.5 mg TID@0900,1300,1700 PO Last administered on 02/12/18at 09:17; Start 02/03/18 at 09:00; Stop 02/12/18 at 12:49; Status DC Fluvoxamine Maleate (Luvox) 150 mg HS PO Last administered on 02/04/18at 20:52; Start 02/03/18 at 21:00; Stop 02/05/18 at 22:00; Status DC Insulin Glargine (Lantus) 18 units QHS SQ Last administered on 02/16/18 20:20 ; Start 02/04/18 at 21:00 Buspirone HCl (Buspar) 15 mg BID94 PO Last administered on 02/16/18 16:47; Start 02/05/18 at 09:00 Buspirone HCl (Buspar) 10 mg DAILY@1300 PO Last administered on 02/16/18at 12:53 ; Start 02/05/18 at 13:00 Memantine (Namenda) 10 mg BID PO Last administered on 02/16/18 20:05; Start at 21:00 Fluvoxamine Maleate (Luvox) 150 mg HS PO Last administered on 02/12/18at 20:54; Start 02/05/18 at 21:00; Stop 02/12/18 at 21:25; Status DC Fluvoxamine Maleate (Luvox) 25 mg QHS PO Last administered on 02/12/18 20:54; Start 02/05/18 at 21:00; Stop 02/12/18 at 21:25; Status DC Quetiapine Fumarate (SEROquel) 25 mg TID@0900,1300,1700 PO Last administered on 02/16/18at 16:47; Start 02/12/18 at 13:00 Fluvoxamine Maleate (Luvox) 75 mg QHS PO Last administered on 02/16/18at 20:06; Start 02/13/18 at 21:00 Fluvoxamine Maleate (Luvox) 100 mg HS PO Last administered on 02/16/18at 20:05; Start 02/13/18 at 21:00 Quetiapine Fumarate (SEROquel) 25 mg TID@0900,1300,1700 PO Last administered on 02/16/18at 08:21; Start 02/15/18 at 18:00; Stop 02/16/18 at 09:01; Status DC Active Scripts Active Reported Risperidone 1 Mg Tablet 1 Mg PO DAILY Namenda Xr (Memantine Hcl) 14 Mg Cap.spr.24 14 Mg PO DAILY Namenda Xr (Memantine Hcl) 7 Mg Cap.spr.24 7 Mg PO DAILY Depakote Er (Divalproex Sodium) 500 Mg Tab.er.24h 500 Mg PO HS Buspirone Hcl 10 Mg Tablet 10 Mg PO BID Fenofibrate (Fenofibrate,Micronized) 134 Mg Capsule 134 Mg PO DAILY Fluvoxamine Maleate 100 Mg Tablet 1 Tab PO QHS Levemir Flextouch (Insulin Detemir) 100 Unit/1 Ml Insuln.pen 24 Unit SQ HS Novolog Flexpen (Insulin Aspart) 100 Unit/1 Ml Insuln.pen 0-10 Unit SQ TIDAC SLIDING SCALE INSULIN Magnesium (Magnesium Oxide) 400 Mg Capsule 250 Mg PO DAILY Levothyroxine Sodium 125 Mcg Tablet 125 Mcg PO DAILY06 Atorvastatin Calcium 20 Mg Tablet 20 Mg PO DAILY Fluvoxamine Maleate 50 Mg Tablet 50 Mg PO DAILY Acetaminophen 500 Mg Tablet 500 Mg PO BID Calcium 600 + Vit D 200 Tablet (Calcium Carbonate/Vitamin D3) 1 Each Tablet 1 Each PO DAILY B-12 (Cyanocobalamin (Vitamin B-12)) 500 Mcg Tablet 250 Mcg PO DAILY Acidophilus (Lactobacillus Acidophilus) 1 Each Capsule 1 Each PO BID Metformin Hcl 850 Mg Tablet 850 Mg PO BIDWMEALS Ferrous Sulfate 325 Mg Tablet 1 Tab PO DAILY Topiramate 100 Mg Tablet 100 Mg PO TID Metoprolol Tartrate 25 Mg Tablet 25 Mg PO DAILY Ditropan Xl (Oxybutynin Chloride) 10 Mg Tab.er.24 10 Mg PO DAILY Miralax (Polyethylene Glycol 3350) 17 Gm Powd.pack 17 Gm PO DAILY Aspirin 81 Mg Tab.chew 81 Mg PO DAILY Cetirizine Hcl 10 Mg Tablet 10 Mg PO PRN DAILY PRN Hydrocodone-Apap 7.5-325 (Hydrocodone Bit/Acetaminophen) 1 Each Tablet 1 Tab PO PRN Q6HRS PRN Rynex Pse Liquid (Pseudoephedrine/Brompheniramin) 473 Ml Liquid 5 Ml PO PRN TID PRN Protonix (Pantoprazole Sodium) 20 Mg Tablet.dr 20 Mg PO PRN DAILY PRN Nystop (Nystatin) 60 Gm Powder 1 Soniya TP PRN BID PRN I have reviewed the current psychotropics carefully including drug interactions. Risk benefit ratio favors no change other than as noted in my dictated progress note. Diagnosis: Problems: (1) Anxiety disorder (2) Impulse control disorder (3) Bipolar affective disorder, mixed (4) Borderline intellectual disability (5) Borderline intellectual disability (6) Dementia in Alzheimer's disease with delusions LAURITA DAVIS MD February 16, 2018 20:58
--- NOTE | 2018-02-17 04:34 | PN ---
DATE: 02/15/2018 This late entry 02/15/2018 covers elements not covered in my initial note 02/15/2018. I met with the patient in the evening. The patient remains ____. She takes her underwear off again, somewhat anxious, attention seeking with some mood lability, but redirectable. Much of the mood lability leftover now is consequent to her intellectual disability. REVIEW OF SYSTEMS: Ambulation impaired with walker. No CV, , pulmonary, eye, ENT system symptoms on review. Reliability poor. MENTAL STATUS EXAM: Oriented to herself and situation. Insight, judgment, recent memory is impaired. Language function intact. Mood and affect, lability overall improved. LABORATORY DATA: Reviewed. IMPRESSION: Unchanged from initial note. PLAN: Unchanged from initial note. MAN Kingston DAVIS MD DR: SUMEET/kirill JOB#: [id number] / [id number]
--- NOTE | 2018-02-17 04:39 | PN ---
DATE: 02/14/2018 This is a late entry of 02/14/2018 covers elements not covered in my initial note of 02/14/2018. SUBJECTIVE: I met with the patient in the evening. The patient slept 8-1/2 hours, compliant with her medication, remains in [place] because she removes her brief repeatedly, compliant with medication. Her overall functioning is consistent with her intellectual disability otherwise. Her mood lability is improved. REVIEW OF SYSTEMS: Complains of some itching in the groin area, but the rash is much improved. No CV, , pulmonary, eye, ENT system symptoms on review. Reliability somewhat impaired. MENTAL STATUS EXAM: Oriented to herself. Insight, judgment, recent memory is impaired. Language function intact. Attention span short. Mood and affect showing improved lability. LABORATORY DATA: Reviewed. IMPRESSION: Unchanged from initial note. PLAN: Continue psychotropics mentioned in my initial note. MAN Kingston DAVIS MD DR: SUMEET/kirill JOB#: [id number] / [id number]
[2018-02-17] MEDS: LEVOTHYROXINE 125 MCG TABLET PO SCH (05:31)
[2018-02-17 06:26] VITALS: BP 146/80
[2018-02-17] MEDS: INSULIN LISPRO 300 UNITS/3 ML INSULN.PEN. SQ SCH ×3 (08:00→16:43)
[2018-02-17] MEDS: ASPIRIN 81 MG TAB.CHEW PO SCH (08:34)
[2018-02-17] MEDS: POLYETHYLENE GLYCOL 3350 17 GM PACKET. PO SCH (08:34)
[2018-02-17] MEDS: FERROUS SULFATE 325 MG TABLET. PO SCH (08:34)
[2018-02-17] MEDS: MAGNESIUM OXIDE 400 MG TABLET PO SCH (08:35)
[2018-02-17] MEDS: CALCIUM CARB/VIT D3 500/200 TABLET PO SCH (08:35)
[2018-02-17] MEDS: LACTOBACILLUS RHAMNOSUS GG 1 CAPSULE. PO SCH ×2 (08:35→20:49)
[2018-02-17] MEDS: busPIRone 15 MG TABLET. PO SCH ×2 (08:35→16:00)
[2018-02-17] MEDS: metFORMIN 850 MG TABLET PO SCH ×2 (08:35→16:30)
[2018-02-17] MEDS: ACETAMINOPHEN 500 MG TABLET PO SCH ×2 (08:35→20:50)
[2018-02-17] MEDS: ATORVASTATIN CALCIUM 20 MG TABLET PO SCH (08:35)
[2018-02-17] MEDS: CYANOCOBALAMIN (VITAMIN B-12) 250 MCG TABLET PO SCH (08:35)
[2018-02-17] MEDS: FLUCONAZOLE 100 MG TABLET. PO SCH (08:36)
[2018-02-17] MEDS: QUEtiapine 25 MG TABLET. PO SCH ×3 (08:36→16:30)
[2018-02-17] MEDS: FENOFIBRATE NANOCRYSTALLIZED 145 MG TABLET PO SCH (08:36)
[2018-02-17] MEDS: METOPROLOL TART IMMED RELEASE 25 MG TABLET PO SCH (08:36)
[2018-02-17] MEDS: MEMANTINE 5 MG TABLET. PO SCH ×2 (08:36→20:50)
[2018-02-17] MEDS: OXYBUTYNIN CHLORIDE 5 MG TABLET PO SCH ×2 (08:36→20:49)
[2018-02-17] MEDS: busPIRone 10 MG TABLET. PO SCH (12:15)
[2018-02-17] MEDS: ACETAMINOPHEN 325 MG TABLET PO PRN (13:16)
[2018-02-17 16:40] VITALS: BP 122/50
[2018-02-17] MEDS: NYSTATIN TOPICAL POWDER 15GM BOTTLE. TP PRN (16:46)
--- NOTE | 2018-02-17 18:48 | PN ---
DATE: 02/16/2018 This is a late entry for 02/16/2018 and covers the elements not covered in my initial note of 02/16/2018. SUBJECTIVE: I met with the patient in the evening. The patient slept 6-3/4 hours previous evening, remains somewhat anxious, labile, but redirects, since some of this is consistent with her intellectual disability. REVIEW OF SYSTEMS: Ambulation impaired with walker. No CV, , pulmonary, eye, ENT system symptoms on review. She has vague somatic symptoms. MENTAL STATUS EXAM: Oriented to herself. Insight, judgment, recent and remote memory, attention, concentration, fund of knowledge poor, consistent with her diagnosis. Mood lability is improved. LABORATORY DATA: Reviewed. IMPRESSION: Unchanged from initial note. PLAN: Continue psychotropics mentioned in my initial note. MAN Kingston DAVIS MD DR: SUMEET/kirill JOB#: [id number] / [id number]
--- NOTE | 2018-02-17 20:26 | PDOC ---
Exam Note: Hemant Note: Please also refer to the separate dictated note~for this date of service dictated separately.~Patient seen individually. Discussed the patient with Nursing staff reviewed the chart.~Reviewed interim history and current functioning. Reviewed vital signs,~Labs/ Radiology~and current medications noted below. Continue current treatment with the changes noted in the dictated addendum note Assessment: Vital Signs: Vital Signs Date Time Temp Pulse Resp B/P (MAP) Pulse Ox O2 Delivery O2 Flow Rate FiO2 02/17/18 16:40 98.1 67 18 122/50 (74) 96 02/11/18 09:52 Room Air I&O Intake and Output 02/17/18 07:00 Intake Total 960 ml Balance 960 ml Intake Oral 960 ml Labs: Laboratory Tests Test 02/17/18 07:30 02/17/18 11:13 02/17/18 16:10 02/17/18 19:25 Glucose (Fingerstick) 67 mg/dL (70-99) L 113 mg/dL (70-99) H 80 mg/dL (70-99) 104 mg/dL (70-99) H Current Medications: Meds: Current Medications Ceftriaxone Sodium (Rocephin Im) 1 gm 1X ONCE IM Last administered on 19:18; Start 01/21/18 at 19:15; Stop 01/21/18 at 19:16; Status DC Acetaminophen (Tylenol) 500 mg BID PO Last administered on 02/17/18at 08:35; Start 01/21/18 at 22:00 Aspirin (Children'S Aspirin) 81 mg DAILY PO Last administered on 02/17/18at 08: 34; Start 01/22/18 at 09:00 Cetirizine HCl (ZyrTEC) 10 mg PRN DAILY PRN PO ALLERGIES; Start 01/21/18 at 22: 00 Ferrous Sulfate (Feosol) 325 mg DAILY PO Last administered on 02/17/18at 08:34; Start 01/22/18 at 09:00 Acetaminophen/ Hydrocodone Bitart (Lortab 7.5/325) 1 tab PRN Q6HRS PRN PO MOD/ SEVERE PAIN Last administered on 02/08/18at 00:35; Start 01/21/18 at 22:00 Levothyroxine Sodium (Synthroid) 125 mcg DAILY06 PO Last administered on 05:31; Start 01/22/18 at 06:00 Metformin HCl (Glucophage) 850 mg BIDWMEALS PO Last administered on 02/17/18 16:30; Start 01/22/18 at 08:00 Metoprolol Tartrate (Lopressor) 25 mg DAILY PO Last administered on 02/17/18 08:36; Start 01/22/18 at 09:00 Nystatin (Nystop) 1 soniya PRN BID PRN TP RASH Last administered on 02/17/18 16: 46; Start 01/21/18 at 22:00 Polyethylene Glycol (miraLAX) 17 gm DAILY PO Last administered on 02/17/18 08: 34; Start 01/22/18 at 09:00 Topiramate (Topamax) 100 mg TID PO Last administered on 02/01/18 14:30; Start 01/21/18 at 22:00; Stop 02/01/18 at 18:51; Status DC Calcium/Vitamin D (Oscal D 500mg/ 200uts) 1 tab DAILY PO Last administered on 08:35; Start 01/22/18 at 09:00 Cyanocobalamin (Vitamin B-12) 250 mcg DAILY PO Last administered on 02/17/18 08:35; Start 01/22/18 at 09:00 Fenofibrate (Tricor) 145 mg DAILY PO Last administered on 02/01/18 08:40; Start 01/22/18 at 09:00; Stop 02/02/18 at 08:48; Status DC Insulin Glargine (Lantus) 24 units QHS SQ Last administered on 02/03/18 20:51; Start 01/21/18 at 22:00; Stop 02/04/18 at 18:30; Status DC Lactobacillus Rhamnosus (Culturelle) 1 cap BID PO Last administered on 08:35; Start 01/22/18 at 09:00 Magnesium Oxide (Magnesium Oxide) 200 mg DAILY PO Last administered on 08:35; Start 01/22/18 at 09:00 Oxybutynin Chloride (Ditropan) 5 mg BID PO Last administered on 02/17/18 08:36 ; Start 01/21/18 at 22:00 Pantoprazole Sodium (Protonix) 40 mg PRN DAILY PRN PO NEEDED BEFORE A MEAL; Start 01/22/18 at 07:30 Non-Formulary Medication (Pseudoephedrine/ Brompheniramin (Rynex Pse Liquid)) 5 ml PRN TID PRN PO COUGH; Start 01/21/18 at 22:00; Stop 01/21/18 at 22:36; Status DC Atorvastatin Calcium (Lipitor) 20 mg DAILY PO Last administered on 02/17/18at 08 :35; Start 01/22/18 at 09:00 Buspirone HCl (Buspar) 10 mg BID PO Last administered on 01/28/18at 07:56; Start 01/21/18 at 22:00; Stop 01/28/18 at 18:24; Status DC Divalproex Sodium (Depakote Er) 500 mg HS PO Last administered on 01/22/18at 00: 15; Start 01/21/18 at 22:00; Stop 01/22/18 at 18:18; Status DC Fluvoxamine Maleate (Luvox) 100 mg QHS PO Last administered on 01/31/18at 21:20 ; Start 01/21/18 at 22:00; Stop 02/01/18 at 18:51; Status DC Risperidone (RisperDAL) 1 mg DAILY PO Last administered on 01/26/18at 08:14; Start 01/22/18 at 09:00; Stop 01/26/18 at 18:22; Status DC Non-Formulary Medication (Fluvoxamine Maleate ) 50 mg DAILY PO ; Start 01/22/18 at 09:00; Stop 01/22/18 at 09:00; Status DC Non-Formulary Medication (Memantine Hcl (Namenda Xr)) 7 mg DAILY PO ; Start at 09:00; Stop 01/22/18 at 09:00; Status DC Memantine (Namenda) 5 mg BID PO Last administered on 02/05/18at 08:11; Start at 22:00; Stop 02/05/18 at 11:48; Status DC Insulin Human Lispro (HumaLOG) 0-10 UNITS TIDWMEALS SQ Last administered on at 17:38; Start 01/22/18 at 08:00 Nystatin (Nystop) 1 soniya PRN BID PRN TP RASH; Start 01/22/18 at 00:15; Status Cancel Acetaminophen (Tylenol) 650 mg PRN Q6HRS PRN PO PAIN / TEMP Last administered on 02/17/18at 13:16; Start 01/22/18 at 05:00 Multi-Ingredient Ointment (Analgesic Roslyn) 1 soniya PRN QID PRN TP MUSCLE PAIN; Start 01/22/18 at 05:00 Al Hydroxide/Mg Hydroxide (Mylanta Plus Xs) 15 ml PRN AFTMEALHC PRN PO DYSPEPSIA; Start 01/22/18 at 05:00 Magnesium Hydroxide (Milk Of Magnesia) 2,400 mg PRN QHS PRN PO CONSTIPATION; Start 01/22/18 at 05:00 Vitamin D (Vitamin D3) 50,000 unit WEEKLY PO Last administered on 02/12/18at 09: 19; Start 01/22/18 at 18:00 Fluconazole (Diflucan) 100 mg DAILY PO Last administered on 02/17/18at 08:36; Start 01/23/18 at 09:00 Cefpodoxime Proxetil (Vantin) 200 mg BID PO Last administered on 01/28/18at 07: 57; Start 01/22/18 at 21:00; Stop 01/28/18 at 20:59; Status DC Lactobacillus Rhamnosus (Culturelle) 1 cap BID PO ; Start 01/22/18 at 21:00; Stop 01/22/18 at 21:00; Status DC Divalproex Sodium (Depakote Er) 500 mg HS PO Last administered on 01/24/18at 19: 58; Start 01/22/18 at 21:00; Stop 01/25/18 at 15:48; Status DC Divalproex Sodium (Depakote Er) 250 mg QHS PO Last administered on 01/24/18at 19 :58; Start 01/22/18 at 21:00; Stop 01/25/18 at 15:48; Status DC Divalproex Sodium (Depakote Er) 1,000 mg QHS PO Last administered on 01/28/18at 19:36; Start 01/25/18 at 21:00; Stop 01/29/18 at 12:58; Status DC Risperidone (RisperDAL) 0.75 mg DAILY PO Last administered on 02/01/18 08:37; Start 01/27/18 at 09:00; Stop 02/01/18 at 18:53; Status DC Buspirone HCl (Buspar) 10 mg TID PO Last administered on 02/04/18at 13:38; Start 01/28/18 at 21:00; Stop 02/04/18 at 18:58; Status DC Divalproex Sodium (Depakote Er) 1,250 mg QHS PO ; Start 01/29/18 at 21:00; Stop 01/29/18 at 21:00; Status DC Carbamide Peroxide (Debrox) 5 drop PRN BID PRN AU IMPACTION Last administered on 01/31/18at 12:43; Start 01/29/18 at 19:15 Divalproex Sodium (Depakote Er) 250 mg QHS PO Last administered on 02/16/18at 20 :06; Start 01/29/18 at 21:00 Divalproex Sodium (Depakote Er) 1,000 mg QHS PO Last administered on 02/16/18at 20:05; Start 01/29/18 at 21:00 Fluvoxamine Maleate (Luvox) 125 mg QHS PO Last administered on 02/02/18at 20:37 ; Start 02/01/18 at 21:00; Stop 02/03/18 at 19:25; Status DC Risperidone (RisperDAL) 0.25 mg BID@0900,1300 PO Last administered on at 13:31; Start 02/02/18 at 09:00; Stop 02/02/18 at 18:19; Status DC Risperidone (RisperDAL) 0.5 mg DAILY@1700 PO Last administered on 02/02/18at 16: 48; Start 02/02/18 at 17:00; Stop 02/02/18 at 18:19; Status DC Fenofibrate (Tricor) 145 mg DAILY PO Last administered on 02/17/18at 08:36; Start 02/02/18 at 09:00 Olanzapine (ZyPREXA ZYDIS) 1.25 mg PRN Q2HR PRN PO PSYCHOSIS Last administered on 02/08/18at 00:36; Start 02/02/18 at 18:30 Quetiapine Fumarate (SEROquel) 25 mg TID@0900,1300,1700 PO ; Start 02/03/18 at 09 :00; Stop 02/03/18 at 09:00; Status DC Quetiapine Fumarate (SEROquel) 12.5 mg TID@0900,1300,1700 PO Last administered on 02/12/18at 09:17; Start 02/03/18 at 09:00; Stop 02/12/18 at 12:49; Status DC Fluvoxamine Maleate (Luvox) 150 mg HS PO Last administered on 02/04/18at 20:52; Start 02/03/18 at 21:00; Stop 02/05/18 at 22:00; Status DC Insulin Glargine (Lantus) 18 units QHS SQ Last administered on 02/16/18at 20:20 ; Start 02/04/18 at 21:00 Buspirone HCl (Buspar) 15 mg BID94 PO Last administered on 02/17/18 16:00; Start 02/05/18 at 09:00 Buspirone HCl (Buspar) 10 mg DAILY@1300 PO Last administered on 02/17/18at 12:15 ; Start 02/05/18 at 13:00 Memantine (Namenda) 10 mg BID PO Last administered on 02/17/18at 08:36; Start at 21:00 Fluvoxamine Maleate (Luvox) 150 mg HS PO Last administered on 02/12/18at 20:54; Start 02/05/18 at 21:00; Stop 02/12/18 at 21:25; Status DC Fluvoxamine Maleate (Luvox) 25 mg QHS PO Last administered on 02/12/18at 20:54; Start 02/05/18 at 21:00; Stop 02/12/18 at 21:25; Status DC Quetiapine Fumarate (SEROquel) 25 mg TID@0900,1300,1700 PO Last administered on 02/17/18at 16:30; Start 02/12/18 at 13:00 Fluvoxamine Maleate (Luvox) 75 mg QHS PO Last administered on 02/16/18at 20:06; Start 02/13/18 at 21:00 Fluvoxamine Maleate (Luvox) 100 mg HS PO Last administered on 02/16/18at 20:05; Start 02/13/18 at 21:00 Quetiapine Fumarate (SEROquel) 25 mg TID@0900,1300,1700 PO Last administered on 02/16/18at 08:21; Start 02/15/18 at 18:00; Stop 02/16/18 at 09:01; Status DC Active Scripts Active Reported Risperidone 1 Mg Tablet 1 Mg PO DAILY Namenda Xr (Memantine Hcl) 14 Mg Cap.spr.24 14 Mg PO DAILY Namenda Xr (Memantine Hcl) 7 Mg Cap.spr.24 7 Mg PO DAILY Depakote Er (Divalproex Sodium) 500 Mg Tab.er.24h 500 Mg PO HS Buspirone Hcl 10 Mg Tablet 10 Mg PO BID Fenofibrate (Fenofibrate,Micronized) 134 Mg Capsule 134 Mg PO DAILY Fluvoxamine Maleate 100 Mg Tablet 1 Tab PO QHS Levemir Flextouch (Insulin Detemir) 100 Unit/1 Ml Insuln.pen 24 Unit SQ HS Novolog Flexpen (Insulin Aspart) 100 Unit/1 Ml Insuln.pen 0-10 Unit SQ TIDAC SLIDING SCALE INSULIN Magnesium (Magnesium Oxide) 400 Mg Capsule 250 Mg PO DAILY Levothyroxine Sodium 125 Mcg Tablet 125 Mcg PO DAILY06 Atorvastatin Calcium 20 Mg Tablet 20 Mg PO DAILY Fluvoxamine Maleate 50 Mg Tablet 50 Mg PO DAILY Acetaminophen 500 Mg Tablet 500 Mg PO BID Calcium 600 + Vit D 200 Tablet (Calcium Carbonate/Vitamin D3) 1 Each Tablet 1 Each PO DAILY B-12 (Cyanocobalamin (Vitamin B-12)) 500 Mcg Tablet 250 Mcg PO DAILY Acidophilus (Lactobacillus Acidophilus) 1 Each Capsule 1 Each PO BID Metformin Hcl 850 Mg Tablet 850 Mg PO BIDWMEALS Ferrous Sulfate 325 Mg Tablet 1 Tab PO DAILY Topiramate 100 Mg Tablet 100 Mg PO TID Metoprolol Tartrate 25 Mg Tablet 25 Mg PO DAILY Ditropan Xl (Oxybutynin Chloride) 10 Mg Tab.er.24 10 Mg PO DAILY Miralax (Polyethylene Glycol 3350) 17 Gm Powd.pack 17 Gm PO DAILY Aspirin 81 Mg Tab.chew 81 Mg PO DAILY Cetirizine Hcl 10 Mg Tablet 10 Mg PO PRN DAILY PRN Hydrocodone-Apap 7.5-325 (Hydrocodone Bit/Acetaminophen) 1 Each Tablet 1 Tab PO PRN Q6HRS PRN Rynex Pse Liquid (Pseudoephedrine/Brompheniramin) 473 Ml Liquid 5 Ml PO PRN TID PRN Protonix (Pantoprazole Sodium) 20 Mg Tablet.dr 20 Mg PO PRN DAILY PRN Nystop (Nystatin) 60 Gm Powder 1 Soniya TP PRN BID PRN I have reviewed the current psychotropics carefully including drug interactions. Risk benefit ratio favors no change other than as noted in my dictated progress note. Diagnosis: Problems: (1) Anxiety disorder (2) Impulse control disorder (3) Bipolar affective disorder, mixed (4) Borderline intellectual disability (5) Borderline intellectual disability (6) Dementia in Alzheimer's disease with delusions LAURITA DAVIS MD February 17, 2018 20:26
[2018-02-17] MEDS: DIVALPROEX ER 500 MG TAB.ER.24H PO SCH (20:49)
[2018-02-17] MEDS: DIVALPROEX ER 250 MG TAB.ER.24H. PO SCH (20:50)
[2018-02-17] MEDS: INSULIN GLARGINE 300 UNITS/3 ML INSULN.PEN. SQ SCH (20:53)
[2018-02-18 05:55] VITALS: BP 143/72
[2018-02-18] MEDS: LEVOTHYROXINE 125 MCG TABLET PO SCH (06:16)
[2018-02-18] MEDS: INSULIN LISPRO 300 UNITS/3 ML INSULN.PEN. SQ SCH ×3 (09:30→17:18)
[2018-02-18] MEDS: CYANOCOBALAMIN (VITAMIN B-12) 250 MCG TABLET PO SCH (09:33)
[2018-02-18] MEDS: NYSTATIN TOPICAL POWDER 15GM BOTTLE. TP PRN (09:33)
[2018-02-18] MEDS: CALCIUM CARB/VIT D3 500/200 TABLET PO SCH (09:33)
[2018-02-18] MEDS: ACETAMINOPHEN 500 MG TABLET PO SCH ×2 (09:33→20:22)
[2018-02-18] MEDS: busPIRone 15 MG TABLET. PO SCH ×2 (09:34→17:19)
[2018-02-18] MEDS: MAGNESIUM OXIDE 400 MG TABLET PO SCH (09:34)
[2018-02-18] MEDS: METOPROLOL TART IMMED RELEASE 25 MG TABLET PO SCH (09:34)
[2018-02-18] MEDS: ATORVASTATIN CALCIUM 20 MG TABLET PO SCH (09:34)
[2018-02-18] MEDS: metFORMIN 850 MG TABLET PO SCH ×2 (09:34→17:19)
[2018-02-18] MEDS: FERROUS SULFATE 325 MG TABLET. PO SCH (09:34)
[2018-02-18] MEDS: OXYBUTYNIN CHLORIDE 5 MG TABLET PO SCH ×2 (09:34→20:23)
[2018-02-18] MEDS: QUEtiapine 25 MG TABLET. PO SCH ×3 (09:35→17:19)
[2018-02-18] MEDS: FENOFIBRATE NANOCRYSTALLIZED 145 MG TABLET PO SCH (09:35)
[2018-02-18] MEDS: LACTOBACILLUS RHAMNOSUS GG 1 CAPSULE. PO SCH ×2 (09:35→20:22)
[2018-02-18] MEDS: MEMANTINE 5 MG TABLET. PO SCH ×2 (09:35→20:23)
[2018-02-18] MEDS: ASPIRIN 81 MG TAB.CHEW PO SCH (09:35)
[2018-02-18] MEDS: POLYETHYLENE GLYCOL 3350 17 GM PACKET. PO SCH (09:35)
[2018-02-18] MEDS: FLUCONAZOLE 100 MG TABLET. PO SCH (09:35)
[2018-02-18] MEDS: busPIRone 10 MG TABLET. PO SCH (13:47)
[2018-02-18 18:30] VITALS: BP 120/59
[2018-02-18] MEDS: DIVALPROEX ER 250 MG TAB.ER.24H. PO SCH (20:22)
[2018-02-18] MEDS: DIVALPROEX ER 500 MG TAB.ER.24H PO SCH (20:23)
[2018-02-18] MEDS: INSULIN GLARGINE 300 UNITS/3 ML INSULN.PEN. SQ SCH (20:34)
--- NOTE | 2018-02-18 22:22 | PDOC ---
Exam Note: Hemant Note: Please also refer to the separate dictated note~for this date of service dictated separately.~Patient seen individually. Discussed the patient with Nursing staff reviewed the chart.~Reviewed interim history and current functioning. Reviewed vital signs,~Labs/ Radiology~and current medications noted below. Continue current treatment with the changes noted in the dictated addendum note Assessment: Vital Signs: Vital Signs Date Time Temp Pulse Resp B/P (MAP) Pulse Ox O2 Delivery O2 Flow Rate FiO2 02/18/18 18:30 97.9 60 22 120/59 (79) 99 I&O Intake and Output 02/18/18 07:00 Intake Total 1080 ml Balance 1080 ml Intake Oral 1080 ml # Bowel Movements 1 Labs: Laboratory Tests Test 02/18/18 05:45 02/18/18 07:29 02/18/18 11:52 02/18/18 17:17 Glucose (Fingerstick) 69 mg/dL (70-99) L 70 mg/dL (70-99) 76 mg/dL (70-99) 105 mg/dL (70-99) H Test 02/18/18 19:15 Glucose (Fingerstick) 134 mg/dL (70-99) H Current Medications: Meds: Current Medications Ceftriaxone Sodium (Rocephin Im) 1 gm 1X ONCE IM Last administered on 19:18; Start 01/21/18 at 19:15; Stop 01/21/18 at 19:16; Status DC Acetaminophen (Tylenol) 500 mg BID PO Last administered on 02/18/18at 20:22; Start 01/21/18 at 22:00 Aspirin (Children'S Aspirin) 81 mg DAILY PO Last administered on 02/18/18at 09: 35; Start 01/22/18 at 09:00 Cetirizine HCl (ZyrTEC) 10 mg PRN DAILY PRN PO ALLERGIES; Start 01/21/18 at 22: 00 Ferrous Sulfate (Feosol) 325 mg DAILY PO Last administered on 02/18/18at 09:34; Start 01/22/18 at 09:00 Acetaminophen/ Hydrocodone Bitart (Lortab 7.5/325) 1 tab PRN Q6HRS PRN PO MOD/ SEVERE PAIN Last administered on 02/08/18at 00:35; Start 01/21/18 at 22:00 Levothyroxine Sodium (Synthroid) 125 mcg DAILY06 PO Last administered on 06:16; Start 01/22/18 at 06:00 Metformin HCl (Glucophage) 850 mg BIDWMEALS PO Last administered on 02/18/18 17:19; Start 01/22/18 at 08:00 Metoprolol Tartrate (Lopressor) 25 mg DAILY PO Last administered on 02/18/18 09:34; Start 01/22/18 at 09:00 Nystatin (Nystop) 1 soniya PRN BID PRN TP RASH Last administered on 02/18/18 09: 33; Start 01/21/18 at 22:00 Polyethylene Glycol (miraLAX) 17 gm DAILY PO Last administered on 02/17/18 08: 34; Start 01/22/18 at 09:00 Topiramate (Topamax) 100 mg TID PO Last administered on 02/01/18 14:30; Start 01/21/18 at 22:00; Stop 02/01/18 at 18:51; Status DC Calcium/Vitamin D (Oscal D 500mg/ 200uts) 1 tab DAILY PO Last administered on 09:33; Start 01/22/18 at 09:00 Cyanocobalamin (Vitamin B-12) 250 mcg DAILY PO Last administered on 02/18/18 09:33; Start 01/22/18 at 09:00 Fenofibrate (Tricor) 145 mg DAILY PO Last administered on 02/01/18 08:40; Start 01/22/18 at 09:00; Stop 02/02/18 at 08:48; Status DC Insulin Glargine (Lantus) 24 units QHS SQ Last administered on 02/03/18 20:51; Start 01/21/18 at 22:00; Stop 02/04/18 at 18:30; Status DC Lactobacillus Rhamnosus (Culturelle) 1 cap BID PO Last administered on 20:22; Start 01/22/18 at 09:00 Magnesium Oxide (Magnesium Oxide) 200 mg DAILY PO Last administered on 09:34; Start 01/22/18 at 09:00 Oxybutynin Chloride (Ditropan) 5 mg BID PO Last administered on 5/16/18at 20:23 ; Start 01/21/18 at 22:00 Pantoprazole Sodium (Protonix) 40 mg PRN DAILY PRN PO NEEDED BEFORE A MEAL; Start 01/22/18 at 07:30 Non-Formulary Medication (Pseudoephedrine/ Brompheniramin (Rynex Pse Liquid)) 5 ml PRN TID PRN PO COUGH; Start 01/21/18 at 22:00; Stop 01/21/18 at 22:36; Status DC Atorvastatin Calcium (Lipitor) 20 mg DAILY PO Last administered on 02/18/18at 09 :34; Start 01/22/18 at 09:00 Buspirone HCl (Buspar) 10 mg BID PO Last administered on 01/28/18at 07:56; Start 01/21/18 at 22:00; Stop 01/28/18 at 18:24; Status DC Divalproex Sodium (Depakote Er) 500 mg HS PO Last administered on 01/22/18at 00: 15; Start 01/21/18 at 22:00; Stop 01/22/18 at 18:18; Status DC Fluvoxamine Maleate (Luvox) 100 mg QHS PO Last administered on 01/31/18at 21:20 ; Start 01/21/18 at 22:00; Stop 02/01/18 at 18:51; Status DC Risperidone (RisperDAL) 1 mg DAILY PO Last administered on 01/26/18at 08:14; Start 01/22/18 at 09:00; Stop 01/26/18 at 18:22; Status DC Non-Formulary Medication (Fluvoxamine Maleate ) 50 mg DAILY PO ; Start 01/22/18 at 09:00; Stop 01/22/18 at 09:00; Status DC Non-Formulary Medication (Memantine Hcl (Namenda Xr)) 7 mg DAILY PO ; Start at 09:00; Stop 01/22/18 at 09:00; Status DC Memantine (Namenda) 5 mg BID PO Last administered on 02/05/18at 08:11; Start at 22:00; Stop 02/05/18 at 11:48; Status DC Insulin Human Lispro (HumaLOG) 0-10 UNITS TIDWMEALS SQ Last administered on at 17:38; Start 01/22/18 at 08:00 Nystatin (Nystop) 1 soniya PRN BID PRN TP RASH; Start 01/22/18 at 00:15; Status Cancel Acetaminophen (Tylenol) 650 mg PRN Q6HRS PRN PO PAIN / TEMP Last administered on 02/17/18at 13:16; Start 01/22/18 at 05:00 Multi-Ingredient Ointment (Analgesic [place]) 1 soniya PRN QID PRN TP MUSCLE PAIN; Start 01/22/18 at 05:00 Al Hydroxide/Mg Hydroxide (Mylanta Plus Xs) 15 ml PRN AFTMEALHC PRN PO DYSPEPSIA; Start 01/22/18 at 05:00 Magnesium Hydroxide (Milk Of Magnesia) 2,400 mg PRN QHS PRN PO CONSTIPATION; Start 01/22/18 at 05:00 Vitamin D (Vitamin D3) 50,000 unit WEEKLY PO Last administered on 02/12/18at 09: 19; Start 01/22/18 at 18:00 Fluconazole (Diflucan) 100 mg DAILY PO Last administered on 02/18/18at 09:35; Start 01/23/18 at 09:00 Cefpodoxime Proxetil (Vantin) 200 mg BID PO Last administered on 01/28/18at 07: 57; Start 01/22/18 at 21:00; Stop 01/28/18 at 20:59; Status DC Lactobacillus Rhamnosus (Culturelle) 1 cap BID PO ; Start 01/22/18 at 21:00; Stop 01/22/18 at 21:00; Status DC Divalproex Sodium (Depakote Er) 500 mg HS PO Last administered on 01/24/18at 19: 58; Start 01/22/18 at 21:00; Stop 01/25/18 at 15:48; Status DC Divalproex Sodium (Depakote Er) 250 mg QHS PO Last administered on 01/24/18at 19 :58; Start 01/22/18 at 21:00; Stop 01/25/18 at 15:48; Status DC Divalproex Sodium (Depakote Er) 1,000 mg QHS PO Last administered on 01/28/18at 19:36; Start 01/25/18 at 21:00; Stop 01/29/18 at 12:58; Status DC Risperidone (RisperDAL) 0.75 mg DAILY PO Last administered on 02/01/18 08:37; Start 01/27/18 at 09:00; Stop 02/01/18 at 18:53; Status DC Buspirone HCl (Buspar) 10 mg TID PO Last administered on 02/04/18at 13:38; Start 01/28/18 at 21:00; Stop 02/04/18 at 18:58; Status DC Divalproex Sodium (Depakote Er) 1,250 mg QHS PO ; Start 01/29/18 at 21:00; Stop 01/29/18 at 21:00; Status DC Carbamide Peroxide (Debrox) 5 drop PRN BID PRN AU IMPACTION Last administered on 01/31/18at 12:43; Start 01/29/18 at 19:15 Divalproex Sodium (Depakote Er) 250 mg QHS PO Last administered on 02/18/18at 20 :22; Start 01/29/18 at 21:00 Divalproex Sodium (Depakote Er) 1,000 mg QHS PO Last administered on 02/18/18at 20:23; Start 01/29/18 at 21:00 Fluvoxamine Maleate (Luvox) 125 mg QHS PO Last administered on 02/02/18at 20:37 ; Start 02/01/18 at 21:00; Stop 02/03/18 at 19:25; Status DC Risperidone (RisperDAL) 0.25 mg BID@0900,1300 PO Last administered on 13:31; Start 02/02/18 at 09:00; Stop 02/02/18 at 18:19; Status DC Risperidone (RisperDAL) 0.5 mg DAILY@1700 PO Last administered on 02/02/18at 16: 48; Start 02/02/18 at 17:00; Stop 02/02/18 at 18:19; Status DC Fenofibrate (Tricor) 145 mg DAILY PO Last administered on 02/18/18at 09:35; Start 02/02/18 at 09:00 Olanzapine (ZyPREXA ZYDIS) 1.25 mg PRN Q2HR PRN PO PSYCHOSIS Last administered on 02/08/18at 00:36; Start 02/02/18 at 18:30 Quetiapine Fumarate (SEROquel) 25 mg TID@0900,1300,1700 PO ; Start 02/03/18 at 09 :00; Stop 02/03/18 at 09:00; Status DC Quetiapine Fumarate (SEROquel) 12.5 mg TID@0900,1300,1700 PO Last administered on 02/12/18at 09:17; Start 02/03/18 at 09:00; Stop 02/12/18 at 12:49; Status DC Fluvoxamine Maleate (Luvox) 150 mg HS PO Last administered on 02/04/18at 20:52; Start 02/03/18 at 21:00; Stop 02/05/18 at 22:00; Status DC Insulin Glargine (Lantus) 18 units QHS SQ Last administered on 02/18/18at 20:34 ; Start 02/04/18 at 21:00 Buspirone HCl (Buspar) 15 mg BID94 PO Last administered on 02/18/18 17:19; Start 02/05/18 at 09:00 Buspirone HCl (Buspar) 10 mg DAILY@1300 PO Last administered on 02/18/18at 13:47 ; Start 02/05/18 at 13:00 Memantine (Namenda) 10 mg BID PO Last administered on 02/18/18at 20:23; Start at 21:00 Fluvoxamine Maleate (Luvox) 150 mg HS PO Last administered on 02/12/18at 20:54; Start 02/05/18 at 21:00; Stop 02/12/18 at 21:25; Status DC Fluvoxamine Maleate (Luvox) 25 mg QHS PO Last administered on 02/12/18at 20:54; Start 02/05/18 at 21:00; Stop 02/12/18 at 21:25; Status DC Quetiapine Fumarate (SEROquel) 25 mg TID@0900,1300,1700 PO Last administered on 02/18/18at 17:19; Start 02/12/18 at 13:00 Fluvoxamine Maleate (Luvox) 75 mg QHS PO Last administered on 02/18/18at 20:22; Start 02/13/18 at 21:00 Fluvoxamine Maleate (Luvox) 100 mg HS PO Last administered on 02/18/18at 20:22; Start 02/13/18 at 21:00 Quetiapine Fumarate (SEROquel) 25 mg TID@0900,1300,1700 PO Last administered on 02/16/18at 08:21; Start 02/15/18 at 18:00; Stop 02/16/18 at 09:01; Status DC Miconazole Nitrate (Monistat-Derm) 1 soniya BID TP ; Start 02/18/18 at 21:00 Active Scripts Active Reported Risperidone 1 Mg Tablet 1 Mg PO DAILY Namenda Xr (Memantine Hcl) 14 Mg Cap.spr.24 14 Mg PO DAILY Namenda Xr (Memantine Hcl) 7 Mg Cap.spr.24 7 Mg PO DAILY Depakote Er (Divalproex Sodium) 500 Mg Tab.er.24h 500 Mg PO HS Buspirone Hcl 10 Mg Tablet 10 Mg PO BID Fenofibrate (Fenofibrate,Micronized) 134 Mg Capsule 134 Mg PO DAILY Fluvoxamine Maleate 100 Mg Tablet 1 Tab PO QHS Levemir Flextouch (Insulin Detemir) 100 Unit/1 Ml Insuln.pen 24 Unit SQ HS Novolog Flexpen (Insulin Aspart) 100 Unit/1 Ml Insuln.pen 0-10 Unit SQ TIDAC SLIDING SCALE INSULIN Magnesium (Magnesium Oxide) 400 Mg Capsule 250 Mg PO DAILY Levothyroxine Sodium 125 Mcg Tablet 125 Mcg PO DAILY06 Atorvastatin Calcium 20 Mg Tablet 20 Mg PO DAILY Fluvoxamine Maleate 50 Mg Tablet 50 Mg PO DAILY Acetaminophen 500 Mg Tablet 500 Mg PO BID Calcium 600 + Vit D 200 Tablet (Calcium Carbonate/Vitamin D3) 1 Each Tablet 1 Each PO DAILY B-12 (Cyanocobalamin (Vitamin B-12)) 500 Mcg Tablet 250 Mcg PO DAILY Acidophilus (Lactobacillus Acidophilus) 1 Each Capsule 1 Each PO BID Metformin Hcl 850 Mg Tablet 850 Mg PO BIDWMEALS Ferrous Sulfate 325 Mg Tablet 1 Tab PO DAILY Topiramate 100 Mg Tablet 100 Mg PO TID Metoprolol Tartrate 25 Mg Tablet 25 Mg PO DAILY Ditropan Xl (Oxybutynin Chloride) 10 Mg Tab.er.24 10 Mg PO DAILY Miralax (Polyethylene Glycol 3350) 17 Gm Powd.pack 17 Gm PO DAILY Aspirin 81 Mg Tab.chew 81 Mg PO DAILY Cetirizine Hcl 10 Mg Tablet 10 Mg PO PRN DAILY PRN Hydrocodone-Apap 7.5-325 (Hydrocodone Bit/Acetaminophen) 1 Each Tablet 1 Tab PO PRN Q6HRS PRN Rynex Pse Liquid (Pseudoephedrine/Brompheniramin) 473 Ml Liquid 5 Ml PO PRN TID PRN Protonix (Pantoprazole Sodium) 20 Mg Tablet.dr 20 Mg PO PRN DAILY PRN Nystop (Nystatin) 60 Gm Powder 1 Soniya TP PRN BID PRN I have reviewed the current psychotropics carefully including drug interactions. Risk benefit ratio favors no change other than as noted in my dictated progress note. Diagnosis: Problems: (1) Anxiety disorder (2) Impulse control disorder (3) Bipolar affective disorder, mixed (4) Borderline intellectual disability (5) Borderline intellectual disability (6) Dementia in Alzheimer's disease with delusions LAURITA DAVIS MD February 18, 2018 22:22
[2018-02-19] MEDS: MICONAZOLE NITRATE 2% TOPICAL CREAM 14GM TUBE. TP SCH ×2 (00:23→08:37)
[2018-02-19] MEDS ORDERED: ACET325T9 PO (01:43)
[2018-02-19] MEDS ORDERED: CARB-117 AU (01:46)
[2018-02-19] MEDS ORDERED: CHOL500021 PO (01:47)
[2018-02-19] MEDS ORDERED: FLUC100T4 PO (01:50)
[2018-02-19] MEDS ORDERED: MAG30ORA2 PO (01:54)
[2018-02-19] MEDS ORDERED: MAGN400O7 PO (01:55)
[2018-02-19] MEDS ORDERED: METH29OI TP (01:57)
[2018-02-19] MEDS ORDERED: OLAN5TAB5 PO (01:59)
[2018-02-19] MEDS ORDERED: QUET25TA5 PO (02:01)
[2018-02-19] MEDS ORDERED: BUSP10TA PO (02:03)
--- NOTE | 2018-02-19 03:18 | PN ---
DATE: 02/17/2018 This is a late entry of 02/17/2018 covers elements not covered in my initial note of 02/17/2018. SUBJECTIVE: I met with the patient in the evening. The patient slept 5-1/4 hours, compliant with her medications. Overall, functioning consistent with intellectual disability. She has been repeatedly pulling down her underwear, stays in bed where she is able to keep her underwear off and this is quite typical for the patient. She threw up her morning medications. REVIEW OF SYSTEMS: No CV, , pulmonary, eye, ENT system symptoms on review. Reliability poor. MENTAL STATUS EXAM: Oriented to herself. Insight, judgment, recent and remote memory, attention, concentration, fund of knowledge poor, consistent with her diagnosis mentioned in my initial note. PLAN: Continue current psychotropics mentioned in my initial note. Valproic acid level therapeutic at 57. MAN Kingston DAVIS MD DR: SUMEET/kirill JOB#: [id number] / [id number]
[2018-02-19] MEDS: LEVOTHYROXINE 125 MCG TABLET PO SCH (05:46)
[2018-02-19 06:13] VITALS: BP 152/72
[2018-02-19] MEDS: LACTOBACILLUS RHAMNOSUS GG 1 CAPSULE. PO SCH (08:33)
[2018-02-19] MEDS: ATORVASTATIN CALCIUM 20 MG TABLET PO SCH (08:33)
[2018-02-19] MEDS: QUEtiapine 25 MG TABLET. PO SCH (08:33)
[2018-02-19] MEDS: OXYBUTYNIN CHLORIDE 5 MG TABLET PO SCH (08:34)
[2018-02-19] MEDS: MEMANTINE 5 MG TABLET. PO SCH (08:34)
[2018-02-19] MEDS: busPIRone 15 MG TABLET. PO SCH (08:34)
[2018-02-19] MEDS: ACETAMINOPHEN 500 MG TABLET PO SCH (08:34)
[2018-02-19] MEDS: ASPIRIN 81 MG TAB.CHEW PO SCH (08:34)
[2018-02-19] MEDS: FENOFIBRATE NANOCRYSTALLIZED 145 MG TABLET PO SCH (08:34)
[2018-02-19] MEDS: CYANOCOBALAMIN (VITAMIN B-12) 250 MCG TABLET PO SCH (08:34)
[2018-02-19] MEDS: MAGNESIUM OXIDE 400 MG TABLET PO SCH (08:34)
[2018-02-19 08:35] VITALS: BP 152/72
[2018-02-19] MEDS: FERROUS SULFATE 325 MG TABLET. PO SCH (08:35)
[2018-02-19] MEDS: CALCIUM CARB/VIT D3 500/200 TABLET PO SCH (08:35)
[2018-02-19] MEDS: METOPROLOL TART IMMED RELEASE 25 MG TABLET PO SCH (08:35)
[2018-02-19] MEDS: metFORMIN 850 MG TABLET PO SCH (08:35)
[2018-02-19] MEDS: FLUCONAZOLE 100 MG TABLET. PO SCH (08:36)
[2018-02-19] MEDS: INSULIN LISPRO 300 UNITS/3 ML INSULN.PEN. SQ SCH (08:36)
[2018-02-19] MEDS: POLYETHYLENE GLYCOL 3350 17 GM PACKET. PO SCH (08:37)
[2018-02-19] MEDS: CHOLECALCIFEROL (VITAMIN D3) 50,000 UNIT CAPSULE PO SCH (08:38)
--- NOTE | 2018-02-19 18:21 | PDOC ---
Exam Note: Hemant Note: Please also refer to the separate dictated note~for this date of service dictated separately.~Patient seen individually. Discussed the patient with Nursing staff reviewed the chart.~Reviewed interim history and current functioning. Reviewed vital signs,~Labs/ Radiology~and current medications noted below. Continue current treatment with the changes noted in the dictated addendum note Assessment: Vital Signs: Vital Signs Date Time Temp Pulse Resp B/P (MAP) Pulse Ox O2 Delivery O2 Flow Rate FiO2 02/19/18 08:35 63 152/72 02/19/18 06:13 97.6 20 100 I&O Intake and Output 02/19/18 07:00 Intake Total 1320 ml Balance 1320 ml Intake Oral 1320 ml Labs: Laboratory Tests Test 02/18/18 19:15 02/19/18 07:41 Glucose (Fingerstick) 134 mg/dL (70-99) H 80 mg/dL (70-99) Current Medications: Meds: Current Medications Ceftriaxone Sodium (Rocephin Im) 1 gm 1X ONCE IM Last administered on at 19:18; Start 01/21/18 at 19:15; Stop 01/21/18 at 19:16; Status DC Acetaminophen (Tylenol) 500 mg BID PO Last administered on 02/19/18at 08:34; Start 01/21/18 at 22:00; Stop 02/19/18 at 09:33; Status DC Aspirin (Children'S Aspirin) 81 mg DAILY PO Last administered on 02/19/18at 08: 34; Start 01/22/18 at 09:00; Stop 02/19/18 at 09:33; Status DC Cetirizine HCl (ZyrTEC) 10 mg PRN DAILY PRN PO ALLERGIES; Start 01/21/18 at 22: 00; Stop 02/19/18 at 09:33; Status DC Ferrous Sulfate (Feosol) 325 mg DAILY PO Last administered on 02/19/18at 08:35; Start 01/22/18 at 09:00; Stop 02/19/18 at 09:33; Status DC Acetaminophen/ Hydrocodone Bitart (Lortab 7.5/325) 1 tab PRN Q6HRS PRN PO MOD/ SEVERE PAIN Last administered on 02/08/18at 00:35; Start 01/21/18 at 22:00; Stop 02/19/18 at 09:33; Status DC Levothyroxine Sodium (Synthroid) 125 mcg DAILY06 PO Last administered on at 05:46; Start 01/22/18 at 06:00; Stop 02/19/18 at 09:33; Status DC Metformin HCl (Glucophage) 850 mg BIDWMEALS PO Last administered on 02/19/18 08:35; Start 01/22/18 at 08:00; Stop 02/19/18 at 09:33; Status DC Metoprolol Tartrate (Lopressor) 25 mg DAILY PO Last administered on 02/19/18at 08:35; Start 01/22/18 at 09:00; Stop 02/19/18 at 09:33; Status DC Nystatin (Nystop) 1 soniya PRN BID PRN TP RASH Last administered on 02/18/18 09: 33; Start 01/21/18 at 22:00; Stop 02/19/18 at 09:33; Status DC Polyethylene Glycol (miraLAX) 17 gm DAILY PO Last administered on 02/17/18at 08: 34; Start 01/22/18 at 09:00; Stop 02/19/18 at 09:33; Status DC Topiramate (Topamax) 100 mg TID PO Last administered on 02/01/18 14:30; Start 01/21/18 at 22:00; Stop 02/01/18 at 18:51; Status DC Calcium/Vitamin D (Oscal D 500mg/ 200uts) 1 tab DAILY PO Last administered on 08:35; Start 01/22/18 at 09:00; Stop 02/19/18 at 09:33; Status DC Cyanocobalamin (Vitamin B-12) 250 mcg DAILY PO Last administered on 02/19/18 08:34; Start 01/22/18 at 09:00; Stop 02/19/18 at 09:33; Status DC Fenofibrate (Tricor) 145 mg DAILY PO Last administered on 02/01/18at 08:40; Start 01/22/18 at 09:00; Stop 02/02/18 at 08:48; Status DC Insulin Glargine (Lantus) 24 units QHS SQ Last administered on 02/03/18at 20:51; Start 01/21/18 at 22:00; Stop 02/04/18 at 18:30; Status DC Lactobacillus Rhamnosus (Culturelle) 1 cap BID PO Last administered on at 08:33; Start 01/22/18 at 09:00; Stop 02/19/18 at 09:33; Status DC Magnesium Oxide (Magnesium Oxide) 200 mg DAILY PO Last administered on at 08:34; Start 01/22/18 at 09:00; Stop 02/19/18 at 09:33; Status DC Oxybutynin Chloride (Ditropan) 5 mg BID PO Last administered on 02/19/18at 08:34 ; Start 01/21/18 at 22:00; Stop 02/19/18 at 09:33; Status DC Pantoprazole Sodium (Protonix) 40 mg PRN DAILY PRN PO NEEDED BEFORE A MEAL; Start 01/22/18 at 07:30; Stop 02/19/18 at 09:33; Status DC Non-Formulary Medication (Pseudoephedrine/ Brompheniramin (Rynex Pse Liquid)) 5 ml PRN TID PRN PO COUGH; Start 01/21/18 at 22:00; Stop 01/21/18 at 22:36; Status DC Atorvastatin Calcium (Lipitor) 20 mg DAILY PO Last administered on 02/19/18at 08 :33; Start 01/22/18 at 09:00; Stop 02/19/18 at 09:33; Status DC Buspirone HCl (Buspar) 10 mg BID PO Last administered on 01/28/18at 07:56; Start 01/21/18 at 22:00; Stop 01/28/18 at 18:24; Status DC Divalproex Sodium (Depakote Er) 500 mg HS PO Last administered on 01/22/18at 00: 15; Start 01/21/18 at 22:00; Stop 01/22/18 at 18:18; Status DC Fluvoxamine Maleate (Luvox) 100 mg QHS PO Last administered on 01/31/18at 21:20 ; Start 01/21/18 at 22:00; Stop 02/01/18 at 18:51; Status DC Risperidone (RisperDAL) 1 mg DAILY PO Last administered on 01/26/18at 08:14; Start 01/22/18 at 09:00; Stop 01/26/18 at 18:22; Status DC Non-Formulary Medication (Fluvoxamine Maleate ) 50 mg DAILY PO ; Start 01/22/18 at 09:00; Stop 01/22/18 at 09:00; Status DC Non-Formulary Medication (Memantine Hcl (Namenda Xr)) 7 mg DAILY PO ; Start at 09:00; Stop 01/22/18 at 09:00; Status DC Memantine (Namenda) 5 mg BID PO Last administered on 02/05/18at 08:11; Start at 22:00; Stop 02/05/18 at 11:48; Status DC Insulin Human Lispro (HumaLOG) 0-10 UNITS TIDWMEALS SQ Last administered on at 17:38; Start 01/22/18 at 08:00; Stop 02/19/18 at 09:33; Status DC Nystatin (Nystop) 1 soniya PRN BID PRN TP RASH; Start 01/22/18 at 00:15; Status Cancel Acetaminophen (Tylenol) 650 mg PRN Q6HRS PRN PO PAIN / TEMP Last administered on 02/17/18at 13:16; Start 01/22/18 at 05:00; Stop 02/19/18 at 09:33; Status DC Multi-Ingredient Ointment (Analgesic [place]) 1 soniya PRN QID PRN TP MUSCLE PAIN; Start 01/22/18 at 05:00; Stop 02/19/18 at 09:33; Status DC Al Hydroxide/Mg Hydroxide (Mylanta Plus Xs) 15 ml PRN AFTMEALHC PRN PO DYSPEPSIA; Start 01/22/18 at 05:00; Stop 02/19/18 at 09:33; Status DC Magnesium Hydroxide (Milk Of Magnesia) 2,400 mg PRN QHS PRN PO CONSTIPATION; Start 01/22/18 at 05:00; Stop 02/19/18 at 09:33; Status DC Vitamin D (Vitamin D3) 50,000 unit WEEKLY PO Last administered on 02/19/18at 08: 38; Start 01/22/18 at 18:00; Stop 02/19/18 at 09:33; Status DC Fluconazole (Diflucan) 100 mg DAILY PO Last administered on 02/18/18at 09:35; Start 01/23/18 at 09:00; Stop 02/19/18 at 09:33; Status DC Cefpodoxime Proxetil (Vantin) 200 mg BID PO Last administered on 01/28/18at 07: 57; Start 01/22/18 at 21:00; Stop 01/28/18 at 20:59; Status DC Lactobacillus Rhamnosus (Culturelle) 1 cap BID PO ; Start 01/22/18 at 21:00; Stop 01/22/18 at 21:00; Status DC Divalproex Sodium (Depakote Er) 500 mg HS PO Last administered on 01/24/18at 19: 58; Start 01/22/18 at 21:00; Stop 01/25/18 at 15:48; Status DC Divalproex Sodium (Depakote Er) 250 mg QHS PO Last administered on 01/24/18at 19 :58; Start 01/22/18 at 21:00; Stop 01/25/18 at 15:48; Status DC Divalproex Sodium (Depakote Er) 1,000 mg QHS PO Last administered on 01/28/18at 19:36; Start 01/25/18 at 21:00; Stop 01/29/18 at 12:58; Status DC Risperidone (RisperDAL) 0.75 mg DAILY PO Last administered on 02/01/18at 08:37; Start 01/27/18 at 09:00; Stop 02/01/18 at 18:53; Status DC Buspirone HCl (Buspar) 10 mg TID PO Last administered on 02/04/18at 13:38; Start 01/28/18 at 21:00; Stop 02/04/18 at 18:58; Status DC Divalproex Sodium (Depakote Er) 1,250 mg QHS PO ; Start 01/29/18 at 21:00; Stop 01/29/18 at 21:00; Status DC Carbamide Peroxide (Debrox) 5 drop PRN BID PRN AU IMPACTION Last administered on 01/31/18at 12:43; Start 01/29/18 at 19:15; Stop 02/19/18 at 09:33; Status DC Divalproex Sodium (Depakote Er) 250 mg QHS PO Last administered on 02/18/18at 20 :22; Start 01/29/18 at 21:00; Stop 02/19/18 at 09:33; Status DC Divalproex Sodium (Depakote Er) 1,000 mg QHS PO Last administered on 02/18/18at 20:23; Start 01/29/18 at 21:00; Stop 02/19/18 at 09:33; Status DC Fluvoxamine Maleate (Luvox) 125 mg QHS PO Last administered on 02/02/18at 20:37 ; Start 02/01/18 at 21:00; Stop 02/03/18 at 19:25; Status DC Risperidone (RisperDAL) 0.25 mg BID@0900,1300 PO Last administered on at 13:31; Start 02/02/18 at 09:00; Stop 02/02/18 at 18:19; Status DC Risperidone (RisperDAL) 0.5 mg DAILY@1700 PO Last administered on 02/02/18at 16: 48; Start 02/02/18 at 17:00; Stop 02/02/18 at 18:19; Status DC Fenofibrate (Tricor) 145 mg DAILY PO Last administered on 02/19/18at 08:34; Start 02/02/18 at 09:00; Stop 02/19/18 at 09:33; Status DC Olanzapine (ZyPREXA ZYDIS) 1.25 mg PRN Q2HR PRN PO PSYCHOSIS Last administered on 02/08/18at 00:36; Start 02/02/18 at 18:30; Stop 02/19/18 at 09:33; Status DC Quetiapine Fumarate (SEROquel) 25 mg TID@0900,1300,1700 PO ; Start 02/03/18 at 09 :00; Stop 02/03/18 at 09:00; Status DC Quetiapine Fumarate (SEROquel) 12.5 mg TID@0900,1300,1700 PO Last administered on 02/12/18at 09:17; Start 02/03/18 at 09:00; Stop 02/12/18 at 12:49; Status DC Fluvoxamine Maleate (Luvox) 150 mg HS PO Last administered on 02/04/18at 20:52; Start 02/03/18 at 21:00; Stop 02/05/18 at 22:00; Status DC Insulin Glargine (Lantus) 18 units QHS SQ Last administered on 02/18/18 20:34 ; Start 02/04/18 at 21:00; Stop 02/19/18 at 09:33; Status DC Buspirone HCl (Buspar) 15 mg BID94 PO Last administered on 02/19/18 08:34; Start 02/05/18 at 09:00; Stop 02/19/18 at 09:33; Status DC Buspirone HCl (Buspar) 10 mg DAILY@1300 PO Last administered on 02/18/18at 13:47 ; Start 02/05/18 at 13:00; Stop 02/19/18 at 09:33; Status DC Memantine (Namenda) 10 mg BID PO Last administered on 02/19/18 08:34; Start at 21:00; Stop 02/19/18 at 09:33; Status DC Fluvoxamine Maleate (Luvox) 150 mg HS PO Last administered on 02/12/18 20:54; Start 02/05/18 at 21:00; Stop 02/12/18 at 21:25; Status DC Fluvoxamine Maleate (Luvox) 25 mg QHS PO Last administered on 02/12/18 20:54; Start 02/05/18 at 21:00; Stop 02/12/18 at 21:25; Status DC Quetiapine Fumarate (SEROquel) 25 mg TID@0900,1300,1700 PO Last administered on 02/19/18at 08:33; Start 02/12/18 at 13:00; Stop 02/19/18 at 09:33; Status DC Fluvoxamine Maleate (Luvox) 75 mg QHS PO Last administered on 02/18/18 20:22; Start 02/13/18 at 21:00; Stop 02/19/18 at 09:33; Status DC Fluvoxamine Maleate (Luvox) 100 mg HS PO Last administered on 02/18/18 20:22; Start 02/13/18 at 21:00; Stop 02/19/18 at 09:33; Status DC Quetiapine Fumarate (SEROquel) 25 mg TID@0900,1300,1700 PO Last administered on 02/16/18at 08:21; Start 02/15/18 at 18:00; Stop 02/16/18 at 09:01; Status DC Miconazole Nitrate (Monistat-Derm) 1 soniya BID TP Last administered on 02/19/18at 08:37; Start 02/18/18 at 21:00; Stop 02/19/18 at 09:33; Status DC Active Scripts Active Reported Buspirone Hcl 10 Mg Tablet 10 Mg PO DAILY13 Seroquel (Quetiapine Fumarate) 25 Mg Tablet 25 Mg PO TID09,13,17 Zyprexa Zydis (Olanzapine) 5 Mg Tab.rapdis 1.25 Mg PO PRN Q2HR PRN Analgesic [place] (Methyl Salicylate/Menthol) 28 Gm Oint...g. 1 Soniya TP PRN QID PRN Milk Of Magnesia (Magnesium Hydroxide) 400 Mg/5 Ml Oral.susp 2,400 Mg PO PRN QHS PRN Mag-Al Plus Xs Suspension (Mag Hydrox/Al Hydrox/Simeth) 30 Ml Oral.susp 15 Ml PO PRN AFTMEALHC PRN D3-50 (Cholecalciferol (Vitamin D3)) 50,000 Unit Capsule 50,000 Unit PO WEEKLY ON FRIDAY Earwax Treatment Drops (Carbamide Peroxide) 15 Ml Drops 5 Drp AU PRN BID PRN Tylenol (Acetaminophen) 325 Mg Tablet 650 Mg PO PRN Q6HRS PRN Namenda Xr (Memantine Hcl) 14 Mg Cap.spr.24 14 Mg PO DAILY Namenda Xr (Memantine Hcl) 7 Mg Cap.spr.24 7 Mg PO DAILY Depakote Er (Divalproex Sodium) 500 Mg Tab.er.24h 1,250 Mg PO HS Buspirone Hcl 10 Mg Tablet 15 Mg PO BID94 Fenofibrate (Fenofibrate,Micronized) 134 Mg Capsule 134 Mg PO DAILY Fluvoxamine Maleate 100 Mg Tablet 1 Tab PO QHS Levemir Flextouch (Insulin Detemir) 100 Unit/1 Ml Insuln.pen 18 Unit SQ HS Novolog Flexpen (Insulin Aspart) 100 Unit/1 Ml Insuln.pen 0-10 Unit SQ TIDAC SLIDING SCALE INSULIN Magnesium (Magnesium Oxide) 400 Mg Capsule 250 Mg PO DAILY Levothyroxine Sodium 125 Mcg Tablet 125 Mcg PO DAILY06 Atorvastatin Calcium 20 Mg Tablet 20 Mg PO DAILY Fluvoxamine Maleate 50 Mg Tablet 75 Mg PO HS Acetaminophen 500 Mg Tablet 500 Mg PO BID Calcium 600 + Vit D 200 Tablet (Calcium Carbonate/Vitamin D3) 1 Each Tablet 1 Each PO DAILY B-12 (Cyanocobalamin (Vitamin B-12)) 500 Mcg Tablet 250 Mcg PO DAILY Acidophilus (Lactobacillus Acidophilus) 1 Each Capsule 1 Each PO BID Metformin Hcl 850 Mg Tablet 850 Mg PO BIDWMEALS Ferrous Sulfate 325 Mg Tablet 1 Tab PO DAILY Metoprolol Tartrate 25 Mg Tablet 25 Mg PO DAILY Ditropan Xl (Oxybutynin Chloride) 10 Mg Tab.er.24 10 Mg PO DAILY Miralax (Polyethylene Glycol 3350) 17 Gm Powd.pack 17 Gm PO DAILY Aspirin 81 Mg Tab.chew 81 Mg PO DAILY Cetirizine Hcl 10 Mg Tablet 10 Mg PO PRN DAILY PRN Hydrocodone-Apap 7.5-325 (Hydrocodone Bit/Acetaminophen) 1 Each Tablet 1 Tab PO PRN Q6HRS PRN Protonix (Pantoprazole Sodium) 20 Mg Tablet.dr 40 Mg PO PRN DAILY PRN Nystop (Nystatin) 60 Gm Powder 1 Soniya TP PRN BID PRN I have reviewed the current psychotropics carefully including drug interactions. Risk benefit ratio favors no change other than as noted in my dictated progress note. 

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
--- NOTE | 2018-02-21 01:42 | PN ---
DATE: 02/18/2018 This late entry 02/18/2018 covers elements not covered in my initial note 02/18/2018. Met with the patient in the evening. The patient was also staffed at a treatment team meeting with the entire team during the day on 02/18/2018. She has been doing better, less labile in her mood, but overall functioning consistent with intellectual disability. She complains of some itching and diarrhea, but did better in the evening. REVIEW OF SYSTEMS: Ambulation impaired with walker. No CV, , pulmonary, eye, ENT system symptoms on review. Reliability poor. MENTAL STATUS EXAM: Oriented to herself. Insight, judgment, recent and remote memory, attention, concentration, fund of knowledge poor, consistent with her diagnosis mentioned in my initial note. PLAN: Continue current psychotropics with transition to jail 02/19/2018. MAN Kingston DAVIS MD DR: SUMEET/kirill JOB#: [id number] / [id number]
== END 2018-02-19 09:32 | disposition home or self-care (01) | DRG 885 ==
LOC: ER 17:22 → GEROPSY 20:01
PROVIDERS: ADMIT Psychiatry & Neurology Psychiatry; ATTEND Psychiatry & Neurology Psychiatry
DX: F31.60 Bipolar disorder, current episode mixed, unspecified (principal); E11.9 Type 2 diabetes mellitus without complications; G30.9 Alzheimer's disease, unspecified; F01.51 Vascular dementia, unspecified severity, with behavioral disturbance; F25.0 Schizoaffective disorder, bipolar type; E03.9 Hypothyroidism, unspecified; D50.9 Iron deficiency anemia, unspecified; B37.3 Candidiasis of vulva and vagina; F02.81 Dementia in other diseases classified elsewhere, unspecified severity, with behavioral disturbance; N39.0 Urinary tract infection, site not specified; E55.9 Vitamin D deficiency, unspecified; E78.5 Hyperlipidemia, unspecified; K21.9 Gastro-esophageal reflux disease without esophagitis; Z66 Do not resuscitate; F63.9 Impulse disorder, unspecified; F41.9 Anxiety disorder, unspecified; I10 Essential (primary) hypertension; R41.83 Borderline intellectual functioning; N81.4 Uterovaginal prolapse, unspecified; F42.9 Obsessive-compulsive disorder, unspecified; Z79.899 Other long term (current) drug therapy
CPT/HCPCS: 36415; 71045; 80053; 80061; 80164; 81001; 82306; 82607; 82947; 83036; 83540; 83550; 83735; 84436; 84443; 84480; 85025; 86593; 87086; 87186; 93005; 96372; J0696; J1815; 99285-25

== ENCOUNTER 2018-08-01 10:32 | Inpatient (IN) | payer OTHER, MEDICARE ==
[~2018-08-01] VITALS: Ht 157.5 cm; Wt 88.6 kg
[~2018-08-01 10:32] MED LIST: ACET325T9 PO; ACET500T68 PO; ASPI-630 PO; ATOR20TA58 PO; BUSP10TA PO; CALC1TAB75 PO; CARB-117 AU; CETI10TA16 PO; CHOL500021 PO; CYAN500T17 PO; DIVA500T4 PO; FENO134C PO; FERR325T14 PO; FLUC100T4 PO; FLUV100T2 PO; FLUV50TA2 PO; HYDR-2762 PO; INSU100I17 SQ; INSU100I27 SQ; LACT1CAP2 PO; LEVO125T5 PO; MAG30ORA2 PO; MAGN400C PO; MAGN400O7 PO; MEMA14CA PO; MEMA7CAP PO; METF850T8 PO; METH29OI TP; METO25TA4 PO; NYST60PO TP; OLAN5TAB5 PO; OXYB10TA7 PO; PANT20TA58 PO; POLY17PO5 PO; QUET25TA5 PO; RISP1TAB3 PO; TOPI100T8 PO; [UNRECOGNIZED DRUG - CODE] PO
--- NOTE | 2018-08-01 11:10 | EKG ---
[address] [address] Test Date: 2018-08-01 Test Time: 11:06:05 Pat Name: JOSETTE MARTINEZ Department: Room: Gender: F [employer]: : 1945 Requested By: MILLER MIR Order Number: [id number] Reading MD: Cipriano Escobar MD Measurements Intervals Canvas Rate: 63 P: 31 IL: 176 QRS: -23 QRSD: 144 T: -158 QT: 446 QTc: 460 Interpretive Statements SINUS RHYTHM LEFTWARD AXIS NON SPECIFIC INTRAVENTRICULAR BLOCK ABNORMAL ECG LEFT VENTRICULAR HYPERTROPHY WITH REPOL CHANGES Electronically Signed On 08-03-2018 11:33:52 CDT by Cipriano Escobar MD
[2018-08-01 11:15] LABS: BASO % 1 % (0-3); EOS % 1 % (0-3); HEMOGLOBIN 10.7 g/dL (12.0-15.5); LYMPH # 1.3 x10^3/uL (1.0-4.8); LYMPH % 34 % (24-48); MEAN CORPUSCULAR HEMOGLOBIN 31 pg (25-35); MEAN CORPUSCULAR HGB CONC 34 g/dL (31-37); MEAN CORPUSCULAR VOLUME 93 fL (79-100); MONO # 0.4 x10^3/uL (0.0-1.1); MONO % 11 % (0-9); NEUT % 53 % (31-73); PLATELET COUNT 167 x10^3/uL (140-400); RED BLOOD COUNT 3.46 x10^6/uL (3.50-5.40); RED CELL DISTRIBUTION WIDTH 14.3 % (11.5-14.5); WHITE BLOOD COUNT 3.9 x10^3/uL (4.0-11.0)
[2018-08-01 11:20] LABS: BARBITURATES NEG (NEG); BENZODIAZEPINES NEG (NEG); CANNABINOIDS NEG (NEG); COCAINE NEG (NEG); METHADONE NEG (NEG); OPIATES NEG (NEG); PHENCYCLIDINE NEG (NEG)
[2018-08-01 11:21] LABS: AMPHETAMINE/METHAMPHETAMINE NEG (NEG)
[2018-08-01 11:25] LABS: CLARITY,URINE CLEAR; COLOR,URINE YELLOW; GLUCOSE,URINE NEG (NEG)
[2018-08-01 11:26] LABS: BACTERIA,URINE FEW /HPF (0-FEW); BILIRUBIN,URINE NEG (NEG); NITRITE,URINE NEG (NEG); SQUAMOUS EPITHELIAL CELL,UR OCC /LPF; UROBILINOGEN,URINE 0.2 mg/dL (0.2 mg/dL)
[2018-08-01 11:28] LABS: ALBUMIN 3.3 g/dL (3.4-5.0); CALCIUM 9.6 mg/dL (8.5-10.1); CREATININE 1.2 mg/dL (0.6-1.0); GFR 44.3; MAGNESIUM 2.3 mg/dL (1.8-2.4); POTASSIUM 4.8 mmol/L (3.5-5.1); TOTAL BILIRUBIN 0.2 mg/dL (0.2-1.0); TOTAL PROTEIN 6.6 g/dL (6.4-8.2)
[2018-08-01] MEDS ORDERED: IV NORMAL SALINE 500ML 500 ML IV ONE (11:45)
[2018-08-01] MEDS ORDERED: ACETAMINOPHEN 325 MG TABLET PO ONE (11:45)
--- NOTE | 2018-08-01 15:10 | NUR ---
Admission Note with Justification for Admission to [facility] Patient admitted to [facility] for protective oversight for emergency stabilization of acute psychiatric crisis. Pt admitted from: LT Facility Mode of arrival: EMS Accompanied By: EMS Precipitating behaviors that initiated intake and admission: agitation, aggression, suicidal statements Description of failure of out patient attempts at stabilization in previous setting list behavior and medication trials: Behaviors and assessment findings upon admission: ativan Plan: Admit for protective oversight for adjustment and stabilization of medications, behaviors and mood. Intense treatment regimen including groups, medication adjustments, therapy, consistent regimen for ADL's, self care, and sleep hygiene. Daily monitoring by Inpatient staff, Psychiatry, and Medical Physician.
--- NOTE | 2018-08-01 15:22 | PHYS DOC ---
Past History Past Medical History: Dementia, Diabetes, GERD, Hypothyroid, UTI Past Surgical History: Other Alcohol Use: None Drug Use: None Adult General Chief Complaint Chief Complaint: PSYCH EVALUATION HPI HPI Patient is a 72-year-old female brought in by ambulance from nursing facility with agitation and increasingly agitated behavior. Apparently apparently she has been hitting and yelling at the staff and saying that she did not want to be alive anymore and in fact she was even displaying her genitals in a public place several times over She had a recent admission for torsades back in June and since then she has been off her psych meds for the most part and according to the report from the nursing facility she has been less compliant with instruction since then. Increasing agitation noted. On arrival to ER the patient has no specific complaints she just keeps saying she wants to go home Review of Systems Review of Systems Limited by dementia Current Medications Current Medications Current Medications Medications (Trade) Dose Ordered Sig/Jacky Start Time Stop Time Status Last Admin Dose Admin Acetaminophen (Tylenol) 650 mg 1X ONCE 08/01/18 11:45 08/01/18 11:46 DC 08/01/18 11:44 650 MG Sodium Chloride 500 ml @ 0 mls/hr 1X ONCE 08/01/18 11:45 08/01/18 11:50 DC 08/01/18 11:45 999 MLS/HR Allergies Allergies Allergies Coded Allergies Type Severity Reaction Last Updated Verified No Known Drug Allergies 01/21/18 No Physical Exam Physical Exam Constitutional: Well developed, well nourished, mild distress, non-toxic appearance. [] HENT: Normocephalic, atraumatic, bilateral external ears normal, oropharynx moist, no oral exudates, nose normal. [] Eyes: PERRLA, EOMI, conjunctiva normal, no discharge. [] Neck: Normal range of motion, no tenderness, supple, no stridor. [] Cardiovascular:Heart rate regular rhythm, Lungs & Thorax: Bilateral breath sounds clear to auscultation [] Abdomen: Bowel sounds normal, soft, no tenderness, no masses, no pulsatile masses. [] Skin: Warm, dry, no erythema, no rash. [] Back: No tenderness, no CVA tenderness. [] Extremities: No tenderness, no cyanosis, no clubbing, ROM intact, no edema. [] Neurologic: Alert and oriented X 2 moving all extremities repeatedly asking the same question over and over again. No focal findings psych: Mood is somewhat anxious denies suicidal ideation at this time. She said she yelled at the nurse because she wanted a cup of coffee earlier Current Patient Data Vital Signs Vital Signs Date Time Temp Pulse Resp B/P (MAP) Pulse Ox O2 Delivery O2 Flow Rate FiO2 08/01/18 12:46 66 18 128/71 (90) 99 Room Air 08/01/18 10:35 98.2 Lab Results Laboratory Tests Test 08/01/18 10:55 08/01/18 11:03 Urine Collection Type Unknown Urine Color Yellow Urine Clarity Clear Urine pH 7.5 Urine Specific [place] 1.020 Urine Protein Neg (NEG-TRACE) Urine Glucose (UA) Neg mg/dL (NEG) Urine Ketones (Stick) Neg mg/dL (NEG) Urine Blood Mod (NEG) Urine Nitrite Neg (NEG) Urine Bilirubin Neg (NEG) Urine Urobilinogen Dipstick 0.2 mg/dL (0.2 mg/dL) Urine Leukocyte Esterase Trace (NEG) Urine RBC 11-20 /HPF (0-2) Urine WBC 1-4 /HPF (0-4) Urine Squamous Epithelial Cells Occ /LPF Urine Transitional Epithelial Cells Occ /LPF Urine Bacteria Few /HPF (0-FEW) Urine Opiates Screen Neg (NEG) Urine Methadone Screen Neg (NEG) Urine Barbiturates Neg (NEG) Urine Phencyclidine Screen Neg (NEG) Urine Amphetamine/Methamphetamine Neg (NEG) Urine Benzodiazepines Screen Neg (NEG) Urine Cocaine Screen Neg (NEG) Urine Cannabinoids Screen Neg (NEG) Urine Ethyl Alcohol Neg (NEG) White Blood Count 3.9 x10^3/uL (4.0-11.0) L Red Blood Count 3.46 x10^6/uL (3.50-5.40) L Hemoglobin 10.7 g/dL (12.0-15.5) L Hematocrit 32.0 % (36.0-47.0) L Mean Corpuscular Volume 93 fL (79-100) Mean Corpuscular Hemoglobin 31 pg (25-35) Mean Corpuscular Hemoglobin Concent 34 g/dL (31-37) Red Cell Distribution Width 14.3 % (11.5-14.5) Platelet Count 167 x10^3/uL (140-400) Neutrophils (%) (Auto) 53 % (31-73) Lymphocytes (%) (Auto) 34 % (24-48) Monocytes (%) (Auto) 11 % (0-9) H Eosinophils (%) (Auto) 1 % (0-3) Basophils (%) (Auto) 1 % (0-3) Neutrophils # (Auto) 2.0 x10^3uL (1.8-7.7) Lymphocytes # (Auto) 1.3 x10^3/uL (1.0-4.8) Monocytes # (Auto) 0.4 x10^3/uL (0.0-1.1) Eosinophils # (Auto) 0.0 x10^3/uL (0.0-0.7) Basophils # (Auto) 0.0 x10^3/uL (0.0-0.2) Sodium Level 137 mmol/L (136-145) Potassium Level 4.8 mmol/L (3.5-5.1) Chloride Level 104 mmol/L (98-107) Carbon Dioxide Level 28 mmol/L (21-32) Anion Gap 5 (6-14) L Blood Urea Nitrogen 35 mg/dL (7-20) H Creatinine 1.2 mg/dL (0.6-1.0) H Estimated GFR (Cockcroft-Gault) 44.3 BUN/Creatinine Ratio 29 (6-20) H Glucose Level 153 mg/dL (70-99) H Calcium Level 9.6 mg/dL (8.5-10.1) Magnesium Level 2.3 mg/dL (1.8-2.4) Total Bilirubin 0.2 mg/dL (0.2-1.0) Aspartate Amino Transferase (AST) 23 U/L (15-37) Alanine Aminotransferase (ALT) 21 U/L (14-59) Alkaline Phosphatase 79 U/L (46-116) Total Protein 6.6 g/dL (6.4-8.2) Albumin 3.3 g/dL (3.4-5.0) L Albumin/Globulin Ratio 1.0 (1.0-1.7) Ethyl Alcohol Level < 10 mg/dL (0-10) EKG EKG []EKG shows normal sinus rhythm rate of 63 with nonspecific interventricular conduction delay QT intervals 460 Radiology/Procedures Radiology/Procedures [] Course & Med Decision Making Course & Med Decision Making Pertinent Labs and Imaging studies reviewed. (See chart for details) 72-year-old female brought in by enemas with increasing agitation after stopping psychiatric medications due to an episode of torsades last month. The emergency room patient was medically cleared the magnesium is within normal limits the EKG shows a normal QT interval essentially. Patient was mildly agitated but responded to verbal redirection in the emergency room. She was given 500 mL of normal saline due to a mild bump in BUN/creatinine. Patient was evaluated by the psychiatric tele service, who felt the patient met criteria for inpatient treatment. Patient was transferred to the geriatric psych unit at this facility per usual protocol in stable condition. Dragon Disclaimer Dragon Disclaimer This electronic medical record was generated, in whole or in part, using a voice recognition dictation system. Departure Departure: Impression: Primary Impression: Impulse control disorder Disposition: ADMITTED INPATIENT Condition: STABLE Referrals: CHRISTIN THURSTON MD (PCP) MILLER MIR MD Aug 01, 2018 15:22
[2018-08-01 16:27] VITALS: BP 150/80
[2018-08-01] MEDS ORDERED: LEVO100T5 PO (17:04)
[2018-08-01] MEDS ORDERED: METO25TA4 PO (17:04)
[2018-08-01] MEDS ORDERED: LORA0.5T PO (17:04)
[2018-08-01] MEDS ORDERED: BISA5TAB4 PO (17:04)
[2018-08-01] MEDS ORDERED: BISACODYL TAB 5 MG TABLET.DR. PO PRN (17:15)
[2018-08-01] MEDS ORDERED: METOPROLOL TART IMMED RELEASE 25 MG TABLET PO PRN (17:15)
[2018-08-01] MEDS ORDERED: CARBAMIDE PEROXIDE 6.5% OTIC SOLUTION 15ML BOTTLE. AU PRN (17:30)
[2018-08-01 17:41] LABS: VAL ACID 51 mcg/mL (50-100)
[2018-08-01] MEDS ORDERED: CETIRIZINE HCL 10 MG TABLET PO PRN (18:00)
[2018-08-01] MEDS: ATORVASTATIN CALCIUM 20 MG TABLET PO SCH (21:11)
[2018-08-01] MEDS: LACTOBACILLUS RHAMNOSUS GG 1 CAPSULE. PO SCH (21:11)
[2018-08-01] MEDS: LORazepam 0.5 MG TABLET PO SCH (21:11)
[2018-08-01] MEDS: DIVALPROEX ER 250 MG TAB.ER.24H. PO SCH (21:11)
--- NOTE | 2018-08-01 21:17 | HP ---
ADMIT DATE: 08/01/2018 IDENTIFYING DATA: The patient is a 72-year-old female who presented to the Emergency Room at [facility], directly from [facility], referred by her primary care physician, Dr. Nguyen Cullen. Reportedly, the patient's psychotropics for bipolar disorder and delusions had been stopped due to torsade syncopal episode. She had been getting increasingly aggressive, hitting staff member, playing with her genitals, making statements, "I hope I . I hope I kill myself." Symptoms have been worsening for about 7 days, she has appeared more manic, labile, paranoid, depressed, in addition to being confused and was referred for inpatient psychiatric stabilization. HISTORY OF PRESENT ILLNESS: The patient has a history of bipolar disorder, borderline intellectual functioning and major neurocognitive disorder, early Alzheimer, vascular with delusion, depression. She has been here with us in the past and was returned to [facility] after her last hospitalization in 01/2018. Reportedly, she did well for a while, then had a syncopal episode as noted above, diagnosed with torsade syndrome and her psychotropics were discontinued. Since then, it was noted behaviors have been worsening along with appearing increasingly depressed, hopeless, worthless and potential danger to herself. PAST MEDICAL HISTORY: Positive for torsades syndrome, hyperlipidemia, GERD, hypothyroidism, diabetes mellitus. She ambulates independently. History of recurrent urinary tract infections in the past. DRUG ALLERGIES: Negative. CODE STATUS: DNR. DIET: Mechanical soft due to no teeth. FAMILY HISTORY: Noncontributory. SOCIAL HISTORY: No history of alcohol, drug abuse, physical, sexual or elder abuse history is noted. She is not known to be a perpetrator. REACTION TO HOSPITALIZATION: The patient accepting of this, but anxious, restless, wanting to leave, "tomorrow morning." ASSETS: Supportive living at the above facility. MENTAL STATUS EXAM: The patient was seen individually in her room evening of 08/01/2018. She is anxious, restless, constantly moving, said she seemed to remember me, but in fact probably did not. Speech is coherent, rapid at times. Abstraction fair, computation impaired, language function intact, attention span short. Mood and affect remains labile. No active suicidal or homicidal ideation. She does appear somewhat paranoid. IMPRESSION: Bipolar 1 disorder, mixed with psychotic features; anxiety disorder, unspecified; borderline intellectual functioning; major neurocognitive disorder, Alzheimer's, vascular with delusions. Rest diagnoses as above. PLAN: Admit to Geropsychiatry Unit at [facility]. I will see the patient daily individually from a psychiatric standpoint, medical followup with Dr. Lopez/Dr. Segovia. Continue the patient on her current psychotropics, observe baseline, then make adjustments as clinically indicated keeping in mind that she developed torsades syndrome in the past on certain psychotropics. Estimated length of stay 10-12 days. DISPOSITION PLANS: Back to [facility]. MAN Kingston DAVIS MD DR: SUMEET/kirill JOB#: [id number] / [id number]
[2018-08-01] MEDS: INSULIN GLARGINE 300 UNITS/3 ML INSULN.PEN. SQ SCH (21:33)
[2018-08-01] MEDS: HYDROcodone/APAP 7.5/325MG 1 TAB TABLET PO PRN (22:12)
--- NOTE | 2018-08-01 22:37 | NUR ---
Behavior Intervention Response and Plan: BIRP Note: Behavior: Assumed Care of patient, patient located in Patient Room at shift change. Patient exhibited the following behavior Disorganized, Somatic, Compliant. Brief assessment on rounds of vital signs, medication needs, lab studies, and pain. Treatment plan problems . Intervention: Patient assessed and the following interventions initiated safety checks 15 Minute Checks Personal Alarm in place , Call alvarado in reach , Cognitive Assessment. Response: After interactions and interventions patient responded in the following manner, Calm , Compliant ,Somatic. Continue to assess behaviors and condition will continue to monitor throughout the shift as needed. Patient educated on ADL's, and hand hygiene. Plan: Continue to monitor Master Treatment Plan for patient's progress toward short term goals of Improved Mood, No harm To self/ others, nursing home goals to return to previous living setting vs placement. Continue to assess patient for changes in above assessment. Monitor for medication needs, pain, and safety concerns. Hourly rounding performed to ensure safe environment.
--- NOTE | 2018-08-01 22:38 | NUR ---
Pt has steri-strips in the crease in between right breast.
--- NOTE | 2018-08-01 22:55 | PDOC ---
Exam Note: Hemant Note: Please also refer to the separate dictated note~for this date of service dictated separately.~Patient seen individually. Discussed the patient with Nursing staff reviewed the chart.~Reviewed interim history and current functioning. Reviewed vital signs,~Labs/ Radiology~and current medications noted below. Continue current treatment with the changes noted in the dictated addendum note Assessment: Vital Signs: Vital Signs Date Time Temp Pulse Resp B/P (MAP) Pulse Ox O2 Delivery O2 Flow Rate FiO2 08/01/18 22:12 18 99 08/01/18 16:27 98.1 75 150/80 (103) Room Air Labs: Laboratory Tests Test 08/01/18 10:55 08/01/18 11:03 08/01/18 17:03 Urine Collection Type Unknown Urine Color Yellow Urine Clarity Clear Urine pH 7.5 Urine Specific [place] 1.020 Urine Protein Neg (NEG-TRACE) Urine Glucose (UA) Neg mg/dL (NEG) Urine Ketones (Stick) Neg mg/dL (NEG) Urine Blood Mod (NEG) Urine Nitrite Neg (NEG) Urine Bilirubin Neg (NEG) Urine Urobilinogen Dipstick 0.2 mg/dL (0.2 mg/dL) Urine Leukocyte Esterase Trace (NEG) Urine RBC 11-20 /HPF (0-2) Urine WBC 1-4 /HPF (0-4) Urine Squamous Epithelial Cells Occ /LPF Urine Transitional Epithelial Cells Occ /LPF Urine Bacteria Few /HPF (0-FEW) Urine Opiates Screen Neg (NEG) Urine Methadone Screen Neg (NEG) Urine Barbiturates Neg (NEG) Urine Phencyclidine Screen Neg (NEG) Urine Amphetamine/Methamphetamine Neg (NEG) Urine Benzodiazepines Screen Neg (NEG) Urine Cocaine Screen Neg (NEG) Urine Cannabinoids Screen Neg (NEG) Urine Ethyl Alcohol Neg (NEG) White Blood Count 3.9 x10^3/uL (4.0-11.0) L Red Blood Count 3.46 x10^6/uL (3.50-5.40) L Hemoglobin 10.7 g/dL (12.0-15.5) L Hematocrit 32.0 % (36.0-47.0) L Mean Corpuscular Volume 93 fL (79-100) Mean Corpuscular Hemoglobin 31 pg (25-35) Mean Corpuscular Hemoglobin Concent 34 g/dL (31-37) Red Cell Distribution Width 14.3 % (11.5-14.5) Platelet Count 167 x10^3/uL (140-400) Neutrophils (%) (Auto) 53 % (31-73) Lymphocytes (%) (Auto) 34 % (24-48) Monocytes (%) (Auto) 11 % (0-9) H Eosinophils (%) (Auto) 1 % (0-3) Basophils (%) (Auto) 1 % (0-3) Neutrophils # (Auto) 2.0 x10^3uL (1.8-7.7) Lymphocytes # (Auto) 1.3 x10^3/uL (1.0-4.8) Monocytes # (Auto) 0.4 x10^3/uL (0.0-1.1) Eosinophils # (Auto) 0.0 x10^3/uL (0.0-0.7) Basophils # (Auto) 0.0 x10^3/uL (0.0-0.2) Sodium Level 137 mmol/L (136-145) Potassium Level 4.8 mmol/L (3.5-5.1) Chloride Level 104 mmol/L (98-107) Carbon Dioxide Level 28 mmol/L (21-32) Anion Gap 5 (6-14) L Blood Urea Nitrogen 35 mg/dL (7-20) H Creatinine 1.2 mg/dL (0.6-1.0) H Estimated GFR (Cockcroft-Gault) 44.3 BUN/Creatinine Ratio 29 (6-20) H Glucose Level 153 mg/dL (70-99) H Calcium Level 9.6 mg/dL (8.5-10.1) Magnesium Level 2.3 mg/dL (1.8-2.4) Total Bilirubin 0.2 mg/dL (0.2-1.0) Aspartate Amino Transferase (AST) 23 U/L (15-37) Alanine Aminotransferase (ALT) 21 U/L (14-59) Alkaline Phosphatase 79 U/L (46-116) Total Protein 6.6 g/dL (6.4-8.2) Albumin 3.3 g/dL (3.4-5.0) L Albumin/Globulin Ratio 1.0 (1.0-1.7) Valproic Acid Level 51 mcg/mL (50-100) Valproic Acid Last Dose Date 07-31-18 Valproic Acid Last Dose Time 2100 Ethyl Alcohol Level < 10 mg/dL (0-10) Glucose (Fingerstick) 127 mg/dL (70-99) H Current Medications: Meds: Current Medications Acetaminophen (Tylenol) 650 mg 1X ONCE PO Last administered on 08/01/18at 11: 44; Start 08/01/18 at 11:45; Stop 08/01/18 at 11:46; Status DC Sodium Chloride 500 ml @ 0 mls/hr 1X ONCE IV Last administered on 08/01/18at 11:45; Start 08/01/18 at 11:45; Stop 08/01/18 at 11:50; Status DC Acetaminophen (Tylenol) 650 mg PRN Q6HRS PRN PO PAIN / TEMP; Start 08/01/18 at 16:45 Vitamin D (Vitamin D3) 50,000 unit Th PO ; Start 08/06/18 at 09:00 Metoprolol Tartrate (Lopressor) 25 mg DAILY PO ; Start 08/02/18 at 09:00 Aspirin (Children'S Aspirin) 81 mg DAILYWBKFT PO ; Start 08/02/18 at 08:00 Carbamide Peroxide (Debrox) 5 drop PRN BID PRN AU IMPACTION; Start 08/01/18 at 17:30 Cetirizine HCl (ZyrTEC) 10 mg PRN DAILY PRN PO ALLERGIES; Start 08/01/18 at 18 :00 Cyanocobalamin (Vitamin B-12) 250 mcg DAILY PO ; Start 08/02/18 at 09:00 Divalproex Sodium (Depakote Er) 1,250 mg QHS PO Last administered on at 21:11; Start 08/01/18 at 21:00 Fenofibrate (Tricor) 145 mg DAILY PO ; Start 08/02/18 at 09:00 Insulin Glargine (Lantus) 18 units QHS SQ Last administered on 08/01/18at 21:33 ; Start 08/01/18 at 21:00 Lactobacillus Rhamnosus (Culturelle) 1 cap BID PO Last administered on at 21:11; Start 08/01/18 at 21:00 Magnesium Oxide (Magnesium Oxide) 200 mg DAILY PO ; Start 08/02/18 at 09:00 Pantoprazole Sodium (Protonix) 40 mg PRN DAILY PRN PO ACID REFLUX; Start 08/02 at 07:30 Atorvastatin Calcium (Lipitor) 20 mg QHS PO Last administered on 08/01/18at 21: 11; Start 08/01/18 at 21:00 Bisacodyl (Dulcolax Tab) 5 mg PRN BID PRN PO CONSTIPATION; Start 08/01/18 at 17:15 Ferrous Sulfate (Feosol) 325 mg DAILY08 PO ; Start 08/02/18 at 08:00 Acetaminophen/ Hydrocodone Bitart (Lortab 7.5/325) 1 tab PRN Q6HRS PRN PO MOD/ SEVERE PAIN Last administered on 08/01/18at 22:12; Start 08/01/18 at 17:15 Levothyroxine Sodium (Synthroid) 100 mcg DAILY06 PO ; Start 08/02/18 at 06:00 Metoprolol Tartrate (Lopressor) 25 mg PRN DAILY PRN PO HYPERTENSION, SEE COMMENTS; Start 08/01/18 at 17:15 Lorazepam (Ativan) 0.5 mg BID PO Last administered on 08/01/18at 21:11; Start 08/01/18 at 21:00 Metformin HCl (Glucophage) 850 mg BIDWMEALS PO ; Start 08/02/18 at 08:00 Influenza Virus Vaccine (Afluria Trivalent [id number] Syringe) 0.5 ml ONCE ONCE VAX IM ; Start 08/02/18 at 09:00; Stop 08/02/18 at 09:01 Active Scripts Active Reported Bisacodyl 5 Mg Tablet.dr 5 Mg PO PRN BID PRN Metoprolol Tartrate 25 Mg Tablet 25 Mg PO PRN DAILY PRN Lorazepam 0.5 Mg Tablet 0.5 Mg PO BID Levothyroxine Sodium 100 Mcg Tablet 100 Mcg PO DAILYAC D3-50 (Cholecalciferol (Vitamin D3)) 50,000 Unit Capsule 50,000 Unit PO WEEKLY ON FRIDAY Earwax Treatment Drops (Carbamide Peroxide) 15 Ml Drops 5 Drp AU PRN BID PRN Tylenol (Acetaminophen) 325 Mg Tablet 650 Mg PO PRN Q6HRS PRN Depakote Er (Divalproex Sodium) 500 Mg Tab.er.24h 1,250 Mg PO HS Fenofibrate (Fenofibrate,Micronized) 134 Mg Capsule 134 Mg PO DAILY Levemir Flextouch (Insulin Detemir) 100 Unit/1 Ml Insuln.pen 18 Unit SQ HS Magnesium (Magnesium Oxide) 400 Mg Capsule 250 Mg PO DAILY Atorvastatin Calcium 20 Mg Tablet 20 Mg PO DAILY B-12 (Cyanocobalamin (Vitamin B-12)) 500 Mcg Tablet 250 Mcg PO DAILY Acidophilus (Lactobacillus Acidophilus) 1 Each Capsule 1 Each PO BID Metformin Hcl 850 Mg Tablet 850 Mg PO BIDWMEALS Ferrous Sulfate 325 Mg Tablet 1 Tab PO DAILY Metoprolol Tartrate 25 Mg Tablet 25 Mg PO DAILY Aspirin 81 Mg Tab.chew 81 Mg PO DAILY Cetirizine Hcl 10 Mg Tablet 10 Mg PO PRN DAILY PRN Hydrocodone-Apap 7.5-325 (Hydrocodone Bit/Acetaminophen) 1 Each Tablet 1 Tab PO PRN Q6HRS PRN Protonix (Pantoprazole Sodium) 20 Mg Tablet.dr 40 Mg PO PRN DAILY PRN I have reviewed the current psychotropics carefully including drug interactions. Risk benefit ratio favors no change other than as noted in my dictated progress note. Diagnosis: Problems: (1) Anxiety disorder (2) Bipolar affective disorder, mixed (3) Borderline intellectual disability (4) Borderline intellectual disability (5) Dementia in Alzheimer's disease with delusions (6) Dementia, vascular, with delusions (7) Impulse control disorder LAURITA DAVIS MD Aug 01, 2018 22:55
[2018-08-02 05:56] VITALS: BP 160/78
--- NOTE | 2018-08-02 05:58 | NUR ---
Pt given lortab at 2210 for pain in left knee, assessed knee did not see any visible signs of injury, medication was effective patient had no complaints of pain or discomfort after administration of lortab. Will continue to monitor patient.
[2018-08-02] MEDS: LEVOTHYROXINE 100 MCG TABLET PO SCH (06:03)
[2018-08-02] MEDS ORDERED: PANTOPRAZOLE 40 MG TABLET. PO PRN (07:30)
[2018-08-02] MEDS ORDERED: LACTOBACILLUS RHAMNOSUS GG 1 CAPSULE. PO SCH (09:00)
[2018-08-02] MEDS: ASPIRIN 81 MG TAB.CHEW PO SCH (09:12)
[2018-08-02] MEDS: LACTOBACILLUS RHAMNOSUS GG 1 CAPSULE. PO SCH ×2 (09:12→19:33)
[2018-08-02] MEDS: metFORMIN 850 MG TABLET PO SCH ×2 (09:12→17:42)
[2018-08-02] MEDS: FENOFIBRATE NANOCRYSTALLIZED 145 MG TABLET PO SCH (09:12)
[2018-08-02] MEDS: LORazepam 0.5 MG TABLET PO SCH ×2 (09:12→19:33)
[2018-08-02] MEDS: MAGNESIUM OXIDE 400 MG TABLET PO SCH (09:13)
[2018-08-02] MEDS: FERROUS SULFATE 325 MG TABLET. PO SCH (09:13)
[2018-08-02] MEDS: CYANOCOBALAMIN (VITAMIN B-12) 250 MCG TABLET PO SCH (09:13)
[2018-08-02] MEDS: METOPROLOL TART IMMED RELEASE 25 MG TABLET PO SCH (09:16)
[2018-08-02 10:27] LABS: THYROID STIM HORMONE (TSH) 4.089 uIU/mL (0.358-3.740)
[2018-08-02 12:06] LABS: THYROXINE 7.8 ug/dL (4.5-12.0)
--- NOTE | 2018-08-02 12:40 | NUR ---
Patient has been compliant with medications. She has been walking around the unit with her pants below her bottom, staff constantly reminding her to pull her pants up. Patient was in dining room and stated, " I'm going to kill myself!!" Patient then put her hand around her neck and squeezed. Patient was redirected to the day room to calm down, she apologized and has had no further behaviors. She is repetitive and tearful at times. Will continue to monitor.
[2018-08-02] MEDS ORDERED: CARBAMIDE PEROXIDE 6.5% OTIC SOLUTION 15ML BOTTLE. AU PRN (15:45)
[2018-08-02 16:25] VITALS: BP 115/78
[2018-08-02] MEDS: ATORVASTATIN CALCIUM 20 MG TABLET PO SCH (19:32)
[2018-08-02] MEDS: DIVALPROEX ER 250 MG TAB.ER.24H. PO SCH (19:33)
[2018-08-02] MEDS: INSULIN GLARGINE 300 UNITS/3 ML INSULN.PEN. SQ SCH (19:33)
--- NOTE | 2018-08-02 21:54 | NUR ---
Behavior Intervention Response and Plan: BIRP Note: Behavior: Assumed Care of patient, patient located in Day Room at shift change. Patient exhibited the following behavior Disorganized, Compulsive, Compliant. Brief assessment on rounds of vital signs, medication needs, lab studies, and pain. Treatment plan problems . Intervention: Patient assessed and the following interventions initiated safety checks 15 Minute Checks Personal Alarm in place , Cognitive Assessment , Head to toe Assessment. Response: After interactions and interventions patient responded in the following manner, Compulsive , Compliant ,Cooperative. Continue to assess behaviors and condition will continue to monitor throughout the shift as needed. Patient educated on ADL's, and hand hygiene. Plan: Continue to monitor Master Treatment Plan for patient's progress toward short term goals of Improved Mood, Decreased Agitation, ferry terminal agent goals to return to previous living setting vs placement. Continue to assess patient for changes in above assessment. Monitor for medication needs, pain, and safety concerns. Hourly rounding performed to ensure safe environment.
[2018-08-02] MEDS ORDERED: FLUCONAZOLE 100 MG TABLET. PO ONE (22:30)
--- NOTE | 2018-08-02 22:58 | PDOC2 ---
CONSULT Date of Admission DATE: 08/02/18 TIME: 22:58 Current Medications Current Medications Acetaminophen (Tylenol) 650 mg 1X ONCE PO Last administered on 08/01/18at 11: 44; Start 08/01/18 at 11:45; Stop 08/01/18 at 11:46; Status DC Sodium Chloride 500 ml @ 0 mls/hr 1X ONCE IV Last administered on 08/01/18at 11:45; Start 08/01/18 at 11:45; Stop 08/01/18 at 11:50; Status DC Acetaminophen (Tylenol) 650 mg PRN Q6HRS PRN PO PAIN / TEMP; Start 08/01/18 at 16:45 Vitamin D (Vitamin D3) 50,000 unit Th PO ; Start 08/06/18 at 09:00 Metoprolol Tartrate (Lopressor) 25 mg DAILY PO Last administered on 08/02/18at 09:16; Start 08/02/18 at 09:00 Aspirin (Children'S Aspirin) 81 mg DAILYWBKFT PO Last administered on at 09:12; Start 08/02/18 at 08:00 Carbamide Peroxide (Debrox) 5 drop PRN BID PRN AU IMPACTION; Start 08/01/18 at 17:30; Stop 08/02/18 at 15:39; Status DC Cetirizine HCl (ZyrTEC) 10 mg PRN DAILY PRN PO ALLERGIES; Start 08/01/18 at 18 :00 Cyanocobalamin (Vitamin B-12) 250 mcg DAILY PO Last administered on 08/02/18at 09:13; Start 08/02/18 at 09:00 Divalproex Sodium (Depakote Er) 1,250 mg QHS PO Last administered on at 19:33; Start 08/01/18 at 21:00 Fenofibrate (Tricor) 145 mg DAILY PO Last administered on 08/02/18at 09:12; Start 08/02/18 at 09:00 Insulin Glargine (Lantus) 18 units QHS SQ Last administered on 08/02/18at 19:33 ; Start 08/01/18 at 21:00 Lactobacillus Rhamnosus (Culturelle) 1 cap BID PO Last administered on at 19:33; Start 08/01/18 at 21:00 Magnesium Oxide (Magnesium Oxide) 200 mg DAILY PO Last administered on at 09:13; Start 08/02/18 at 09:00 Pantoprazole Sodium (Protonix) 40 mg PRN DAILY PRN PO ACID REFLUX; Start 08/02 at 07:30 Atorvastatin Calcium (Lipitor) 20 mg QHS PO Last administered on 08/02/18at 19: 32; Start 08/01/18 at 21:00 Bisacodyl (Dulcolax Tab) 5 mg PRN BID PRN PO CONSTIPATION; Start 08/01/18 at 17:15 Ferrous Sulfate (Feosol) 325 mg DAILY08 PO Last administered on 08/02/18at 09: 13; Start 08/02/18 at 08:00 Acetaminophen/ Hydrocodone Bitart (Lortab 7.5/325) 1 tab PRN Q6HRS PRN PO MOD/ SEVERE PAIN Last administered on 08/01/18at 22:12; Start 08/01/18 at 17:15 Levothyroxine Sodium (Synthroid) 100 mcg DAILY06 PO Last administered on at 06:03; Start 08/02/18 at 06:00 Metoprolol Tartrate (Lopressor) 25 mg PRN DAILY PRN PO HYPERTENSION, SEE COMMENTS; Start 08/01/18 at 17:15 Lorazepam (Ativan) 0.5 mg BID PO Last administered on 08/02/18at 19:33; Start 08/01/18 at 21:00 Metformin HCl (Glucophage) 850 mg BIDWMEALS PO Last administered on 08/02/18at 17:42; Start 08/02/18 at 08:00 Influenza Virus Vaccine (Afluria Trivalent [id number] Syringe) 0.5 ml ONCE ONCE VAX IM Last administered on 08/02/18at 16:26; Start 08/02/18 at 09:00; Stop 08/02/18 at 09:01; Status DC Lactobacillus Rhamnosus (Culturelle) 1 cap BID PO ; Start 08/02/18 at 09:00; Status Cancel Carbamide Peroxide (Debrox) 5 drop PRN BID PRN AU IMPACTION; Start 08/02/18 at 15:45 Fluconazole (Diflucan) 150 mg 1X ONCE PO Last administered on 08/02/18at 22:29 ; Start 08/02/18 at 22:30; Stop 08/02/18 at 22:31; Status DC Nystatin/ Triamcinolone Acetonide (Mycolog Ii) 1 milena BID TP ; Start 08/03/18 at 09:00; Stop 08/13/18 at 08:59 Active Scripts Active Reported Bisacodyl 5 Mg Tablet.dr 5 Mg PO PRN BID PRN Metoprolol Tartrate 25 Mg Tablet 25 Mg PO PRN DAILY PRN Lorazepam 0.5 Mg Tablet 0.5 Mg PO BID Levothyroxine Sodium 100 Mcg Tablet 100 Mcg PO DAILYAC D3-50 (Cholecalciferol (Vitamin D3)) 50,000 Unit Capsule 50,000 Unit PO WEEKLY ON FRIDAY Earwax Treatment Drops (Carbamide Peroxide) 15 Ml Drops 5 Drp AU PRN BID PRN Tylenol (Acetaminophen) 325 Mg Tablet 650 Mg PO PRN Q6HRS PRN Depakote Er (Divalproex Sodium) 500 Mg Tab.er.24h 1,250 Mg PO HS Fenofibrate (Fenofibrate,Micronized) 134 Mg Capsule 134 Mg PO DAILY Levemir Flextouch (Insulin Detemir) 100 Unit/1 Ml Insuln.pen 18 Unit SQ HS Magnesium (Magnesium Oxide) 400 Mg Capsule 250 Mg PO DAILY Atorvastatin Calcium 20 Mg Tablet 20 Mg PO DAILY B-12 (Cyanocobalamin (Vitamin B-12)) 500 Mcg Tablet 250 Mcg PO DAILY Acidophilus (Lactobacillus Acidophilus) 1 Each Capsule 1 Each PO BID Metformin Hcl 850 Mg Tablet 850 Mg PO BIDWMEALS Ferrous Sulfate 325 Mg Tablet 1 Tab PO DAILY Metoprolol Tartrate 25 Mg Tablet 25 Mg PO DAILY Aspirin 81 Mg Tab.chew 81 Mg PO DAILY Cetirizine Hcl 10 Mg Tablet 10 Mg PO PRN DAILY PRN Hydrocodone-Apap 7.5-325 (Hydrocodone Bit/Acetaminophen) 1 Each Tablet 1 Tab PO PRN Q6HRS PRN Protonix (Pantoprazole Sodium) 20 Mg Tablet.dr 40 Mg PO PRN DAILY PRN Allergies: Coded Allergies: No Known Drug Allergies (Unverified , 08/01/18) Review of Systems: Constitutional: No fever or chills Eyes: No eye pain or blurred vision Skin: No rash or itching Cardiovascular: No chest pain, syncope, palpitations, dyspnea on exertion, or edema Respiratory: No cough or difficulty breathing Gastrointestinal: No nausea, vomiting, or abdominal pain Neurologic: No headaches or focal neurologic deficits Endocrine: No heat or cold intolerance Genitourinary: No incontinence or hematuria Musculoskeletal: No joint pain or swelling Lymphatics: No enlarged lymph nodes Psychiatric: No anxiety or depression Physical Exam: Gen.: Alert, pleasant, no apparent distress HEENT: Normocephalic atraumatic, PERRLA EOMI, no scleral icterus, oral mucosa pink and moist Neck: Supple, no lymphadenopathy, nontender Cardiovascular: Normal S1 and S2 no murmurs Pulmonary: Lungs are clear bilaterally with good air movement no respiratory distress Abdomen: Soft nontender non-distended, bowel sounds present no masses Extremities: No clubbing, cyanosis or edema Neuro: Alert and oriented 3, cranial nerves II through XII grossly intact, no lateralizing neuro deficits Skin: Warm, dry VITALS Vital Signs Date Time Temp Pulse Resp B/P (MAP) Pulse Ox O2 Delivery O2 Flow Rate FiO2 08/02/18 16:25 97.6 75 22 115/78 (90) 100 Room Air Labs Laboratory Tests Test 08/01/18 10:55 08/01/18 11:03 08/01/18 17:03 08/01/18 18:40 Urine Collection Type Unknown Urine Color Yellow Urine Clarity Clear Urine pH 7.5 Urine Specific Cecilia 1.020 Urine Protein Neg (NEG-TRACE) Urine Glucose (UA) Neg mg/dL (NEG) Urine Ketones (Stick) Neg mg/dL (NEG) Urine Blood Mod (NEG) Urine Nitrite Neg (NEG) Urine Bilirubin Neg (NEG) Urine Urobilinogen Dipstick 0.2 mg/dL (0.2 mg/dL) Urine Leukocyte Esterase Trace (NEG) Urine RBC 11-20 /HPF (0-2) Urine WBC 1-4 /HPF (0-4) Urine Squamous Epithelial Cells Occ /LPF Urine Transitional Epithelial Cells Occ /LPF Urine Bacteria Few /HPF (0-FEW) Urine Opiates Screen Neg (NEG) Urine Methadone Screen Neg (NEG) Urine Barbiturates Neg (NEG) Urine Phencyclidine Screen Neg (NEG) Urine Amphetamine/Methamphetamine Neg (NEG) Urine Benzodiazepines Screen Neg (NEG) Urine Cocaine Screen Neg (NEG) Urine Cannabinoids Screen Neg (NEG) Urine Ethyl Alcohol Neg (NEG) White Blood Count 3.9 x10^3/uL (4.0-11.0) Red Blood Count 3.46 x10^6/uL (3.50-5.40) Hemoglobin 10.7 g/dL (12.0-15.5) Hematocrit 32.0 % (36.0-47.0) Mean Corpuscular Volume 93 fL (79-100) Mean Corpuscular Hemoglobin 31 pg (25-35) Mean Corpuscular Hemoglobin Concent 34 g/dL (31-37) Red Cell Distribution Width 14.3 % (11.5-14.5) Platelet Count 167 x10^3/uL (140-400) Neutrophils (%) (Auto) 53 % (31-73) Lymphocytes (%) (Auto) 34 % (24-48) Monocytes (%) (Auto) 11 % (0-9) Eosinophils (%) (Auto) 1 % (0-3) Basophils (%) (Auto) 1 % (0-3) Neutrophils # (Auto) 2.0 x10^3uL (1.8-7.7) Lymphocytes # (Auto) 1.3 x10^3/uL (1.0-4.8) Monocytes # (Auto) 0.4 x10^3/uL (0.0-1.1) Eosinophils # (Auto) 0.0 x10^3/uL (0.0-0.7) Basophils # (Auto) 0.0 x10^3/uL (0.0-0.2) Sodium Level 137 mmol/L (136-145) Potassium Level 4.8 mmol/L (3.5-5.1) Chloride Level 104 mmol/L (98-107) Carbon Dioxide Level 28 mmol/L (21-32) Anion Gap 5 (6-14) Blood Urea Nitrogen 35 mg/dL (7-20) Creatinine 1.2 mg/dL (0.6-1.0) Estimated GFR (Cockcroft-Gault) 44.3 BUN/Creatinine Ratio 29 (6-20) Glucose Level 153 mg/dL (70-99) Calcium Level 9.6 mg/dL (8.5-10.1) Magnesium Level 2.3 mg/dL (1.8-2.4) Total Bilirubin 0.2 mg/dL (0.2-1.0) Aspartate Amino Transf (AST/SGOT) 23 U/L (15-37) Alanine Aminotransferase (ALT/SGPT) 21 U/L (14-59) Alkaline Phosphatase 79 U/L (46-116) Total Protein 6.6 g/dL (6.4-8.2) Albumin 3.3 g/dL (3.4-5.0) Albumin/Globulin Ratio 1.0 (1.0-1.7) Valproic Acid (Depakene) Level 51 mcg/mL (50-100) Valproic Acid Last Dose Date 07-31-18 Valproic Acid Last Dose Time 2099 Ethyl Alcohol Level < 10 mg/dL (0-10) Glucose (Fingerstick) 127 mg/dL (70-99) Iron Level 50 ug/dL (50-170) Total Iron Binding Capacity 560 ug/dL (250-450) Iron Saturation 9 % (15-34) Triglycerides Level 178 mg/dL (0-150) Cholesterol Level 125 mg/dL (0-200) LDL Cholesterol, Calculated 50 mg/dL (0-100) VLDL Cholesterol, Calculated 35 mg/dL (0-40) Non-HDL Cholesterol Calculated 85 mg/dL (0-129) HDL Cholesterol 40 mg/dL (40-60) Cholesterol/HDL Ratio 3.0 Thyroid Stimulating Hormone (TSH) 4.089 uIU/mL (0.358-3.740) Thyroxine (T4) 7.8 ug/dL (4.5-12.0) Total Triiodothyronine 99 ng/dL (71-180) Test 08/02/18 07:29 08/02/18 11:43 08/02/18 17:03 08/02/18 19:24 Glucose (Fingerstick) 129 mg/dL (70-99) 213 mg/dL (70-99) 198 mg/dL (70-99) 238 mg/dL (70-99) EMMY BAE DO Aug 02, 2018 22:58
--- NOTE | 2018-08-02 23:02 | PDOC ---
Exam Note: Hemant Note: Please also refer to the separate dictated note~for this date of service dictated separately.~Patient seen individually. Discussed the patient with Nursing staff reviewed the chart.~Reviewed interim history and current functioning. Reviewed vital signs,~Labs/ Radiology~and current medications noted below. Continue current treatment with the changes noted in the dictated addendum note Assessment: Vital Signs: Vital Signs Date Time Temp Pulse Resp B/P (MAP) Pulse Ox O2 Delivery O2 Flow Rate FiO2 08/02/18 16:25 97.6 75 22 115/78 (90) 100 Room Air I&O Intake and Output 08/02/18 07:00 Intake Total 980 ml Balance 980 ml Intake Oral 480 ml IV Total 500 ml Labs: Laboratory Tests Test 08/02/18 07:29 08/02/18 11:43 08/02/18 17:03 08/02/18 19:24 Glucose (Fingerstick) 129 mg/dL (70-99) H 213 mg/dL (70-99) H 198 mg/dL (70-99) H 238 mg/dL (70-99) H Current Medications: Meds: Current Medications Acetaminophen (Tylenol) 650 mg 1X ONCE PO Last administered on 08/01/18at 11: 44; Start 08/01/18 at 11:45; Stop 08/01/18 at 11:46; Status DC Sodium Chloride 500 ml @ 0 mls/hr 1X ONCE IV Last administered on 08/01/18at 11:45; Start 08/01/18 at 11:45; Stop 08/01/18 at 11:50; Status DC Acetaminophen (Tylenol) 650 mg PRN Q6HRS PRN PO PAIN / TEMP; Start 08/01/18 at 16:45 Vitamin D (Vitamin D3) 50,000 unit Th PO ; Start 08/06/18 at 09:00 Metoprolol Tartrate (Lopressor) 25 mg DAILY PO Last administered on 08/02/18at 09:16; Start 08/02/18 at 09:00 Aspirin (Children'S Aspirin) 81 mg DAILYWBKFT PO Last administered on at 09:12; Start 08/02/18 at 08:00 Carbamide Peroxide (Debrox) 5 drop PRN BID PRN AU IMPACTION; Start 08/01/18 at 17:30; Stop 08/02/18 at 15:39; Status DC Cetirizine HCl (ZyrTEC) 10 mg PRN DAILY PRN PO ALLERGIES; Start 08/01/18 at 18 :00 Cyanocobalamin (Vitamin B-12) 250 mcg DAILY PO Last administered on 08/02/18at 09:13; Start 08/02/18 at 09:00 Divalproex Sodium (Depakote Er) 1,250 mg QHS PO Last administered on 19:33; Start 08/01/18 at 21:00 Fenofibrate (Tricor) 145 mg DAILY PO Last administered on 08/02/18 09:12; Start 08/02/18 at 09:00 Insulin Glargine (Lantus) 18 units QHS SQ Last administered on 08/02/18 19:33 ; Start 08/01/18 at 21:00 Lactobacillus Rhamnosus (Culturelle) 1 cap BID PO Last administered on 19:33; Start 08/01/18 at 21:00 Magnesium Oxide (Magnesium Oxide) 200 mg DAILY PO Last administered on at 09:13; Start 08/02/18 at 09:00 Pantoprazole Sodium (Protonix) 40 mg PRN DAILY PRN PO ACID REFLUX; Start 08/02 at 07:30 Atorvastatin Calcium (Lipitor) 20 mg QHS PO Last administered on 08/02/18at 19: 32; Start 08/01/18 at 21:00 Bisacodyl (Dulcolax Tab) 5 mg PRN BID PRN PO CONSTIPATION; Start 08/01/18 at 17:15 Ferrous Sulfate (Feosol) 325 mg DAILY08 PO Last administered on 08/02/18at 09: 13; Start 08/02/18 at 08:00 Acetaminophen/ Hydrocodone Bitart (Lortab 7.5/325) 1 tab PRN Q6HRS PRN PO MOD/ SEVERE PAIN Last administered on 08/01/18at 22:12; Start 08/01/18 at 17:15 Levothyroxine Sodium (Synthroid) 100 mcg DAILY06 PO Last administered on at 06:03; Start 08/02/18 at 06:00 Metoprolol Tartrate (Lopressor) 25 mg PRN DAILY PRN PO HYPERTENSION, SEE COMMENTS; Start 08/01/18 at 17:15 Lorazepam (Ativan) 0.5 mg BID PO Last administered on 08/02/18at 19:33; Start 08/01/18 at 21:00 Metformin HCl (Glucophage) 850 mg BIDWMEALS PO Last administered on 08/02/18at 17:42; Start 08/02/18 at 08:00 Influenza Virus Vaccine (Afluria Trivalent [id number] Syringe) 0.5 ml ONCE ONCE VAX IM Last administered on 08/02/18at 16:26; Start 08/02/18 at 09:00; Stop 08/02/18 at 09:01; Status DC Lactobacillus Rhamnosus (Culturelle) 1 cap BID PO ; Start 08/02/18 at 09:00; Status Cancel Carbamide Peroxide (Debrox) 5 drop PRN BID PRN AU IMPACTION; Start 08/02/18 at 15:45 Fluconazole (Diflucan) 150 mg 1X ONCE PO Last administered on 08/02/18at 22:29 ; Start 08/02/18 at 22:30; Stop 08/02/18 at 22:31; Status DC Nystatin/ Triamcinolone Acetonide (Mycolog Ii) 1 milena BID TP ; Start 08/03/18 at 09:00; Stop 08/13/18 at 08:59 Active Scripts Active Reported Bisacodyl 5 Mg Tablet.dr 5 Mg PO PRN BID PRN Metoprolol Tartrate 25 Mg Tablet 25 Mg PO PRN DAILY PRN Lorazepam 0.5 Mg Tablet 0.5 Mg PO BID Levothyroxine Sodium 100 Mcg Tablet 100 Mcg PO DAILYAC D3-50 (Cholecalciferol (Vitamin D3)) 50,000 Unit Capsule 50,000 Unit PO WEEKLY ON FRIDAY Earwax Treatment Drops (Carbamide Peroxide) 15 Ml Drops 5 Drp AU PRN BID PRN Tylenol (Acetaminophen) 325 Mg Tablet 650 Mg PO PRN Q6HRS PRN Depakote Er (Divalproex Sodium) 500 Mg Tab.er.24h 1,250 Mg PO HS Fenofibrate (Fenofibrate,Micronized) 134 Mg Capsule 134 Mg PO DAILY Levemir Flextouch (Insulin Detemir) 100 Unit/1 Ml Insuln.pen 18 Unit SQ HS Magnesium (Magnesium Oxide) 400 Mg Capsule 250 Mg PO DAILY Atorvastatin Calcium 20 Mg Tablet 20 Mg PO DAILY B-12 (Cyanocobalamin (Vitamin B-12)) 500 Mcg Tablet 250 Mcg PO DAILY Acidophilus (Lactobacillus Acidophilus) 1 Each Capsule 1 Each PO BID Metformin Hcl 850 Mg Tablet 850 Mg PO BIDWMEALS Ferrous Sulfate 325 Mg Tablet 1 Tab PO DAILY Metoprolol Tartrate 25 Mg Tablet 25 Mg PO DAILY Aspirin 81 Mg Tab.chew 81 Mg PO DAILY Cetirizine Hcl 10 Mg Tablet 10 Mg PO PRN DAILY PRN Hydrocodone-Apap 7.5-325 (Hydrocodone Bit/Acetaminophen) 1 Each Tablet 1 Tab PO PRN Q6HRS PRN Protonix (Pantoprazole Sodium) 20 Mg Tablet.dr 40 Mg PO PRN DAILY PRN I have reviewed the current psychotropics carefully including drug interactions. Risk benefit ratio favors no change other than as noted in my dictated progress note. 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
--- NOTE | 2018-08-03 00:41 | PDOC2 ---
CONSULT Date of Admission DATE: 08/01/18 Reason for Consult: Medical Management Referring Physician: Dr Prado Chief Complaint Dementia with BD Source: Caregiver, Chart review, Patient History of Present Illness: 72/F to ED at [facility] for medical clearance and [facility] admission. Records indicate patient has been recently more agitated and at times combative. She's stopped taking her psychiatric medications. At times she has physically hit and yelled at staff and reportedly according to records won't keep her pants on in public or private. On the [facility] unit, she is beating on the glass demanding to talk to the doctor in her room. She is impatient and demanding. I accompanied her at her request to her room to talk with two [facility] staff. Patient goes into her bathroom, takes off her pants, and starts crying. She's reportedly had recent issues with yeast infections and is complaining that she can't wear pants. No gross abnormalities on exam, I tried to reassure her she would receive treatment for her physical complaints but she continues to cry out for a doctor and to cry in general. Staff reports this is baseline and she's been here before. Cardiovascular: HTN, hyperipidemia GI: GERD Endocrine: Hypothyroidism Past Surgical History: No pertinent history Smoke: No ALCOHOL: none Drugs: None Lives: Care Home Current Medications Current Medications Acetaminophen (Tylenol) 650 mg 1X ONCE PO Last administered on 08/01/18at 11: 44; Start 08/01/18 at 11:45; Stop 08/01/18 at 11:46; Status DC Sodium Chloride 500 ml @ 0 mls/hr 1X ONCE IV Last administered on 08/01/18at 11:45; Start 08/01/18 at 11:45; Stop 08/01/18 at 11:50; Status DC Acetaminophen (Tylenol) 650 mg PRN Q6HRS PRN PO PAIN / TEMP; Start 08/01/18 at 16:45 Vitamin D (Vitamin D3) 50,000 unit Th PO ; Start 08/06/18 at 09:00 Metoprolol Tartrate (Lopressor) 25 mg DAILY PO Last administered on 08/02/18at 09:16; Start 08/02/18 at 09:00 Aspirin (Children'S Aspirin) 81 mg DAILYWBKFT PO Last administered on at 09:12; Start 08/02/18 at 08:00 Carbamide Peroxide (Debrox) 5 drop PRN BID PRN AU IMPACTION; Start 08/01/18 at 17:30; Stop 08/02/18 at 15:39; Status DC Cetirizine HCl (ZyrTEC) 10 mg PRN DAILY PRN PO ALLERGIES; Start 08/01/18 at 18 :00 Cyanocobalamin (Vitamin B-12) 250 mcg DAILY PO Last administered on 08/02/18 09:13; Start 08/02/18 at 09:00 Divalproex Sodium (Depakote Er) 1,250 mg QHS PO Last administered on 19:33; Start 08/01/18 at 21:00 Fenofibrate (Tricor) 145 mg DAILY PO Last administered on 08/02/18 09:12; Start 08/02/18 at 09:00 Insulin Glargine (Lantus) 18 units QHS SQ Last administered on 08/02/18 19:33 ; Start 08/01/18 at 21:00 Lactobacillus Rhamnosus (Culturelle) 1 cap BID PO Last administered on at 19:33; Start 08/01/18 at 21:00 Magnesium Oxide (Magnesium Oxide) 200 mg DAILY PO Last administered on 09:13; Start 08/02/18 at 09:00 Pantoprazole Sodium (Protonix) 40 mg PRN DAILY PRN PO ACID REFLUX; Start 08/02 at 07:30 Atorvastatin Calcium (Lipitor) 20 mg QHS PO Last administered on 08/02/18 19: 32; Start 08/01/18 at 21:00 Bisacodyl (Dulcolax Tab) 5 mg PRN BID PRN PO CONSTIPATION; Start 08/01/18 at 17:15 Ferrous Sulfate (Feosol) 325 mg DAILY08 PO Last administered on 08/02/18 09: 13; Start 08/02/18 at 08:00 Acetaminophen/ Hydrocodone Bitart (Lortab 7.5/325) 1 tab PRN Q6HRS PRN PO MOD/ SEVERE PAIN Last administered on 08/01/18at 22:12; Start 08/01/18 at 17:15 Levothyroxine Sodium (Synthroid) 100 mcg DAILY06 PO Last administered on at 06:03; Start 08/02/18 at 06:00 Metoprolol Tartrate (Lopressor) 25 mg PRN DAILY PRN PO HYPERTENSION, SEE COMMENTS; Start 08/01/18 at 17:15 Lorazepam (Ativan) 0.5 mg BID PO Last administered on 08/02/18at 19:33; Start 08/01/18 at 21:00 Metformin HCl (Glucophage) 850 mg BIDWMEALS PO Last administered on 08/02/18at 17:42; Start 08/02/18 at 08:00 Influenza Virus Vaccine (Afluria Trivalent [id number] Syringe) 0.5 ml ONCE ONCE VAX IM Last administered on 08/02/18at 16:26; Start 08/02/18 at 09:00; Stop 08/02/18 at 09:01; Status DC Lactobacillus Rhamnosus (Culturelle) 1 cap BID PO ; Start 08/02/18 at 09:00; Status Cancel Carbamide Peroxide (Debrox) 5 drop PRN BID PRN AU IMPACTION; Start 08/02/18 at 15:45 Fluconazole (Diflucan) 150 mg 1X ONCE PO Last administered on 08/02/18at 22:29 ; Start 08/02/18 at 22:30; Stop 08/02/18 at 22:31; Status DC Nystatin/ Triamcinolone Acetonide (Mycolog Ii) 1 milena BID TP ; Start 08/03/18 at 09:00; Stop 08/13/18 at 08:59 Active Scripts Active Reported Bisacodyl 5 Mg Tablet.dr 5 Mg PO PRN BID PRN Metoprolol Tartrate 25 Mg Tablet 25 Mg PO PRN DAILY PRN Lorazepam 0.5 Mg Tablet 0.5 Mg PO BID Levothyroxine Sodium 100 Mcg Tablet 100 Mcg PO DAILYAC D3-50 (Cholecalciferol (Vitamin D3)) 50,000 Unit Capsule 50,000 Unit PO WEEKLY ON FRIDAY Earwax Treatment Drops (Carbamide Peroxide) 15 Ml Drops 5 Drp AU PRN BID PRN Tylenol (Acetaminophen) 325 Mg Tablet 650 Mg PO PRN Q6HRS PRN Depakote Er (Divalproex Sodium) 500 Mg Tab.er.24h 1,250 Mg PO HS Fenofibrate (Fenofibrate,Micronized) 134 Mg Capsule 134 Mg PO DAILY Levemir Flextouch (Insulin Detemir) 100 Unit/1 Ml Insuln.pen 18 Unit SQ HS Magnesium (Magnesium Oxide) 400 Mg Capsule 250 Mg PO DAILY Atorvastatin Calcium 20 Mg Tablet 20 Mg PO DAILY B-12 (Cyanocobalamin (Vitamin B-12)) 500 Mcg Tablet 250 Mcg PO DAILY Acidophilus (Lactobacillus Acidophilus) 1 Each Capsule 1 Each PO BID Metformin Hcl 850 Mg Tablet 850 Mg PO BIDWMEALS Ferrous Sulfate 325 Mg Tablet 1 Tab PO DAILY Metoprolol Tartrate 25 Mg Tablet 25 Mg PO DAILY Aspirin 81 Mg Tab.chew 81 Mg PO DAILY Cetirizine Hcl 10 Mg Tablet 10 Mg PO PRN DAILY PRN Hydrocodone-Apap 7.5-325 (Hydrocodone Bit/Acetaminophen) 1 Each Tablet 1 Tab PO PRN Q6HRS PRN Protonix (Pantoprazole Sodium) 20 Mg Tablet.dr 40 Mg PO PRN DAILY PRN Allergies: Coded Allergies: No Known Drug Allergies (Unverified , 08/01/18) Review of Systems: patient not competent to give ROS Physical Exam: Gen.: alert/ambulatory thru unit distressed and trying to disrobe HEENT: Normocephalic atraumatic, no scleral icterus, oral mucosa pink and moist Neck: Supple, no lymphadenopathy, nontender Cardiovascular: Normal S1 and S2 no murmurs Pulmonary: Lungs are clear bilaterally with good air movement no respiratory distress Abdomen: Soft nontender non-distended, bowel sounds present no masses Extremities: No clubbing, cyanosis or edema Neuro: Alert and disoriented no lateralizing neuro deficits Skin: Warm, dry VITALS Vital Signs Date Time Temp Pulse Resp B/P (MAP) Pulse Ox O2 Delivery O2 Flow Rate FiO2 08/02/18 16:25 97.6 75 22 115/78 (90) 100 Room Air Labs Laboratory Tests Test 08/01/18 10:55 08/01/18 11:03 08/01/18 17:03 08/01/18 18:40 Urine Collection Type Unknown Urine Color Yellow Urine Clarity Clear Urine pH 7.5 Urine Specific [place] 1.020 Urine Protein Neg (NEG-TRACE) Urine Glucose (UA) Neg mg/dL (NEG) Urine Ketones (Stick) Neg mg/dL (NEG) Urine Blood Mod (NEG) Urine Nitrite Neg (NEG) Urine Bilirubin Neg (NEG) Urine Urobilinogen Dipstick 0.2 mg/dL (0.2 mg/dL) Urine Leukocyte Esterase Trace (NEG) Urine RBC 11-20 /HPF (0-2) Urine WBC 1-4 /HPF (0-4) Urine Squamous Epithelial Cells Occ /LPF Urine Transitional Epithelial Cells Occ /LPF Urine Bacteria Few /HPF (0-FEW) Urine Opiates Screen Neg (NEG) Urine Methadone Screen Neg (NEG) Urine Barbiturates Neg (NEG) Urine Phencyclidine Screen Neg (NEG) Urine Amphetamine/Methamphetamine Neg (NEG) Urine Benzodiazepines Screen Neg (NEG) Urine Cocaine Screen Neg (NEG) Urine Cannabinoids Screen Neg (NEG) Urine Ethyl Alcohol Neg (NEG) White Blood Count 3.9 x10^3/uL (4.0-11.0) Red Blood Count 3.46 x10^6/uL (3.50-5.40) Hemoglobin 10.7 g/dL (12.0-15.5) Hematocrit 32.0 % (36.0-47.0) Mean Corpuscular Volume 93 fL (79-100) Mean Corpuscular Hemoglobin 31 pg (25-35) Mean Corpuscular Hemoglobin Concent 34 g/dL (31-37) Red Cell Distribution Width 14.3 % (11.5-14.5) Platelet Count 167 x10^3/uL (140-400) Neutrophils (%) (Auto) 53 % (31-73) Lymphocytes (%) (Auto) 34 % (24-48) Monocytes (%) (Auto) 11 % (0-9) Eosinophils (%) (Auto) 1 % (0-3) Basophils (%) (Auto) 1 % (0-3) Neutrophils # (Auto) 2.0 x10^3uL (1.8-7.7) Lymphocytes # (Auto) 1.3 x10^3/uL (1.0-4.8) Monocytes # (Auto) 0.4 x10^3/uL (0.0-1.1) Eosinophils # (Auto) 0.0 x10^3/uL (0.0-0.7) Basophils # (Auto) 0.0 x10^3/uL (0.0-0.2) Sodium Level 137 mmol/L (136-145) Potassium Level 4.8 mmol/L (3.5-5.1) Chloride Level 104 mmol/L (98-107) Carbon Dioxide Level 28 mmol/L (21-32) Anion Gap 5 (6-14) Blood Urea Nitrogen 35 mg/dL (7-20) Creatinine 1.2 mg/dL (0.6-1.0) Estimated GFR (Cockcroft-Gault) 44.3 BUN/Creatinine Ratio 29 (6-20) Glucose Level 153 mg/dL (70-99) Calcium Level 9.6 mg/dL (8.5-10.1) Magnesium Level 2.3 mg/dL (1.8-2.4) Total Bilirubin 0.2 mg/dL (0.2-1.0) Aspartate Amino Transf (AST/SGOT) 23 U/L (15-37) Alanine Aminotransferase (ALT/SGPT) 21 U/L (14-59) Alkaline Phosphatase 79 U/L (46-116) Total Protein 6.6 g/dL (6.4-8.2) Albumin 3.3 g/dL (3.4-5.0) Albumin/Globulin Ratio 1.0 (1.0-1.7) Valproic Acid (Depakene) Level 51 mcg/mL (50-100) Valproic Acid Last Dose Date 07-31-18 Valproic Acid Last Dose Time 2100 Ethyl Alcohol Level < 10 mg/dL (0-10) Glucose (Fingerstick) 127 mg/dL (70-99) Iron Level 50 ug/dL (50-170) Total Iron Binding Capacity 560 ug/dL (250-450) Iron Saturation 9 % (15-34) Triglycerides Level 178 mg/dL (0-150) Cholesterol Level 125 mg/dL (0-200) LDL Cholesterol, Calculated 50 mg/dL (0-100) VLDL Cholesterol, Calculated 35 mg/dL (0-40) Non-HDL Cholesterol Calculated 85 mg/dL (0-129) HDL Cholesterol 40 mg/dL (40-60) Cholesterol/HDL Ratio 3.0 Thyroid Stimulating Hormone (TSH) 4.089 uIU/mL (0.358-3.740) Thyroxine (T4) 7.8 ug/dL (4.5-12.0) Total Triiodothyronine 99 ng/dL (71-180) Test 08/02/18 07:29 08/02/18 11:43 08/02/18 17:03 08/02/18 19:24 Glucose (Fingerstick) 129 mg/dL (70-99) 213 mg/dL (70-99) 198 mg/dL (70-99) 238 mg/dL (70-99) Assessment/Plan Dementia with behavior disorder UTI h/o yeast infections c/o acute symptoms Hypothyroidism Diflucan/topical nystatin with TCA. Await urine C/S. Start synthroid 100mcg/ d. Will continue to follow and offer treatments as indicated. Thank you, Dr Prado, for allowing me to participate in the care of your patient. EMMY BAE DO Aug 03, 2018 00:41
[2018-08-03] MEDS: LEVOTHYROXINE 100 MCG TABLET PO SCH (05:48)
[2018-08-03] MEDS ORDERED: LEVOTHYROXINE 100 MCG TABLET PO SCH (06:00)
[2018-08-03 06:01] VITALS: BP 130/72
[2018-08-03] MEDS: MAGNESIUM OXIDE 400 MG TABLET PO SCH (07:28)
[2018-08-03] MEDS: LACTOBACILLUS RHAMNOSUS GG 1 CAPSULE. PO SCH ×2 (07:28→19:36)
[2018-08-03] MEDS: ASPIRIN 81 MG TAB.CHEW PO SCH (07:28)
[2018-08-03] MEDS: FENOFIBRATE NANOCRYSTALLIZED 145 MG TABLET PO SCH (07:28)
[2018-08-03] MEDS: metFORMIN 850 MG TABLET PO SCH ×2 (07:28→17:17)
[2018-08-03] MEDS: FERROUS SULFATE 325 MG TABLET. PO SCH (07:29)
[2018-08-03] MEDS: CYANOCOBALAMIN (VITAMIN B-12) 250 MCG TABLET PO SCH (07:29)
[2018-08-03] MEDS: METOPROLOL TART IMMED RELEASE 25 MG TABLET PO SCH (07:29)
[2018-08-03] MEDS: LORazepam 0.5 MG TABLET PO SCH ×2 (07:30→19:36)
[2018-08-03] MEDS: NYSTATIN/TRIAMCIN TOPICAL CREAM 15GM TUBE. TP SCH ×2 (07:31→19:36)
--- NOTE | 2018-08-03 13:49 | NUR ---
Briseida has [facility] Medicaid. Call placed to [facility] at ext [phone], who handles [facility] behavioral health services. Jolene e-mailed this worker the [facility] [place] admission authorization form for completion. Admission authorization form and supportive documentation faxed for review. Awaiting outcome.
[2018-08-03 15:36] VITALS: BP 136/69
[2018-08-03] MEDS: DIVALPROEX ER 250 MG TAB.ER.24H. PO SCH (19:36)
[2018-08-03] MEDS: ATORVASTATIN CALCIUM 20 MG TABLET PO SCH (19:36)
[2018-08-03] MEDS: INSULIN GLARGINE 300 UNITS/3 ML INSULN.PEN. SQ SCH (19:37)
--- NOTE | 2018-08-03 20:34 | PN ---
DATE: 08/02/2018 PSYCHIATRIC PROGRESS NOTE This late entry 08/02/2018 covers elements not covered in my initial note. SUBJECTIVE: I met with the patient in the evening. The patient slept 5-1/4 hours previous night. She remains somewhat irritable, labile, obsessive having repetitive questions regarding going home. Compliant with medications, restless, but extremely resolved and persistent. She is walking around with parents below her bottoms. At one point, she was frustrated. She was going to kill herself, then she put her hands around her neck and squeezed for about 5 seconds per nursing staff. She redirected and when I questioned her closely on this in the evening, she denied suicidal ideation. REVIEW OF SYSTEMS: No CV, , pulmonary, eye, ENT system symptoms on review. MENTAL STATUS EXAM: Oriented to herself and situation. Speech coherent, rapid at times. Abstraction fair, computation impaired, language function intact, attention span short. Mood and affect remain somewhat labile. LABORATORY DATA: Reviewed. IMPRESSION: Bipolar 1 disorder, mixed with psychotic features; major neurocognitive disorder, Alzheimer, vascular with delusions, anxiety disorder, unspecified. PLAN: Maintain Ativan 0.5 mg b.i.d. Rest of her psychotropics were discontinued due to torsades diagnosed previously. We will have to observe baseline, then consider whether Depakote as an option to restart. MAN Kingston DAVIS MD DR: SUMEET/kirill JOB#: [id number] / [id number]
--- NOTE | 2018-08-03 21:50 | NUR ---
Behavior Intervention Response and Plan: BIRP Note: Behavior: Assumed Care of patient, patient located in Day Room at shift change. Patient exhibited the following behavior Social, Compulsive, Compliant. Brief assessment on rounds of vital signs, medication needs, lab studies, and pain. Treatment plan problems . Intervention: Patient assessed and the following interventions initiated safety checks 15 Minute Checks Personal Alarm in place , Cognitive Assessment , Head to toe Assessment. Response: After interactions and interventions patient responded in the following manner, Calm , Compliant ,Cooperative. Continue to assess behaviors and condition will continue to monitor throughout the shift as needed. Patient educated on ADL's, and hand hygiene. 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 Continue to assess patient for changes in above assessment. Monitor for medication needs, pain, and safety concerns. Hourly rounding performed to ensure safe environment.
--- NOTE | 2018-08-03 23:06 | PDOC ---
Exam Note: Hemant Note: Please also refer to the separate dictated note~for this date of service dictated separately.~Patient seen individually. Discussed the patient with Nursing staff reviewed the chart.~Reviewed interim history and current functioning. Reviewed vital signs,~Labs/ Radiology~and current medications noted below. Continue current treatment with the changes noted in the dictated addendum note Assessment: Vital Signs: Vital Signs Date Time Temp Pulse Resp B/P (MAP) Pulse Ox O2 Delivery O2 Flow Rate FiO2 08/03/18 15:36 97.3 71 18 136/69 (91) 99 Room Air I&O Intake and Output 08/03/18 07:00 Intake Total 1080 ml Balance 1080 ml Intake Oral 1080 ml Labs: Laboratory Tests Test 08/03/18 07:48 08/03/18 11:24 08/03/18 16:38 08/03/18 19:11 Glucose (Fingerstick) 133 mg/dL (70-99) H 151 mg/dL (70-99) H 136 mg/dL (70-99) H 180 mg/dL (70-99) H Current Medications: Meds: Current Medications Acetaminophen (Tylenol) 650 mg 1X ONCE PO Last administered on 08/01/18at 11: 44; Start 08/01/18 at 11:45; Stop 08/01/18 at 11:46; Status DC Sodium Chloride 500 ml @ 0 mls/hr 1X ONCE IV Last administered on 08/01/18at 11:45; Start 08/01/18 at 11:45; Stop 08/01/18 at 11:50; Status DC Acetaminophen (Tylenol) 650 mg PRN Q6HRS PRN PO PAIN / TEMP; Start 08/01/18 at 16:45 Vitamin D (Vitamin D3) 50,000 unit Th PO ; Start 08/06/18 at 09:00 Metoprolol Tartrate (Lopressor) 25 mg DAILY PO Last administered on 08/03/18at 07:29; Start 08/02/18 at 09:00 Aspirin (Children'S Aspirin) 81 mg DAILYWBKFT PO Last administered on at 07:28; Start 08/02/18 at 08:00 Carbamide Peroxide (Debrox) 5 drop PRN BID PRN AU IMPACTION; Start 08/01/18 at 17:30; Stop 08/02/18 at 15:39; Status DC Cetirizine HCl (ZyrTEC) 10 mg PRN DAILY PRN PO ALLERGIES; Start 08/01/18 at 18 :00 Cyanocobalamin (Vitamin B-12) 250 mcg DAILY PO Last administered on 08/03/18 07:29; Start 08/02/18 at 09:00 Divalproex Sodium (Depakote Er) 1,250 mg QHS PO Last administered on 19:36; Start 08/01/18 at 21:00 Fenofibrate (Tricor) 145 mg DAILY PO Last administered on 08/03/18 07:28; Start 08/02/18 at 09:00 Insulin Glargine (Lantus) 18 units QHS SQ Last administered on 08/03/18 19:37 ; Start 08/01/18 at 21:00 Lactobacillus Rhamnosus (Culturelle) 1 cap BID PO Last administered on 19:36; Start 08/01/18 at 21:00 Magnesium Oxide (Magnesium Oxide) 200 mg DAILY PO Last administered on 07:28; Start 08/02/18 at 09:00 Pantoprazole Sodium (Protonix) 40 mg PRN DAILY PRN PO ACID REFLUX; Start 08/02 at 07:30 Atorvastatin Calcium (Lipitor) 20 mg QHS PO Last administered on 08/03/18 19: 36; Start 08/01/18 at 21:00 Bisacodyl (Dulcolax Tab) 5 mg PRN BID PRN PO CONSTIPATION; Start 08/01/18 at 17:15 Ferrous Sulfate (Feosol) 325 mg DAILY08 PO Last administered on 08/03/18at 07: 29; Start 08/02/18 at 08:00 Acetaminophen/ Hydrocodone Bitart (Lortab 7.5/325) 1 tab PRN Q6HRS PRN PO MOD/ SEVERE PAIN Last administered on 08/01/18at 22:12; Start 08/01/18 at 17:15 Levothyroxine Sodium (Synthroid) 100 mcg DAILY06 PO Last administered on at 05:48; Start 08/02/18 at 06:00 Metoprolol Tartrate (Lopressor) 25 mg PRN DAILY PRN PO HYPERTENSION, SEE COMMENTS; Start 08/01/18 at 17:15 Lorazepam (Ativan) 0.5 mg BID PO Last administered on 08/03/18at 19:36; Start 08/01/18 at 21:00 Metformin HCl (Glucophage) 850 mg BIDWMEALS PO Last administered on 08/03/18at 17:17; Start 08/02/18 at 08:00 Influenza Virus Vaccine (Afluria Trivalent [id number] Syringe) 0.5 ml ONCE ONCE VAX IM Last administered on 08/02/18at 16:26; Start 08/02/18 at 09:00; Stop 08/02/18 at 09:01; Status DC Lactobacillus Rhamnosus (Culturelle) 1 cap BID PO ; Start 08/02/18 at 09:00; Status Cancel Carbamide Peroxide (Debrox) 5 drop PRN BID PRN AU IMPACTION; Start 08/02/18 at 15:45 Fluconazole (Diflucan) 150 mg 1X ONCE PO Last administered on 08/02/18at 22:29 ; Start 08/02/18 at 22:30; Stop 08/02/18 at 22:31; Status DC Nystatin/ Triamcinolone Acetonide (Mycolog Ii) 1 milena BID TP Last administered on 08/03/18at 19:36; Start 08/03/18 at 09:00; Stop 08/13/18 at 08:59 Levothyroxine Sodium (Synthroid) 100 mcg DAILY06 PO ; Start 08/03/18 at 06:00; Status UNV Cephalexin HCl (Keflex) 500 mg TID PO ; Start 08/16/18 at 09:00 Active Scripts Active Reported Bisacodyl 5 Mg Tablet.dr 5 Mg PO PRN BID PRN Metoprolol Tartrate 25 Mg Tablet 25 Mg PO PRN DAILY PRN Lorazepam 0.5 Mg Tablet 0.5 Mg PO BID Levothyroxine Sodium 100 Mcg Tablet 100 Mcg PO DAILYAC D3-50 (Cholecalciferol (Vitamin D3)) 50,000 Unit Capsule 50,000 Unit PO WEEKLY ON FRIDAY Earwax Treatment Drops (Carbamide Peroxide) 15 Ml Drops 5 Drp AU PRN BID PRN Tylenol (Acetaminophen) 325 Mg Tablet 650 Mg PO PRN Q6HRS PRN Depakote Er (Divalproex Sodium) 500 Mg Tab.er.24h 1,250 Mg PO HS Fenofibrate (Fenofibrate,Micronized) 134 Mg Capsule 134 Mg PO DAILY Levemir Flextouch (Insulin Detemir) 100 Unit/1 Ml Insuln.pen 18 Unit SQ HS Magnesium (Magnesium Oxide) 400 Mg Capsule 250 Mg PO DAILY Atorvastatin Calcium 20 Mg Tablet 20 Mg PO DAILY B-12 (Cyanocobalamin (Vitamin B-12)) 500 Mcg Tablet 250 Mcg PO DAILY Acidophilus (Lactobacillus Acidophilus) 1 Each Capsule 1 Each PO BID Metformin Hcl 850 Mg Tablet 850 Mg PO BIDWMEALS Ferrous Sulfate 325 Mg Tablet 1 Tab PO DAILY Metoprolol Tartrate 25 Mg Tablet 25 Mg PO DAILY Aspirin 81 Mg Tab.chew 81 Mg PO DAILY Cetirizine Hcl 10 Mg Tablet 10 Mg PO PRN DAILY PRN Hydrocodone-Apap 7.5-325 (Hydrocodone Bit/Acetaminophen) 1 Each Tablet 1 Tab PO PRN Q6HRS PRN Protonix (Pantoprazole Sodium) 20 Mg Tablet.dr 40 Mg PO PRN DAILY PRN I have reviewed the current psychotropics carefully including drug interactions. Risk benefit ratio favors no change other than as noted in my dictated progress note. Diagnosis: Problems: (1) Anxiety disorder (2) Bipolar affective disorder, mixed (3) Borderline intellectual disability (4) Borderline intellectual disability (5) Dementia in Alzheimer's disease with delusions (6) Dementia, vascular, with delusions (7) Impulse control disorder LAURITA DAVIS MD Aug 03, 2018 23:06
[2018-08-03 23:12] LABS: HEMOGLOBIN A1C 5.7 % (4.8-5.6)
[2018-08-04 06:27] VITALS: BP 161/88
[2018-08-04] MEDS: LEVOTHYROXINE 100 MCG TABLET PO SCH (06:30)
[2018-08-04] MEDS: FENOFIBRATE NANOCRYSTALLIZED 145 MG TABLET PO SCH (07:30)
[2018-08-04] MEDS: LORazepam 0.5 MG TABLET PO SCH ×2 (07:30→19:46)
[2018-08-04] MEDS: LACTOBACILLUS RHAMNOSUS GG 1 CAPSULE. PO SCH ×2 (07:30→19:42)
[2018-08-04] MEDS: FERROUS SULFATE 325 MG TABLET. PO SCH (07:30)
[2018-08-04] MEDS: CYANOCOBALAMIN (VITAMIN B-12) 250 MCG TABLET PO SCH (07:31)
[2018-08-04] MEDS: ASPIRIN 81 MG TAB.CHEW PO SCH (07:31)
[2018-08-04] MEDS: METOPROLOL TART IMMED RELEASE 25 MG TABLET PO SCH (07:31)
[2018-08-04] MEDS: MAGNESIUM OXIDE 400 MG TABLET PO SCH (07:32)
[2018-08-04] MEDS: NYSTATIN/TRIAMCIN TOPICAL CREAM 15GM TUBE. TP SCH ×2 (07:32→19:46)
[2018-08-04] MEDS: metFORMIN 850 MG TABLET PO SCH ×2 (07:33→17:04)
--- NOTE | 2018-08-04 08:21 | NUR ---
Received voice message from Rajiv at [facility] Medicaid indicating that Briseida is covered from 08/01 thru 08/05/18. Next review will be on August 06, 2018. Authorization number is [id number].
--- NOTE | 2018-08-04 09:15 | NUR ---
Psychosocial Assessment Admit Date: 08/01/2018 Psychiatrist: None at this time, facility is in the process of getting set up with the [facility] Medical Physician: Dr. Cullen Assessment Informants: Amanda Goins ([facility] Nurse) Sex of Patient: Female Race: White Age: 72 Living Situation: Resides at [facility]- [address] [place] [address]-in locked unit/memory unit, admit date there was 02/05/2017 Plans For Return: Will return to [facility] once stable Legal status: Voluntary admit, legal guardian and conservator in place Name of Legally Responsible Person: Alejandro Davis Jr Contacts: Name: Alejandro Davis Jr, legal guardian and, Family Background and Relationships Marital status: Single, Briseida sated she was never . She shared that she had a miscarriage. She has no children. Marital (Cohabitation)/Sexual Orientation Issues: Family support And their Participation in therapy: Reports little to no support system other than the staff and care providers at [facility]. 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 Spiritual/Mormonism Involvement: None Service: None Financial Situation: Adequate funds for the next 30 days Resources: Briseida receives medicaid assistance. Financial Problems/Needs: None at this time. Republican Responsible for Handling Patient's Finances: Alejandro Newsomedave Dewitt is conservator. Historical Data Childhood History: Briseida shares that she was born and raised in [facility]. She was the oldest of six children. All siblings are except for one sister, Arlene. Briseida recalled her childhood as being "hard." She shared that her father was an alcoholic and of liver cancer. Cultural/Spiritual History Factors that may impact treatment: None reported. History of Sexual/Physical Abuse of Neglect: Briseida denied being mistreated as a child. History of Substance Abuse: None in past 12 months. Briseida reports she used to smoke. Psychiatric History: Briseida has had previous in patient treatment at [facility] in 01/2018. Presenting Problems Presenting Problems/Criteria for admission: Agitation, aggression, suicidal statements Patient's Current Intrinsic Strengths: Briseida has safe living arrangements, 24 hour care and oversight for safety, legal guardian representation Patient's Current Intrinsic Weaknesses: Borderline intellectual functioning, impaired decision making ability Social Work Treatment Plan Identified Problems 1.) Agitation 2.) Aggression 3.) Suicidal statements Goals for Treatment: Stabilization of mood, behavior, and return to [facility] Family Goals for Treatment: As above Social work Intervention: Group therapy per week:2-5x To increase positive, calm feelings. To Increase Socialization. To Teach and Practice Effective coping skills in a social setting. Individual Therapy Per Week: As needed. Using validation to increase calm and positive feelings. To encourage self-expression. To work on grief/loss and adjustment issues. To teach and practice effective coping skills. To educate about diagnoses, team recommendations etc.. Family Support and Education: As needed. Support family grief/adjustment process. Educate about Psychiatric/Behavioral problems and treatment recommendations. Patient's Educational Needs to be addressed in Treatment: Diagnosis, Treatment plan, Medication and Discharge Planning. Initial Discharge Plan: To return to [facility] Plan for communication of Psychiatric Follow up and Continuing Care Instructions to family and Care Givers: Written and verbal communication. Conclusions and Recommendations: Met with Briseida this morning to socialize and complete psychosocial assessment. Briseida was alert and oriented to herself. She was able to answer some simple questions this worker asked about herself. Briseida's speech is difficult to understand and is somewhat garbled. She stated that she wants to "go home". When this worker asked where she lived Briseida stated [place] Briseida was calm at time of interaction and exhibited no s/s of distress. intermediate staff report that Briseida's psychotropic medications had been discontinued related to irregular heart rhythm and that her behaviors and aggression have escalated as a result. Call placed to [facility] high school social studies teacher Zulema. Left message with request for return phone call. Awaiting return call. Addendum: 08/05/18 at 0945 by ELLEN ESPINOZA KEELY reviewed and approves assessment
--- NOTE | 2018-08-04 11:28 | NUR ---
Patient has been cooperative and appropriate this shift. She has been compliant with medications. She still is c/o burning with urination. Nystatin cream applied, patient stated it made it feel better. She is participating in a group activity at this time. Will continue to monitor.
[2018-08-04 16:00] VITALS: BP 136/82
--- NOTE | 2018-08-04 16:45 | NUR ---
Attempted to meet and complete Activity Therapy Assessment at 1350 and 1530; however, Pt. was asleep and then expressing behaviors and resistance with staff Activity Therapy Assessment Completed based on observation, attempted interview and [facility] notes. Pt. was walking from her room to the day room and agreed to meet with therapist. Pt. was able to decipher colors of pipe suction worker accurately. Pt. was very distracted, asking questions about Halloween and costumes rather than answering therapist questions. Pt. is generally pleasant in her interactions and comes to some groups. Pt. benefits from one on one engagement in groups and needs frequent redirection. Pt. will undress in public and is often wearing a onesie to combat this behavior. According to notes, Pt. enjoys movies, TV, music, and coloring. Initial goal aimed to increase leisure knowledge: Pt. will participate in at least five groups or individual activities before discharge.
--- NOTE | 2018-08-04 18:24 | NUR ---
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 Escobar for further evaluation.
[2018-08-04] MEDS: ATORVASTATIN CALCIUM 20 MG TABLET PO SCH (19:43)
[2018-08-04] MEDS: DIVALPROEX ER 250 MG TAB.ER.24H. PO SCH (19:43)
[2018-08-04] MEDS: INSULIN GLARGINE 300 UNITS/3 ML INSULN.PEN. SQ SCH (19:47)
--- NOTE | 2018-08-04 20:00 | NUR ---
Behavior Intervention Response and Plan: BIRP Note: Behavior: Assumed Care of patient, patient located in Hallway at shift change. Patient exhibited the following behavior Compulsive, Disorganized, Demanding. Brief assessment on rounds of vital signs, medication needs, lab studies, and pain. Treatment plan problems . Intervention: Patient assessed and the following interventions initiated safety checks 15 Minute Checks Cognitive Assessment , Head to toe Assessment , Medications. Response: After interactions and interventions patient responded in the following manner, Drowsy , Irritable ,Cooperative. Continue to assess behaviors and condition will continue to monitor throughout the shift as needed. Patient educated on ADL's, and hand hygiene. Plan: Continue to monitor Master Treatment Plan for patient's progress toward short term goals of Decreased Agitation, Decreased Anxiety, sane rn goals to return to previous living setting vs placement. Continue to assess patient for changes in above assessment. Monitor for medication needs, pain, and safety concerns. Hourly rounding performed to ensure safe environment.
--- NOTE | 2018-08-04 20:15 | PN ---
DATE: 08/02/2018 PSYCHIATRIC PROGRESS NOTE My note on this patient, dictation number [id number] was in fact for Friday08/02/2018 and date of service mentioned in the initial note was mentioned in error. MAN Kingston DAVIS MD DR: SUMEET/kirill JOB#: [id number] / [id number]
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
--- NOTE | 2018-08-04 23:05 | PDOC ---
Exam Note: Hemant Note: Please also refer to the separate dictated note~for this date of service dictated separately.~Patient seen individually. Discussed the patient with Nursing staff reviewed the chart.~Reviewed interim history and current functioning. Reviewed vital signs,~Labs/ Radiology~and current medications noted below. Continue current treatment with the changes noted in the dictated addendum note Assessment: Vital Signs: Vital Signs Date Time Temp Pulse Resp B/P (MAP) Pulse Ox O2 Delivery O2 Flow Rate FiO2 08/04/18 16:00 98.5 76 20 136/82 (100) 99 Room Air I&O Intake and Output 08/04/18 07:00 Intake Total 1440 ml Balance 1440 ml Intake Oral 1440 ml # Voids 1 # Bowel Movements 3 Labs: Laboratory Tests Test 08/04/18 07:36 08/04/18 12:06 08/04/18 16:59 08/04/18 19:11 Glucose (Fingerstick) 168 mg/dL (70-99) H 152 mg/dL (70-99) H 166 mg/dL (70-99) H 206 mg/dL (70-99) H Current Medications: Meds: Current Medications Acetaminophen (Tylenol) 650 mg 1X ONCE PO Last administered on 08/01/18at 11: 44; Start 08/01/18 at 11:45; Stop 08/01/18 at 11:46; Status DC Sodium Chloride 500 ml @ 0 mls/hr 1X ONCE IV Last administered on 08/01/18at 11:45; Start 08/01/18 at 11:45; Stop 08/01/18 at 11:50; Status DC Acetaminophen (Tylenol) 650 mg PRN Q6HRS PRN PO PAIN / TEMP; Start 08/01/18 at 16:45 Vitamin D (Vitamin D3) 50,000 unit Th PO ; Start 08/06/18 at 09:00 Metoprolol Tartrate (Lopressor) 25 mg DAILY PO Last administered on 08/04/18at 07:31; Start 08/02/18 at 09:00 Aspirin (Children'S Aspirin) 81 mg DAILYWBKFT PO Last administered on at 07:31; Start 08/02/18 at 08:00 Carbamide Peroxide (Debrox) 5 drop PRN BID PRN AU IMPACTION; Start 08/01/18 at 17:30; Stop 08/02/18 at 15:39; Status DC Cetirizine HCl (ZyrTEC) 10 mg PRN DAILY PRN PO ALLERGIES; Start 08/01/18 at 18 :00 Cyanocobalamin (Vitamin B-12) 250 mcg DAILY PO Last administered on 08/04/18at 07:31; Start 08/02/18 at 09:00 Divalproex Sodium (Depakote Er) 1,250 mg QHS PO Last administered on 19:43; Start 08/01/18 at 21:00 Fenofibrate (Tricor) 145 mg DAILY PO Last administered on 08/04/18 07:30; Start 08/02/18 at 09:00 Insulin Glargine (Lantus) 18 units QHS SQ Last administered on 08/04/18 19:47 ; Start 08/01/18 at 21:00 Lactobacillus Rhamnosus (Culturelle) 1 cap BID PO Last administered on 19:42; Start 08/01/18 at 21:00 Magnesium Oxide (Magnesium Oxide) 200 mg DAILY PO Last administered on 07:32; Start 08/02/18 at 09:00 Pantoprazole Sodium (Protonix) 40 mg PRN DAILY PRN PO ACID REFLUX; Start 08/02 at 07:30 Atorvastatin Calcium (Lipitor) 20 mg QHS PO Last administered on 08/04/18 19: 43; Start 08/01/18 at 21:00 Bisacodyl (Dulcolax Tab) 5 mg PRN BID PRN PO CONSTIPATION; Start 08/01/18 at 17:15 Ferrous Sulfate (Feosol) 325 mg DAILY08 PO Last administered on 08/04/18 07: 30; Start 08/02/18 at 08:00 Acetaminophen/ Hydrocodone Bitart (Lortab 7.5/325) 1 tab PRN Q6HRS PRN PO MOD/ SEVERE PAIN Last administered on 08/01/18at 22:12; Start 08/01/18 at 17:15 Levothyroxine Sodium (Synthroid) 100 mcg DAILY06 PO Last administered on at 06:30; Start 08/02/18 at 06:00 Metoprolol Tartrate (Lopressor) 25 mg PRN DAILY PRN PO HYPERTENSION, SEE COMMENTS; Start 08/01/18 at 17:15 Lorazepam (Ativan) 0.5 mg BID PO Last administered on 08/04/18at 19:46; Start 08/01/18 at 21:00 Metformin HCl (Glucophage) 850 mg BIDWMEALS PO Last administered on 08/04/18at 17:04; Start 08/02/18 at 08:00 Influenza Virus Vaccine (Afluria Trivalent [id number] Syringe) 0.5 ml ONCE ONCE VAX IM Last administered on 08/02/18at 16:26; Start 08/02/18 at 09:00; Stop 08/02/18 at 09:01; Status DC Lactobacillus Rhamnosus (Culturelle) 1 cap BID PO ; Start 08/02/18 at 09:00; Status Cancel Carbamide Peroxide (Debrox) 5 drop PRN BID PRN AU IMPACTION; Start 08/02/18 at 15:45 Fluconazole (Diflucan) 150 mg 1X ONCE PO Last administered on 08/02/18at 22:29 ; Start 08/02/18 at 22:30; Stop 08/02/18 at 22:31; Status DC Nystatin/ Triamcinolone Acetonide (Mycolog Ii) 1 milena BID TP Last administered on 08/04/18at 19:46; Start 08/03/18 at 09:00; Stop 08/13/18 at 08:59 Levothyroxine Sodium (Synthroid) 100 mcg DAILY06 PO ; Start 08/03/18 at 06:00; Status UNV Cephalexin HCl (Keflex) 500 mg TID PO ; Start 08/16/18 at 09:00 Active Scripts Active Reported Bisacodyl 5 Mg Tablet.dr 5 Mg PO PRN BID PRN Metoprolol Tartrate 25 Mg Tablet 25 Mg PO PRN DAILY PRN Lorazepam 0.5 Mg Tablet 0.5 Mg PO BID Levothyroxine Sodium 100 Mcg Tablet 100 Mcg PO DAILYAC D3-50 (Cholecalciferol (Vitamin D3)) 50,000 Unit Capsule 50,000 Unit PO WEEKLY ON FRIDAY Earwax Treatment Drops (Carbamide Peroxide) 15 Ml Drops 5 Drp AU PRN BID PRN Tylenol (Acetaminophen) 325 Mg Tablet 650 Mg PO PRN Q6HRS PRN Depakote Er (Divalproex Sodium) 500 Mg Tab.er.24h 1,250 Mg PO HS Fenofibrate (Fenofibrate,Micronized) 134 Mg Capsule 134 Mg PO DAILY Levemir Flextouch (Insulin Detemir) 100 Unit/1 Ml Insuln.pen 18 Unit SQ HS Magnesium (Magnesium Oxide) 400 Mg Capsule 250 Mg PO DAILY Atorvastatin Calcium 20 Mg Tablet 20 Mg PO DAILY B-12 (Cyanocobalamin (Vitamin B-12)) 500 Mcg Tablet 250 Mcg PO DAILY Acidophilus (Lactobacillus Acidophilus) 1 Each Capsule 1 Each PO BID Metformin Hcl 850 Mg Tablet 850 Mg PO BIDWMEALS Ferrous Sulfate 325 Mg Tablet 1 Tab PO DAILY Metoprolol Tartrate 25 Mg Tablet 25 Mg PO DAILY Aspirin 81 Mg Tab.chew 81 Mg PO DAILY Cetirizine Hcl 10 Mg Tablet 10 Mg PO PRN DAILY PRN Hydrocodone-Apap 7.5-325 (Hydrocodone Bit/Acetaminophen) 1 Each Tablet 1 Tab PO PRN Q6HRS PRN Protonix (Pantoprazole Sodium) 20 Mg Tablet. 40 Mg PO PRN DAILY PRN I have reviewed the current psychotropics carefully including drug interactions. Risk benefit ratio favors no change other than as noted in my dictated progress note. Diagnosis: Problems: (1) Anxiety disorder (2) Bipolar affective disorder, mixed (3) Borderline intellectual disability (4) Borderline intellectual disability (5) Dementia in Alzheimer's disease with delusions (6) Dementia, vascular, with delusions (7) Impulse control disorder LAURITA DAVIS MD Aug 04, 2018 23:05
[2018-08-05 05:43] VITALS: BP 135/82
[2018-08-05] MEDS: LEVOTHYROXINE 100 MCG TABLET PO SCH (05:46)
[2018-08-05] MEDS: NYSTATIN/TRIAMCIN TOPICAL CREAM 15GM TUBE. TP SCH ×2 (09:00→19:34)
[2018-08-05] MEDS: MAGNESIUM OXIDE 400 MG TABLET PO SCH (09:19)
[2018-08-05] MEDS: LORazepam 0.5 MG TABLET PO SCH ×2 (09:19→19:33)
[2018-08-05] MEDS: CYANOCOBALAMIN (VITAMIN B-12) 250 MCG TABLET PO SCH (09:19)
[2018-08-05] MEDS: FERROUS SULFATE 325 MG TABLET. PO SCH (09:19)
[2018-08-05] MEDS: metFORMIN 850 MG TABLET PO SCH (09:19)
[2018-08-05] MEDS: LACTOBACILLUS RHAMNOSUS GG 1 CAPSULE. PO SCH ×2 (09:19→19:30)
[2018-08-05] MEDS: METOPROLOL TART IMMED RELEASE 25 MG TABLET PO SCH (09:20)
[2018-08-05] MEDS: FENOFIBRATE NANOCRYSTALLIZED 145 MG TABLET PO SCH (09:20)
[2018-08-05] MEDS: ASPIRIN 81 MG TAB.CHEW PO SCH (09:20)
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
--- NOTE | 2018-08-05 13:11 | NUR ---
Received e-mail from Naina at [employer] Medicaid indicating authorization number as [id number], Briseida is approved from 08/04 thru 08/07/18. Next review is due on 08/07/18. Addendum: 08/05/18 at 1315 by FRANCHESKA ESPINOZA ERROR in charting, disregard this information.
--- NOTE | 2018-08-05 13:16 | NUR ---
Behavior Intervention Response and Plan: BIRP Note: Behavior: Assumed Care of patient, patient located in Hallway at shift change. Patient exhibited the following behavior Compulsive, Disorganized, Compliant. Brief assessment on rounds of vital signs, medication needs, lab studies, and pain. Treatment plan problems . Intervention: Patient assessed and the following interventions initiated safety checks 15 Minute Checks Cognitive Assessment , Head to toe Assessment , Medications. Response: After interactions and interventions patient responded in the following manner, Calm , Interactive ,Cooperative. Continue to assess behaviors and condition will continue to monitor throughout the shift as needed. Patient educated on ADL's, and hand hygiene. Plan: Continue to monitor Master Treatment Plan for patient's progress toward short term goals of Decreased Agitation, Decreased Anxiety, oil heaterman goals to return to previous living setting vs placement. Continue to assess patient for changes in above assessment. Monitor for medication needs, pain, and safety concerns. Hourly rounding performed to ensure safe environment.
[2018-08-05 16:30] VITALS: BP 137/93
[2018-08-05] MEDS: metFORMIN XR 500 MG TAB.ER.24H PO SCH (17:53)
[2018-08-05] MEDS: ATORVASTATIN CALCIUM 20 MG TABLET PO SCH (19:30)
[2018-08-05] MEDS: DIVALPROEX ER 250 MG TAB.ER.24H. PO SCH (19:30)
[2018-08-05] MEDS: INSULIN GLARGINE 300 UNITS/3 ML INSULN.PEN. SQ SCH (19:35)
--- NOTE | 2018-08-05 20:00 | NUR ---
Behavior Intervention Response and Plan: BIRP Note: Behavior: Assumed Care of patient, patient located in Hallway at shift change. Patient exhibited the following behavior Disorganized, Compulsive, Demanding. Brief assessment on rounds of vital signs, medication needs, lab studies, and pain. Treatment plan problems . Intervention: Patient assessed and the following interventions initiated safety checks 15 Minute Checks Cognitive Assessment , Head to toe Assessment , Medications. Response: After interactions and interventions patient responded in the following manner, Drowsy , Compliant ,Compulsive. Continue to assess behaviors and condition will continue to monitor throughout the shift as needed. Patient educated on ADL's, and hand hygiene. Plan: Continue to monitor Master Treatment Plan for patient's progress toward short term goals of Decreased Agitation, Decreased Anxiety, chcf goals to return to previous living setting vs placement. Continue to assess patient for changes in above assessment. Monitor for medication needs, pain, and safety concerns. Hourly rounding performed to ensure safe environment.
--- NOTE | 2018-08-05 20:34 | EKG ---
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
--- NOTE | 2018-08-05 21:43 | PN ---
DATE: 08/04/2018 PSYCHIATRIC PROGRESS NOTE This late entry 08/04/2018 covers elements not covered in my initial note. SUBJECTIVE: I met with the patient in the evening. The patient slept 6 hours previous night. Overall, she remains somewhat anxious, labile. I received a call from Dr. Escobar following CV consult to see if we could treat the patient on psychotropics given her history of torsades. EKG is unremarkable and Dr. Escobar has requested records from [facility], which by the time I met her in the evening had been received and are being sent to Dr. Escobar. We will be able to make further decisions after this is evaluated. Gastrotino suggested checking an EKG every 12 hours while she is on any psychotropics, we may decide to change her own. REVIEW OF SYSTEMS: No CV, , pulmonary, eye, ENT system symptoms on review. Reliability poor. MENTAL STATUS EXAM: Oriented to herself and situation. Speech coherent, rapid at times. Abstraction fair, computation impaired, language function intact, attention span short. Mood and affect remain somewhat labile. LABORATORY DATA: Reviewed. IMPRESSION: Bipolar 1 disorder, mixed, major neurocognitive disorder, Alzheimer, vascular with delusions. Rest unchanged. PLAN: The patient is on Depakote ER 1250 at bedtime. Valproic acid level is 51. We will continue this and add Risperdal 0.5 mg p.o. at bedtime, but only if approved by Dr. Escobar. Continue Ativan 0.5 mg b.i.d. Rest unchanged from initial note. MAN Kingston DAVIS MD DR: SUMEET/kirill JOB#: [id number] / [id number]
--- NOTE | 2018-08-05 23:14 | PDOC ---
Exam Note: Hemant Note: Please also refer to the separate dictated note~for this date of service dictated separately.~Patient seen individually. Discussed the patient with Nursing staff reviewed the chart.~Reviewed interim history and current functioning. Reviewed vital signs,~Labs/ Radiology~and current medications noted below. Continue current treatment with the changes noted in the dictated addendum note Assessment: Vital Signs: Vital Signs Date Time Temp Pulse Resp B/P (MAP) Pulse Ox O2 Delivery O2 Flow Rate FiO2 08/05/18 16:30 98.7 81 18 137/93 (108) 100 08/04/18 16:00 Room Air I&O Intake and Output 08/05/18 07:00 Intake Total 1320 ml Balance 1320 ml Intake Oral 1320 ml Labs: Laboratory Tests Test 08/05/18 07:25 08/05/18 11:26 08/05/18 16:38 08/05/18 19:58 Glucose (Fingerstick) 156 mg/dL (70-99) H 166 mg/dL (70-99) H 223 mg/dL (70-99) H 186 mg/dL (70-99) H Current Medications: Meds: Current Medications Acetaminophen (Tylenol) 650 mg 1X ONCE PO Last administered on 08/01/18at 11: 44; Start 08/01/18 at 11:45; Stop 08/01/18 at 11:46; Status DC Sodium Chloride 500 ml @ 0 mls/hr 1X ONCE IV Last administered on 08/01/18at 11:45; Start 08/01/18 at 11:45; Stop 08/01/18 at 11:50; Status DC Acetaminophen (Tylenol) 650 mg PRN Q6HRS PRN PO PAIN / TEMP; Start 08/01/18 at 16:45 Vitamin D (Vitamin D3) 50,000 unit Th PO ; Start 08/06/18 at 09:00 Metoprolol Tartrate (Lopressor) 25 mg DAILY PO Last administered on 08/05/18at 09:20; Start 08/02/18 at 09:00 Aspirin (Children'S Aspirin) 81 mg DAILYWBKFT PO Last administered on at 09:20; Start 08/02/18 at 08:00 Carbamide Peroxide (Debrox) 5 drop PRN BID PRN AU IMPACTION; Start 08/01/18 at 17:30; Stop 08/02/18 at 15:39; Status DC Cetirizine HCl (ZyrTEC) 10 mg PRN DAILY PRN PO ALLERGIES; Start 08/01/18 at 18 :00 Cyanocobalamin (Vitamin B-12) 250 mcg DAILY PO Last administered on 08/05/18 09:19; Start 08/02/18 at 09:00 Divalproex Sodium (Depakote Er) 1,250 mg QHS PO Last administered on 19:30; Start 08/01/18 at 21:00 Fenofibrate (Tricor) 145 mg DAILY PO Last administered on 08/05/18 09:20; Start 08/02/18 at 09:00 Insulin Glargine (Lantus) 18 units QHS SQ Last administered on 08/05/18 19:35 ; Start 08/01/18 at 21:00 Lactobacillus Rhamnosus (Culturelle) 1 cap BID PO Last administered on 19:30; Start 08/01/18 at 21:00 Magnesium Oxide (Magnesium Oxide) 200 mg DAILY PO Last administered on 09:19; Start 08/02/18 at 09:00 Pantoprazole Sodium (Protonix) 40 mg PRN DAILY PRN PO ACID REFLUX; Start 08/02 at 07:30 Atorvastatin Calcium (Lipitor) 20 mg QHS PO Last administered on 08/05/18 19: 30; Start 08/01/18 at 21:00 Bisacodyl (Dulcolax Tab) 5 mg PRN BID PRN PO CONSTIPATION; Start 08/01/18 at 17:15 Ferrous Sulfate (Feosol) 325 mg DAILY08 PO Last administered on 08/05/18 09: 19; Start 08/02/18 at 08:00 Acetaminophen/ Hydrocodone Bitart (Lortab 7.5/325) 1 tab PRN Q6HRS PRN PO MOD/ SEVERE PAIN Last administered on 08/01/18at 22:12; Start 08/01/18 at 17:15 Levothyroxine Sodium (Synthroid) 100 mcg DAILY06 PO Last administered on at 05:46; Start 08/02/18 at 06:00 Metoprolol Tartrate (Lopressor) 25 mg PRN DAILY PRN PO HYPERTENSION, SEE COMMENTS; Start 08/01/18 at 17:15 Lorazepam (Ativan) 0.5 mg BID PO Last administered on 08/05/18at 19:33; Start 08/01/18 at 21:00 Metformin HCl (Glucophage) 850 mg BIDWMEALS PO Last administered on 08/05/18at 09:19; Start 08/02/18 at 08:00; Stop 08/05/18 at 16:00; Status DC Influenza Virus Vaccine (Afluria Trivalent [id number] Syringe) 0.5 ml ONCE ONCE VAX IM Last administered on 08/02/18at 16:26; Start 08/02/18 at 09:00; Stop 08/02/18 at 09:01; Status DC Lactobacillus Rhamnosus (Culturelle) 1 cap BID PO ; Start 08/02/18 at 09:00; Status Cancel Carbamide Peroxide (Debrox) 5 drop PRN BID PRN AU IMPACTION; Start 08/02/18 at 15:45 Fluconazole (Diflucan) 150 mg 1X ONCE PO Last administered on 08/02/18at 22:29 ; Start 08/02/18 at 22:30; Stop 08/02/18 at 22:31; Status DC Nystatin/ Triamcinolone Acetonide (Mycolog Ii) 1 milena BID TP Last administered on 08/05/18at 19:34; Start 08/03/18 at 09:00; Stop 08/13/18 at 08:59 Levothyroxine Sodium (Synthroid) 100 mcg DAILY06 PO ; Start 08/03/18 at 06:00; Status UNV Cephalexin HCl (Keflex) 500 mg TID PO ; Start 08/16/18 at 09:00; Status Cancel Metformin HCl (Glucophage Xr) 500 mg BIDWMEALS PO Last administered on at 17:53; Start 08/05/18 at 17:00 Active Scripts Active Reported Bisacodyl 5 Mg Tablet.dr 5 Mg PO PRN BID PRN Metoprolol Tartrate 25 Mg Tablet 25 Mg PO PRN DAILY PRN Lorazepam 0.5 Mg Tablet 0.5 Mg PO BID Levothyroxine Sodium 100 Mcg Tablet 100 Mcg PO DAILYAC D3-50 (Cholecalciferol (Vitamin D3)) 50,000 Unit Capsule 50,000 Unit PO WEEKLY ON FRIDAY Earwax Treatment Drops (Carbamide Peroxide) 15 Ml Drops 5 Drp AU PRN BID PRN Tylenol (Acetaminophen) 325 Mg Tablet 650 Mg PO PRN Q6HRS PRN Depakote Er (Divalproex Sodium) 500 Mg Tab.er.24h 1,250 Mg PO HS Fenofibrate (Fenofibrate,Micronized) 134 Mg Capsule 134 Mg PO DAILY Levemir Flextouch (Insulin Detemir) 100 Unit/1 Ml Insuln.pen 18 Unit SQ HS Magnesium (Magnesium Oxide) 400 Mg Capsule 250 Mg PO DAILY Atorvastatin Calcium 20 Mg Tablet 20 Mg PO DAILY B-12 (Cyanocobalamin (Vitamin B-12)) 500 Mcg Tablet 250 Mcg PO DAILY Acidophilus (Lactobacillus Acidophilus) 1 Each Capsule 1 Each PO BID Metformin Hcl 850 Mg Tablet 850 Mg PO BIDWMEALS Ferrous Sulfate 325 Mg Tablet 1 Tab PO DAILY Metoprolol Tartrate 25 Mg Tablet 25 Mg PO DAILY Aspirin 81 Mg Tab.chew 81 Mg PO DAILY Cetirizine Hcl 10 Mg Tablet 10 Mg PO PRN DAILY PRN Hydrocodone-Apap 7.5-325 (Hydrocodone Bit/Acetaminophen) 1 Each Tablet 1 Tab PO PRN Q6HRS PRN Protonix (Pantoprazole Sodium) 20 Mg Tablet.dr 40 Mg PO PRN DAILY PRN I have reviewed the current psychotropics carefully including drug interactions. Risk benefit ratio favors no change other than as noted in my dictated progress note. 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
[2018-08-06 05:29] VITALS: BP 130/69
[2018-08-06] MEDS: LEVOTHYROXINE 100 MCG TABLET PO SCH (06:04)
[2018-08-06] MEDS: MAGNESIUM OXIDE 400 MG TABLET PO SCH (07:33)
[2018-08-06] MEDS: LACTOBACILLUS RHAMNOSUS GG 1 CAPSULE. PO SCH ×2 (07:33→19:59)
[2018-08-06] MEDS: CYANOCOBALAMIN (VITAMIN B-12) 250 MCG TABLET PO SCH (07:33)
[2018-08-06] MEDS: FENOFIBRATE NANOCRYSTALLIZED 145 MG TABLET PO SCH (07:34)
[2018-08-06] MEDS: ASPIRIN 81 MG TAB.CHEW PO SCH (07:34)
[2018-08-06] MEDS: LORazepam 0.5 MG TABLET PO SCH ×2 (07:34→19:59)
[2018-08-06] MEDS: metFORMIN XR 500 MG TAB.ER.24H PO SCH ×2 (07:34→17:16)
[2018-08-06] MEDS: METOPROLOL TART IMMED RELEASE 25 MG TABLET PO SCH (07:34)
[2018-08-06] MEDS: FERROUS SULFATE 325 MG TABLET. PO SCH (07:34)
[2018-08-06] MEDS: NYSTATIN/TRIAMCIN TOPICAL CREAM 15GM TUBE. TP SCH ×2 (07:37→20:00)
[2018-08-06] MEDS: CHOLECALCIFEROL (VITAMIN D3) 50,000 UNIT CAPSULE PO SCH (07:37)
--- NOTE | 2018-08-06 08:45 | NUR ---
WEEKLY ACTIVITY THERAPY NOTE Date of Admission: 08/01/2018 Date of AT Assessment: 08/04/2018 Goal aimed: to increase leisure awareness Initial goal: Pt. will participate in at least five groups or individual activities before discharge. Weekly progress towards goal: on track- 11/10 (08/04 Pumpkin Painting, mod.; 08/03 M2M & Trivia, min.) Group participation level: minimal Behaviors observed: Pt. sleeps through some groups; when engaged, Pt. benefits from one on one support and direction; Pt. wearing a onesie for removing clothes inappropriately; Pt. generally pleasant and distractible Plan: no change to goal
--- NOTE | 2018-08-06 09:24 | EKG ---
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
--- NOTE | 2018-08-06 13:08 | NUR ---
Faxed clinical update to [facility] for review. Awaiting outcome. Tentative d/c date mid to late next week.
--- NOTE | 2018-08-06 15:52 | NUR ---
WEEKLY NOTE: Pt is mostly cooperative but needs redirection for asking the same repetitive questions or for not following directions. Pt is in a one piece outfit as she tends to lose her pants often and has a continual need to be in the restroom. Pt is medication compliant and is eating well. Pt at this time will look at next week for discharge; given that pt can be approved to start Risperdal from the Cardiac physician. SW is doing updates with pt insurance and will continue to work on discharge with pt facility.
--- NOTE | 2018-08-06 15:59 | NUR ---
Clinical review was done via phone with Naina from [employer] this afternoon. Briseida is approved thru 08/10/18, next review will be due on 08/10/18. [facility] Medicaid counter caser requested a baseline for Briseida's behavior when she was at [facility]. This worker has received no return call from [facility]. Left two additional messages this afternoon for Jania Poole's Awaiting return phone call.
[2018-08-06 16:05] VITALS: BP 118/55
--- NOTE | 2018-08-06 19:57 | PN ---
DATE: 08/05/2018 PSYCHIATRIC PROGRESS NOTE SUBJECTIVE: The patient was seen on rounds evening of 08/05/2018. Discussed with nursing staff, reviewed the chart. The patient slept 7-1/4 hours previous evening. We will see her cardiac records from [facility] and we will send them on to Dr. Escobar and if there is no cardiac contraindication, we will go ahead and start her on Risperdal 0.5 mg p.o. at bedtime. EKG has been done q.12 hours given the history of torsades, on various psychotropics in the past. So far, EKG is unremarkable. She is currently on Depakote ER 50 mg p.o. at bedtime. Valproic acid level is 51. Overall, on the unit, she remains quite anxious, labile at times, obsessive, ruminative, gets overwhelmed with increased stimuli. REVIEW OF SYSTEMS: No CV, , pulmonary, eye, ENT system symptoms on review. Reliability poor. MENTAL STATUS EXAM: Oriented to herself. Insight, judgment, recent memory is impaired, remote is better. Language function intact, attention span short. Mood and affect remain somewhat labile. LABORATORY DATA: Reviewed. IMPRESSION: Bipolar 1 disorder, mixed, major neurocognitive disorder, Alzheimer, vascular with delusions. PLAN: Continue Depakote at current dosage, Ativan 0.5 mg b.i.d. Start Risperdal 0.5 mg at bedtime if no cardiac contraindication. Adjust further as clinically indicated. LAURITA DAVIS MD DR: SUMEET/kirill JOB#: [id number] / [id number]
[2018-08-06] MEDS: ATORVASTATIN CALCIUM 20 MG TABLET PO SCH (19:59)
[2018-08-06] MEDS: DIVALPROEX ER 250 MG TAB.ER.24H. PO SCH (19:59)
--- NOTE | 2018-08-06 20:00 | NUR ---
Behavior Intervention Response and Plan: BIRP Note: Behavior: Assumed Care of patient, patient located in Day Room at shift change. Patient exhibited the following behavior Disorganized, Compulsive, Social. Brief assessment on rounds of vital signs, medication needs, lab studies, and pain. Treatment plan problems . Intervention: Patient assessed and the following interventions initiated safety checks 15 Minute Checks Cognitive Assessment , Head to toe Assessment , Medications. Response: After interactions and interventions patient responded in the following manner, Drowsy , Cooperative ,Cooperative. Continue to assess behaviors and condition will continue to monitor throughout the shift as needed. Patient educated on ADL's, and hand hygiene. Plan: Continue to monitor Master Treatment Plan for patient's progress toward short term goals of Decreased Agitation, Decreased Anxiety, ocean transportation intermediary goals to return to previous living setting vs placement. Continue to assess patient for changes in above assessment. Monitor for medication needs, pain, and safety concerns. Hourly rounding performed to ensure safe environment.
[2018-08-06] MEDS: INSULIN GLARGINE 300 UNITS/3 ML INSULN.PEN. SQ SCH (20:03)
--- NOTE | 2018-08-06 21:09 | EKG ---
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 ABNORMAL ECG RI6.01 Compared to ECG 08/06/2018 09:23:23 No significant changes Electronically Signed On 08-10-2018 12:57:24 ERGONOMICS CONSULTANT by Titus Fallon
--- NOTE | 2018-08-06 23:05 | PDOC ---
Exam Note: Hemant Note: Please also refer to the separate dictated note~for this date of service dictated separately.~Patient seen individually. Discussed the patient with Nursing staff reviewed the chart.~Reviewed interim history and current functioning. Reviewed vital signs,~Labs/ Radiology~and current medications noted below. Continue current treatment with the changes noted in the dictated addendum note Assessment: Vital Signs: Vital Signs Date Time Temp Pulse Resp B/P (MAP) Pulse Ox O2 Delivery O2 Flow Rate FiO2 08/06/18 16:05 98.0 78 18 118/55 (76) 99 Room Air I&O Intake and Output 08/06/18 07:00 Intake Total 960 ml Balance 960 ml Intake Oral 960 ml # Bowel Movements 1 Labs: Laboratory Tests Test 08/06/18 07:27 08/06/18 11:11 08/06/18 16:49 08/06/18 19:16 Glucose (Fingerstick) 102 mg/dL (70-99) H 181 mg/dL (70-99) H 196 mg/dL (70-99) H 202 mg/dL (70-99) H Current Medications: Meds: Current Medications Acetaminophen (Tylenol) 650 mg 1X ONCE PO Last administered on 08/01/18at 11: 44; Start 08/01/18 at 11:45; Stop 08/01/18 at 11:46; Status DC Sodium Chloride 500 ml @ 0 mls/hr 1X ONCE IV Last administered on 08/01/18at 11:45; Start 08/01/18 at 11:45; Stop 08/01/18 at 11:50; Status DC Acetaminophen (Tylenol) 650 mg PRN Q6HRS PRN PO PAIN / TEMP; Start 08/01/18 at 16:45 Vitamin D (Vitamin D3) 50,000 unit Th PO Last administered on 08/06/18at 07:37; Start 08/06/18 at 09:00 Metoprolol Tartrate (Lopressor) 25 mg DAILY PO Last administered on 08/06/18at 07:34; Start 08/02/18 at 09:00 Aspirin (Children'S Aspirin) 81 mg DAILYWBKFT PO Last administered on at 07:34; Start 08/02/18 at 08:00 Carbamide Peroxide (Debrox) 5 drop PRN BID PRN AU IMPACTION; Start 08/01/18 at 17:30; Stop 08/02/18 at 15:39; Status DC Cetirizine HCl (ZyrTEC) 10 mg PRN DAILY PRN PO ALLERGIES; Start 08/01/18 at 18 :00 Cyanocobalamin (Vitamin B-12) 250 mcg DAILY PO Last administered on 08/06/18 07:33; Start 08/02/18 at 09:00 Divalproex Sodium (Depakote Er) 1,250 mg QHS PO Last administered on 08/06/18at 19:59; Start 08/01/18 at 21:00 Fenofibrate (Tricor) 145 mg DAILY PO Last administered on 08/06/18 07:34; Start 08/02/18 at 09:00 Insulin Glargine (Lantus) 18 units QHS SQ Last administered on 08/06/18at 20:03 ; Start 08/01/18 at 21:00 Lactobacillus Rhamnosus (Culturelle) 1 cap BID PO Last administered on at 19:59; Start 08/01/18 at 21:00 Magnesium Oxide (Magnesium Oxide) 200 mg DAILY PO Last administered on at 07:33; Start 08/02/18 at 09:00 Pantoprazole Sodium (Protonix) 40 mg PRN DAILY PRN PO ACID REFLUX; Start 08/02 at 07:30 Atorvastatin Calcium (Lipitor) 20 mg QHS PO Last administered on 08/06/18at 19: 59; Start 08/01/18 at 21:00 Bisacodyl (Dulcolax Tab) 5 mg PRN BID PRN PO CONSTIPATION; Start 08/01/18 at 17:15 Ferrous Sulfate (Feosol) 325 mg DAILY08 PO Last administered on 08/06/18at 07:34 ; Start 08/02/18 at 08:00 Acetaminophen/ Hydrocodone Bitart (Lortab 7.5/325) 1 tab PRN Q6HRS PRN PO MOD/ SEVERE PAIN Last administered on 08/01/18at 22:12; Start 08/01/18 at 17:15 Levothyroxine Sodium (Synthroid) 100 mcg DAILY06 PO Last administered on at 06:04; Start 08/02/18 at 06:00 Metoprolol Tartrate (Lopressor) 25 mg PRN DAILY PRN PO HYPERTENSION, SEE COMMENTS; Start 08/01/18 at 17:15 Lorazepam (Ativan) 0.5 mg BID PO Last administered on 08/06/18at 19:59; Start 08/01/18 at 21:00 Metformin HCl (Glucophage) 850 mg BIDWMEALS PO Last administered on 08/05/18at 09:19; Start 08/02/18 at 08:00; Stop 08/05/18 at 16:00; Status DC Influenza Virus Vaccine (Afluria Trivalent [id number] Syringe) 0.5 ml ONCE ONCE VAX IM Last administered on 08/02/18at 16:26; Start 08/02/18 at 09:00; Stop 08/02/18 at 09:01; Status DC Lactobacillus Rhamnosus (Culturelle) 1 cap BID PO ; Start 08/02/18 at 09:00; Status Cancel Carbamide Peroxide (Debrox) 5 drop PRN BID PRN AU IMPACTION; Start 08/02/18 at 15:45 Fluconazole (Diflucan) 150 mg 1X ONCE PO Last administered on 08/02/18at 22:29 ; Start 08/02/18 at 22:30; Stop 08/02/18 at 22:31; Status DC Nystatin/ Triamcinolone Acetonide (Mycolog Ii) 1 milena BID TP Last administered on 08/06/18at 20:00; Start 08/03/18 at 09:00; Stop 08/13/18 at 08:59 Levothyroxine Sodium (Synthroid) 100 mcg DAILY06 PO ; Start 08/03/18 at 06:00; Status UNV Cephalexin HCl (Keflex) 500 mg TID PO ; Start 08/16/18 at 09:00; Status Cancel Metformin HCl (Glucophage Xr) 500 mg BIDWMEALS PO Last administered on at 17:16; Start 08/05/18 at 17:00 Active Scripts Active Reported Bisacodyl 5 Mg Tablet.dr 5 Mg PO PRN BID PRN Metoprolol Tartrate 25 Mg Tablet 25 Mg PO PRN DAILY PRN Lorazepam 0.5 Mg Tablet 0.5 Mg PO BID Levothyroxine Sodium 100 Mcg Tablet 100 Mcg PO DAILYAC D3-50 (Cholecalciferol (Vitamin D3)) 50,000 Unit Capsule 50,000 Unit PO WEEKLY ON FRIDAY Earwax Treatment Drops (Carbamide Peroxide) 15 Ml Drops 5 Drp AU PRN BID PRN Tylenol (Acetaminophen) 325 Mg Tablet 650 Mg PO PRN Q6HRS PRN Depakote Er (Divalproex Sodium) 500 Mg Tab.er.24h 1,250 Mg PO HS Fenofibrate (Fenofibrate,Micronized) 134 Mg Capsule 134 Mg PO DAILY Levemir Flextouch (Insulin Detemir) 100 Unit/1 Ml Insuln.pen 18 Unit SQ HS Magnesium (Magnesium Oxide) 400 Mg Capsule 250 Mg PO DAILY Atorvastatin Calcium 20 Mg Tablet 20 Mg PO DAILY B-12 (Cyanocobalamin (Vitamin B-12)) 500 Mcg Tablet 250 Mcg PO DAILY Acidophilus (Lactobacillus Acidophilus) 1 Each Capsule 1 Each PO BID Metformin Hcl 850 Mg Tablet 850 Mg PO BIDWMEALS Ferrous Sulfate 325 Mg Tablet 1 Tab PO DAILY Metoprolol Tartrate 25 Mg Tablet 25 Mg PO DAILY Aspirin 81 Mg Tab.chew 81 Mg PO DAILY Cetirizine Hcl 10 Mg Tablet 10 Mg PO PRN DAILY PRN Hydrocodone-Apap 7.5-325 (Hydrocodone Bit/Acetaminophen) 1 Each Tablet 1 Tab PO PRN Q6HRS PRN Protonix (Pantoprazole Sodium) 20 Mg Tablet.dr 40 Mg PO PRN DAILY PRN I have reviewed the current psychotropics carefully including drug interactions. Risk benefit ratio favors no change other than as noted in my dictated progress note. 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
[2018-08-07] MEDS: LEVOTHYROXINE 100 MCG TABLET PO SCH (05:32)
[2018-08-07 06:13] VITALS: BP 113/71
[2018-08-07 07:33] LABS: BASO % 1 % (0-3); EOS # 0.1 x10^3/uL (0.0-0.7); EOS % 2 % (0-3); HEMOGLOBIN 10.8 g/dL (12.0-15.5); LYMPH # 1.6 x10^3/uL (1.0-4.8); LYMPH % 39 % (24-48); MEAN CORPUSCULAR HEMOGLOBIN 31 pg (25-35); MEAN CORPUSCULAR HGB CONC 34 g/dL (31-37); MEAN CORPUSCULAR VOLUME 92 fL (79-100); MONO # 0.5 x10^3/uL (0.0-1.1); MONO % 11 % (0-9); NEUT % 48 % (31-73); PLATELET COUNT 159 x10^3/uL (140-400); RED BLOOD COUNT 3.47 x10^6/uL (3.50-5.40); RED CELL DISTRIBUTION WIDTH 14.1 % (11.5-14.5); WHITE BLOOD COUNT 4.2 x10^3/uL (4.0-11.0)
[2018-08-07 07:36] LABS: ALBUMIN 3.2 g/dL (3.4-5.0); ALBUMIN/GLOBULIN RATIO 0.9 (1.0-1.7); CALCIUM 9.7 mg/dL (8.5-10.1); CREATININE 1.1 mg/dL (0.6-1.0); POTASSIUM 4.3 mmol/L (3.5-5.1); TOTAL BILIRUBIN 0.3 mg/dL (0.2-1.0); TOTAL PROTEIN 6.9 g/dL (6.4-8.2)
[2018-08-07] MEDS: LACTOBACILLUS RHAMNOSUS GG 1 CAPSULE. PO SCH ×2 (07:46→19:35)
[2018-08-07] MEDS: metFORMIN XR 500 MG TAB.ER.24H PO SCH ×2 (07:46→16:38)
[2018-08-07] MEDS: METOPROLOL TART IMMED RELEASE 25 MG TABLET PO SCH (07:47)
[2018-08-07] MEDS: ASPIRIN 81 MG TAB.CHEW PO SCH (07:47)
[2018-08-07] MEDS: CYANOCOBALAMIN (VITAMIN B-12) 250 MCG TABLET PO SCH (07:47)
[2018-08-07] MEDS: FENOFIBRATE NANOCRYSTALLIZED 145 MG TABLET PO SCH (07:47)
[2018-08-07] MEDS: MAGNESIUM OXIDE 400 MG TABLET PO SCH (07:47)
[2018-08-07] MEDS: FERROUS SULFATE 325 MG TABLET. PO SCH (07:47)
[2018-08-07] MEDS: LORazepam 0.5 MG TABLET PO SCH ×2 (07:49→19:35)
[2018-08-07] MEDS: NYSTATIN/TRIAMCIN TOPICAL CREAM 15GM TUBE. TP SCH ×2 (07:49→20:01)
--- NOTE | 2018-08-07 11:16 | EKG ---
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
[2018-08-07] MEDS ORDERED: LOPERAMIDE 2 MG CAPSULE PO PRN (15:15)
[2018-08-07 15:45] VITALS: BP 126/81
[2018-08-07] MEDS: guaiFENesin DM 200MG/20MG 10 ML SYRUP PO PRN (16:11)
[2018-08-07 16:26] LABS: BILIRUBIN,URINE NEG (NEG); CLARITY,URINE HAZY; COLOR,URINE YELLOW; GLUCOSE,URINE NEG (NEG); NITRITE,URINE NEG (NEG); UROBILINOGEN,URINE 0.2 mg/dL (0.2 mg/dL)
[2018-08-07 16:27] LABS: BACTERIA,URINE 0 /HPF (0-FEW); SQUAMOUS EPITHELIAL CELL,UR FEW /LPF
--- NOTE | 2018-08-07 17:47 | NUR ---
Behavior Intervention Response and Plan: BIRP Note: Behavior: Assumed Care of patient, patient located in Day Room at shift change. Patient exhibited the following behavior Disorganized, Compulsive, Social. Brief assessment on rounds of vital signs, medication needs, lab studies, and pain. Treatment plan problems . Intervention: Patient assessed and the following interventions initiated safety checks 15 Minute Checks Cognitive Assessment , Head to toe Assessment , Medications. Response: After interactions and interventions patient responded in the following manner, Disorganized , Cooperative ,Compulsice. Continue to assess behaviors and condition will continue to monitor throughout the shift as needed. Patient educated on ADL's, and hand hygiene. Plan: Continue to monitor Master Treatment Plan for patient's progress toward short term goals of Decreased Agitation, Decreased Anxiety, termite control servicer goals to return to previous living setting vs placement. Continue to assess patient for changes in above assessment. Monitor for medication needs, pain, and safety concerns. Hourly rounding performed to ensure safe environment.
[2018-08-07] MEDS: ATORVASTATIN CALCIUM 20 MG TABLET PO SCH (19:35)
[2018-08-07] MEDS: DIVALPROEX ER 250 MG TAB.ER.24H. PO SCH (19:35)
[2018-08-07] MEDS: INSULIN GLARGINE 300 UNITS/3 ML INSULN.PEN. SQ SCH (20:00)
[2018-08-07] MEDS: risperiDONE 0.5 MG TABLET. PO SCH (20:01)
--- NOTE | 2018-08-07 20:27 | EKG ---
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
--- NOTE | 2018-08-07 20:50 | PN ---
DATE: 08/06/2018 PSYCHIATRIC PROGRESS NOTE This late entry 08/06/2018 covers elements not covered in my initial note. SUBJECTIVE: I met with the patient in the evening, staffed at a treatment team meeting with the entire team in the morning and the patient attended this conference herself. Reviewed the patient's history, diagnosis, progress, discharge, aftercare plans. We still have a Cardiology consult following the patient consequent to her history of torsades and the fact that we are starting her on Risperdal 0.5 mg p.o. at bedtime. We received past cardiac records forwarded to Dr. Escobar. The patient slept 5-1/4 hours previous night. REVIEW OF SYSTEMS: No CV, , pulmonary, eye system symptoms on review. She remains quite anxious, restless, obsessive regarding discharge date. MENTAL STATUS EXAM: Oriented to herself and situation. Speech is coherent, somewhat repetitive, abstraction fair, computation impaired, language function intact, attention span short. Mood and affect remains somewhat anxious, labile. LABORATORY DATA: Reviewed. IMPRESSION: Bipolar 1 disorder, mixed with psychotic features; cognitive disorder, unspecified; anxiety disorder, unspecified. PLAN: Start Risperdal 0.5 mg at bedtime if approved by Cardiology. Rest unchanged from initial note. Maintain Depakote level therapeutic at 51. LAURITA DAVIS MD DR: SUMEET/kirill JOB#: [id number] / [id number]
--- NOTE | 2018-08-07 22:36 | NUR ---
Nursing Note Pt wanders the unit, speaks loudly, is demanding most of the time. She asks passersby to unzip the back of her onsie, to help her and that she is hungry. Difficult to redirect, is intrusive.
--- NOTE | 2018-08-07 23:00 | PDOC ---
Exam Note: Hemant Note: Please also refer to the separate dictated note~for this date of service dictated separately.~Patient seen individually. Discussed the patient with Nursing staff reviewed the chart.~Reviewed interim history and current functioning. Reviewed vital signs,~Labs/ Radiology~and current medications noted below. Continue current treatment with the changes noted in the dictated addendum note Assessment: Vital Signs: Vital Signs Date Time Temp Pulse Resp B/P (MAP) Pulse Ox O2 Delivery O2 Flow Rate FiO2 08/07/18 15:45 97.2 75 19 126/81 (96) 99 Room Air I&O Intake and Output 08/07/18 07:00 Intake Total 1560 ml Balance 1560 ml Intake Oral 1560 ml # Bowel Movements 3 Labs: Laboratory Tests Test 08/07/18 06:40 08/07/18 07:04 08/07/18 11:31 08/07/18 15:00 White Blood Count 4.2 x10^3/uL (4.0-11.0) Red Blood Count 3.47 x10^6/uL (3.50-5.40) L Hemoglobin 10.8 g/dL (12.0-15.5) L Hematocrit 32.0 % (36.0-47.0) L Mean Corpuscular Volume 92 fL (79-100) Mean Corpuscular Hemoglobin 31 pg (25-35) Mean Corpuscular Hemoglobin Concent 34 g/dL (31-37) Red Cell Distribution Width 14.1 % (11.5-14.5) Platelet Count 159 x10^3/uL (140-400) Neutrophils (%) (Auto) 48 % (31-73) Lymphocytes (%) (Auto) 39 % (24-48) Monocytes (%) (Auto) 11 % (0-9) H Eosinophils (%) (Auto) 2 % (0-3) Basophils (%) (Auto) 1 % (0-3) Neutrophils # (Auto) 2.0 x10^3uL (1.8-7.7) Lymphocytes # (Auto) 1.6 x10^3/uL (1.0-4.8) Monocytes # (Auto) 0.5 x10^3/uL (0.0-1.1) Eosinophils # (Auto) 0.1 x10^3/uL (0.0-0.7) Basophils # (Auto) 0.0 x10^3/uL (0.0-0.2) Sodium Level 138 mmol/L (136-145) Potassium Level 4.3 mmol/L (3.5-5.1) Chloride Level 102 mmol/L (98-107) Carbon Dioxide Level 27 mmol/L (21-32) Anion Gap 9 (6-14) Blood Urea Nitrogen 21 mg/dL (7-20) H Creatinine 1.1 mg/dL (0.6-1.0) H Estimated GFR (Cockcroft-Gault) 49.0 BUN/Creatinine Ratio 19 (6-20) Glucose Level 93 mg/dL (70-99) Calcium Level 9.7 mg/dL (8.5-10.1) Total Bilirubin 0.3 mg/dL (0.2-1.0) Aspartate Amino Transferase (AST) 22 U/L (15-37) Alanine Aminotransferase (ALT) 22 U/L (14-59) Alkaline Phosphatase 67 U/L (46-116) Total Protein 6.9 g/dL (6.4-8.2) Albumin 3.2 g/dL (3.4-5.0) L Albumin/Globulin Ratio 0.9 (1.0-1.7) L Glucose (Fingerstick) 83 mg/dL (70-99) 101 mg/dL (70-99) H Urine Collection Type Unknown Urine Color Yellow Urine Clarity Hazy Urine pH 5.5 Urine Specific [place] >=1.030 Urine Protein 30 mg/dl (NEG-TRACE) Urine Glucose (UA) Neg mg/dL (NEG) Urine Ketones (Stick) Trace mg/dL (NEG) Urine Blood Mod (NEG) Urine Nitrite Neg (NEG) Urine Bilirubin Neg (NEG) Urine Urobilinogen Dipstick 0.2 mg/dL (0.2 mg/dL) Urine Leukocyte Esterase Small (NEG) Urine RBC 11-20 /HPF (0-2) Urine WBC 5-10 /HPF (0-4) Urine Squamous Epithelial Cells Few /LPF Urine Bacteria 0 /HPF (0-FEW) Test 08/07/18 16:31 08/07/18 19:41 Glucose (Fingerstick) 159 mg/dL (70-99) H 214 mg/dL (70-99) H Current Medications: Meds: Current Medications Acetaminophen (Tylenol) 650 mg 1X ONCE PO Last administered on 08/01/18at 11: 44; Start 08/01/18 at 11:45; Stop 08/01/18 at 11:46; Status DC Sodium Chloride 500 ml @ 0 mls/hr 1X ONCE IV Last administered on 08/01/18at 11:45; Start 08/01/18 at 11:45; Stop 08/01/18 at 11:50; Status DC Acetaminophen (Tylenol) 650 mg PRN Q6HRS PRN PO PAIN / TEMP; Start 08/01/18 at 16:45 Vitamin D (Vitamin D3) 50,000 unit Th PO Last administered on 08/06/18at 07:37; Start 08/06/18 at 09:00 Metoprolol Tartrate (Lopressor) 25 mg DAILY PO Last administered on 08/07/18 07:47; Start 08/02/18 at 09:00 Aspirin (Children'S Aspirin) 81 mg DAILYWBKFT PO Last administered on at 07:47; Start 08/02/18 at 08:00 Carbamide Peroxide (Debrox) 5 drop PRN BID PRN AU IMPACTION; Start 08/01/18 at 17:30; Stop 08/02/18 at 15:39; Status DC Cetirizine HCl (ZyrTEC) 10 mg PRN DAILY PRN PO ALLERGIES Last administered on 08/07/18 16:11; Start 08/01/18 at 18:00 Cyanocobalamin (Vitamin B-12) 250 mcg DAILY PO Last administered on 08/07/18at 07:47; Start 08/02/18 at 09:00 Divalproex Sodium (Depakote Er) 1,250 mg QHS PO Last administered on 08/07/18 19:35; Start 08/01/18 at 21:00 Fenofibrate (Tricor) 145 mg DAILY PO Last administered on 08/07/18 07:47; Start 08/02/18 at 09:00 Insulin Glargine (Lantus) 18 units QHS SQ Last administered on 08/07/18at 20:00 ; Start 08/01/18 at 21:00 Lactobacillus Rhamnosus (Culturelle) 1 cap BID PO Last administered on at 19:35; Start 08/01/18 at 21:00 Magnesium Oxide (Magnesium Oxide) 200 mg DAILY PO Last administered on at 07:47; Start 08/02/18 at 09:00 Pantoprazole Sodium (Protonix) 40 mg PRN DAILY PRN PO ACID REFLUX; Start 08/02 at 07:30 Atorvastatin Calcium (Lipitor) 20 mg QHS PO Last administered on 08/07/18at 19: 35; Start 08/01/18 at 21:00 Bisacodyl (Dulcolax Tab) 5 mg PRN BID PRN PO CONSTIPATION; Start 08/01/18 at 17:15 Ferrous Sulfate (Feosol) 325 mg DAILY08 PO Last administered on 08/07/18at 07:47 ; Start 08/02/18 at 08:00 Acetaminophen/ Hydrocodone Bitart (Lortab 7.5/325) 1 tab PRN Q6HRS PRN PO MOD/ SEVERE PAIN Last administered on 08/01/18at 22:12; Start 08/01/18 at 17:15 Levothyroxine Sodium (Synthroid) 100 mcg DAILY06 PO Last administered on at 05:32; Start 08/02/18 at 06:00 Metoprolol Tartrate (Lopressor) 25 mg PRN DAILY PRN PO HYPERTENSION, SEE COMMENTS; Start 08/01/18 at 17:15 Lorazepam (Ativan) 0.5 mg BID PO Last administered on 08/07/18at 19:35; Start 08/01/18 at 21:00 Metformin HCl (Glucophage) 850 mg BIDWMEALS PO Last administered on 08/05/18at 09:19; Start 08/02/18 at 08:00; Stop 08/05/18 at 16:00; Status DC Influenza Virus Vaccine (Afluria Trivalent [id number] Syringe) 0.5 ml ONCE ONCE VAX IM Last administered on 08/02/18at 16:26; Start 08/02/18 at 09:00; Stop 08/02/18 at 09:01; Status DC Lactobacillus Rhamnosus (Culturelle) 1 cap BID PO ; Start 08/02/18 at 09:00; Status Cancel Carbamide Peroxide (Debrox) 5 drop PRN BID PRN AU IMPACTION; Start 08/02/18 at 15:45 Fluconazole (Diflucan) 150 mg 1X ONCE PO Last administered on 08/02/18at 22:29 ; Start 08/02/18 at 22:30; Stop 08/02/18 at 22:31; Status DC Nystatin/ Triamcinolone Acetonide (Mycolog Ii) 1 milena BID TP Last administered on 08/07/18at 20:01; Start 08/03/18 at 09:00; Stop 08/13/18 at 08:59 Levothyroxine Sodium (Synthroid) 100 mcg DAILY06 PO ; Start 08/03/18 at 06:00; Status UNV Cephalexin HCl (Keflex) 500 mg TID PO ; Start 08/16/18 at 09:00; Status Cancel Metformin HCl (Glucophage Xr) 500 mg BIDWMEALS PO Last administered on at 16:38; Start 08/05/18 at 17:00 Loperamide HCl (Imodium) 2 mg PRN Q4HRS PRN PO DIARRHEA Last administered on at 16:11; Start 08/07/18 at 15:15 Guaifenesin (Robitussin Dm) 10 ml PRN Q6HRS PRN PO COUGH Last administered on 08/07/18at 16:11; Start 08/07/18 at 15:15 Risperidone (RisperDAL) 0.5 mg QHS PO Last administered on 08/07/18at 20:01; Start 08/07/18 at 21:00 Active Scripts Active Reported Bisacodyl 5 Mg Tablet.dr 5 Mg PO PRN BID PRN Metoprolol Tartrate 25 Mg Tablet 25 Mg PO PRN DAILY PRN Lorazepam 0.5 Mg Tablet 0.5 Mg PO BID Levothyroxine Sodium 100 Mcg Tablet 100 Mcg PO DAILYAC D3-50 (Cholecalciferol (Vitamin D3)) 50,000 Unit Capsule 50,000 Unit PO WEEKLY ON FRIDAY Earwax Treatment Drops (Carbamide Peroxide) 15 Ml Drops 5 Drp AU PRN BID PRN Tylenol (Acetaminophen) 325 Mg Tablet 650 Mg PO PRN Q6HRS PRN Depakote Er (Divalproex Sodium) 500 Mg Tab.er.24h 1,250 Mg PO HS Fenofibrate (Fenofibrate,Micronized) 134 Mg Capsule 134 Mg PO DAILY Levemir Flextouch (Insulin Detemir) 100 Unit/1 Ml Insuln.pen 18 Unit SQ HS Magnesium (Magnesium Oxide) 400 Mg Capsule 250 Mg PO DAILY Atorvastatin Calcium 20 Mg Tablet 20 Mg PO DAILY B-12 (Cyanocobalamin (Vitamin B-12)) 500 Mcg Tablet 250 Mcg PO DAILY Acidophilus (Lactobacillus Acidophilus) 1 Each Capsule 1 Each PO BID Metformin Hcl 850 Mg Tablet 850 Mg PO BIDWMEALS Ferrous Sulfate 325 Mg Tablet 1 Tab PO DAILY Metoprolol Tartrate 25 Mg Tablet 25 Mg PO DAILY Aspirin 81 Mg Tab.chew 81 Mg PO DAILY Cetirizine Hcl 10 Mg Tablet 10 Mg PO PRN DAILY PRN Hydrocodone-Apap 7.5-325 (Hydrocodone Bit/Acetaminophen) 1 Each Tablet 1 Tab PO PRN Q6HRS PRN Protonix (Pantoprazole Sodium) 20 Mg Tablet. 40 Mg PO PRN DAILY PRN I have reviewed the current psychotropics carefully including drug interactions. Risk benefit ratio favors no change other than as noted in my dictated progress note. 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
[2018-08-08] MEDS: LEVOTHYROXINE 100 MCG TABLET PO SCH (04:48)
[2018-08-08] MEDS: guaiFENesin DM 200MG/20MG 10 ML SYRUP PO PRN ×2 (05:39→21:33)
[2018-08-08 05:59] VITALS: BP 130/78
[2018-08-08] MEDS: ASPIRIN 81 MG TAB.CHEW PO SCH (08:03)
[2018-08-08] MEDS: FERROUS SULFATE 325 MG TABLET. PO SCH (08:03)
[2018-08-08] MEDS: metFORMIN XR 500 MG TAB.ER.24H PO SCH ×2 (08:03→16:05)
[2018-08-08] MEDS: LORazepam 0.5 MG TABLET PO SCH ×2 (08:05→19:43)
[2018-08-08] MEDS: LACTOBACILLUS RHAMNOSUS GG 1 CAPSULE. PO SCH ×2 (08:05→19:43)
[2018-08-08] MEDS: FENOFIBRATE NANOCRYSTALLIZED 145 MG TABLET PO SCH (08:06)
[2018-08-08] MEDS: MAGNESIUM OXIDE 400 MG TABLET PO SCH (08:06)
[2018-08-08] MEDS: METOPROLOL TART IMMED RELEASE 25 MG TABLET PO SCH (08:06)
[2018-08-08] MEDS: CYANOCOBALAMIN (VITAMIN B-12) 250 MCG TABLET PO SCH (08:06)
[2018-08-08] MEDS: NYSTATIN/TRIAMCIN TOPICAL CREAM 15GM TUBE. TP SCH ×2 (08:07→19:43)
--- NOTE | 2018-08-08 10:06 | EKG ---
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
--- NOTE | 2018-08-08 10:10 | NUR ---
Pt is cooperative with her medication and assessment. Her behaviors are better this week than last week. Her anxiety is less and her obsessions with the bathroom are less as well.
[2018-08-08 15:45] VITALS: BP 111/70
[2018-08-08] MEDS: risperiDONE 0.5 MG TABLET. PO SCH (19:43)
[2018-08-08] MEDS: DIVALPROEX ER 250 MG TAB.ER.24H. PO SCH (19:43)
[2018-08-08] MEDS: ATORVASTATIN CALCIUM 20 MG TABLET PO SCH (19:43)
[2018-08-08] MEDS: INSULIN GLARGINE 300 UNITS/3 ML INSULN.PEN. SQ SCH (19:44)
--- NOTE | 2018-08-08 21:06 | EKG ---
[address] [address] Test Date: 2018-08-08 Test Time: 21:05:25 Pat Name: JOSETTE MARTINEZ Department: Room: [address] [place] [address] Gender: F Netsuite Consultant: OLI : 1945 Requested By: SALVADOR JIMENES Order Number: [id number] Reading MD: Cipriano Escobar MD Measurements Intervals [place] Rate: 77 P: 42 ND: 164 QRS: -31 QRSD: 144 T: 149 QT: 398 QTc: 452 Interpretive Statements SINUS RHYTHM ABNORMAL LEFT AXIS DEVIATION NON SPECIFIC INTRAVENTRICULAR BLOCK ABNORMAL ECG Electronically Signed On 08-10-2018 15:19:07 PNEUMATIC JACK OPERATOR by Cipriano Escobar MD
--- NOTE | 2018-08-08 23:06 | PDOC ---
Exam Note: Hemant Note: Please also refer to the separate dictated note~for this date of service dictated separately.~Patient seen individually. Discussed the patient with Nursing staff reviewed the chart.~Reviewed interim history and current functioning. Reviewed vital signs,~Labs/ Radiology~and current medications noted below. Continue current treatment with the changes noted in the dictated addendum note Assessment: Vital Signs: Vital Signs Date Time Temp Pulse Resp B/P (MAP) Pulse Ox O2 Delivery O2 Flow Rate FiO2 08/08/18 15:45 97.9 72 20 111/70 (84) 100 Room Air I&O Intake and Output 08/08/18 07:00 Intake Total 1300 ml Balance 1300 ml Intake Oral 1300 ml # Voids 4 # Bowel Movements 9 Labs: Laboratory Tests Test 08/08/18 07:25 08/08/18 11:37 08/08/18 16:51 08/08/18 19:01 Glucose (Fingerstick) 115 mg/dL (70-99) H 155 mg/dL (70-99) H 134 mg/dL (70-99) H 166 mg/dL (70-99) H Current Medications: Meds: Current Medications Acetaminophen (Tylenol) 650 mg 1X ONCE PO Last administered on 08/01/18at 11: 44; Start 08/01/18 at 11:45; Stop 08/01/18 at 11:46; Status DC Sodium Chloride 500 ml @ 0 mls/hr 1X ONCE IV Last administered on 08/01/18at 11:45; Start 08/01/18 at 11:45; Stop 08/01/18 at 11:50; Status DC Acetaminophen (Tylenol) 650 mg PRN Q6HRS PRN PO PAIN / TEMP; Start 08/01/18 at 16:45 Vitamin D (Vitamin D3) 50,000 unit Th PO Last administered on 08/06/18at 07:37; Start 08/06/18 at 09:00 Metoprolol Tartrate (Lopressor) 25 mg DAILY PO Last administered on 08/08/18at 08:06; Start 08/02/18 at 09:00 Aspirin (Children'S Aspirin) 81 mg DAILYWBKFT PO Last administered on at 08:03; Start 08/02/18 at 08:00 Carbamide Peroxide (Debrox) 5 drop PRN BID PRN AU IMPACTION; Start 08/01/18 at 17:30; Stop 08/02/18 at 15:39; Status DC Cetirizine HCl (ZyrTEC) 10 mg PRN DAILY PRN PO ALLERGIES Last administered on 08/07/18 16:11; Start 08/01/18 at 18:00 Cyanocobalamin (Vitamin B-12) 250 mcg DAILY PO Last administered on 08/08/18 08:06; Start 08/02/18 at 09:00 Divalproex Sodium (Depakote Er) 1,250 mg QHS PO Last administered on 08/08/18 19:43; Start 08/01/18 at 21:00 Fenofibrate (Tricor) 145 mg DAILY PO Last administered on 08/08/18 08:06; Start 08/02/18 at 09:00 Insulin Glargine (Lantus) 18 units QHS SQ Last administered on 08/08/18 19:44 ; Start 08/01/18 at 21:00 Lactobacillus Rhamnosus (Culturelle) 1 cap BID PO Last administered on 19:43; Start 08/01/18 at 21:00 Magnesium Oxide (Magnesium Oxide) 200 mg DAILY PO Last administered on 08:06; Start 08/02/18 at 09:00 Pantoprazole Sodium (Protonix) 40 mg PRN DAILY PRN PO ACID REFLUX; Start 08/02 at 07:30 Atorvastatin Calcium (Lipitor) 20 mg QHS PO Last administered on 08/08/18 19: 43; Start 08/01/18 at 21:00 Bisacodyl (Dulcolax Tab) 5 mg PRN BID PRN PO CONSTIPATION; Start 08/01/18 at 17:15 Ferrous Sulfate (Feosol) 325 mg DAILY08 PO Last administered on 08/08/18 08:03 ; Start 08/02/18 at 08:00 Acetaminophen/ Hydrocodone Bitart (Lortab 7.5/325) 1 tab PRN Q6HRS PRN PO MOD/ SEVERE PAIN Last administered on 08/01/18 22:12; Start 08/01/18 at 17:15 Levothyroxine Sodium (Synthroid) 100 mcg DAILY06 PO Last administered on 04:48; Start 08/02/18 at 06:00 Metoprolol Tartrate (Lopressor) 25 mg PRN DAILY PRN PO HYPERTENSION, SEE COMMENTS; Start 08/01/18 at 17:15 Lorazepam (Ativan) 0.5 mg BID PO Last administered on 08/08/18at 19:43; Start 08/01/18 at 21:00 Metformin HCl (Glucophage) 850 mg BIDWMEALS PO Last administered on 08/05/18at 09:19; Start 08/02/18 at 08:00; Stop 08/05/18 at 16:00; Status DC Influenza Virus Vaccine (Afluria Trivalent [id number] Syringe) 0.5 ml ONCE ONCE VAX IM Last administered on 08/02/18at 16:26; Start 08/02/18 at 09:00; Stop 08/02/18 at 09:01; Status DC Lactobacillus Rhamnosus (Culturelle) 1 cap BID PO ; Start 08/02/18 at 09:00; Status Cancel Carbamide Peroxide (Debrox) 5 drop PRN BID PRN AU IMPACTION; Start 08/02/18 at 15:45 Fluconazole (Diflucan) 150 mg 1X ONCE PO Last administered on 08/02/18at 22:29 ; Start 08/02/18 at 22:30; Stop 08/02/18 at 22:31; Status DC Nystatin/ Triamcinolone Acetonide (Mycolog Ii) 1 milena BID TP Last administered on 08/08/18at 19:43; Start 08/03/18 at 09:00; Stop 08/13/18 at 08:59 Levothyroxine Sodium (Synthroid) 100 mcg DAILY06 PO ; Start 08/03/18 at 06:00; Status UNV Cephalexin HCl (Keflex) 500 mg TID PO ; Start 08/16/18 at 09:00; Status Cancel Metformin HCl (Glucophage Xr) 500 mg BIDWMEALS PO Last administered on at 16:05; Start 08/05/18 at 17:00 Loperamide HCl (Imodium) 2 mg PRN Q4HRS PRN PO DIARRHEA Last administered on at 16:11; Start 08/07/18 at 15:15 Guaifenesin (Robitussin Dm) 10 ml PRN Q6HRS PRN PO COUGH Last administered on 08/08/18at 21:33; Start 08/07/18 at 15:15 Risperidone (RisperDAL) 0.5 mg QHS PO Last administered on 08/08/18at 19:43; Start 08/07/18 at 21:00 Active Scripts Active Reported Bisacodyl 5 Mg Tablet.dr 5 Mg PO PRN BID PRN Metoprolol Tartrate 25 Mg Tablet 25 Mg PO PRN DAILY PRN Lorazepam 0.5 Mg Tablet 0.5 Mg PO BID Levothyroxine Sodium 100 Mcg Tablet 100 Mcg PO DAILYAC D3-50 (Cholecalciferol (Vitamin D3)) 50,000 Unit Capsule 50,000 Unit PO WEEKLY ON FRIDAY Earwax Treatment Drops (Carbamide Peroxide) 15 Ml Drops 5 Drp AU PRN BID PRN Tylenol (Acetaminophen) 325 Mg Tablet 650 Mg PO PRN Q6HRS PRN Depakote Er (Divalproex Sodium) 500 Mg Tab.er.24h 1,250 Mg PO HS Fenofibrate (Fenofibrate,Micronized) 134 Mg Capsule 134 Mg PO DAILY Levemir Flextouch (Insulin Detemir) 100 Unit/1 Ml Insuln.pen 18 Unit SQ HS Magnesium (Magnesium Oxide) 400 Mg Capsule 250 Mg PO DAILY Atorvastatin Calcium 20 Mg Tablet 20 Mg PO DAILY B-12 (Cyanocobalamin (Vitamin B-12)) 500 Mcg Tablet 250 Mcg PO DAILY Acidophilus (Lactobacillus Acidophilus) 1 Each Capsule 1 Each PO BID Metformin Hcl 850 Mg Tablet 850 Mg PO BIDWMEALS Ferrous Sulfate 325 Mg Tablet 1 Tab PO DAILY Metoprolol Tartrate 25 Mg Tablet 25 Mg PO DAILY Aspirin 81 Mg Tab.chew 81 Mg PO DAILY Cetirizine Hcl 10 Mg Tablet 10 Mg PO PRN DAILY PRN Hydrocodone-Apap 7.5-325 (Hydrocodone Bit/Acetaminophen) 1 Each Tablet 1 Tab PO PRN Q6HRS PRN Protonix (Pantoprazole Sodium) 20 Mg Tablet.dr 40 Mg PO PRN DAILY PRN I have reviewed the current psychotropics carefully including drug interactions. Risk benefit ratio favors no change other than as noted in my dictated progress note. 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
--- NOTE | 2018-08-08 23:23 | NUR ---
Behavior Intervention Response and Plan: BIRP Note: Behavior: Assumed Care of patient, patient located in Day Room at shift change. Patient exhibited the following behavior Calm, Attention Seeking, Cooperative. Brief assessment on rounds of vital signs, medication needs, lab studies, and pain. Treatment plan problems . Intervention: Patient assessed and the following interventions initiated safety checks 15 Minute Checks Personal Alarm in place , Cognitive Assessment , Head to toe Assessment. Response: After interactions and interventions patient responded in the following manner, Calm , Wandering ,Compliant. Continue to assess behaviors and condition will continue to monitor throughout the shift as needed. Patient educated on ADL's, and hand hygiene. Plan: Continue to monitor Master Treatment Plan for patient's progress toward short term goals of Improved Mood, Decreased Agitation, exterminator helper goals to return to previous living setting vs placement. Continue to assess patient for changes in above assessment. Monitor for medication needs, pain, and safety concerns. Hourly rounding performed to ensure safe environment.
[2018-08-09 06:03] VITALS: BP 131/82
[2018-08-09] MEDS: LEVOTHYROXINE 100 MCG TABLET PO SCH (06:19)
[2018-08-09] MEDS: metFORMIN XR 500 MG TAB.ER.24H PO SCH ×2 (08:08→16:58)
[2018-08-09] MEDS: FERROUS SULFATE 325 MG TABLET. PO SCH (08:08)
[2018-08-09] MEDS: ASPIRIN 81 MG TAB.CHEW PO SCH (08:08)
[2018-08-09] MEDS: LACTOBACILLUS RHAMNOSUS GG 1 CAPSULE. PO SCH ×2 (08:09→19:25)
[2018-08-09] MEDS: METOPROLOL TART IMMED RELEASE 25 MG TABLET PO SCH (08:09)
[2018-08-09] MEDS: LORazepam 0.5 MG TABLET PO SCH ×2 (08:09→19:25)
[2018-08-09] MEDS: CYANOCOBALAMIN (VITAMIN B-12) 250 MCG TABLET PO SCH (08:10)
[2018-08-09] MEDS: FENOFIBRATE NANOCRYSTALLIZED 145 MG TABLET PO SCH (08:10)
[2018-08-09] MEDS: MAGNESIUM OXIDE 400 MG TABLET PO SCH (08:10)
[2018-08-09] MEDS: NYSTATIN/TRIAMCIN TOPICAL CREAM 15GM TUBE. TP SCH ×2 (08:11→19:28)
--- NOTE | 2018-08-09 10:01 | NUR ---
Pt is cooperative and compliant. No agitation or aggression. No hallucinations or delusions noted. Compliant with medication and assessment.
--- NOTE | 2018-08-09 10:09 | EKG ---
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
[2018-08-09 15:41] VITALS: BP 120/74
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
[2018-08-09] MEDS: ATORVASTATIN CALCIUM 20 MG TABLET PO SCH (19:25)
[2018-08-09] MEDS: risperiDONE 0.5 MG TABLET. PO SCH (19:25)
[2018-08-09] MEDS: DIVALPROEX ER 250 MG TAB.ER.24H. PO SCH (19:25)
[2018-08-09] MEDS: INSULIN GLARGINE 300 UNITS/3 ML INSULN.PEN. SQ SCH (19:59)
--- NOTE | 2018-08-09 21:42 | PN ---
DATE: 08/08/2018 PSYCHIATRIC PROGRESS NOTE This is a late entry of 08/08/2018, covers elements not covered in my initial note. SUBJECTIVE: I met with the patient in the evening. Overall, the patient remains somewhat perseverative and repetitive about discharge. She is intermittently agitated, but redirectable. She slept 5-3/4 hours previous evening. REVIEW OF SYSTEMS: No CV, , pulmonary, eye, ENT system symptoms on review. Reliability varies. MENTAL STATUS EXAM: Oriented to herself and situation. Speech coherent, rapid at times. Abstraction fair, computation impaired, language function intact. Mood and affect remain somewhat labile, but improved. LABORATORY DATA: Reviewed. IMPRESSION: Unchanged from initial note. PLAN: Continue current psychotropics, and Risperdal was added 0.5 mg daily, post-approval by Dr. Escobar. MAN Kingston DAVIS MD DR: SUMEET/kirill JOB#: [id number] / [id number]
--- NOTE | 2018-08-09 22:57 | PDOC ---
Exam Note: Hemant Note: Please also refer to the separate dictated note~for this date of service dictated separately.~Patient seen individually. Discussed the patient with Nursing staff reviewed the chart.~Reviewed interim history and current functioning. Reviewed vital signs,~Labs/ Radiology~and current medications noted below. Continue current treatment with the changes noted in the dictated addendum note Assessment: Vital Signs: Vital Signs Date Time Temp Pulse Resp B/P (MAP) Pulse Ox O2 Delivery O2 Flow Rate FiO2 08/09/18 15:41 97.5 80 16 120/74 (89) 100 Room Air I&O Intake and Output 08/09/18 07:00 Intake Total 1080 ml Balance 1080 ml Intake Oral 1080 ml Labs: Laboratory Tests Test 08/09/18 07:27 08/09/18 11:54 08/09/18 16:37 08/09/18 19:20 Glucose (Fingerstick) 158 mg/dL (70-99) H 157 mg/dL (70-99) H 184 mg/dL (70-99) H 247 mg/dL (70-99) H Current Medications: Meds: Current Medications Acetaminophen (Tylenol) 650 mg 1X ONCE PO Last administered on 08/01/18at 11: 44; Start 08/01/18 at 11:45; Stop 08/01/18 at 11:46; Status DC Sodium Chloride 500 ml @ 0 mls/hr 1X ONCE IV Last administered on 08/01/18at 11:45; Start 08/01/18 at 11:45; Stop 08/01/18 at 11:50; Status DC Acetaminophen (Tylenol) 650 mg PRN Q6HRS PRN PO PAIN / TEMP; Start 08/01/18 at 16:45 Vitamin D (Vitamin D3) 50,000 unit Th PO Last administered on 08/06/18at 07:37; Start 08/06/18 at 09:00 Metoprolol Tartrate (Lopressor) 25 mg DAILY PO Last administered on 08/09/18at 08:09; Start 08/02/18 at 09:00 Aspirin (Children'S Aspirin) 81 mg DAILYWBKFT PO Last administered on at 08:08; Start 08/02/18 at 08:00 Carbamide Peroxide (Debrox) 5 drop PRN BID PRN AU IMPACTION; Start 08/01/18 at 17:30; Stop 08/02/18 at 15:39; Status DC Cetirizine HCl (ZyrTEC) 10 mg PRN DAILY PRN PO ALLERGIES Last administered on 08/07/18 16:11; Start 08/01/18 at 18:00 Cyanocobalamin (Vitamin B-12) 250 mcg DAILY PO Last administered on 08/09/18 08:10; Start 08/02/18 at 09:00 Divalproex Sodium (Depakote Er) 1,250 mg QHS PO Last administered on 08/09/18 19:25; Start 08/01/18 at 21:00 Fenofibrate (Tricor) 145 mg DAILY PO Last administered on 08/09/18 08:10; Start 08/02/18 at 09:00 Insulin Glargine (Lantus) 18 units QHS SQ Last administered on 08/09/18 19:59 ; Start 08/01/18 at 21:00 Lactobacillus Rhamnosus (Culturelle) 1 cap BID PO Last administered on 19:25; Start 08/01/18 at 21:00 Magnesium Oxide (Magnesium Oxide) 200 mg DAILY PO Last administered on 08:10; Start 08/02/18 at 09:00 Pantoprazole Sodium (Protonix) 40 mg PRN DAILY PRN PO ACID REFLUX; Start 08/02 at 07:30 Atorvastatin Calcium (Lipitor) 20 mg QHS PO Last administered on 08/09/18 19: 25; Start 08/01/18 at 21:00 Bisacodyl (Dulcolax Tab) 5 mg PRN BID PRN PO CONSTIPATION; Start 08/01/18 at 17:15 Ferrous Sulfate (Feosol) 325 mg DAILY08 PO Last administered on 08/09/18 08:08 ; Start 08/02/18 at 08:00 Acetaminophen/ Hydrocodone Bitart (Lortab 7.5/325) 1 tab PRN Q6HRS PRN PO MOD/ SEVERE PAIN Last administered on 08/01/18 22:12; Start 08/01/18 at 17:15 Levothyroxine Sodium (Synthroid) 100 mcg DAILY06 PO Last administered on 06:19; Start 08/02/18 at 06:00 Metoprolol Tartrate (Lopressor) 25 mg PRN DAILY PRN PO HYPERTENSION, SEE COMMENTS; Start 08/01/18 at 17:15 Lorazepam (Ativan) 0.5 mg BID PO Last administered on 08/09/18at 19:25; Start 08/01/18 at 21:00 Metformin HCl (Glucophage) 850 mg BIDWMEALS PO Last administered on 08/05/18at 09:19; Start 08/02/18 at 08:00; Stop 08/05/18 at 16:00; Status DC Influenza Virus Vaccine (Afluria Trivalent [id number] Syringe) 0.5 ml ONCE ONCE VAX IM Last administered on 08/02/18at 16:26; Start 08/02/18 at 09:00; Stop 08/02/18 at 09:01; Status DC Lactobacillus Rhamnosus (Culturelle) 1 cap BID PO ; Start 08/02/18 at 09:00; Status Cancel Carbamide Peroxide (Debrox) 5 drop PRN BID PRN AU IMPACTION; Start 08/02/18 at 15:45 Fluconazole (Diflucan) 150 mg 1X ONCE PO Last administered on 08/02/18at 22:29 ; Start 08/02/18 at 22:30; Stop 08/02/18 at 22:31; Status DC Nystatin/ Triamcinolone Acetonide (Mycolog Ii) 1 milena BID TP Last administered on 08/09/18at 19:28; Start 08/03/18 at 09:00; Stop 08/13/18 at 08:59 Levothyroxine Sodium (Synthroid) 100 mcg DAILY06 PO ; Start 08/03/18 at 06:00; Status UNV Cephalexin HCl (Keflex) 500 mg TID PO ; Start 08/16/18 at 09:00; Status Cancel Metformin HCl (Glucophage Xr) 500 mg BIDWMEALS PO Last administered on at 16:58; Start 08/05/18 at 17:00 Loperamide HCl (Imodium) 2 mg PRN Q4HRS PRN PO DIARRHEA Last administered on at 16:11; Start 08/07/18 at 15:15 Guaifenesin (Robitussin Dm) 10 ml PRN Q6HRS PRN PO COUGH Last administered on 08/08/18at 21:33; Start 08/07/18 at 15:15 Risperidone (RisperDAL) 0.5 mg QHS PO Last administered on 08/09/18at 19:25; Start 08/07/18 at 21:00 Active Scripts Active Reported Bisacodyl 5 Mg Tablet.dr 5 Mg PO PRN BID PRN Metoprolol Tartrate 25 Mg Tablet 25 Mg PO PRN DAILY PRN Lorazepam 0.5 Mg Tablet 0.5 Mg PO BID Levothyroxine Sodium 100 Mcg Tablet 100 Mcg PO DAILYAC D3-50 (Cholecalciferol (Vitamin D3)) 50,000 Unit Capsule 50,000 Unit PO WEEKLY ON FRIDAY Earwax Treatment Drops (Carbamide Peroxide) 15 Ml Drops 5 Drp AU PRN BID PRN Tylenol (Acetaminophen) 325 Mg Tablet 650 Mg PO PRN Q6HRS PRN Depakote Er (Divalproex Sodium) 500 Mg Tab.er.24h 1,250 Mg PO HS Fenofibrate (Fenofibrate,Micronized) 134 Mg Capsule 134 Mg PO DAILY Levemir Flextouch (Insulin Detemir) 100 Unit/1 Ml Insuln.pen 18 Unit SQ HS Magnesium (Magnesium Oxide) 400 Mg Capsule 250 Mg PO DAILY Atorvastatin Calcium 20 Mg Tablet 20 Mg PO DAILY B-12 (Cyanocobalamin (Vitamin B-12)) 500 Mcg Tablet 250 Mcg PO DAILY Acidophilus (Lactobacillus Acidophilus) 1 Each Capsule 1 Each PO BID Metformin Hcl 850 Mg Tablet 850 Mg PO BIDWMEALS Ferrous Sulfate 325 Mg Tablet 1 Tab PO DAILY Metoprolol Tartrate 25 Mg Tablet 25 Mg PO DAILY Aspirin 81 Mg Tab.chew 81 Mg PO DAILY Cetirizine Hcl 10 Mg Tablet 10 Mg PO PRN DAILY PRN Hydrocodone-Apap 7.5-325 (Hydrocodone Bit/Acetaminophen) 1 Each Tablet 1 Tab PO PRN Q6HRS PRN Protonix (Pantoprazole Sodium) 20 Mg Tablet.dr 40 Mg PO PRN DAILY PRN I have reviewed the current psychotropics carefully including drug interactions. Risk benefit ratio favors no change other than as noted in my dictated progress note. 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
--- NOTE | 2018-08-09 23:26 | NUR ---
Nursing Note Pt wanders the unit looking for someone to unzip her shirt to help her to the bathroom. Asks constantly to wear a nightgown, but won't keep her pants on. Won't stop asking.
[2018-08-10] MEDS: guaiFENesin DM 200MG/20MG 10 ML SYRUP PO PRN ×2 (01:47→16:13)
[2018-08-10] MEDS: HYDROcodone/APAP 7.5/325MG 1 TAB TABLET PO PRN (01:47)
--- NOTE | 2018-08-10 02:39 | NUR ---
Nursing Note Pt awakens frequently needing to urinate, cries and states that her vaginal area hurts and hebert. Upon inspection, pt has a large prolapse protruding from her vaginal opening, bright red inflamed looking tissue protruding from the vaginal opening. Protrusion doesn't resolve with position changes or manipulation. Pt cries with tears streaming down her face during assessment. Applied creme to her vaginal area generously, pt stated that this is helping. When the patient was on the toilet the prolapse worsened with a larger portion exiting her vaginal area. Even when laying flat the prolapse still was not completely recessed. Bladder scan was performed post void and there was 250ml retained in the bladder. Had the patient void again and post void residual was less than 30 ml. Pt medicated with lortab and cough meds, she complained of pain and cough. In bed resting seems to be more comfortable at this time.
[2018-08-10] MEDS: LEVOTHYROXINE 100 MCG TABLET PO SCH (05:29)
[2018-08-10 06:02] VITALS: BP 124/65
[2018-08-10] MEDS: ASPIRIN 81 MG TAB.CHEW PO SCH (09:12)
[2018-08-10] MEDS: metFORMIN XR 500 MG TAB.ER.24H PO SCH ×2 (09:12→16:13)
[2018-08-10] MEDS: LORazepam 0.5 MG TABLET PO SCH ×2 (09:12→19:50)
[2018-08-10] MEDS: FERROUS SULFATE 325 MG TABLET. PO SCH (09:12)
[2018-08-10] MEDS: METOPROLOL TART IMMED RELEASE 25 MG TABLET PO SCH (09:13)
[2018-08-10] MEDS: MAGNESIUM OXIDE 400 MG TABLET PO SCH (09:13)
[2018-08-10] MEDS: FENOFIBRATE NANOCRYSTALLIZED 145 MG TABLET PO SCH (09:13)
[2018-08-10] MEDS: CYANOCOBALAMIN (VITAMIN B-12) 250 MCG TABLET PO SCH (09:13)
[2018-08-10] MEDS: NYSTATIN/TRIAMCIN TOPICAL CREAM 15GM TUBE. TP SCH ×2 (09:14→19:50)
[2018-08-10] MEDS: LACTOBACILLUS RHAMNOSUS GG 1 CAPSULE. PO SCH ×2 (09:14→19:43)
--- NOTE | 2018-08-10 11:13 | NUR ---
Pt is cooperative, compliant and calm. Pt is able to redirect. Pt has no agitation or aggression and is social. She participates in groups and attends all meals.
--- NOTE | 2018-08-10 13:24 | NUR ---
Update completed with Naina from [facility] medicaid. Briseida is approved thru 08/10/18. Naina indicated that another review may need to be completed on 08/11/18 and that she will let this worker know.
--- NOTE | 2018-08-10 14:06 | NUR ---
Reviewed with Yaquelin, nurse at [facility], that tentative d/c will be on 08/13/18 provided that [facility] will approve. Update faxed to Yaquelin for review. Discussed need for Briseida to have an out patient urologist appointment upon return to [facility] due to vaginal prolapse.
--- NOTE | 2018-08-10 14:31 | NUR ---
Referral faxed to [facility] at [place] located at [address] [place] [address] [address] [facility] [address], . Requested that urology office contact [facility] to schedule Briseida an appointment.
[2018-08-10 15:01] VITALS: BP 129/79
[2018-08-10] MEDS: risperiDONE 0.5 MG TABLET. PO SCH (19:42)
[2018-08-10] MEDS: ATORVASTATIN CALCIUM 20 MG TABLET PO SCH (19:42)
[2018-08-10] MEDS: DIVALPROEX ER 250 MG TAB.ER.24H. PO SCH (19:43)
[2018-08-10] MEDS: INSULIN GLARGINE 300 UNITS/3 ML INSULN.PEN. SQ SCH (19:53)
--- NOTE | 2018-08-10 20:00 | NUR ---
Behavior Intervention Response and Plan: BIRP Note: Behavior: Assumed Care of patient, patient located in Hallway at shift change. Patient exhibited the following behavior Interactive, Disorganized, Compulsive. Brief assessment on rounds of vital signs, medication needs, lab studies, and pain. Treatment plan problems . Intervention: Patient assessed and the following interventions initiated safety checks 15 Minute Checks Cognitive Assessment , Head to toe Assessment , Medications. Response: After interactions and interventions patient responded in the following manner, Drowsy , Compulsive ,Cooperative. Continue to assess behaviors and condition will continue to monitor throughout the shift as needed. Patient educated on ADL's, and hand hygiene. Plan: Continue to monitor Master Treatment Plan for patient's progress toward short term goals of No harm To self/ others, Decreased Agitation, long term care phlebotomist goals to return to previous living setting vs placement. Continue to assess patient for changes in above assessment. Monitor for medication needs, pain, and safety concerns. Hourly rounding performed to ensure safe environment.
--- NOTE | 2018-08-10 23:02 | PDOC ---
Exam Note: Hemant Note: Please also refer to the separate dictated note~for this date of service dictated separately.~Patient seen individually. Discussed the patient with Nursing staff reviewed the chart.~Reviewed interim history and current functioning. Reviewed vital signs,~Labs/ Radiology~and current medications noted below. Continue current treatment with the changes noted in the dictated addendum note Assessment: Vital Signs: Vital Signs Date Time Temp Pulse Resp B/P (MAP) Pulse Ox O2 Delivery O2 Flow Rate FiO2 08/10/18 15:01 97.7 83 17 129/79 (96) 99 Room Air I&O Intake and Output 08/10/18 07:00 Intake Total 1320 ml Balance 1320 ml Intake Oral 1320 ml # Voids 1 Labs: Laboratory Tests Test 08/10/18 07:40 08/10/18 11:37 08/10/18 16:21 08/10/18 19:44 Glucose (Fingerstick) 114 mg/dL (70-99) H 152 mg/dL (70-99) H 187 mg/dL (70-99) H 173 mg/dL (70-99) H Current Medications: Meds: Current Medications Acetaminophen (Tylenol) 650 mg 1X ONCE PO Last administered on 08/01/18at 11: 44; Start 08/01/18 at 11:45; Stop 08/01/18 at 11:46; Status DC Sodium Chloride 500 ml @ 0 mls/hr 1X ONCE IV Last administered on 08/01/18at 11:45; Start 08/01/18 at 11:45; Stop 08/01/18 at 11:50; Status DC Acetaminophen (Tylenol) 650 mg PRN Q6HRS PRN PO PAIN / TEMP; Start 08/01/18 at 16:45 Vitamin D (Vitamin D3) 50,000 unit Th PO Last administered on 08/06/18at 07:37; Start 08/06/18 at 09:00 Metoprolol Tartrate (Lopressor) 25 mg DAILY PO Last administered on 08/10/18at 09:13; Start 08/02/18 at 09:00 Aspirin (Children'S Aspirin) 81 mg DAILYWBKFT PO Last administered on at 09:12; Start 08/02/18 at 08:00 Carbamide Peroxide (Debrox) 5 drop PRN BID PRN AU IMPACTION; Start 08/01/18 at 17:30; Stop 08/02/18 at 15:39; Status DC Cetirizine HCl (ZyrTEC) 10 mg PRN DAILY PRN PO ALLERGIES Last administered on 08/07/18 16:11; Start 08/01/18 at 18:00 Cyanocobalamin (Vitamin B-12) 250 mcg DAILY PO Last administered on 08/10/18 09:13; Start 08/02/18 at 09:00 Divalproex Sodium (Depakote Er) 1,250 mg QHS PO Last administered on 08/10/18 19:43; Start 08/01/18 at 21:00 Fenofibrate (Tricor) 145 mg DAILY PO Last administered on 08/10/18 09:13; Start 08/02/18 at 09:00 Insulin Glargine (Lantus) 18 units QHS SQ Last administered on 08/10/18 19:53 ; Start 08/01/18 at 21:00 Lactobacillus Rhamnosus (Culturelle) 1 cap BID PO Last administered on 19:43; Start 08/01/18 at 21:00 Magnesium Oxide (Magnesium Oxide) 200 mg DAILY PO Last administered on 09:13; Start 08/02/18 at 09:00 Pantoprazole Sodium (Protonix) 40 mg PRN DAILY PRN PO ACID REFLUX; Start 08/02 at 07:30 Atorvastatin Calcium (Lipitor) 20 mg QHS PO Last administered on 08/10/18 19: 42; Start 08/01/18 at 21:00 Bisacodyl (Dulcolax Tab) 5 mg PRN BID PRN PO CONSTIPATION; Start 08/01/18 at 17:15 Ferrous Sulfate (Feosol) 325 mg DAILY08 PO Last administered on 08/10/18 09:12 ; Start 08/02/18 at 08:00 Acetaminophen/ Hydrocodone Bitart (Lortab 7.5/325) 1 tab PRN Q6HRS PRN PO MOD/ SEVERE PAIN Last administered on 08/10/18 01:47; Start 08/01/18 at 17:15 Levothyroxine Sodium (Synthroid) 100 mcg DAILY06 PO Last administered on 05:29; Start 08/02/18 at 06:00 Metoprolol Tartrate (Lopressor) 25 mg PRN DAILY PRN PO HYPERTENSION, SEE COMMENTS; Start 08/01/18 at 17:15 Lorazepam (Ativan) 0.5 mg BID PO Last administered on 08/10/18at 19:50; Start 08/01/18 at 21:00 Metformin HCl (Glucophage) 850 mg BIDWMEALS PO Last administered on 08/05/18at 09:19; Start 08/02/18 at 08:00; Stop 08/05/18 at 16:00; Status DC Influenza Virus Vaccine (Afluria Trivalent [id number] Syringe) 0.5 ml ONCE ONCE VAX IM Last administered on 08/02/18at 16:26; Start 08/02/18 at 09:00; Stop 08/02/18 at 09:01; Status DC Lactobacillus Rhamnosus (Culturelle) 1 cap BID PO ; Start 08/02/18 at 09:00; Status Cancel Carbamide Peroxide (Debrox) 5 drop PRN BID PRN AU IMPACTION; Start 08/02/18 at 15:45 Fluconazole (Diflucan) 150 mg 1X ONCE PO Last administered on 08/02/18at 22:29 ; Start 08/02/18 at 22:30; Stop 08/02/18 at 22:31; Status DC Nystatin/ Triamcinolone Acetonide (Mycolog Ii) 1 milena BID TP Last administered on 08/10/18at 19:50; Start 08/03/18 at 09:00; Stop 08/13/18 at 08:59 Levothyroxine Sodium (Synthroid) 100 mcg DAILY06 PO ; Start 08/03/18 at 06:00; Status UNV Cephalexin HCl (Keflex) 500 mg TID PO ; Start 08/16/18 at 09:00; Status Cancel Metformin HCl (Glucophage Xr) 500 mg BIDWMEALS PO Last administered on at 16:13; Start 08/05/18 at 17:00 Loperamide HCl (Imodium) 2 mg PRN Q4HRS PRN PO DIARRHEA Last administered on at 16:11; Start 08/07/18 at 15:15 Guaifenesin (Robitussin Dm) 10 ml PRN Q6HRS PRN PO COUGH Last administered on 08/10/18at 16:13; Start 08/07/18 at 15:15 Risperidone (RisperDAL) 0.5 mg QHS PO Last administered on 08/10/18at 19:42; Start 08/07/18 at 21:00 Active Scripts Active Reported Bisacodyl 5 Mg Tablet.dr 5 Mg PO PRN BID PRN Metoprolol Tartrate 25 Mg Tablet 25 Mg PO PRN DAILY PRN Lorazepam 0.5 Mg Tablet 0.5 Mg PO BID Levothyroxine Sodium 100 Mcg Tablet 100 Mcg PO DAILYAC D3-50 (Cholecalciferol (Vitamin D3)) 50,000 Unit Capsule 50,000 Unit PO WEEKLY ON FRIDAY Earwax Treatment Drops (Carbamide Peroxide) 15 Ml Drops 5 Drp AU PRN BID PRN Tylenol (Acetaminophen) 325 Mg Tablet 650 Mg PO PRN Q6HRS PRN Depakote Er (Divalproex Sodium) 500 Mg Tab.er.24h 1,250 Mg PO HS Fenofibrate (Fenofibrate,Micronized) 134 Mg Capsule 134 Mg PO DAILY Levemir Flextouch (Insulin Detemir) 100 Unit/1 Ml Insuln.pen 18 Unit SQ HS Magnesium (Magnesium Oxide) 400 Mg Capsule 250 Mg PO DAILY Atorvastatin Calcium 20 Mg Tablet 20 Mg PO DAILY B-12 (Cyanocobalamin (Vitamin B-12)) 500 Mcg Tablet 250 Mcg PO DAILY Acidophilus (Lactobacillus Acidophilus) 1 Each Capsule 1 Each PO BID Metformin Hcl 850 Mg Tablet 850 Mg PO BIDWMEALS Ferrous Sulfate 325 Mg Tablet 1 Tab PO DAILY Metoprolol Tartrate 25 Mg Tablet 25 Mg PO DAILY Aspirin 81 Mg Tab.chew 81 Mg PO DAILY Cetirizine Hcl 10 Mg Tablet 10 Mg PO PRN DAILY PRN Hydrocodone-Apap 7.5-325 (Hydrocodone Bit/Acetaminophen) 1 Each Tablet 1 Tab PO PRN Q6HRS PRN Protonix (Pantoprazole Sodium) 20 Mg Tablet.dr 40 Mg PO PRN DAILY PRN I have reviewed the current psychotropics carefully including drug interactions. Risk benefit ratio favors no change other than as noted in my dictated progress note. 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
--- NOTE | 2018-08-10 23:30 | PN ---
DATE: 08/09/2018 This is a late entry 08/09/2018, covers the elements not covered in my initial note. SUBJECTIVE: I met with the patient in the evening. The patient slept 8-1/4 hours the previous night. She has been extremely perseverative, anxious, repeatedly following me around the unit wanting a discharge date and after I told her tentative discharge date, she was unmoved. REVIEW OF SYSTEMS: No CV, , pulmonary, eye system symptoms on review. Reliability poor. MENTAL STATUS EXAM: Oriented to herself. Insight, judgment, recent memory is impaired. Language function intact. Attention span short. Mood and affect remained somewhat labile. LABORATORY DATA: Reviewed. IMPRESSION: Schizoaffective disorder, bipolar type, mixed, major neurocognitive disorder, Alzheimer, vascular with delusions. PLAN: No change from initial note. Continue to increase the Risperdal gradually as tolerated, consequent to her past history of Torsades. LAURITA DAVIS MD DR: SUMEET/kirill JOB#: [id number] / [id number]
[2018-08-11] MEDS: LEVOTHYROXINE 100 MCG TABLET PO SCH (05:45)
[2018-08-11] MEDS: ACETAMINOPHEN 325 MG TABLET PO PRN (05:45)
--- NOTE | 2018-08-11 05:45 | NUR ---
Briseida awoke complaining of rt foot pain. PRN Tylenol given. Inner aspect posterior rt foot caster to touch, no obvious injury seen.
[2018-08-11 06:01] VITALS: BP 128/77
--- NOTE | 2018-08-11 07:03 | EKG ---
[address] [address] Test Date: 2018-08-10 Test Time: 21:24:16 Pat Name: JOSETTE MARTINEZ Department: Room: [address] [place] [address] Gender: F Mgmt Consultant: EILEEN : 1945 Requested By: SALVADOR JIMENES Order Number: [id number] Reading MD: Cipriano Escobar MD Measurements Intervals [place] Rate: 77 P: 0 CT: 154 QRS: 21 QRSD: 138 T: -139 QT: 422 QTc: 480 Interpretive Statements SINUS RHYTHM LBBB Electronically Signed On 08-11-2018 13:59:08 MACHINE OPERATOR CANE CUTTER by Cipriano Escobar MD
--- NOTE | 2018-08-11 07:03 | EKG ---
[address] [address] Test Date: 2018-08-10 Test Time: 13:59:14 Pat Name: JOSETTE MARTINEZ Department: Room: [address] [place] [address] Gender: F Prenatal Genetic Counselor: EILEEN : 1945 Requested By: SALVADOR JIMENES Order Number: [id number] Reading MD: Cipriano Escobar MD Measurements Intervals [place] Rate: 94 P: 34 MN: 206 QRS: -25 QRSD: 140 T: 175 QT: 390 QTc: 494 Interpretive Statements SINUS RHYTHM ATRIAL PREMATURE COMPLEX(ES) PROLONGED MN INTERVAL MILD LAD LBBB Electronically Signed On 08-11-2018 13:55:25 SPLICER OPERATOR by Cipriano Escobar MD
--- NOTE | 2018-08-11 07:03 | EKG ---
[address] [address] Test Date: 2018-08-10 Test Time: 14:00:57 Pat Name: JOSETTE MARTINEZ Department: Room: [address] [place] [address] Gender: F Textiles Sales Representative: EILEEN : 1945 Requested By: SALVADOR JIMENES Order Number: [id number] Reading MD: Cipriano Escobar MD Measurements Intervals [place] Rate: 77 P: -6 MS: 162 QRS: -24 QRSD: 140 T: -164 QT: 402 QTc: 457 Interpretive Statements SINUS RHYTHM LBBB Electronically Signed On 08-11-2018 13:55:37 POWER SUPERINTENDENT by Cipriano Escobar MD
[2018-08-11] MEDS: FENOFIBRATE NANOCRYSTALLIZED 145 MG TABLET PO SCH (07:58)
[2018-08-11] MEDS: CYANOCOBALAMIN (VITAMIN B-12) 250 MCG TABLET PO SCH (07:58)
[2018-08-11] MEDS: FERROUS SULFATE 325 MG TABLET. PO SCH (07:58)
[2018-08-11] MEDS: LACTOBACILLUS RHAMNOSUS GG 1 CAPSULE. PO SCH ×2 (07:58→19:49)
[2018-08-11] MEDS: metFORMIN XR 500 MG TAB.ER.24H PO SCH ×2 (07:58→17:17)
[2018-08-11] MEDS: MAGNESIUM OXIDE 400 MG TABLET PO SCH (07:58)
[2018-08-11] MEDS: LORazepam 0.5 MG TABLET PO SCH ×2 (07:58→19:51)
[2018-08-11] MEDS: ASPIRIN 81 MG TAB.CHEW PO SCH (07:58)
[2018-08-11] MEDS: guaiFENesin DM 200MG/20MG 10 ML SYRUP PO PRN ×3 (07:59→22:59)
[2018-08-11] MEDS: METOPROLOL TART IMMED RELEASE 25 MG TABLET PO SCH (07:59)
[2018-08-11] MEDS: NYSTATIN/TRIAMCIN TOPICAL CREAM 15GM TUBE. TP SCH ×2 (08:00→19:51)
--- NOTE | 2018-08-11 10:41 | NUR ---
Review completed with Naina [facility]/[employer]/Medicaid on this date. Briseida is approved thru 08/12/18 with d/c on 08/13/18. Will continue with d/c planning.
--- NOTE | 2018-08-11 10:47 | NUR ---
Call placed to CHYNA Jamison at [facility], to confirm that Briseida will be discharged on 08/13/18. Yaquelin will call back with transport time.
--- NOTE | 2018-08-11 10:48 | NUR ---
[facility] Social Work Discharge Planning Form Patient Name JOSETTE MARTINEZ Admit Date: 08/01/18 DISCHARGE PLAN Discharge Destination: [facility] Care Assessment: Previously completed Transportation: [facility] to transport, will call with sisal picker time Special Instructions/Notes: Arrange for f/u appointments with PCP and facility psychiatrist in 7-10 days. Schedule urology appointment, referral has been completed to [facility] DISCHARGE TO FACILITY Facility: [facility] Address: [address] [place] [id number] Contact Name: CHYNA Jamison Contact Name: ALEXIS Poole PCP: Dr. Cullen [phone], (fax) Psychiatrist: In house facility provider
--- NOTE | 2018-08-11 11:30 | NUR ---
Behavior Intervention Response and Plan: BIRP Note: Behavior: Assumed Care of patient, patient located in Patient Room at shift change. Patient exhibited the following behavior Disorganized, Compulsive, Withdrawn. Brief assessment on rounds of vital signs, medication needs, lab studies, and pain. Treatment plan problems 1 & 2. Intervention: Patient assessed and the following interventions initiated safety checks 15 Minute Checks Cognitive Assessment , Head to toe Assessment , Medications. Response: After interactions and interventions patient responded in the following manner, Calm , Compliant ,Disorganized. Continue to assess behaviors and condition will continue to monitor throughout the shift as needed. Patient educated on ADL's, and hand hygiene. Plan: Continue to monitor Master Treatment Plan for patient's progress toward short term goals of Decreased Agitation, Medication Compliance, buttermaker helper goals to return to previous living setting vs placement. Continue to assess patient for changes in above assessment. Monitor for medication needs, pain, and safety concerns. Hourly rounding performed to ensure safe environment.
--- NOTE | 2018-08-11 12:10 | NUR ---
Patient complains of bilateral foot pain with point tenderness on right first metatarsal. PRN provided per MD Louisa informed, will continue to monitor.
[2018-08-11] MEDS: HYDROcodone/APAP 7.5/325MG 1 TAB TABLET PO PRN ×2 (12:22→22:59)
--- NOTE | 2018-08-11 15:12 | PN ---
DATE: 08/10/2018 This late entry, 08/10/2018, covers elements not covered in my initial note. SUBJECTIVE: I met with the patient in the evening. The patient slept 5 hours previous evening. She remains somewhat anxious, obsessive, repetitive, but despite this, mood lability is better. She has vague somatic symptoms. REVIEW OF SYSTEMS: No CV, , pulmonary, eye, ENT system symptoms on review. Reliability poor. MENTAL STATUS EXAM: Oriented to herself and situation. Speech coherent, rapid at times. Abstraction fair, computation impaired, language function intact, attention span short. Mood and affect remained somewhat anxious, labile. LABORATORY DATA: Reviewed. IMPRESSION: She does complain of discomfort in her bottom. Does have a prolapse and will need outpatient Urology followup post-discharge. IMPRESSION: Unchanged from initial note. PLAN: No change from initial note. Continue Depakote and Risperdal added 0.5 mg p.o. daily. Continue Ativan current dosage. LAURITA DAVIS MD DR: SUMEET/kirill JOB#: [id number] / [id number]
[2018-08-11 16:08] VITALS: BP 143/75
[2018-08-11 17:19] LABS: BILIRUBIN,URINE NEG (NEG); CLARITY,URINE HAZY; COLOR,URINE YELLOW; GLUCOSE,URINE NEG (NEG); NITRITE,URINE NEG (NEG); UROBILINOGEN,URINE 0.2 mg/dL (0.2 mg/dL)
[2018-08-11 17:20] LABS: BACTERIA,URINE MOD /HPF (0-FEW); SQUAMOUS EPITHELIAL CELL,UR FEW /LPF
--- NOTE | 2018-08-11 17:45 | NUR ---
Per MD order, cardiology paged for approval to increase risperdal to 0.75mg at HS. call manager toolroom clerk states he is not familiar with patient and instructs me to call his office after 0830am to speak with her regular toolroom clerk. Will continue to monitor and contact toolroom clerk in am.
[2018-08-11] MEDS: DIVALPROEX ER 250 MG TAB.ER.24H. PO SCH (19:49)
[2018-08-11] MEDS: ATORVASTATIN CALCIUM 20 MG TABLET PO SCH (19:49)
[2018-08-11] MEDS: risperiDONE 0.5 MG TABLET. PO SCH (19:49)
[2018-08-11] MEDS: INSULIN GLARGINE 300 UNITS/3 ML INSULN.PEN. SQ SCH (20:18)
--- NOTE | 2018-08-11 23:07 | NUR ---
Nursing Note Pt complains of swelling and pain to right leg, left leg swollen as well. Paged Dr. Segovia for orders, US of legs bilat pending. Lortab for pain, assisted patient with wheelchair to and from bathroom and sono.
--- NOTE | 2018-08-11 23:13 | RAD ---
EXAM: Bilateral lower extremity venous Doppler sonogram. HISTORY: Swelling and pain. TECHNIQUE: Mars scale and color Doppler sonographic evaluation of the bilateral lower extremity veins with spectral waveform analysis was performed. FINDINGS: There is normal color flow, normal compressibility and there are normal spectral waveforms in the lower extremity veins. The peroneal veins are not well seen due to soft tissue edema and body habitus. IMPRESSION: No Doppler evidence of lower extremity deep venous thrombosis, with limited evaluation of the peroneal veins due to soft tissue edema and body habitus. Electronically signed by: Emili Amato MD (08/11/2018 11:10 PM) [facility]
[2018-08-12] MEDS: LEVOTHYROXINE 100 MCG TABLET PO SCH (05:26)
[2018-08-12 05:44] VITALS: BP 126/72
[2018-08-12] MEDS: HYDROcodone/APAP 7.5/325MG 1 TAB TABLET PO PRN ×2 (06:01→14:07)
[2018-08-12] MEDS: CYANOCOBALAMIN (VITAMIN B-12) 250 MCG TABLET PO SCH (08:03)
[2018-08-12] MEDS: FENOFIBRATE NANOCRYSTALLIZED 145 MG TABLET PO SCH (08:03)
[2018-08-12] MEDS: ASPIRIN 81 MG TAB.CHEW PO SCH (08:03)
[2018-08-12] MEDS: LORazepam 0.5 MG TABLET PO SCH ×2 (08:04→20:17)
[2018-08-12] MEDS: MAGNESIUM OXIDE 400 MG TABLET PO SCH (08:04)
[2018-08-12] MEDS: FERROUS SULFATE 325 MG TABLET. PO SCH (08:04)
[2018-08-12] MEDS: metFORMIN XR 500 MG TAB.ER.24H PO SCH ×2 (08:04→17:04)
[2018-08-12] MEDS: LACTOBACILLUS RHAMNOSUS GG 1 CAPSULE. PO SCH ×2 (08:04→20:10)
[2018-08-12] MEDS: METOPROLOL TART IMMED RELEASE 25 MG TABLET PO SCH (08:05)
--- NOTE | 2018-08-12 08:08 | RAD ---
Right tibia and fibula, 2 views, 08/12/2018: HISTORY: Pain The bony structures are demineralized. No fracture or destructive bony lesion is seen. There is moderate subcutaneous edema. Scattered arterial calcifications are present. IMPRESSION: 1. Demineralization. 2. No acute bony abnormality is detected. Right ankle, 2 views, 08/12/2018: No fracture or dislocation is identified. No significant arthritic change is evident at the ankle joint. IMPRESSION: No acute bony abnormality is detected. Right foot, 2 views, 08/12/2018: The bony structures are demineralized. There are moderate scattered degenerative changes. A moderate sized inferior calcaneal spur is present. No fracture or destructive bony lesion is seen. There is moderate subcutaneous edema and scattered arterial calcifications. IMPRESSION: 1. Moderate scattered degenerative changes. 2. No acute bony abnormality is detected. Electronically signed by: Stanislaw Lorenz MD (08/12/2018 8:04 AM) [facility]
[2018-08-12] MEDS: NYSTATIN/TRIAMCIN TOPICAL CREAM 15GM TUBE. TP SCH ×2 (09:14→20:52)
--- NOTE | 2018-08-12 11:22 | EKG ---
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
--- NOTE | 2018-08-12 16:30 | NUR ---
Cardiology states that increases in risperdal are acceptable as long as QTc remains below 500ms. Current QTc is 475ms, will increase Risperdal to 0.75mg PO HS per MD order and repeat EKG in morning.
[2018-08-12 16:31] VITALS: BP 107/67
--- NOTE | 2018-08-12 19:01 | PN ---
DATE: 08/11/2018 PSYCHIATRIC PROGRESS NOTE This late entry 08/11/2018 covers elements not covered in my initial note. SUBJECTIVE: I met with the patient in the evening. The patient slept 6-1/2 hours previous night. She has had some cough, wanting cough syrup; toilets herself x 1. Staff found her urine to be foul smelling, will check UA to rule out urinary tract infection. I have asked the nursing staff to check with Dr. Escobar regarding the EKG is being done every 12 hours to get approval to increase the Risperdal from 0.5 mg at bedtime to 0.75 mg p.o. at bedtime. REVIEW OF SYSTEMS: In addition, she complains of pain in lower extremity, will defer to Dr. Lopez. No CV, , pulmonary, eye, ENT system symptoms on review. Gait somewhat unsteady. MENTAL STATUS EXAM: Oriented to herself and situation. Speech is coherent, rapid at times. Abstraction fair, computation impaired, language function intact, attention span short. Mood and affect somewhat labile, but better than before. LABORATORY DATA: Reviewed. IMPRESSION: Bipolar 1 disorder, mixed; anxiety disorder, unspecified; major neurocognitive disorder, Alzheimer, vascular with delusions. PLAN: No change from initial note, increase Risperdal to 0.75 mg at bedtime if approved by Cardiology. Rest unchanged. MAN Kingston DAVIS MD DR: SUMEET/kirill JOB#: [id number] / [id number]
[2018-08-12] MEDS: ATORVASTATIN CALCIUM 20 MG TABLET PO SCH (20:10)
[2018-08-12] MEDS: DIVALPROEX ER 250 MG TAB.ER.24H. PO SCH (20:10)
[2018-08-12] MEDS: risperiDONE 0.5 MG TABLET. PO SCH (20:10)
[2018-08-12] MEDS: SMZ/TMP 800/160MG TABLET. PO SCH (20:20)
[2018-08-12] MEDS: INSULIN GLARGINE 300 UNITS/3 ML INSULN.PEN. SQ SCH (20:25)
[2018-08-12] MEDS ORDERED: risperiDONE 0.5 MG TABLET. PO SCH (21:00)
--- NOTE | 2018-08-12 22:35 | PDOC ---
Exam Note: Hemant Note: Late entry for DOS 08/11/2018. Please also refer to the separate dictated note~ for this date of service dictated separately.~Patient seen individually. Discussed the patient with Nursing staff reviewed the chart.~Reviewed interim history and current functioning. Reviewed vital signs,~Labs/ Radiology~and current medications noted below. Continue current treatment with the changes noted in the dictated addendum note Assessment: Vital Signs: VS - Last 72 Hours, by Label Date Time Temp Pulse Resp B/P (MAP) Pulse Ox O2 Delivery O2 Flow Rate FiO2 08/12/18 17:04 18 98 Room Air 08/12/18 16:31 98.1 81 18 107/67 (80) 98 08/12/18 14:07 18 97 Room Air 08/12/18 08:05 91 126/72 08/12/18 06:01 97 08/12/18 05:44 97.2 91 24 126/72 (90) 97 08/11/18 22:59 100 08/11/18 16:08 97.9 82 20 143/75 (97) 100 Room Air 08/11/18 12:22 18 99 Room Air 08/11/18 07:59 72 128/77 08/11/18 06:01 98.6 72 18 128/77 (94) 99 Room Air 08/10/18 15:01 97.7 83 17 129/79 (96) 99 Room Air 08/10/18 09:13 69 124/65 08/10/18 06:02 97.0 69 20 124/65 (84) 99 08/10/18 01:47 18 100 Vital Signs Date Time Temp Pulse Resp B/P (MAP) Pulse Ox O2 Delivery O2 Flow Rate FiO2 08/12/18 17:04 18 98 Room Air 08/12/18 16:31 98.1 81 107/67 (80) I&O Intake and Output 08/12/18 07:00 Intake Total 1080 ml Balance 1080 ml Intake Oral 1080 ml Labs: Laboratory Tests Test 08/12/18 08:01 08/12/18 19:44 Glucose (Fingerstick) 115 mg/dL (70-99) H 163 mg/dL (70-99) H Current Medications: Meds: Current Medications Acetaminophen (Tylenol) 650 mg 1X ONCE PO Last administered on 08/01/18at 11: 44; Start 08/01/18 at 11:45; Stop 08/01/18 at 11:46; Status DC Sodium Chloride 500 ml @ 0 mls/hr 1X ONCE IV Last administered on 08/01/18at 11:45; Start 08/01/18 at 11:45; Stop 08/01/18 at 11:50; Status DC Acetaminophen (Tylenol) 650 mg PRN Q6HRS PRN PO PAIN / TEMP Last administered on 08/11/18at 05:45; Start 08/01/18 at 16:45 Vitamin D (Vitamin D3) 50,000 unit Th PO Last administered on 08/06/18at 07:37; Start 08/06/18 at 09:00 Metoprolol Tartrate (Lopressor) 25 mg DAILY PO Last administered on 08/12/18at 08:05; Start 08/02/18 at 09:00 Aspirin (Children'S Aspirin) 81 mg DAILYWBKFT PO Last administered on at 08:03; Start 08/02/18 at 08:00 Carbamide Peroxide (Debrox) 5 drop PRN BID PRN AU IMPACTION; Start 08/01/18 at 17:30; Stop 08/02/18 at 15:39; Status DC Cetirizine HCl (ZyrTEC) 10 mg PRN DAILY PRN PO ALLERGIES Last administered on 08/07/18at 16:11; Start 08/01/18 at 18:00 Cyanocobalamin (Vitamin B-12) 250 mcg DAILY PO Last administered on 08/12/18at 08:03; Start 08/02/18 at 09:00 Divalproex Sodium (Depakote Er) 1,250 mg QHS PO Last administered on 08/12/18at 20:10; Start 08/01/18 at 21:00 Fenofibrate (Tricor) 145 mg DAILY PO Last administered on 08/12/18at 08:03; Start 08/02/18 at 09:00 Insulin Glargine (Lantus) 18 units QHS SQ Last administered on 08/12/18at 20:25 ; Start 08/01/18 at 21:00 Lactobacillus Rhamnosus (Culturelle) 1 cap BID PO Last administered on at 20:10; Start 08/01/18 at 21:00 Magnesium Oxide (Magnesium Oxide) 200 mg DAILY PO Last administered on at 08:04; Start 08/02/18 at 09:00 Pantoprazole Sodium (Protonix) 40 mg PRN DAILY PRN PO ACID REFLUX; Start 08/02 at 07:30 Atorvastatin Calcium (Lipitor) 20 mg QHS PO Last administered on 08/12/18at 20: 10; Start 08/01/18 at 21:00 Bisacodyl (Dulcolax Tab) 5 mg PRN BID PRN PO CONSTIPATION; Start 08/01/18 at 17:15 Ferrous Sulfate (Feosol) 325 mg DAILY08 PO Last administered on 08/12/18at 08:04 ; Start 08/02/18 at 08:00 Acetaminophen/ Hydrocodone Bitart (Lortab 7.5/325) 1 tab PRN Q6HRS PRN PO MOD/ SEVERE PAIN Last administered on 08/12/18at 14:07; Start 08/01/18 at 17:15 Levothyroxine Sodium (Synthroid) 100 mcg DAILY06 PO Last administered on at 05:26; Start 08/02/18 at 06:00 Metoprolol Tartrate (Lopressor) 25 mg PRN DAILY PRN PO HYPERTENSION, SEE COMMENTS; Start 08/01/18 at 17:15 Lorazepam (Ativan) 0.5 mg BID PO Last administered on 08/12/18at 20:17; Start 08/01/18 at 21:00 Metformin HCl (Glucophage) 850 mg BIDWMEALS PO Last administered on 08/05/18at 09:19; Start 08/02/18 at 08:00; Stop 08/05/18 at 16:00; Status DC Influenza Virus Vaccine (Afluria Trivalent [id number] Syringe) 0.5 ml ONCE ONCE VAX IM Last administered on 08/02/18at 16:26; Start 08/02/18 at 09:00; Stop 08/02/18 at 09:01; Status DC Lactobacillus Rhamnosus (Culturelle) 1 cap BID PO ; Start 08/02/18 at 09:00; Status Cancel Carbamide Peroxide (Debrox) 5 drop PRN BID PRN AU IMPACTION; Start 08/02/18 at 15:45 Fluconazole (Diflucan) 150 mg 1X ONCE PO Last administered on 08/02/18at 22:29 ; Start 08/02/18 at 22:30; Stop 08/02/18 at 22:31; Status DC Nystatin/ Triamcinolone Acetonide (Mycolog Ii) 1 milena BID TP Last administered on 08/12/18at 20:52; Start 08/03/18 at 09:00; Stop 08/13/18 at 08:59 Levothyroxine Sodium (Synthroid) 100 mcg DAILY06 PO ; Start 08/03/18 at 06:00; Status UNV Cephalexin HCl (Keflex) 500 mg TID PO ; Start 08/16/18 at 09:00; Status Cancel Metformin HCl (Glucophage Xr) 500 mg BIDWMEALS PO Last administered on at 17:04; Start 08/05/18 at 17:00 Loperamide HCl (Imodium) 2 mg PRN Q4HRS PRN PO DIARRHEA Last administered on at 16:11; Start 08/07/18 at 15:15 Guaifenesin (Robitussin Dm) 10 ml PRN Q6HRS PRN PO COUGH Last administered on 08/11/18at 22:59; Start 08/07/18 at 15:15 Risperidone (RisperDAL) 0.5 mg QHS PO Last administered on 08/12/18at 20:10; Start 08/07/18 at 21:00; Stop 08/12/18 at 20:21; Status DC Trimethoprim/ Sulfamethoxazole (Bactrim Ds) 1 tab BID PO Last administered on 08/12/18at 20:20; Start 08/12/18 at 21:00; Stop 08/22/18 at 20:59 Risperidone (RisperDAL) 0.75 mg QHS PO Last administered on 08/12/18at 20:52; Start 08/12/18 at 21:00 Active Scripts Active Reported Bisacodyl 5 Mg Tablet.dr 5 Mg PO PRN BID PRN Metoprolol Tartrate 25 Mg Tablet 25 Mg PO PRN DAILY PRN Lorazepam 0.5 Mg Tablet 0.5 Mg PO BID Levothyroxine Sodium 100 Mcg Tablet 100 Mcg PO DAILYAC D3-50 (Cholecalciferol (Vitamin D3)) 50,000 Unit Capsule 50,000 Unit PO WEEKLY ON FRIDAY Earwax Treatment Drops (Carbamide Peroxide) 15 Ml Drops 5 Drp AU PRN BID PRN Tylenol (Acetaminophen) 325 Mg Tablet 650 Mg PO PRN Q6HRS PRN Depakote Er (Divalproex Sodium) 500 Mg Tab.er.24h 1,250 Mg PO HS Fenofibrate (Fenofibrate,Micronized) 134 Mg Capsule 134 Mg PO DAILY Levemir Flextouch (Insulin Detemir) 100 Unit/1 Ml Insuln.pen 18 Unit SQ HS Magnesium (Magnesium Oxide) 400 Mg Capsule 250 Mg PO DAILY Atorvastatin Calcium 20 Mg Tablet 20 Mg PO DAILY B-12 (Cyanocobalamin (Vitamin B-12)) 500 Mcg Tablet 250 Mcg PO DAILY Acidophilus (Lactobacillus Acidophilus) 1 Each Capsule 1 Each PO BID Metformin Hcl 850 Mg Tablet 850 Mg PO BIDWMEALS Ferrous Sulfate 325 Mg Tablet 1 Tab PO DAILY Metoprolol Tartrate 25 Mg Tablet 25 Mg PO DAILY Aspirin 81 Mg Tab.chew 81 Mg PO DAILY Cetirizine Hcl 10 Mg Tablet 10 Mg PO PRN DAILY PRN Hydrocodone-Apap 7.5-325 (Hydrocodone Bit/Acetaminophen) 1 Each Tablet 1 Tab PO PRN Q6HRS PRN Protonix (Pantoprazole Sodium) 20 Mg Tablet.dr 40 Mg PO PRN DAILY PRN I have reviewed the current psychotropics carefully including drug interactions. Risk benefit ratio favors no change other than as noted in my dictated progress note. Diagnosis: Problems: (1) Anxiety disorder (2) Bipolar affective disorder, mixed (3) Borderline intellectual disability (4) Borderline intellectual disability (5) Dementia in Alzheimer's disease with delusions (6) Dementia, vascular, with delusions (7) Impulse control disorder LAURITA DAVIS MD Aug 12, 2018 22:35
--- NOTE | 2018-08-12 23:09 | PDOC ---
Exam Note: Hemant Note: Please also refer to the separate dictated note~for this date of service dictated separately.~Patient seen individually. Discussed the patient with Nursing staff reviewed the chart.~Reviewed interim history and current functioning. Reviewed vital signs,~Labs/ Radiology~and current medications noted below. Continue current treatment with the changes noted in the dictated addendum note Assessment: Vital Signs: Vital Signs Date Time Temp Pulse Resp B/P (MAP) Pulse Ox O2 Delivery O2 Flow Rate FiO2 08/12/18 17:04 18 98 Room Air 08/12/18 16:31 98.1 81 107/67 (80) I&O Intake and Output 08/12/18 07:00 Intake Total 1080 ml Balance 1080 ml Intake Oral 1080 ml Labs: Laboratory Tests Test 08/12/18 08:01 08/12/18 19:44 Glucose (Fingerstick) 115 mg/dL (70-99) H 163 mg/dL (70-99) H Current Medications: Meds: Current Medications Acetaminophen (Tylenol) 650 mg 1X ONCE PO Last administered on 08/01/18at 11: 44; Start 08/01/18 at 11:45; Stop 08/01/18 at 11:46; Status DC Sodium Chloride 500 ml @ 0 mls/hr 1X ONCE IV Last administered on 08/01/18at 11:45; Start 08/01/18 at 11:45; Stop 08/01/18 at 11:50; Status DC Acetaminophen (Tylenol) 650 mg PRN Q6HRS PRN PO PAIN / TEMP Last administered on 08/11/18at 05:45; Start 08/01/18 at 16:45 Vitamin D (Vitamin D3) 50,000 unit Th PO Last administered on 08/06/18at 07:37; Start 08/06/18 at 09:00 Metoprolol Tartrate (Lopressor) 25 mg DAILY PO Last administered on 08/12/18at 08:05; Start 08/02/18 at 09:00 Aspirin (Children'S Aspirin) 81 mg DAILYWBKFT PO Last administered on at 08:03; Start 08/02/18 at 08:00 Carbamide Peroxide (Debrox) 5 drop PRN BID PRN AU IMPACTION; Start 08/01/18 at 17:30; Stop 08/02/18 at 15:39; Status DC Cetirizine HCl (ZyrTEC) 10 mg PRN DAILY PRN PO ALLERGIES Last administered on 08/07/18 16:11; Start 08/01/18 at 18:00 Cyanocobalamin (Vitamin B-12) 250 mcg DAILY PO Last administered on 08/12/18 08:03; Start 08/02/18 at 09:00 Divalproex Sodium (Depakote Er) 1,250 mg QHS PO Last administered on 08/12/18 20:10; Start 08/01/18 at 21:00 Fenofibrate (Tricor) 145 mg DAILY PO Last administered on 08/12/18 08:03; Start 08/02/18 at 09:00 Insulin Glargine (Lantus) 18 units QHS SQ Last administered on 08/12/18 20:25 ; Start 08/01/18 at 21:00 Lactobacillus Rhamnosus (Culturelle) 1 cap BID PO Last administered on 20:10; Start 08/01/18 at 21:00 Magnesium Oxide (Magnesium Oxide) 200 mg DAILY PO Last administered on 08:04; Start 08/02/18 at 09:00 Pantoprazole Sodium (Protonix) 40 mg PRN DAILY PRN PO ACID REFLUX; Start 08/02 at 07:30 Atorvastatin Calcium (Lipitor) 20 mg QHS PO Last administered on 08/12/18at 20: 10; Start 08/01/18 at 21:00 Bisacodyl (Dulcolax Tab) 5 mg PRN BID PRN PO CONSTIPATION; Start 08/01/18 at 17:15 Ferrous Sulfate (Feosol) 325 mg DAILY08 PO Last administered on 08/12/18 08:04 ; Start 08/02/18 at 08:00 Acetaminophen/ Hydrocodone Bitart (Lortab 7.5/325) 1 tab PRN Q6HRS PRN PO MOD/ SEVERE PAIN Last administered on 08/12/18 14:07; Start 08/01/18 at 17:15 Levothyroxine Sodium (Synthroid) 100 mcg DAILY06 PO Last administered on 05:26; Start 08/02/18 at 06:00 Metoprolol Tartrate (Lopressor) 25 mg PRN DAILY PRN PO HYPERTENSION, SEE COMMENTS; Start 08/01/18 at 17:15 Lorazepam (Ativan) 0.5 mg BID PO Last administered on 08/12/18at 20:17; Start 08/01/18 at 21:00 Metformin HCl (Glucophage) 850 mg BIDWMEALS PO Last administered on 08/05/18at 09:19; Start 08/02/18 at 08:00; Stop 08/05/18 at 16:00; Status DC Influenza Virus Vaccine (Afluria Trivalent [id number] Syringe) 0.5 ml ONCE ONCE VAX IM Last administered on 08/02/18at 16:26; Start 08/02/18 at 09:00; Stop 08/02/18 at 09:01; Status DC Lactobacillus Rhamnosus (Culturelle) 1 cap BID PO ; Start 08/02/18 at 09:00; Status Cancel Carbamide Peroxide (Debrox) 5 drop PRN BID PRN AU IMPACTION; Start 08/02/18 at 15:45 Fluconazole (Diflucan) 150 mg 1X ONCE PO Last administered on 08/02/18at 22:29 ; Start 08/02/18 at 22:30; Stop 08/02/18 at 22:31; Status DC Nystatin/ Triamcinolone Acetonide (Mycolog Ii) 1 milena BID TP Last administered on 08/12/18at 20:52; Start 08/03/18 at 09:00; Stop 08/13/18 at 08:59 Levothyroxine Sodium (Synthroid) 100 mcg DAILY06 PO ; Start 08/03/18 at 06:00; Status UNV Cephalexin HCl (Keflex) 500 mg TID PO ; Start 08/16/18 at 09:00; Status Cancel Metformin HCl (Glucophage Xr) 500 mg BIDWMEALS PO Last administered on at 17:04; Start 08/05/18 at 17:00 Loperamide HCl (Imodium) 2 mg PRN Q4HRS PRN PO DIARRHEA Last administered on at 16:11; Start 08/07/18 at 15:15 Guaifenesin (Robitussin Dm) 10 ml PRN Q6HRS PRN PO COUGH Last administered on 08/11/18at 22:59; Start 08/07/18 at 15:15 Risperidone (RisperDAL) 0.5 mg QHS PO Last administered on 08/12/18at 20:10; Start 08/07/18 at 21:00; Stop 08/12/18 at 20:21; Status DC Trimethoprim/ Sulfamethoxazole (Bactrim Ds) 1 tab BID PO Last administered on 08/12/18at 20:20; Start 08/12/18 at 21:00; Stop 08/22/18 at 20:59 Risperidone (RisperDAL) 0.75 mg QHS PO Last administered on 08/12/18at 20:52; Start 08/12/18 at 21:00 Active Scripts Active Reported Bisacodyl 5 Mg Tablet.dr 5 Mg PO PRN BID PRN Metoprolol Tartrate 25 Mg Tablet 25 Mg PO PRN DAILY PRN Lorazepam 0.5 Mg Tablet 0.5 Mg PO BID Levothyroxine Sodium 100 Mcg Tablet 100 Mcg PO DAILYAC D3-50 (Cholecalciferol (Vitamin D3)) 50,000 Unit Capsule 50,000 Unit PO WEEKLY ON FRIDAY Earwax Treatment Drops (Carbamide Peroxide) 15 Ml Drops 5 Drp AU PRN BID PRN Tylenol (Acetaminophen) 325 Mg Tablet 650 Mg PO PRN Q6HRS PRN Depakote Er (Divalproex Sodium) 500 Mg Tab.er.24h 1,250 Mg PO HS Fenofibrate (Fenofibrate,Micronized) 134 Mg Capsule 134 Mg PO DAILY Levemir Flextouch (Insulin Detemir) 100 Unit/1 Ml Insuln.pen 18 Unit SQ HS Magnesium (Magnesium Oxide) 400 Mg Capsule 250 Mg PO DAILY Atorvastatin Calcium 20 Mg Tablet 20 Mg PO DAILY B-12 (Cyanocobalamin (Vitamin B-12)) 500 Mcg Tablet 250 Mcg PO DAILY Acidophilus (Lactobacillus Acidophilus) 1 Each Capsule 1 Each PO BID Metformin Hcl 850 Mg Tablet 850 Mg PO BIDWMEALS Ferrous Sulfate 325 Mg Tablet 1 Tab PO DAILY Metoprolol Tartrate 25 Mg Tablet 25 Mg PO DAILY Aspirin 81 Mg Tab.chew 81 Mg PO DAILY Cetirizine Hcl 10 Mg Tablet 10 Mg PO PRN DAILY PRN Hydrocodone-Apap 7.5-325 (Hydrocodone Bit/Acetaminophen) 1 Each Tablet 1 Tab PO PRN Q6HRS PRN Protonix (Pantoprazole Sodium) 20 Mg Tablet.dr 40 Mg PO PRN DAILY PRN I have reviewed the current psychotropics carefully including drug interactions. Risk benefit ratio favors no change other than as noted in my dictated progress note. Diagnosis: Problems: (1) Anxiety disorder (2) Bipolar affective disorder, mixed (3) Borderline intellectual disability (4) Borderline intellectual disability (5) Dementia in Alzheimer's disease with delusions (6) Dementia, vascular, with delusions (7) Impulse control disorder LAURITA DAVIS MD Aug 12, 2018 23:09
[2018-08-13] MEDS ORDERED: LOPE2TAB27 PO (01:15)
[2018-08-13] MEDS ORDERED: NYST15CR2 TP (01:18)
[2018-08-13] MEDS ORDERED: RISP0.5T24 PO (01:21)
[2018-08-13] MEDS ORDERED: SULF1TAB24 PO (01:25)
[2018-08-13] MEDS: ACETAMINOPHEN 325 MG TABLET PO PRN (05:31)
[2018-08-13] MEDS: LEVOTHYROXINE 100 MCG TABLET PO SCH (05:31)
[2018-08-13 05:50] VITALS: BP 119/74
[2018-08-13] MEDS: MAGNESIUM OXIDE 400 MG TABLET PO SCH (08:02)
[2018-08-13] MEDS: FENOFIBRATE NANOCRYSTALLIZED 145 MG TABLET PO SCH (08:02)
[2018-08-13] MEDS: FERROUS SULFATE 325 MG TABLET. PO SCH (08:02)
[2018-08-13] MEDS: metFORMIN XR 500 MG TAB.ER.24H PO SCH (08:02)
[2018-08-13] MEDS: ASPIRIN 81 MG TAB.CHEW PO SCH (08:02)
[2018-08-13 08:03] VITALS: BP 119/74
[2018-08-13] MEDS: CYANOCOBALAMIN (VITAMIN B-12) 250 MCG TABLET PO SCH (08:03)
[2018-08-13] MEDS: SMZ/TMP 800/160MG TABLET. PO SCH (08:03)
[2018-08-13] MEDS: METOPROLOL TART IMMED RELEASE 25 MG TABLET PO SCH (08:03)
[2018-08-13] MEDS: LACTOBACILLUS RHAMNOSUS GG 1 CAPSULE. PO SCH (08:03)
[2018-08-13] MEDS: LORazepam 0.5 MG TABLET PO SCH (08:04)
[2018-08-13] MEDS: CHOLECALCIFEROL (VITAMIN D3) 50,000 UNIT CAPSULE PO SCH (08:04)
--- NOTE | 2018-08-13 08:30 | NUR ---
Behavior Intervention Response and Plan: BIRP Note: Behavior: Assumed Care of patient, patient located in Patient Room at shift change. Patient exhibited the following behavior Disorganized, Compulsive, Withdrawn. Brief assessment on rounds of vital signs, medication needs, lab studies, and pain. Treatment plan problems 1 & 2. Intervention: Patient assessed and the following interventions initiated safety checks 15 Minute Checks Cognitive Assessment , Head to toe Assessment , Medications. Response: After interactions and interventions patient responded in the following manner, Calm , Compliant ,Disorganized. Continue to assess behaviors and condition will continue to monitor throughout the shift as needed. Patient educated on ADL's, and hand hygiene. Plan: Continue to monitor Master Treatment Plan for patient's progress toward short term goals of Decreased Agitation, Medication Compliance, lace pinner goals to return to previous living setting vs placement. Continue to assess patient for changes in above assessment. Monitor for medication needs, pain, and safety concerns. Hourly rounding performed to ensure safe environment.
--- NOTE | 2018-08-13 08:37 | NUR ---
WEEKLY ACTIVITY THERAPY NOTE Date of Admission: 08/01/2018 Date of AT Assessment: 08/04/2018 Goal aimed: to increase leisure awareness Initial goal: Pt. will participate in at least five groups or individual activities before discharge. Weekly progress towards goal: achieved Group participation level: varies Behaviors observed: Pt. was more engaged earlier in the week; for the last three days, Pt. has been sleeping through groups; when in group, Pt. benefits from one on one engagement and direct prompting; Pt. can be repetitive and difficult to redirect at times but is generally friendly and compliant Plan: change goal- Pt. will participate in at least three groups per week
--- NOTE | 2018-08-13 08:58 | NUR ---
Message received from [facility] indicating they will be here at 12pm today to draft roller picker Briseida.
[2018-08-13] MEDS: guaiFENesin DM 200MG/20MG 10 ML SYRUP PO PRN (09:18)
[2018-08-13] MEDS ORDERED: GUAI5SYR PO (11:14)
--- NOTE | 2018-08-13 12:50 | NUR ---
Transition Record was faxed to follow-up provider with the following elements: Reason for admission, procedures, tests, principal diagnosis, pending studies, patient instructions, 28/04 contact information for unit, phone number to obtain pending test results, plan for follow-up care, physician follow-up, advanced directive information, and medication list with dose, duration and instructions. This information was included in the following documents: History and physical, lab results, study results, progress notes, social work planning form, DC instruction form, patient visit summary, and medication reconciliation form. Date & time record faxed: 11:15 13 August 2018 Record faxed to: Jania Gomez & Dr. Cullen Record discussed with/ report given to: [facility] at [facility]
--- NOTE | 2018-08-14 14:12 | DS ---
DATE OF DISCHARGE: 08/13/2018 DISCHARGE SUMMARY/PSYCHIATRIC PROGRESS NOTE This late entry 08/13/2018 covers elements not covered in my initial note. REASON FOR ADMISSION: Please refer to the admission history for details. Briefly, the patient is a 72-year-old female referred from [facility] by her primary care physician on account of increasing agitation, aggression, noncompliant behaviors. Reportedly, she was removing clothes, sitting bare, nonredirectable. This is within the context of her diagnosis of bipolar disorder, unspecified and borderline intellectual functioning. She had failed outpatient psychiatric interventions. SIGNIFICANT FINDINGS AND CLINICAL COURSE: Following admission, the patient was seen daily individually by myself from a psychiatric standpoint, medical followup per Dr. Lopez/Dr. Segovia. She is quite labile, anxious, obsessive. Adjustments were made in her psychotropics. This was complicated by the fact that she had had torsades event in the past since her last psychiatric hospitalization and all psychotropics have been discontinued except the Depakote. We did consult Cardiology, Dr. Escobar, reviewed past records and was agreeable for starting Risperdal initially at 0.25 mg at bedtime and then 0.5 mg p.o. at bedtime as a mood stabilizer in addition to her Depakote ER 50 mg p.o. at bedtime. Valproic acid level is therapeutic at 51. She remained on Ativan 0.5 mg b.i.d. Gradually mood appeared to improve. She is less labile, aggressive, and will need ongoing EKG monitoring while she is on psychotropics. We will defer this to her primary care physician at the [facility]. REVIEW OF SYSTEMS: Prior to discharge, 08/13/2018, no CV, , pulmonary, eye system symptoms on review. She has vague somatic symptoms. MENTAL STATUS EXAM: Oriented to himself, situation. Speech coherent, rapid at times. Abstraction fair, computation impaired, language function intact, attention span short. Mood and affect, lability was improved. FINAL DIAGNOSES: Bipolar 1 disorder, unspecified with psychotic features; anxiety disorder, unspecified; impulse control disorder, unspecified; borderline, intellectual functioning, history of torsades. Rest unchanged from admission. DISCHARGE MEDICATIONS: Please refer to the MRAD. She needs Cardiology and/EKG followup while she is on psychotropics, will defer to her primary care physician at [facility] for this. Time for discharge day management greater than 30 minutes. LAURITA DAVIS MD DR: SUMEET/kirill JOB#: [id number] / [id number]
--- NOTE | 2018-08-14 18:37 | PN ---
DATE: 08/12/2018 PSYCHIATRIC PROGRESS NOTE This late entry 08/12/2018 covers elements not covered in my initial note. SUBJECTIVE: I met with the patient in the evening. The patient slept 6-3/4 hours previous night. She continues to be somewhat anxious, repetitive, and overall functioning at a borderline intellectual functioning level. She is complaining of pain in her feet and does seem to have a cellulitis, but being treated on antibiotics per Dr. Segovia. Slept 6-3/4 hours previous night. REVIEW OF SYSTEMS: No CV, , pulmonary, eye system symptoms on review. Reliability poor. MENTAL STATUS EXAM: Oriented to herself, situation, somewhat obsessive, repetitive about discharge plans. Rapid speech, abstraction fair, computation impaired, language function intact. Attention span short. No suicidal or homicidal ideation. She has not been aggressive. LABORATORY DATA: Reviewed. IMPRESSION: Bipolar 1 disorder, mixed; borderline intellectual functioning; impulse control disorder; anxiety disorder, unspecified. PLAN: No change from my initial note. MAN Kingston DAVIS MD DR: SUMEET/kirill JOB#: [id number] / [id number]
--- NOTE | 2018-08-14 19:25 | PDOC ---
Exam Note: Hemant Note: Late entry for date of service August 13, 2018. Please also refer to the separate dictated note~for this date of service dictated separately.~Patient seen individually. Discussed the patient with Nursing staff reviewed the chart.~ Reviewed interim history and current functioning. Reviewed vital signs,~Labs/ Radiology~and current medications noted below. Continue current treatment with the changes noted in the dictated addendum note Assessment: Vital Signs: VS - Last 72 Hours, by Label Date Time Temp Pulse Resp B/P (MAP) Pulse Ox O2 Delivery O2 Flow Rate FiO2 08/13/18 08:03 81 119/74 08/13/18 05:50 97.0 81 18 119/74 (89) 100 08/12/18 17:04 18 98 Room Air 08/12/18 16:31 98.1 81 18 107/67 (80) 98 08/12/18 14:07 18 97 Room Air 08/12/18 08:05 91 126/72 08/12/18 06:01 97 08/12/18 05:44 97.2 91 24 126/72 (90) 97 08/11/18 22:59 100 Vital Signs Date Time Temp Pulse Resp B/P (MAP) Pulse Ox O2 Delivery O2 Flow Rate FiO2 08/13/18 08:03 81 119/74 08/13/18 05:50 97.0 18 100 08/12/18 17:04 Room Air I&O Intake and Output 08/14/18 07:00 Intake Total 600 ml Balance 600 ml Intake Oral 600 ml Current Medications: Meds: Current Medications Acetaminophen (Tylenol) 650 mg 1X ONCE PO Last administered on 08/01/18at 11: 44; Start 08/01/18 at 11:45; Stop 08/01/18 at 11:46; Status DC Sodium Chloride 500 ml @ 0 mls/hr 1X ONCE IV Last administered on 08/01/18at 11:45; Start 08/01/18 at 11:45; Stop 08/01/18 at 11:50; Status DC Acetaminophen (Tylenol) 650 mg PRN Q6HRS PRN PO PAIN / TEMP Last administered on 08/13/18at 05:31; Start 08/01/18 at 16:45; Stop 08/13/18 at 13:13; Status DC Vitamin D (Vitamin D3) 50,000 unit Th PO Last administered on 08/13/18at 08:04; Start 08/06/18 at 09:00; Stop 08/13/18 at 13:13; Status DC Metoprolol Tartrate (Lopressor) 25 mg DAILY PO Last administered on 08/13/18at 08:03; Start 08/02/18 at 09:00; Stop 08/13/18 at 13:13; Status DC Aspirin (Children'S Aspirin) 81 mg DAILYWBKFT PO Last administered on at 08:02; Start 08/02/18 at 08:00; Stop 08/13/18 at 13:13; Status DC Carbamide Peroxide (Debrox) 5 drop PRN BID PRN AU IMPACTION; Start 08/01/18 at 17:30; Stop 08/02/18 at 15:39; Status DC Cetirizine HCl (ZyrTEC) 10 mg PRN DAILY PRN PO ALLERGIES Last administered on 08/07/18at 16:11; Start 08/01/18 at 18:00; Stop 08/13/18 at 13:13; Status DC Cyanocobalamin (Vitamin B-12) 250 mcg DAILY PO Last administered on 08/13/18at 08:03; Start 08/02/18 at 09:00; Stop 08/13/18 at 13:13; Status DC Divalproex Sodium (Depakote Er) 1,250 mg QHS PO Last administered on 08/12/18at 20:10; Start 08/01/18 at 21:00; Stop 08/13/18 at 13:13; Status DC Fenofibrate (Tricor) 145 mg DAILY PO Last administered on 08/13/18at 08:02; Start 08/02/18 at 09:00; Stop 08/13/18 at 13:13; Status DC Insulin Glargine (Lantus) 18 units QHS SQ Last administered on 08/12/18at 20:25 ; Start 08/01/18 at 21:00; Stop 08/13/18 at 13:13; Status DC Lactobacillus Rhamnosus (Culturelle) 1 cap BID PO Last administered on at 08:03; Start 08/01/18 at 21:00; Stop 08/13/18 at 13:13; Status DC Magnesium Oxide (Magnesium Oxide) 200 mg DAILY PO Last administered on at 08:02; Start 08/02/18 at 09:00; Stop 08/13/18 at 13:13; Status DC Pantoprazole Sodium (Protonix) 40 mg PRN DAILY PRN PO ACID REFLUX; Start 08/02 at 07:30; Stop 08/13/18 at 13:13; Status DC Atorvastatin Calcium (Lipitor) 20 mg QHS PO Last administered on 08/12/18at 20: 10; Start 08/01/18 at 21:00; Stop 08/13/18 at 13:13; Status DC Bisacodyl (Dulcolax Tab) 5 mg PRN BID PRN PO CONSTIPATION; Start 08/01/18 at 17:15; Stop 08/13/18 at 13:13; Status DC Ferrous Sulfate (Feosol) 325 mg DAILY08 PO Last administered on 08/13/18at 08:02 ; Start 08/02/18 at 08:00; Stop 08/13/18 at 13:13; Status DC Acetaminophen/ Hydrocodone Bitart (Lortab 7.5/325) 1 tab PRN Q6HRS PRN PO MOD/ SEVERE PAIN Last administered on 08/12/18at 14:07; Start 08/01/18 at 17:15; Stop 08/13/18 at 13:13; Status DC Levothyroxine Sodium (Synthroid) 100 mcg DAILY06 PO Last administered on at 05:31; Start 08/02/18 at 06:00; Stop 08/13/18 at 13:13; Status DC Metoprolol Tartrate (Lopressor) 25 mg PRN DAILY PRN PO HYPERTENSION, SEE COMMENTS; Start 08/01/18 at 17:15; Stop 08/13/18 at 13:13; Status DC Lorazepam (Ativan) 0.5 mg BID PO Last administered on 08/13/18at 08:04; Start 08/01/18 at 21:00; Stop 08/13/18 at 13:13; Status DC Metformin HCl (Glucophage) 850 mg BIDWMEALS PO Last administered on 08/05/18at 09:19; Start 08/02/18 at 08:00; Stop 08/05/18 at 16:00; Status DC Influenza Virus Vaccine (Afluria Trivalent [id number] Syringe) 0.5 ml ONCE ONCE VAX IM Last administered on 08/02/18at 16:26; Start 08/02/18 at 09:00; Stop 08/02/18 at 09:01; Status DC Lactobacillus Rhamnosus (Culturelle) 1 cap BID PO ; Start 08/02/18 at 09:00; Status Cancel Carbamide Peroxide (Debrox) 5 drop PRN BID PRN AU IMPACTION; Start 08/02/18 at 15:45; Stop 08/13/18 at 13:13; Status DC Fluconazole (Diflucan) 150 mg 1X ONCE PO Last administered on 08/02/18at 22:29 ; Start 08/02/18 at 22:30; Stop 08/02/18 at 22:31; Status DC Nystatin/ Triamcinolone Acetonide (Mycolog Ii) 1 milena BID TP Last administered on 08/12/18at 20:52; Start 08/03/18 at 09:00; Stop 08/13/18 at 08:59; Status DC Levothyroxine Sodium (Synthroid) 100 mcg DAILY06 PO ; Start 08/03/18 at 06:00; Status UNV Cephalexin HCl (Keflex) 500 mg TID PO ; Start 08/16/18 at 09:00; Status Cancel Metformin HCl (Glucophage Xr) 500 mg BIDWMEALS PO Last administered on at 08:02; Start 08/05/18 at 17:00; Stop 08/13/18 at 13:13; Status DC Loperamide HCl (Imodium) 2 mg PRN Q4HRS PRN PO DIARRHEA Last administered on at 16:11; Start 08/07/18 at 15:15; Stop 08/13/18 at 13:13; Status DC Guaifenesin (Robitussin Dm) 10 ml PRN Q6HRS PRN PO COUGH Last administered on 08/13/18at 09:18; Start 08/07/18 at 15:15; Stop 08/13/18 at 13:13; Status DC Risperidone (RisperDAL) 0.5 mg QHS PO Last administered on 08/12/18at 20:10; Start 08/07/18 at 21:00; Stop 08/12/18 at 20:21; Status DC Trimethoprim/ Sulfamethoxazole (Bactrim Ds) 1 tab BID PO Last administered on 08/13/18at 08:03; Start 08/12/18 at 21:00; Stop 08/13/18 at 13:13; Status DC Risperidone (RisperDAL) 0.75 mg QHS PO Last administered on 08/12/18at 20:52; Start 08/12/18 at 21:00; Stop 08/13/18 at 13:13; Status DC Active Scripts Active Reported Guaifenesin Dm Syrup (Guaifenesin/Dextromethorphan) 5 Ml Syrup 10 Ml PO PRN Q6HRS PRN Bactrim Ds Tablet (Sulfamethoxazole/Trimethoprim) 1 Each Tablet 1 Each PO BID Risperdal (Risperidone) 0.5 Mg Tablet 0.75 Mg PO HS Nystatin-Triamcinolone Cream (Nystatin/Triamcin) 15 Gm Cream..g. 1 Applic TP BID Loperamide (Loperamide Hcl) 2 Mg Tablet 2 Mg PO PRN Q4HRS PRN Metoprolol Tartrate 25 Mg Tablet 25 Mg PO PRN DAILY PRN Lorazepam 0.5 Mg Tablet 0.5 Mg PO BID Levothyroxine Sodium 100 Mcg Tablet 100 Mcg PO DAILYAC D3-50 (Cholecalciferol (Vitamin D3)) 50,000 Unit Capsule 50,000 Unit PO WEEKLY ON FRIDAY Earwax Treatment Drops (Carbamide Peroxide) 15 Ml Drops 5 Drp AU PRN BID PRN Tylenol (Acetaminophen) 325 Mg Tablet 650 Mg PO PRN Q6HRS PRN Depakote Er (Divalproex Sodium) 500 Mg Tab.er.24h 1,250 Mg PO HS Fenofibrate (Fenofibrate,Micronized) 134 Mg Capsule 134 Mg PO DAILY Levemir Flextouch (Insulin Detemir) 100 Unit/1 Ml Insuln.pen 18 Unit SQ HS Magnesium (Magnesium Oxide) 400 Mg Capsule 250 Mg PO DAILY Atorvastatin Calcium 20 Mg Tablet 20 Mg PO DAILY B-12 (Cyanocobalamin (Vitamin B-12)) 500 Mcg Tablet 250 Mcg PO DAILY Acidophilus (Lactobacillus Acidophilus) 1 Each Capsule 1 Each PO BID Metformin Hcl 850 Mg Tablet 500 Mg PO BIDWMEALS Ferrous Sulfate 325 Mg Tablet 1 Tab PO DAILY Metoprolol Tartrate 25 Mg Tablet 25 Mg PO DAILY Aspirin 81 Mg Tab.chew 81 Mg PO DAILY Cetirizine Hcl 10 Mg Tablet 10 Mg PO PRN DAILY PRN Hydrocodone-Apap 7.5-325 (Hydrocodone Bit/Acetaminophen) 1 Each Tablet 1 Tab PO PRN Q6HRS PRN Protonix (Pantoprazole Sodium) 20 Mg Tablet.dr 40 Mg PO PRN DAILY PRN I have reviewed the current psychotropics carefully including drug interactions. Risk benefit ratio favors no change other than as noted in my dictated progress note. Diagnosis: Problems: (1) Anxiety disorder (2) Bipolar affective disorder, mixed (3) Borderline intellectual disability (4) Borderline intellectual disability (5) Dementia in Alzheimer's disease with delusions (6) Dementia, vascular, with delusions (7) Impulse control disorder LAURITA DAVIS MD Aug 14, 2018 19:25
[2018-08-16] MEDS ORDERED: CEPHALEXIN 250 MG CAPSULE PO SCH (09:00)
--- NOTE | 2018-08-17 12:47 | EKG ---
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
== END 2018-08-13 12:50 | DRG 57 ==
LOC: ER 10:32 → GEROPSY 15:19
PROVIDERS: ADMIT Psychiatry & Neurology Psychiatry; ATTEND Psychiatry & Neurology Psychiatry
DX: G30.9 Alzheimer's disease, unspecified (principal); F01.51 Vascular dementia, unspecified severity, with behavioral disturbance; F02.81 Dementia in other diseases classified elsewhere, unspecified severity, with behavioral disturbance; N39.0 Urinary tract infection, site not specified; F25.0 Schizoaffective disorder, bipolar type; E03.9 Hypothyroidism, unspecified; E11.9 Type 2 diabetes mellitus without complications; E78.5 Hyperlipidemia, unspecified; F09 Unspecified mental disorder due to known physiological condition; F63.9 Impulse disorder, unspecified; F41.9 Anxiety disorder, unspecified; I10 Essential (primary) hypertension; K21.9 Gastro-esophageal reflux disease without esophagitis; R41.83 Borderline intellectual functioning; Z66 Do not resuscitate; Z79.899 Other long term (current) drug therapy; Z87.440 Personal history of urinary (tract) infections; Z23 Encounter for immunization; Z91.19 Patient's noncompliance with other medical treatment and regimen
CPT/HCPCS: 36415; 73590; 73600; 73620; 80053; 80061; 80164; 80307; 81001; 82306; 82607; 82947; 83036; 83540; 83550; 83735; 84436; 84443; 84480; 85025; 87086; 90471; 90756; 93005; 93970; G0480; J1815; J7040; 99285-25; G0479; Q2035